=== PATIENT | male | born 1965 | race Caucasian/White ===

== ENCOUNTER 2017-03-03 13:39 | Emergency (ER) | payer OTHER ==
[2017-03-03 14:12] VITALS: BP 177/102
--- NOTE | 2017-03-03 14:21 | EDM.PDOC ---
ED HPI GENERAL MEDICAL PROBLEM - General Chief Complaint: ENT Problem Stated Complaint: TOOTH PAIN Time Seen by Provider: 03/03/17 14:10 Source of Information: Reports: Patient History Limitations: Reports: No Limitations - History of Present Illness INITIAL COMMENTS - FREE TEXT/NARRATIVE: The patient presents with tooth pain. This started a couple days ago. The pain is in the left upper jaw. He has a bad molar. He put a temporary filling in it. He has no fever or chills. He did contact his dentist and she recommended coming in to get an antibiotic and something for pain. Onset: Gradual Duration: Day(s): Location: Reports: Face (left upper gum line) Quality: Reports: Sharp Severity: Severe Improves with: Reports: None Worsens with: Reports: None Associated Symptoms: Reports: No Other Symptoms Treatments PALM GATHERER: Reports: NSAIDS Left Upper Tooth/Teeth Pain Score (Numeric/FACES): 9 - Related Data Allergies Allergy/AdvReac Type Severity Reaction Status Date / Time No Known Allergies Allergy Verified 03/03/17 14:09 Home Meds: Home Meds Penicillin V Potassium 500 mg PO Q6HR #40 tab 03/03/17 [Rx] oxyCODONE HCl/Acetaminophen [Percocet 5-325 mg Tablet] 1 - 2 each PO Q6HR PRN # 20 tablet 03/03/17 [Rx] ED ROS ENT - Review of Systems Review Of Systems: See Below Constitutional: Reports: No Symptoms HEENT: Reports: Dental Pain (Left upper jaw) Respiratory: Reports: No Symptoms Cardiovascular: Reports: No Symptoms Endocrine: Reports: No Symptoms GI/Abdominal: Reports: No Symptoms : Reports: No Symptoms Musculoskeletal: Reports: No Symptoms ED EXAM, ENT - Physical Exam Exam: See Below Exam Limited By: No Limitations General Appearance: Alert, No Apparent Distress Ears: Normal External Exam Nose: Normal Inspection Mouth/Throat: Other (Pain upon palpation, erythema and edema around a molar in the left upper gum line. There is a temporary filling) Course - Vital Signs Last Recorded V/S: Last Vital Signs Temp 96.9 F 03/03/17 14:11 Pulse 81 03/03/17 14:11 Resp 18 03/03/17 14:11 BP 177/102 H 03/03/17 14:11 Pulse Ox 97 03/03/17 14:11 Departure - Departure Time of Disposition: 14:20 Disposition: Home, Self-Care 01 Condition: good Clinical Impression: Dental abscess, Dental caries, Pain, dental - Discharge Information Prescriptions: Penicillin V Potassium 500 mg PO Q6HR #40 tab oxyCODONE HCl/Acetaminophen [Percocet 5-325 mg Tablet] 1 - 2 each PO Q6HR PRN # 20 tablet PRN Reason: Pain Forms: ED Department Discharge Additional Instructions: Take the medication as prescribed. Follow up with your dentist. Please return if you are worse.
== END 2017-03-03 14:39 | disposition home or self-care (01) ==
LOC: JD.ED 13:39
DX: K04.7 Periapical abscess without sinus (principal); K02.9 Dental caries, unspecified
CPT/HCPCS: 99283

== ENCOUNTER 2021-05-31 17:11 | Emergency (ER) | payer BC, OTHER ==
[2021-05-31 19:31] VITALS: BP 147/61; PULSE 88
[2021-05-31] MEDS ORDERED: Ketorolac 60 MG/2 ML SDV IM ONE (20:45)
--- NOTE | 2021-05-31 21:34 | EDM.PDOC ---
ED HPI GENERAL MEDICAL PROBLEM - General Chief Complaint: Lower Extremity Injury/Pain Stated Complaint: COVID + , PAIN ON RT HIP Time Seen by Provider: 05/31/21 19:34 Source of Information: Reports: Patient History Limitations: Reports: No Limitations - History of Present Illness INITIAL COMMENTS - FREE TEXT/NARRATIVE: 55-year-old male presents the emergency department with complaints of left hip pain. Patient states that he has had issues with his left hip and he states it frequently goes out of place and he sees a chiropractor for this. He states that he was in to see the chiropractor earlier in the week and had it put back into place however he had to return for a second time. He states the chiropractor told him and that his muscles were so inflamed that it was di fficult to get it to stay where was supposed to. Patient was diagnosed with Covid 3 days ago. He states that since developing Covid he has had body aches which is causing worsening pain to his left hip and inflammation. Patient is requesting to receive some sort of pain medication to treat the left hip pain. He is requesting a muscle relaxer however I did discuss with him that it is not indicated in this case. He states he sees his primary care provider in 4 days and needs something just to get him by. Right Hip Pain Score (Numeric/FACES): 8 - Related Data Allergies Allergy/AdvReac Type Severity Reaction Status Date / Time No Known Allergies Allergy Verified 05/31/21 19:31 Home Meds: Home Meds Empagliflozin [Jardiance] 10 mg PO DAILY 05/31/21 [History] Rosuvastatin Calcium 20 mg PO DAILY 05/31/21 [History] lisinopriL [Lisinopril] 40 mg PO DAILY 05/31/21 [History] metFORMIN [Glucophage] 500 mg PO BID 05/31/21 [History] Past Medical History - Past Health History Medical/Surgical History: Denies Medical/Surgical History Cardiovascular History: Reports: Hypertension Gastrointestinal History: Reports: Other (See Below) Other Gastrointestinal History: gout Musculoskeletal History: Reports: Arthritis Endocrine/Metabolic History: Reports: Diabetes, Type II - Infectious Disease History Infectious Disease History: Reports: Novel Coronavirus Social & Family History - Tobacco Use Tobacco Use Status *Q: Current Every Day Tobacco User Years of Tobacco use: 30 Packs/Tins Daily: 0.5 - Caffeine Use Caffeine Use: Reports: Soda - Recreational Drug Use Recreational Drug Use: No Review of Systems - Review of Systems Review Of Systems: Comprehensive ROS is negative, except as noted in HPI. ED EXAM, GENERAL - Physical Exam Exam: See Below Exam Limited By: No Limitations General Appearance: Alert, WD/WN, No Apparent Distress Ears: Normal External Exam, Hearing Grossly Normal Nose: Normal Inspection Throat/Mouth: Normal Inspection, Normal Lips, Normal Voice, No Airway Compromise Head: Atraumatic Neck: Normal Inspection, Supple Respiratory/Chest: No Respiratory Distress, No Accessory Muscle Use Cardiovascular: Normal Peripheral Pulses, Regular Rate, Rhythm GI/Abdominal: No Distention (Male) Exam: Deferred Rectal (Males) Exam: Deferred Back Exam: Normal Inspection, Full Range of Motion Extremities: Normal Inspection, Normal Range of Motion, No Pedal Edema, Normal Capillary Refill (Left hip). No: Non-Tender Neurological: Alert, Oriented, Normal Cognition Psychiatric: Normal Affect, Normal Mood Skin Exam: Warm, Dry, Intact, Normal Color, No Rash Lymphatic: No Adenopathy Course - Vital Signs Text/Narrative:: As stated above, patient complains of worsening left hip discomfort and inflammation. He believes that it is exacerbated by having Covid and body aches. He states he has been taking Tylenol and aspirin for the discomfort. However this has not been working. Discussed with him that it would be more appropriate for him to be taking ibuprofen at this time as that more likely will reduce inflammation as well as pain. He is asking for a muscle relaxer as stated above however I did discuss with him that it is not appropriate in this situation. I will give the patient a shot of Toradol. Discussed with him that when he goes home that he could alternate Tylenol 650 mg with ibuprofen 600 mg every 4 hours for the discomfort. This will likely be superior and controlling his body aches and left hip discomfort. Patient is agreeable to this plan. Last Recorded V/S: Last Vital Signs Temp 97 F 05/31/21 19:28 Pulse 88 05/31/21 19:28 Resp 16 05/31/21 19:28 BP 147/61 H 05/31/21 19:28 Pulse Ox 99 05/31/21 19:28 - Orders/Labs/Meds Meds: Medications Discontinued Medications Generic Name Dose Route Start Last Admin Trade Name Freq PRN Reason Stop Dose Admin Ketorolac Tromethamine 60 mg 05/31/21 20:45 05/31/21 21:23 Ketorolac 60 Mg/2 Ml Sdv IM 05/31/21 20:46 60 mg ONETIME ONE Administration Departure - Departure Time of Disposition: 21:34 Disposition: Home, Self-Care 01 Condition: Good Clinical Impression: Hip pain - Discharge Information Instructions: Pain Medicine Instructions, [id number] Referrals: Rick Rubio MD [Primary Care Provider] - Additional Instructions: You were seen in the emergency department today with complaints of pain in your hip that you state is chronic. While in the emergency department you received Toradol, and anti-inflammatory medication. This likely will help with the inflammation and discomfort in your left hip. Go home, rest, drink plenty of fluids to stay hydrated. May alternate Tylenol 650 mg with ibuprofen 600 mg for the next 48 hours. This likely will help decrease inflammation and pain associated in your hip. Follow-up with your primary care provider at the next available appointment. Sepsis Event Note (ED) - Evaluation Sepsis Screening Result: No Definite Risk - Focused Exam Vital Signs: Vital Signs Temp Pulse Resp BP Pulse Ox 05/31/21 19:28 97 F 88 16 147/61 H 99
== END 2021-05-31 21:55 | disposition home or self-care (01) ==
LOC: JD.ED 17:11
DX: M25.552 Pain in left hip (principal); E11.9 Type 2 diabetes mellitus without complications; I10 Essential (primary) hypertension; Z72.0 Tobacco use; Z79.84 Long term (current) use of oral hypoglycemic drugs; Z79.899 Other long term (current) drug therapy; Z86.16 Personal history of COVID-19
CPT/HCPCS: 96372; 99283; J1885

== ENCOUNTER 2021-06-07 17:14 | Inpatient (IN) | payer BC ==
--- NOTE | 2021-06-07 18:32 | CR ---
Chest: Portable view of the chest was obtained. Comparison: No prior chest imaging is available. Patchy areas of increased densities are seen peripherally within the right lung. Heart size and mediastinum are normal. Slight density within the left lung base is noted. Prior left shoulder surgery is noted. No definite acute abnormality is appreciated within the osseous structures. Impression: 1. Patchy areas of peripheral density within the right lung as well as slight density within the left lung base. Findings are suspicious for possible COVID pneumonia. Please correlate. Diagnostic code #3
[2021-06-07] MEDS ORDERED: Sodium Chloride 0.9% 10 ML SDV FLUSH ONE (19:04)
[2021-06-07] MEDS ORDERED: Iopamidol 755 Mg/ML 100 ML Bottle IVPUSH ONE (19:04)
[2021-06-07] MEDS ORDERED: Sodium Chloride 0.9% 100 ML IV SCH (19:15)
[2021-06-07] MEDS ORDERED: Dexamethasone 4 MG Tab PO ONE (19:47)
--- NOTE | 2021-06-07 20:07 | CT ---
CT chest Technique: Multiple axial sections through the chest were obtained. Intravenous contrast was utilized. Study has been performed as a pulmonary angiogram protocol. Comparison: No prior chest CT study, prior chest x-ray performed on the same day (6:15 PM). Findings: Pulmonary arteries are moderately opacified. No discrete filling defects are seen to indicate discrete pulmonary embolism. Thoracic aorta shows no aneurysm. Scattered lymph nodes within the mediastinum are seen which are believed to be within normal limits. No axillary adenopathy is seen. Small portion of the visualized upper abdominal structures show nothing acute. Lung window settings were reviewed which show diffuse increased parenchymal opacity throughout both lungs. These findings are highly suspicious for Covid pneumonia. No pleural effusions are seen. Bone window settings were reviewed which show scattered degenerative change within the thoracic spine with disc space narrowing and osteophytes. No acute osseous finding is otherwise seen. Impression: 1. No findings of pulmonary embolism. 2. Diffuse opacity within both lungs which has the appearance of diffuse Covid pneumonia. 3. Other incidental findings. Diagnostic code #3
[2021-06-07] MEDS ORDERED: REMDESIVIR 200 MG in Sodium Chloride 0.9% 250 ML IV ONE (20:37)
--- NOTE | 2021-06-07 21:25 | EDM.PDOC ---
ED HPI GENERAL MEDICAL PROBLEM - General Chief Complaint: Respiratory Problem Stated Complaint: COVID + SENT BY CLINIC Time Seen by Provider: 06/07/21 17:45 Source of Information: Reports: Patient, RN Notes Reviewed History Limitations: Reports: No Limitations - History of Present Illness INITIAL COMMENTS - FREE TEXT/NARRATIVE: Patient is a 55-year-old male presenting to the emergency department after being sent from [facility]. He was diagnosed as Covid positive on Friday which is the day his symptoms began. Reports that he felt like he was getting better and then over the last few days has gotten worse again reports shortness of breath and severe cough as well as fatigue. He has had no nausea, vomiting, or diarrhea, but states that foods taste metallic. He denies any known fever. He was evaluated in the clinic, he was found to be hypoxic. He was sent to this emergency department on oxygen. On arrival to ER, he was 79% on room air. - Related Data Allergies Allergy/AdvReac Type Severity Reaction Status Date / Time No Known Allergies Allergy Verified 06/07/21 17:42 Home Meds: Home Meds Empagliflozin [Jardiance] 10 mg PO DAILY 05/31/21 [History] Rosuvastatin Calcium 20 mg PO DAILY 05/31/21 [History] lisinopriL [Lisinopril] 40 mg PO DAILY 05/31/21 [History] metFORMIN [Glucophage] 1,000 mg PO BID 05/31/21 [History] Past Medical History - Past Health History Medical/Surgical History: Denies Medical/Surgical History Cardiovascular History: Reports: Hypertension Gastrointestinal History: Reports: Other (See Below) Other Gastrointestinal History: gout Musculoskeletal History: Reports: Arthritis Endocrine/Metabolic History: Reports: Diabetes, Type II - Infectious Disease History Infectious Disease History: Reports: Novel Coronavirus Social & Family History - Tobacco Use Tobacco Use Status *Q: Current Every Day Tobacco User Years of Tobacco use: 22 Packs/Tins Daily: 0.5 - Caffeine Use Caffeine Use: Reports: Soda - Alcohol Use Days Per Week of Alcohol Use: 7 Number of Drinks Per Day: 3 Total Drinks Per Week: 21 - Recreational Drug Use Recreational Drug Use: No ED ROS GENERAL - Review of Systems Review Of Systems: See Below Constitutional: Reports: Fever, Chills, Weakness, Fatigue, Decreased Appetite HEENT: Reports: No Symptoms Respiratory: Reports: Shortness of Breath, Cough Cardiovascular: Reports: Dyspnea on Exertion. Denies: Chest Pain Endocrine: Reports: No Symptoms GI/Abdominal: Reports: Decreased Appetite, Other (Altered sense of taste). Denies: Diarrhea, Vomiting : Reports: No Symptoms Musculoskeletal: Reports: Other (Generalized body aches) Skin: Reports: No Symptoms Neurological: Reports: No Symptoms Psychiatric: Reports: No Symptoms Hematologic/Lymphatic: Reports: No Symptoms Immunologic: Reports: No Symptoms ED EXAM, GENERAL - Physical Exam Exam: See Below Exam Limited By: No Limitations General Appearance: Alert, WD/WN, No Apparent Distress Respiratory/Chest: No Respiratory Distress, No Accessory Muscle Use, Chest Non- Tender, Other (Diffuse rhonchi throughout lung cross. Harsh cough with deep breathing) Cardiovascular: Normal Peripheral Pulses, Regular Rate, Rhythm, No Edema, No Gallop, No JVD, No Murmur, No Rub GI/Abdominal: Normal Bowel Sounds, Soft, Non-Tender, No Organomegaly, No Distention, No Abnormal Bruit, No Mass Extremities: Normal Inspection, Normal Range of Motion, Non-Tender, Normal Cap illary Refill, No Pedal Edema Neurological: Alert, Oriented, CN II-XII Intact, Normal Cognition, Normal Gait, Normal Reflexes, No Motor/Sensory Deficits Psychiatric: Normal Affect, Normal Mood Skin Exam: Warm, Dry, Intact, Normal Color, No Rash #1 Interpretation EKG Date: 06/07/21 Time: 18:29 Rhythm: NSR Rate (Beats/Min): 99 Mulga: LAD-Left Mulga Deviation P-Wave: Present QRS: Other (Right bundle branch block and left anterior fascicular block) ST-T: Normal QT: Prolonged (Mildly) Comparison: NA - No Prior EKG Course - Vital Signs Last Recorded V/S: Last Vital Signs Temp 99.1 F 06/07/21 17:40 Pulse 99 06/07/21 17:40 Resp 19 06/07/21 17:40 BP 91/41 L 06/07/21 17:40 Pulse Ox 79 L 06/07/21 17:40 - Orders/Labs/Meds Orders: Active Orders 24 hr Category Date Time Status Cardiac Monitoring [RC] . DIRECTED Care 06/07/21 17:47 Active Oxygen Therapy [RC] ASDIRECTED Care 06/07/21 17:46 Active HEPATIC FUNCTION PANEL,HFP [CHEM] DAILY Lab 06/08/21 20:45 Ordered HEPATIC FUNCTION PANEL,HFP [CHEM] DAILY Lab 06/09/21 20:45 Ordered HEPATIC FUNCTION PANEL,HFP [CHEM] DAILY Lab 06/10/21 20:45 Ordered HEPATIC FUNCTION PANEL,[employer] [CHEM] DAILY Lab 06/11/21 20:45 Ordered Sodium Chloride 0.9% [Normal Saline] 100 ml Med 06/07/21 19:15 Active IV ASDIRECTED Medication Orders Sodium Chloride (Normal Saline) 100 mls @ 60 mls/min IV ASDIRECTED MYLES Last Admin: 06/07/21 19:29 Dose: 60 mls/min Documented by: KAYLENE Labs: Laboratory Tests 06/07/21 06/07/21 06/07/21 Range/Units 17:45 17:45 17:45 WBC 8.25 (4.23-9.07) K/mm3 RBC 5.49 (4.63-6.08) M/mm3 Hgb 15.5 (13.7-17.5) gm/dl Hct 46.5 (40.1-51.0) % MCV 84.7 (79.0-92.2) fl MCH 28.2 (25.7-32.2) pg MCHC 33.3 (32.2-35.5) g/dl RDW Std Deviation 47.0 H (35.1-43.9) fL Plt Count 236 (163-337) K/mm3 MPV 10.0 (9.4-12.3) fl Neut % (Auto) 80.3 H (34.0-67.9) % Lymph % (Auto) 13.1 L (21.8-53.1) % Sullivan % (Auto) 6.1 (5.3-12.2) % Eos % (Auto) 0.2 L (0.8-7.0) Baso % (Auto) 0.2 (0.1-1.2) % Neut # (Auto) 6.62 H (1.78-5.38) K/mm3 Lymph # (Auto) 1.08 L (1.32-3.57) K/mm3 Sullivan # (Auto) 0.50 (0.30-0.82) K/mm3 Eos # (Auto) 0.02 L (0.04-0.54) K/mm3 Baso # (Auto) 0.02 (0.01-0.08) K/mm3 Manual Slide Review Normal smear D-Dimer, Quantitative 2.43 H (0.19-0.50) mg/L Puncture Site ABG pH (7.35-7.45) ABG pCO2 (35.0-45.0) mmHg ABG pO2 (80.0-100.0) mmHg ABG HCO3 (22.0-26.0) meq/L ABG O2 Saturation (96.0-97.0) % ABG Base Excess (-2-2.0) A-a Gradient mmHg O2 Delivery Device Oxygen Flow Rate FiO2 (21.00-100.00) % Sodium 139 (136-145) mEq/L Potassium 3.6 (3.5-5.1) mEq/L Chloride 102 (98-107) mEq/L Carbon Dioxide 26 (21-32) mEq/L Anion Gap 14.6 (5-15) BUN 18 (7-18) mg/dL Creatinine 1.0 (0.7-1.3) mg/dL Est Cr Clr Drug Dosing 84.15 mL/min Estimated GFR (MDRD) > 60 (>60) mL/min BUN/Creatinine Ratio 18.0 (14-18) Glucose 129 H (70-99) mg/dL Lactic Acid (0.4-2.0) mmol/L Calcium 8.3 L (8.5-10.1) mg/dL Magnesium 2.0 (1.8-2.4) mg/dL Total Bilirubin 0.7 (0.2-1.0) mg/dL Direct Bilirubin (0.0-0.2) mg/dl Indirect Bilirubin AST 47 H (15-37) U/L ALT 43 (16-63) U/L Alkaline Phosphatase 63 (46-116) U/L Troponin I 0.035 (0.00-0.056) ng/mL Total Protein 6.8 (6.4-8.2) g/dl Albumin 2.5 L (3.4-5.0) g/dl Globulin 4.3 gm/dL Albumin/Globulin Ratio 0.6 L (1-2) 06/07/21 06/07/21 06/07/21 Range/Units 17:45 18:38 20:37 WBC (4.23-9.07) K/mm3 RBC (4.63-6.08) M/mm3 Hgb (13.7-17.5) gm/dl Hct (40.1-51.0) % MCV (79.0-92.2) fl MCH (25.7-32.2) pg MCHC (32.2-35.5) g/dl RDW Std Deviation (35.1-43.9) fL Plt Count (163-337) K/mm3 MPV (9.4-12.3) fl Neut % (Auto) (34.0-67.9) % Lymph % (Auto) (21.8-53.1) % Sullivan % (Auto) (5.3-12.2) % Eos % (Auto) (0.8-7.0) Baso % (Auto) (0.1-1.2) % Neut # (Auto) (1.78-5.38) K/mm3 Lymph # (Auto) (1.32-3.57) K/mm3 Sullivan # (Auto) (0.30-0.82) K/mm3 Eos # (Auto) (0.04-0.54) K/mm3 Baso # (Auto) (0.01-0.08) K/mm3 Manual Slide Review D-Dimer, Quantitative (0.19-0.50) mg/L Puncture Site Rt radial ABG pH 7.47 H (7.35-7.45) ABG pCO2 32.5 L (35.0-45.0) mmHg ABG pO2 56.0 L (80.0-100.0) mmHg ABG HCO3 23.2 (22.0-26.0) meq/L ABG O2 Saturation 89.8 L (96.0-97.0) % ABG Base Excess 0.7 (-2-2.0) A-a Gradient 160 mmHg O2 Delivery Device Nasal cannula Oxygen Flow Rate 4.0 FiO2 36.00 (21.00-100.00) % Sodium (136-145) mEq/L Potassium (3.5-5.1) mEq/L Chloride (98-107) mEq/L Carbon Dioxide (21-32) mEq/L Anion Gap (5-15) BUN (7-18) mg/dL Creatinine (0.7-1.3) mg/dL Est Cr Clr Drug Dosing mL/min Estimated GFR (MDRD) (>60) mL/min BUN/Creatinine Ratio (14-18) Glucose (70-99) mg/dL Lactic Acid 1.6 (0.4-2.0) mmol/L Calcium (8.5-10.1) mg/dL Magnesium (1.8-2.4) mg/dL Total Bilirubin 0.7 (0.2-1.0) mg/dL Direct Bilirubin 0.30 H (0.0-0.2) mg/dl Indirect Bilirubin 0.40 AST 45 H (15-37) U/L ALT 41 (16-63) U/L Alkaline Phosphatase 61 (46-116) U/L Troponin I (0.00-0.056) ng/mL Total Protein 6.5 (6.4-8.2) g/dl Albumin 2.3 L (3.4-5.0) g/dl Globulin 4.2 gm/dL Albumin/Globulin Ratio 0.6 L (1-2) Meds: Medications Generic Name Dose Route Start Last Admin Trade Name Freq PRN Reason Stop Dose Admin Sodium Chloride 100 mls @ 60 mls/min 06/07/21 19:15 06/07/21 19:29 Normal Saline IV 60 mls/min ASDIRECTED MYLES Administration Discontinued Medications Generic Name Dose Route Start Last Admin Trade Name Freq PRN Reason Stop Dose Admin Dexamethasone 6 mg 06/07/21 19:47 06/07/21 20:28 Dexamethasone 4 Mg Tab PO 06/07/21 19:48 6 mg ONETIME ONE Administration Remdesivir 200 mg/ Sodium 250 mls @ 250 mls/hr 06/07/21 20:37 06/07/21 20:54 Chloride IV 06/07/21 20:38 250 mls/hr ONETIME ONE Administration Iopamidol 100 ml 06/07/21 19:04 06/07/21 19:29 Iopamidol 755 Mg/Ml 100 Ml Bottle IVPUSH 06/07/21 19:05 100 ml ONETIME ONE Administration Sodium Chloride 10 ml 06/07/21 19:04 06/07/21 19:29 Sodium Chloride 0.9% 10 Ml Sdv FLUSH 06/07/21 19:05 10 ml ONETIME ONE Administration - Re-Assessments/Exams Free Text/Narrative Re-Assessment/Exam: Patient is a 55-year-old male sent to the emergency department from [facility] for hypoxia with known diagnosis of COVID-19. On exam, he has diffuse crackles throughout his lung cross. Oxygen saturation was 79% on room air. O2 is currently at 4 L by nasal cannula saturating in the low 90s. I have ordered blood work, EKG, chest x-ray, and ABGs. 06/07/21 1850 Hematology significant for D-dimer elevated at 2.43. Troponin is normal. ABGs show 7.47, PCO2 32.5, PO2 56, with an oxygen saturation of 89.8. This is on 4L of oxygen by nasal cannula. When significant hypoxia and elevation in D-dimer, I have ordered CT angiogram of the chest. 06/07/212029 CT angiogram of the chest impression as follows: 1. No findings of pulmonary embolism. 2. Diffuse opacities within both lungs which has the appearance of diffuse Covid pneumonia. 3. Other incidental findings. Case discussed with hospitalist, Dr. Campos. She has accepted the patient for admission. She requested that remdesivir be given in the ER and bridge orders be written. She will see him in the morning. Patient was requesting something to help him sleep this evening. She recommended Restoril Departure - Departure Time of Disposition: 20:30 Disposition: Admitted As Inpatient 64 Condition: Fair Clinical Impression: Pneumonia due to COVID-19 virus, Hypoxia - Discharge Information Sepsis Event Note (ED) - Evaluation Sepsis Screening Result: Possible Sepsis Risk - Focused Exam Vital Signs: Vital Signs Temp Pulse Resp BP Pulse Ox 06/07/21 17:40 99.1 F 99 19 91/41 L 79 L - My Orders Last 24 Hours: My Active Orders 06/07/21 17:46 Oxygen Therapy [RC] ASDIRECTED 06/07/21 17:47 Cardiac Monitoring [RC] . DIRECTED 06/07/21 19:15 Sodium Chloride 0.9% [Normal Saline] 100 ml IV ASDIRECTED 06/08/21 20:45 HEPATIC FUNCTION PANEL,HFP [CHEM] DAILY 06/09/21 20:45 HEPATIC FUNCTION PANEL,HFP [CHEM] DAILY 06/10/21 20:45 HEPATIC FUNCTION PANEL,HFP [CHEM] DAILY 06/11/21 20:45 HEPATIC FUNCTION PANEL,HFP [CHEM] DAILY - Assessment/Plan Last 24 Hours: My Active Orders 06/07/21 17:46 Oxygen Therapy [RC] ASDIRECTED 06/07/21 17:47 Cardiac Monitoring [RC] . DIRECTED 06/07/21 19:15 Sodium Chloride 0.9% [Normal Saline] 100 ml IV ASDIRECTED 06/08/21 20:45 HEPATIC FUNCTION PANEL,HFP [CHEM] DAILY 06/09/21 20:45 HEPATIC FUNCTION PANEL,HFP [CHEM] DAILY 06/10/21 20:45 HEPATIC FUNCTION PANEL,HFP [CHEM] DAILY 06/11/21 20:45 HEPATIC FUNCTION PANEL,HFP [CHEM] DAILY
--- NOTE | 2021-06-08 07:37 | PCM.HP.2 ---
H&P History of Present Illness - General Date of Service: 06/08/21 Admit Problem/Dx: Admission Diagnosis/Problem Admission Diagnosis/Problem Hypoxia Covid 19 pneumonia with hypoxia Source of Information: Patient History Limitations: Reports: No Limitations - History of Present Illness Initial Comments - Free Text/Narative: 55yom with pmh of DM type 2, hypertension, and hyperlipidemia presenting to the emergency department after being sent from [facility]. He was diagnosed as Covid positive on Friday which is the day his symptoms began. Reports that he felt like he was getting better and then over the last few days has gotten worse again reports shortness of breath and severe cough as well as fatigue. He has had no nausea, vomiting, or diarrhea, but states that foods taste metallic. He denies any known fever chills sick contacts or recent travel. He was evaluated in the clinic, he was found to be hypoxic. He was sent to this emergency department on oxygen. On arrival to ER, he was 79% on room air. Onset of Symptoms: Reports: Gradual Symptom Onset Date: 06/05/21 Duration of Symptoms: Reports: Getting Worse Location: Reports: Chest Quality: Reports: Pressure Severity: Severe Improves with: Reports: None Worsens with: Reports: None Associated Symptoms: Reports: Cough, cough w sputum, Loss of Appetite, Nausea/Vomiting, Weakness - Related Data Allergies/Adverse Reactions: Allergies Allergy/AdvReac Type Severity Reaction Status Date / Time No Known Allergies Allergy Verified 06/07/21 17:42 Home Medications: Home Meds Empagliflozin [Jardiance] 10 mg PO DAILY 05/31/21 [History] Rosuvastatin Calcium 20 mg PO DAILY 05/31/21 [History] lisinopriL [Lisinopril] 40 mg PO DAILY 05/31/21 [History] metFORMIN [Glucophage] 1,000 mg PO BID 05/31/21 [History] Ibuprofen 600 mg PO Q4HR PRN 06/08/21 [History] Past Medical History - Past Health History Medical/Surgical History: Denies Medical/Surgical History HEENT History: Reports: Other (See Below) Other HEENT History: Pt wears glasses and an upper partial Cardiovascular History: Reports: Hypertension Gastrointestinal History: Reports: Other (See Below) Other Gastrointestinal History: gout Musculoskeletal History: Reports: Arthritis, Back Pain, Chronic Endocrine/Metabolic History: Reports: Diabetes, Type II - Infectious Disease History Infectious Disease History: Reports: Novel Coronavirus - Past Surgical History HEENT Surgical History: Reports: None Cardiovascular Surgical History: Reports: None GI Surgical History: Reports: None Endocrine Surgical History: Reports: None Musculoskeletal Surgical History: Reports: Shoulder Replacement, Other (See Below) Other Musculoskeletal Surgeries/Procedures:: Left shoulder Social & Family History - Family History Family Medical History: Unobtainable - Tobacco Use Tobacco Use Status *Q: Current Every Day Tobacco User Years of Tobacco use: 25 Packs/Tins Daily: 0.5 Used Tobacco, but Quit: No - Caffeine Use Caffeine Use: Reports: Soda - Alcohol Use Days Per Week of Alcohol Use: 4 Number of Drinks Per Day: 4 Total Drinks Per Week: 16 Date of Last Drink: 06/01/21 - Recreational Drug Use Recreational Drug Use: No H&P Review of Systems - Review of Systems: Review Of Systems: See Below General: Reports: Malaise, Weakness, Fatigue HEENT: Reports: No Symptoms Pulmonary: Reports: Shortness of Breath, Wheezing, Pleuritic Chest Pain, Cough, Sputum, Hemoptysis Cardiovascular: Reports: Dyspnea on Exertion Gastrointestinal: Reports: No Symptoms Genitourinary: Reports: No Symptoms Musculoskeletal: Reports: Back Pain Skin: Reports: No Symptoms Psychiatric: Reports: No Symptoms Neurological: Reports: No Symptoms Hematologic/Lymphatic: Reports: No Symptoms Immunologic: Reports: No Symptoms Exam - Exam Exam: See Below - Vital Signs Vital Signs: Last Vital Signs Temp 98.2 F 06/08/21 03:48 Pulse 77 06/08/21 03:48 Resp 41 H 06/08/21 04:00 BP 116/61 06/08/21 03:48 Pulse Ox 92 L 06/08/21 03:48 Weight: 267 lb 1.6 oz - Exam Quality Assessment: Supplemental Oxygen General: Alert, Oriented, Cooperative, Severe Distress HEENT: Conjunctiva Clear, EOMI Neck: Supple, Trachea Midline Lungs: Decreased Breath Sounds, Rales, Rhonchi Cardiovascular: Regular Rate, Regular Rhythm GI/Abdominal Exam: Normal Bowel Sounds, Soft, Non-Tender Back Exam: Normal Inspection Extremities: Normal Inspection Skin: Warm Neurological: Cranial Nerves Intact Neuro Extensive - Mental Status: Alert, Oriented x3 Neuro Extensive - Motor, Sensory, Reflexes: CN II-XII Intact - Patient Data Lab Results Last 24 hrs: Laboratory Results - last 24 hr 06/07/21 06/07/21 06/07/21 Range/Units 17:45 17:45 17:45 WBC 8.25 (4.23-9.07) K/mm3 RBC 5.49 (4.63-6.08) M/mm3 Hgb 15.5 (13.7-17.5) gm/dl Hct 46.5 (40.1-51.0) % MCV 84.7 (79.0-92.2) fl MCH 28.2 (25.7-32.2) pg MCHC 33.3 (32.2-35.5) g/dl RDW Std Deviation 47.0 H (35.1-43.9) fL Plt Count 236 (163-337) K/mm3 MPV 10.0 (9.4-12.3) fl Neut % (Auto) 80.3 H (34.0-67.9) % Lymph % (Auto) 13.1 L (21.8-53.1) % Leon % (Auto) 6.1 (5.3-12.2) % Eos % (Auto) 0.2 L (0.8-7.0) Baso % (Auto) 0.2 (0.1-1.2) % Neut # (Auto) 6.62 H (1.78-5.38) K/mm3 Lymph # (Auto) 1.08 L (1.32-3.57) K/mm3 Leon # (Auto) 0.50 (0.30-0.82) K/mm3 Eos # (Auto) 0.02 L (0.04-0.54) K/mm3 Baso # (Auto) 0.02 (0.01-0.08) K/mm3 Manual Slide Review Normal smear D-Dimer, Quantitative 2.43 H (0.19-0.50) mg/L Puncture Site ABG pH (7.35-7.45) ABG pCO2 (35.0-45.0) mmHg ABG pO2 (80.0-100.0) mmHg ABG HCO3 (22.0-26.0) meq/L ABG O2 Saturation (96.0-97.0) % ABG Base Excess (-2-2.0) A-a Gradient mmHg O2 Delivery Device Oxygen Flow Rate FiO2 (21.00-100.00) % Sodium 139 (136-145) mEq/L Potassium 3.6 (3.5-5.1) mEq/L Chloride 102 (98-107) mEq/L Carbon Dioxide 26 (21-32) mEq/L Anion Gap 14.6 (5-15) BUN 18 (7-18) mg/dL Creatinine 1.0 (0.7-1.3) mg/dL Est Cr Clr Drug Dosing 84.15 mL/min Estimated GFR (MDRD) > 60 (>60) mL/min BUN/Creatinine Ratio 18.0 (14-18) Glucose 129 H (70-99) mg/dL Lactic Acid (0.4-2.0) mmol/L Calcium 8.3 L (8.5-10.1) mg/dL Magnesium 2.0 (1.8-2.4) mg/dL Total Bilirubin 0.7 (0.2-1.0) mg/dL Direct Bilirubin (0.0-0.2) mg/dl Indirect Bilirubin AST 47 H (15-37) U/L ALT 43 (16-63) U/L Alkaline Phosphatase 63 (46-116) U/L Troponin I 0.035 (0.00-0.056) ng/mL C-Reactive Protein (<1.0) mg/dL Total Protein 6.8 (6.4-8.2) g/dl Albumin 2.5 L (3.4-5.0) g/dl Globulin 4.3 gm/dL Albumin/Globulin Ratio 0.6 L (1-2) 06/07/21 06/07/21 06/07/21 Range/Units 17:45 18:38 20:37 WBC (4.23-9.07) K/mm3 RBC (4.63-6.08) M/mm3 Hgb (13.7-17.5) gm/dl Hct (40.1-51.0) % MCV (79.0-92.2) fl MCH (25.7-32.2) pg MCHC (32.2-35.5) g/dl RDW Std Deviation (35.1-43.9) fL Plt Count (163-337) K/mm3 MPV (9.4-12.3) fl Neut % (Auto) (34.0-67.9) % Lymph % (Auto) (21.8-53.1) % Leon % (Auto) (5.3-12.2) % Eos % (Auto) (0.8-7.0) Baso % (Auto) (0.1-1.2) % Neut # (Auto) (1.78-5.38) K/mm3 Lymph # (Auto) (1.32-3.57) K/mm3 Leon # (Auto) (0.30-0.82) K/mm3 Eos # (Auto) (0.04-0.54) K/mm3 Baso # (Auto) (0.01-0.08) K/mm3 Manual Slide Review D-Dimer, Quantitative (0.19-0.50) mg/L Puncture Site Rt radial ABG pH 7.47 H (7.35-7.45) ABG pCO2 32.5 L (35.0-45.0) mmHg ABG pO2 56.0 L (80.0-100.0) mmHg ABG HCO3 23.2 (22.0-26.0) meq/L ABG O2 Saturation 89.8 L (96.0-97.0) % ABG Base Excess 0.7 (-2-2.0) A-a Gradient 160 mmHg O2 Delivery Device Nasal cannula Oxygen Flow Rate 4.0 FiO2 36.00 (21.00-100.00) % Sodium (136-145) mEq/L Potassium (3.5-5.1) mEq/L Chloride (98-107) mEq/L Carbon Dioxide (21-32) mEq/L Anion Gap (5-15) BUN (7-18) mg/dL Creatinine (0.7-1.3) mg/dL Est Cr Clr Drug Dosing mL/min Estimated GFR (MDRD) (>60) mL/min BUN/Creatinine Ratio (14-18) Glucose (70-99) mg/dL Lactic Acid 1.6 (0.4-2.0) mmol/L Calcium (8.5-10.1) mg/dL Magnesium (1.8-2.4) mg/dL Total Bilirubin 0.7 (0.2-1.0) mg/dL Direct Bilirubin 0.30 H (0.0-0.2) mg/dl Indirect Bilirubin 0.40 AST 45 H (15-37) U/L ALT 41 (16-63) U/L Alkaline Phosphatase 61 (46-116) U/L Troponin I (0.00-0.056) ng/mL C-Reactive Protein (<1.0) mg/dL Total Protein 6.5 (6.4-8.2) g/dl Albumin 2.3 L (3.4-5.0) g/dl Globulin 4.2 gm/dL Albumin/Globulin Ratio 0.6 L (1-2) 06/08/21 06/08/21 Range/Units 05:05 05:05 WBC 6.11 (4.23-9.07) K/mm3 RBC 5.16 (4.63-6.08) M/mm3 Hgb 14.6 (13.7-17.5) gm/dl Hct 44.0 (40.1-51.0) % MCV 85.3 (79.0-92.2) fl MCH 28.3 (25.7-32.2) pg MCHC 33.2 (32.2-35.5) g/dl RDW Std Deviation 46.2 H (35.1-43.9) fL Plt Count 234 (163-337) K/mm3 MPV 10.4 (9.4-12.3) fl Neut % (Auto) (34.0-67.9) % Lymph % (Auto) (21.8-53.1) % Leon % (Auto) (5.3-12.2) % Eos % (Auto) (0.8-7.0) Baso % (Auto) (0.1-1.2) % Neut # (Auto) (1.78-5.38) K/mm3 Lymph # (Auto) (1.32-3.57) K/mm3 Leon # (Auto) (0.30-0.82) K/mm3 Eos # (Auto) (0.04-0.54) K/mm3 Baso # (Auto) (0.01-0.08) K/mm3 Manual Slide Review D-Dimer, Quantitative (0.19-0.50) mg/L Puncture Site ABG pH (7.35-7.45) ABG pCO2 (35.0-45.0) mmHg ABG pO2 (80.0-100.0) mmHg ABG HCO3 (22.0-26.0) meq/L ABG O2 Saturation (96.0-97.0) % ABG Base Excess (-2-2.0) A-a Gradient mmHg O2 Delivery Device Oxygen Flow Rate FiO2 (21.00-100.00) % Sodium 139 (136-145) mEq/L Potassium 3.9 (3.5-5.1) mEq/L Chloride 101 (98-107) mEq/L Carbon Dioxide 24 (21-32) mEq/L Anion Gap 17.9 H (5-15) BUN 14 (7-18) mg/dL Creatinine 0.8 (0.7-1.3) mg/dL Est Cr Clr Drug Dosing 105.19 mL/min Estimated GFR (MDRD) > 60 (>60) mL/min BUN/Creatinine Ratio 17.5 (14-18) Glucose 176 H (70-99) mg/dL Lactic Acid (0.4-2.0) mmol/L Calcium 8.0 L (8.5-10.1) mg/dL Magnesium (1.8-2.4) mg/dL Total Bilirubin 0.5 (0.2-1.0) mg/dL Direct Bilirubin (0.0-0.2) mg/dl Indirect Bilirubin AST 41 H (15-37) U/L ALT 39 (16-63) U/L Alkaline Phosphatase 62 (46-116) U/L Troponin I (0.00-0.056) ng/mL C-Reactive Protein 20.3 H* (<1.0) mg/dL Total Protein 6.5 (6.4-8.2) g/dl Albumin 2.2 L (3.4-5.0) g/dl Globulin 4.3 gm/dL Albumin/Globulin Ratio 0.5 L (1-2) Result Diagrams: 06/08/21 05:05 06/08/21 05:05 Sepsis Event Note - Evaluation Sepsis Screening Result: Possible Sepsis Risk - Focused Exam Vital Signs: Vital Signs Temp Pulse Resp BP Pulse Ox 06/08/21 04:00 41 H 06/08/21 03:48 98.2 F 77 30 H 116/61 92 L 06/08/21 03:00 41 H 06/08/21 02:00 31 H 06/08/21 01:00 36 H 06/08/21 00:00 14 09/02/21 23:31 100.0 F 95 26 H 139/54 L 91 L 06/07/21 23:00 42 H 06/07/21 22:03 23 H 06/07/21 22:01 99.9 F 100 22 H 137/76 90 L Problem List Initiated/Reviewed/Updated: Yes Orders Last 24hrs: Active Orders 24 hr Category Date Time Status Admission Status [Patient Status] [ADT] Routine ADT 06/07/21 20:52 Active Activity as Tolerated [RC] BID Care 06/07/21 22:39 Active Cardiac Monitoring [RC] . DIRECTED Care 06/07/21 17:47 Active Oxygen Therapy Adult [Oxygen Therapy] [RC] ASDIRECTED Care 06/07/21 22:43 Active ADA Diabetic [[place] [employer] Diet] [DIET Diet 06/08/21 Breakfast Active ] Temazepam [Restoril] Med 06/07/21 22:42 Active 15 mg PO BEDTIME PRN Pulse Oximetry Continuous Monitoring [OM.PC] Routine Oth 06/07/21 22:47 Active Code Status [Resuscitation Status] Routine Resus Stat 06/07/21 22:38 Ordered Medication Orders Temazepam (Temazepam 15 Mg Cap) 15 mg PO BEDTIME PRN PRN Reason: Sleep Assessment/Plan Comment:: 1. acute respiratory failure with hypoxia- was presented to the er with saturation in 70's. He was placed on nc at 4 liters and the abg shows poor o2 saturation. we have placed him on high flow this am. We have also cont the r emdesmivir that was started yesterday we have added dexamethasone, we have also added baricitinib due to the progressing o2 needs. we will cont duonebs, rt, IS, acapella. 2. Covid pneumonia0 bilateral- cta negative, d dimer is elevated and cont on PPx heparin, crp, ldh, etc all ordered as routime. The patient will get repeat abg this am. 3. DM type 2- we will cont hie metformin and his Jardiance since he is having food cr level and good urine output, we will also add sliding scale insulin. 4. hyperlipidemia- cont home rosuvastatin 5. hypertension- cont lisinopril, daily labs ppx heparin time 80 min full code - Mortality Measure Prognosis:: Good
[2021-06-08] MEDS ORDERED: Ondansetron 4 MG/2 ML SDV IV PRN (07:42)
[2021-06-08] MEDS ORDERED: Morphine 2 MG/ML SYRINGE IVPUSH PRN (07:42)
[2021-06-08] MEDS: Heparin Sodium 5,000 Units/ML Vial SUBCUT SCH ×2 (10:12→16:16)
[2021-06-08] MEDS: Nicotine 14 MG/24 Hr Patch TRDERM SCH (10:13)
[2021-06-08] MEDS: Dexamethasone 10 MG/ML SDV IVPUSH SCH (10:14)
[2021-06-08] MEDS: Lisinopril 20 MG Tab PO SCH (10:14)
[2021-06-08] MEDS: guaiFENesin 600 MG Tab.ER PO SCH ×2 (10:14→21:11)
[2021-06-08] MEDS: Docusate Sodium 100 MG Cap PO SCH ×2 (10:15→21:09)
[2021-06-08] MEDS: Rosuvastatin 10 MG Tab PO SCH (10:15)
[2021-06-08] MEDS: metFORMIN 500 MG Tab PO SCH ×2 (10:15→21:10)
[2021-06-08] MEDS: Polyethylene Glycol 3350 Powder 17 GM Packet PO SCH (10:16)
[2021-06-08] MEDS: cefTRIAXone 2 GM in Sodium Chloride 0.9% 100 ML IV SCH (10:16)
[2021-06-08] MEDS: JARDIANCE PO SCH (10:17)
[2021-06-08] MEDS: Azithromycin 500 MG in Sodium Chloride 0.9% 250 ML IV SCH (11:13)
[2021-06-08] MEDS: Insulin Lispro 100 UNIT/ML 10 ML Vial SUBCUT SCH ×3 (11:14→21:11)
[2021-06-08 11:18] LABS: HEMOGLOBIN A1C 7.2 %
[2021-06-08] MEDS: Calcium Carbonate 500 MG Tab.Chew PO PRN (17:59)
[2021-06-08] MEDS: REMDESIVIR 100 MG in Sodium Chloride 0.9% 100 ML IV SCH (21:09)
[2021-06-09] MEDS: Heparin Sodium 5,000 Units/ML Vial SUBCUT SCH ×3 (01:17→17:48)
[2021-06-09] MEDS: Nicotine 14 MG/24 Hr Patch TRDERM SCH (08:16)
[2021-06-09] MEDS: Rosuvastatin 10 MG Tab PO SCH (08:16)
[2021-06-09] MEDS: Polyethylene Glycol 3350 Powder 17 GM Packet PO SCH (08:16)
[2021-06-09] MEDS: Docusate Sodium 100 MG Cap PO SCH ×2 (08:17→20:53)
[2021-06-09] MEDS: Lisinopril 20 MG Tab PO SCH (08:17)
[2021-06-09] MEDS: metFORMIN 500 MG Tab PO SCH ×2 (08:17→20:53)
[2021-06-09] MEDS: guaiFENesin 600 MG Tab.ER PO SCH ×2 (08:17→20:54)
[2021-06-09] MEDS: Dexamethasone 10 MG/ML SDV IVPUSH SCH (08:18)
[2021-06-09] MEDS: Insulin Lispro 100 UNIT/ML 10 ML Vial SUBCUT SCH ×4 (08:18→21:25)
[2021-06-09] MEDS: cefTRIAXone 2 GM in Sodium Chloride 0.9% 100 ML IV SCH (08:20)
--- NOTE | 2021-06-09 09:19 | PCM.PN ---
- General Info Date of Service: 06/09/21 Subjective Update: sitting up at side of bed. States lots of cough overnight, thick white sputum he cant get up. Functional Status: Reports: Pain Controlled, Tolerating Diet, Ambulating - Review of Systems General: Reports: Weakness HEENT: Reports: No Symptoms Pulmonary: Reports: Shortness of Breath, Cough, Sputum Cardiovascular: Reports: No Symptoms Gastrointestinal: Reports: No Symptoms Genitourinary: Reports: No Symptoms Musculoskeletal: Reports: No Symptoms Skin: Reports: No Symptoms Neurological: Reports: No Symptoms Psychiatric: Reports: No Symptoms - Patient Data Vitals - Most Recent: Last Vital Signs Temp 97.9 F 06/09/21 04:01 Pulse 68 06/09/21 04:01 Resp 18 06/09/21 04:01 BP 120/88 06/09/21 08:17 Pulse Ox 94 L 06/09/21 04:01 Weight - Most Recent: 267 lb 6.4 oz I&O - Last 24 Hours: Intake & Output 06/08/21 06/09/21 06/09/21 22:59 06:59 14:59 Intake Total 1210 1500 Output Total 925 1525 Balance 285 -25 Lab Results Last 24 Hours: Laboratory Results - last 24 hr 06/08/21 06/08/21 06/08/21 Range/Units 05:05 07:37 08:08 WBC (4.23-9.07) K/mm3 RBC (4.63-6.08) M/mm3 Hgb (13.7-17.5) gm/dl Hct (40.1-51.0) % MCV (79.0-92.2) fl MCH (25.7-32.2) pg MCHC (32.2-35.5) g/dl RDW Std Deviation (35.1-43.9) fL Plt Count (163-337) K/mm3 MPV (9.4-12.3) fl Neut % (Auto) (34.0-67.9) % Lymph % (Auto) (21.8-53.1) % Creek % (Auto) (5.3-12.2) % Eos % (Auto) (0.8-7.0) Baso % (Auto) (0.1-1.2) % Neut # (Auto) (1.78-5.38) K/mm3 Lymph # (Auto) (1.32-3.57) K/mm3 Creek # (Auto) (0.30-0.82) K/mm3 Eos # (Auto) (0.04-0.54) K/mm3 Baso # (Auto) (0.01-0.08) K/mm3 Manual Slide Review Puncture Site ABG pH (7.35-7.45) ABG pCO2 (35.0-45.0) mmHg ABG pO2 (80.0-100.0) mmHg ABG HCO3 (22.0-26.0) meq/L ABG O2 Saturation (96.0-97.0) % ABG Base Excess (-2-2.0) Yovani Test A-a Gradient mmHg O2 Delivery Device Oxygen Flow Rate FiO2 (21.00-100.00) % Sodium (136-145) mEq/L Potassium (3.5-5.1) mEq/L Chloride (98-107) mEq/L Carbon Dioxide (21-32) mEq/L Anion Gap (5-15) BUN (7-18) mg/dL Creatinine (0.7-1.3) mg/dL Est Cr Clr Drug Dosing mL/min Estimated GFR (MDRD) (>60) mL/min BUN/Creatinine Ratio (14-18) Glucose (70-99) mg/dL POC Glucose (70-99) mg/dL Hemoglobin A1c 7.2 H ( - 5.6) % Calcium (8.5-10.1) mg/dL Total Bilirubin (0.2-1.0) mg/dL Direct Bilirubin (0.0-0.2) mg/dl Indirect Bilirubin AST (15-37) U/L ALT (16-63) U/L Alkaline Phosphatase (46-116) U/L C-Reactive Protein 20.9 H* (<1.0) mg/dL Total Protein (6.4-8.2) g/dl Albumin (3.4-5.0) g/dl Globulin gm/dL Albumin/Globulin Ratio (1-2) Procalcitonin 0.29 H ng/mL 06/08/21 06/08/21 06/08/21 Range/Units 09:25 10:41 16:13 WBC (4.23-9.07) K/mm3 RBC (4.63-6.08) M/mm3 Hgb (13.7-17.5) gm/dl Hct (40.1-51.0) % MCV (79.0-92.2) fl MCH (25.7-32.2) pg MCHC (32.2-35.5) g/dl RDW Std Deviation (35.1-43.9) fL Plt Count (163-337) K/mm3 MPV (9.4-12.3) fl Neut % (Auto) (34.0-67.9) % Lymph % (Auto) (21.8-53.1) % Creek % (Auto) (5.3-12.2) % Eos % (Auto) (0.8-7.0) Baso % (Auto) (0.1-1.2) % Neut # (Auto) (1.78-5.38) K/mm3 Lymph # (Auto) (1.32-3.57) K/mm3 Creek # (Auto) (0.30-0.82) K/mm3 Eos # (Auto) (0.04-0.54) K/mm3 Baso # (Auto) (0.01-0.08) K/mm3 Manual Slide Review Puncture Site Lt radial ABG pH 7.46 H (7.35-7.45) ABG pCO2 33.2 L (35.0-45.0) mmHg ABG pO2 54.0 L (80.0-100.0) mmHg ABG HCO3 23.5 (22.0-26.0) meq/L ABG O2 Saturation 88.1 L (96.0-97.0) % ABG Base Excess 0.9 (-2-2.0) Yovani Test Positive A-a Gradient 475 mmHg O2 Delivery Device Hiflow nasal cannula Oxygen Flow Rate 30.0 FiO2 80.00 (21.00-100.00) % Sodium (136-145) mEq/L Potassium (3.5-5.1) mEq/L Chloride (98-107) mEq/L Carbon Dioxide (21-32) mEq/L Anion Gap (5-15) BUN (7-18) mg/dL Creatinine (0.7-1.3) mg/dL Est Cr Clr Drug Dosing mL/min Estimated GFR (MDRD) (>60) mL/min BUN/Creatinine Ratio (14-18) Glucose (70-99) mg/dL POC Glucose 236 H 185 H (70-99) mg/dL Hemoglobin A1c ( - 5.6) % Calcium (8.5-10.1) mg/dL Total Bilirubin (0.2-1.0) mg/dL Direct Bilirubin (0.0-0.2) mg/dl Indirect Bilirubin AST (15-37) U/L ALT (16-63) U/L Alkaline Phosphatase (46-116) U/L C-Reactive Protein (<1.0) mg/dL Total Protein (6.4-8.2) g/dl Albumin (3.4-5.0) g/dl Globulin gm/dL Albumin/Globulin Ratio (1-2) Procalcitonin ng/mL 06/08/21 06/09/21 06/09/21 Range/Units 21:04 05:34 05:34 WBC 9.27 H (4.23-9.07) K/mm3 RBC 5.25 (4.63-6.08) M/mm3 Hgb 15.0 (13.7-17.5) gm/dl Hct 44.6 (40.1-51.0) % MCV 85.0 (79.0-92.2) fl MCH 28.6 (25.7-32.2) pg MCHC 33.6 (32.2-35.5) g/dl RDW Std Deviation 46.3 H (35.1-43.9) fL Plt Count 309 D (163-337) K/mm3 MPV 10.1 (9.4-12.3) fl Neut % (Auto) 84.6 H (34.0-67.9) % Lymph % (Auto) 7.7 L (21.8-53.1) % Creek % (Auto) 7.4 (5.3-12.2) % Eos % (Auto) 0 L (0.8-7.0) Baso % (Auto) 0.1 (0.1-1.2) % Neut # (Auto) 7.84 H (1.78-5.38) K/mm3 Lymph # (Auto) 0.71 L (1.32-3.57) K/mm3 Creek # (Auto) 0.69 (0.30-0.82) K/mm3 Eos # (Auto) 0.00 L (0.04-0.54) K/mm3 Baso # (Auto) 0.01 (0.01-0.08) K/mm3 Manual Slide Review Puncture Site ABG pH (7.35-7.45) ABG pCO2 (35.0-45.0) mmHg ABG pO2 (80.0-100.0) mmHg ABG HCO3 (22.0-26.0) meq/L ABG O2 Saturation (96.0-97.0) % ABG Base Excess (-2-2.0) Yovani Test A-a Gradient mmHg O2 Delivery Device Oxygen Flow Rate FiO2 (21.00-100.00) % Sodium 141 (136-145) mEq/L Potassium 4.0 (3.5-5.1) mEq/L Chloride 104 (98-107) mEq/L Carbon Dioxide 25 (21-32) mEq/L Anion Gap 16.0 H (5-15) BUN 19 H (7-18) mg/dL Creatinine 0.8 (0.7-1.3) mg/dL Est Cr Clr Drug Dosing 105.19 mL/min Estimated GFR (MDRD) > 60 (>60) mL/min BUN/Creatinine Ratio 23.8 H (14-18) Glucose 163 H (70-99) mg/dL POC Glucose 181 H (70-99) mg/dL Hemoglobin A1c ( - 5.6) % Calcium 8.7 (8.5-10.1) mg/dL Total Bilirubin (0.2-1.0) mg/dL Direct Bilirubin (0.0-0.2) mg/dl Indirect Bilirubin AST (15-37) U/L ALT (16-63) U/L Alkaline Phosphatase (46-116) U/L C-Reactive Protein (<1.0) mg/dL Total Protein (6.4-8.2) g/dl Albumin (3.4-5.0) g/dl Globulin gm/dL Albumin/Globulin Ratio (1-2) Procalcitonin ng/mL 06/09/21 06/09/21 Range/Units 05:34 06:50 WBC (4.23-9.07) K/mm3 RBC (4.63-6.08) M/mm3 Hgb (13.7-17.5) gm/dl Hct (40.1-51.0) % MCV (79.0-92.2) fl MCH (25.7-32.2) pg MCHC (32.2-35.5) g/dl RDW Std Deviation (35.1-43.9) fL Plt Count (163-337) K/mm3 MPV (9.4-12.3) fl Neut % (Auto) (34.0-67.9) % Lymph % (Auto) (21.8-53.1) % Creek % (Auto) (5.3-12.2) % Eos % (Auto) (0.8-7.0) Baso % (Auto) (0.1-1.2) % Neut # (Auto) (1.78-5.38) K/mm3 Lymph # (Auto) (1.32-3.57) K/mm3 Creek # (Auto) (0.30-0.82) K/mm3 Eos # (Auto) (0.04-0.54) K/mm3 Baso # (Auto) (0.01-0.08) K/mm3 Manual Slide Review Puncture Site ABG pH (7.35-7.45) ABG pCO2 (35.0-45.0) mmHg ABG pO2 (80.0-100.0) mmHg ABG HCO3 (22.0-26.0) meq/L ABG O2 Saturation (96.0-97.0) % ABG Base Excess (-2-2.0) Yovani Test A-a Gradient mmHg O2 Delivery Device Oxygen Flow Rate FiO2 (21.00-100.00) % Sodium (136-145) mEq/L Potassium (3.5-5.1) mEq/L Chloride (98-107) mEq/L Carbon Dioxide (21-32) mEq/L Anion Gap (5-15) BUN (7-18) mg/dL Creatinine (0.7-1.3) mg/dL Est Cr Clr Drug Dosing mL/min Estimated GFR (MDRD) (>60) mL/min BUN/Creatinine Ratio (14-18) Glucose (70-99) mg/dL POC Glucose 157 H (70-99) mg/dL Hemoglobin A1c ( - 5.6) % Calcium (8.5-10.1) mg/dL Total Bilirubin 0.4 (0.2-1.0) mg/dL Direct Bilirubin 0.10 (0.0-0.2) mg/dl Indirect Bilirubin 0.30 AST 38 H (15-37) U/L ALT 40 (16-63) U/L Alkaline Phosphatase 65 (46-116) U/L C-Reactive Protein (<1.0) mg/dL Total Protein 6.4 (6.4-8.2) g/dl Albumin 2.3 L (3.4-5.0) g/dl Globulin 4.1 gm/dL Albumin/Globulin Ratio 0.6 L (1-2) Procalcitonin ng/mL Med Orders - Current: Current Medications Acetaminophen (Acetaminophen 325 Mg Tab) 650 mg PO Q4H PRN PRN Reason: Pain (Mild 1-3)/fever Albuterol/Ipratropium (Albuterol/Ipratropium 3.0-0.5 Mg/3 Ml Neb Soln) 3 ml NEB QIDRT PRN PRN Reason: Shortness Of Breath/wheezing Calcium Carbonate/Glycine (Calcium Carbonate 500 Mg Tab.Chew) 1,000 mg PO Q2HR PRN PRN Reason: Heartburn Last Admin: 06/08/21 17:59 Dose: 1,000 mg Documented by: Dexamethasone (Dexamethasone 10 Mg/Ml Sdv) 6 mg IVPUSH DAILY [facility] Stop: 06/16/21 09:01 Last Admin: 06/09/21 08:18 Dose: 6 mg Documented by: Docusate Sodium (Docusate Sodium 100 Mg Cap) 100 mg PO BID [facility] Last Admin: 06/09/21 08:17 Dose: 100 mg Documented by: Guaifenesin (Guaifenesin 600 Mg Tab.Er) 600 mg PO BID [facility] Last Admin: 06/09/21 08:17 Dose: 600 mg Documented by: Heparin Sodium (Porcine) (Heparin Sodium 5,000 Units/Ml Vial) 5,000 units SUBCUT Q8H [facility] Last Admin: 06/09/21 08:18 Dose: 5,000 units Documented by: Remdesivir 100 mg/ Sodium (Chloride) 100 mls @ 100 mls/hr IV Q24H [facility] Stop: 06/11/21 20:59 Last Admin: 06/08/21 21:09 Dose: 100 mls/hr Documented by: Ceftriaxone Sodium 2 gm/ (Sodium Chloride) 100 mls @ 200 mls/hr IV Q24H [facility] Last Admin: 06/09/21 08:20 Dose: 200 mls/hr Documented by: Azithromycin 500 mg/ Sodium (Chloride) 250 mls @ 250 mls/hr IV Q24H [facility] Last Admin: 06/08/21 11:13 Dose: 250 mls/hr Documented by: Insulin Human Lispro (Insulin Lispro 100 Unit/Ml 10 Ml Vial) 0 unit SUBCUT QIDACANDBED [facility]; Protocol Last Admin: 06/09/21 08:18 Dose: 2 units Documented by: Lisinopril (Lisinopril 20 Mg Tab) 40 mg PO DAILY [facility] Last Admin: 06/09/21 08:17 Dose: 40 mg Documented by: Metformin HCl (Metformin 500 Mg Tab) 1,000 mg PO BID [facility] Last Admin: 06/09/21 08:17 Dose: 1,000 mg Documented by: Miscellaneous Information (Remove Nicotine Patch) 1 ea TRDERM DAILY [facility] Last Admin: 06/09/21 08:19 Dose: 1 ea Documented by: Nicotine (Nicotine 14 Mg/24 Hr Patch) 14 mg TRDERM DAILY [facility] Last Admin: 06/09/21 08:16 Dose: 14 mg Documented by: Empagliflozin 10 Mg (Tablet Ptom) 0 mg PO DAILY [facility] Last Admin: 06/08/21 10:17 Dose: Not Given Documented by: Ondansetron HCl (Ondansetron 4 Mg/2 Ml Sdv) 4 mg IV Q4H PRN PRN Reason: Nausea/Vomiting Polyethylene Glycol (Polyethylene Glycol 3350 Powder 17 Gm Packet) 17 gm PO DA NASIR [facility] Last Admin: 06/09/21 08:16 Dose: 17 gm Documented by: Rosuvastatin Calcium (Rosuvastatin 10 Mg Tab) 20 mg PO DAILY [facility] Last Admin: 06/09/21 08:16 Dose: 20 mg Documented by: Temazepam (Temazepam 15 Mg Cap) 15 mg PO BEDTIME PRN PRN Reason: Sleep Discontinued Medications Dexamethasone (Dexamethasone 4 Mg Tab) 6 mg PO ONETIME ONE Stop: 06/07/21 19:48 Last Admin: 06/07/21 20:28 Dose: 6 mg Documented by: Sodium Chloride (Normal Saline) 100 mls @ 60 mls/min IV ASDIRECTED [facility] Last Admin: 06/07/21 19:29 Dose: 60 mls/min Documented by: Remdesivir 200 mg/ Sodium (Chloride) 250 mls @ 250 mls/hr IV ONETIME ONE Stop: 06/07/21 20:38 Last Admin: 06/07/21 20:54 Dose: 250 mls/hr Documented by: Iopamidol (Iopamidol 755 Mg/Ml 100 Ml Bottle) 100 ml IVPUSH ONETIME ONE Stop: 06/07/21 19:05 Last Admin: 06/07/21 19:29 Dose: 100 ml Documented by: Morphine Sulfate (Morphine 2 Mg/Ml Syringe) 2 mg IVPUSH Q2H PRN PRN Reason: Pain (severe 7-10) Stop: 06/09/21 07:44 Sodium Chloride (Sodium Chloride 0.9% 10 Ml Sdv) 10 ml FLUSH ONETIME ONE Stop: 06/07/21 19:05 Last Admin: 06/07/21 19:29 Dose: 10 ml Documented by: - Exam Quality Assessment: Supplemental Oxygen General: Alert, Oriented, Cooperative, Mild Distress HEENT: Pupils Equal, Pupils Reactive, EOMI Neck: Supple Lungs: Decreased Breath Sounds, Rales (bilateral lower) Cardiovascular: Regular Rate, Regular Rhythm GI/Abdominal Exam: Normal Bowel Sounds, Soft Skin: Warm Psy/Mental Status: Alert, Normal Affect, Normal Mood - Patient Data Lab Results Last 24 hrs: Laboratory Results - last 24 hr 06/08/21 06/08/21 06/08/21 Range/Units 05:05 07:37 08:08 WBC (4.23-9.07) K/mm3 RBC (4.63-6.08) M/mm3 Hgb (13.7-17.5) gm/dl Hct (40.1-51.0) % MCV (79.0-92.2) fl MCH (25.7-32.2) pg MCHC (32.2-35.5) g/dl RDW Std Deviation (35.1-43.9) fL Plt Count (163-337) K/mm3 MPV (9.4-12.3) fl Neut % (Auto) (34.0-67.9) % Lymph % (Auto) (21.8-53.1) % Creek % (Auto) (5.3-12.2) % Eos % (Auto) (0.8-7.0) Baso % (Auto) (0.1-1.2) % Neut # (Auto) (1.78-5.38) K/mm3 Lymph # (Auto) (1.32-3.57) K/mm3 Creek # (Auto) (0.30-0.82) K/mm3 Eos # (Auto) (0.04-0.54) K/mm3 Baso # (Auto) (0.01-0.08) K/mm3 Manual Slide Review Puncture Site ABG pH (7.35-7.45) ABG pCO2 (35.0-45.0) mmHg ABG pO2 (80.0-100.0) mmHg ABG HCO3 (22.0-26.0) meq/L ABG O2 Saturation (96.0-97.0) % ABG Base Excess (-2-2.0) Yovani Test A-a Gradient mmHg O2 Delivery Device Oxygen Flow Rate FiO2 (21.00-100.00) % Sodium (136-145) mEq/L Potassium (3.5-5.1) mEq/L Chloride (98-107) mEq/L Carbon Dioxide (21-32) mEq/L Anion Gap (5-15) BUN (7-18) mg/dL Creatinine (0.7-1.3) mg/dL Est Cr Clr Drug Dosing mL/min Estimated GFR (MDRD) (>60) mL/min BUN/Creatinine Ratio (14-18) Glucose (70-99) mg/dL POC Glucose (70-99) mg/dL Hemoglobin A1c 7.2 H ( - 5.6) % Calcium (8.5-10.1) mg/dL Total Bilirubin (0.2-1.0) mg/dL Direct Bilirubin (0.0-0.2) mg/dl Indirect Bilirubin AST (15-37) U/L ALT (16-63) U/L Alkaline Phosphatase (46-116) U/L C-Reactive Protein 20.9 H* (<1.0) mg/dL Total Protein (6.4-8.2) g/dl Albumin (3.4-5.0) g/dl Globulin gm/dL Albumin/Globulin Ratio (1-2) Procalcitonin 0.29 H ng/mL 06/08/21 06/08/21 06/08/21 Range/Units 09:25 10:41 16:13 WBC (4.23-9.07) K/mm3 RBC (4.63-6.08) M/mm3 Hgb (13.7-17.5) gm/dl Hct (40.1-51.0) % MCV (79.0-92.2) fl MCH (25.7-32.2) pg MCHC (32.2-35.5) g/dl RDW Std Deviation (35.1-43.9) fL Plt Count (163-337) K/mm3 MPV (9.4-12.3) fl Neut % (Auto) (34.0-67.9) % Lymph % (Auto) (21.8-53.1) % Creek % (Auto) (5.3-12.2) % Eos % (Auto) (0.8-7.0) Baso % (Auto) (0.1-1.2) % Neut # (Auto) (1.78-5.38) K/mm3 Lymph # (Auto) (1.32-3.57) K/mm3 Creek # (Auto) (0.30-0.82) K/mm3 Eos # (Auto) (0.04-0.54) K/mm3 Baso # (Auto) (0.01-0.08) K/mm3 Manual Slide Review Puncture Site Lt radial ABG pH 7.46 H (7.35-7.45) ABG pCO2 33.2 L (35.0-45.0) mmHg ABG pO2 54.0 L (80.0-100.0) mmHg ABG HCO3 23.5 (22.0-26.0) meq/L ABG O2 Saturation 88.1 L (96.0-97.0) % ABG Base Excess 0.9 (-2-2.0) Yovani Test Positive A-a Gradient 475 mmHg O2 Delivery Device Hiflow nasal cannula Oxygen Flow Rate 30.0 FiO2 80.00 (21.00-100.00) % Sodium (136-145) mEq/L Potassium (3.5-5.1) mEq/L Chloride (98-107) mEq/L Carbon Dioxide (21-32) mEq/L Anion Gap (5-15) BUN (7-18) mg/dL Creatinine (0.7-1.3) mg/dL Est Cr Clr Drug Dosing mL/min Estimated GFR (MDRD) (>60) mL/min BUN/Creatinine Ratio (14-18) Glucose (70-99) mg/dL POC Glucose 236 H 185 H (70-99) mg/dL Hemoglobin A1c ( - 5.6) % Calcium (8.5-10.1) mg/dL Total Bilirubin (0.2-1.0) mg/dL Direct Bilirubin (0.0-0.2) mg/dl Indirect Bilirubin AST (15-37) U/L ALT (16-63) U/L Alkaline Phosphatase (46-116) U/L C-Reactive Protein (<1.0) mg/dL Total Protein (6.4-8.2) g/dl Albumin (3.4-5.0) g/dl Globulin gm/dL Albumin/Globulin Ratio (1-2) Procalcitonin ng/mL 06/08/21 06/09/21 06/09/21 Range/Units 21:04 05:34 05:34 WBC 9.27 H (4.23-9.07) K/mm3 RBC 5.25 (4.63-6.08) M/mm3 Hgb 15.0 (13.7-17.5) gm/dl Hct 44.6 (40.1-51.0) % MCV 85.0 (79.0-92.2) fl MCH 28.6 (25.7-32.2) pg MCHC 33.6 (32.2-35.5) g/dl RDW Std Deviation 46.3 H (35.1-43.9) fL Plt Count 309 D (163-337) K/mm3 MPV 10.1 (9.4-12.3) fl Neut % (Auto) 84.6 H (34.0-67.9) % Lymph % (Auto) 7.7 L (21.8-53.1) % Creek % (Auto) 7.4 (5.3-12.2) % Eos % (Auto) 0 L (0.8-7.0) Baso % (Auto) 0.1 (0.1-1.2) % Neut # (Auto) 7.84 H (1.78-5.38) K/mm3 Lymph # (Auto) 0.71 L (1.32-3.57) K/mm3 Creek # (Auto) 0.69 (0.30-0.82) K/mm3 Eos # (Auto) 0.00 L (0.04-0.54) K/mm3 Baso # (Auto) 0.01 (0.01-0.08) K/mm3 Manual Slide Review Puncture Site ABG pH (7.35-7.45) ABG pCO2 (35.0-45.0) mmHg ABG pO2 (80.0-100.0) mmHg ABG HCO3 (22.0-26.0) meq/L ABG O2 Saturation (96.0-97.0) % ABG Base Excess (-2-2.0) Yovani Test A-a Gradient mmHg O2 Delivery Device Oxygen Flow Rate FiO2 (21.00-100.00) % Sodium 141 (136-145) mEq/L Potassium 4.0 (3.5-5.1) mEq/L Chloride 104 (98-107) mEq/L Carbon Dioxide 25 (21-32) mEq/L Anion Gap 16.0 H (5-15) BUN 19 H (7-18) mg/dL Creatinine 0.8 (0.7-1.3) mg/dL Est Cr Clr Drug Dosing 105.19 mL/min Estimated GFR (MDRD) > 60 (>60) mL/min BUN/Creatinine Ratio 23.8 H (14-18) Glucose 163 H (70-99) mg/dL POC Glucose 181 H (70-99) mg/dL Hemoglobin A1c ( - 5.6) % Calcium 8.7 (8.5-10.1) mg/dL Total Bilirubin (0.2-1.0) mg/dL Direct Bilirubin (0.0-0.2) mg/dl Indirect Bilirubin AST (15-37) U/L ALT (16-63) U/L Alkaline Phosphatase (46-116) U/L C-Reactive Protein (<1.0) mg/dL Total Protein (6.4-8.2) g/dl Albumin (3.4-5.0) g/dl Globulin gm/dL Albumin/Globulin Ratio (1-2) Procalcitonin ng/mL 06/09/21 06/09/21 Range/Units 05:34 06:50 WBC (4.23-9.07) K/mm3 RBC (4.63-6.08) M/mm3 Hgb (13.7-17.5) gm/dl Hct (40.1-51.0) % MCV (79.0-92.2) fl MCH (25.7-32.2) pg MCHC (32.2-35.5) g/dl RDW Std Deviation (35.1-43.9) fL Plt Count (163-337) K/mm3 MPV (9.4-12.3) fl Neut % (Auto) (34.0-67.9) % Lymph % (Auto) (21.8-53.1) % Creek % (Auto) (5.3-12.2) % Eos % (Auto) (0.8-7.0) Baso % (Auto) (0.1-1.2) % Neut # (Auto) (1.78-5.38) K/mm3 Lymph # (Auto) (1.32-3.57) K/mm3 Creek # (Auto) (0.30-0.82) K/mm3 Eos # (Auto) (0.04-0.54) K/mm3 Baso # (Auto) (0.01-0.08) K/mm3 Manual Slide Review Puncture Site ABG pH (7.35-7.45) ABG pCO2 (35.0-45.0) mmHg ABG pO2 (80.0-100.0) mmHg ABG HCO3 (22.0-26.0) meq/L ABG O2 Saturation (96.0-97.0) % ABG Base Excess (-2-2.0) Yovani Test A-a Gradient mmHg O2 Delivery Device Oxygen Flow Rate FiO2 (21.00-100.00) % Sodium (136-145) mEq/L Potassium (3.5-5.1) mEq/L Chloride (98-107) mEq/L Carbon Dioxide (21-32) mEq/L Anion Gap (5-15) BUN (7-18) mg/dL Creatinine (0.7-1.3) mg/dL Est Cr Clr Drug Dosing mL/min Estimated GFR (MDRD) (>60) mL/min BUN/Creatinine Ratio (14-18) Glucose (70-99) mg/dL POC Glucose 157 H (70-99) mg/dL Hemoglobin A1c ( - 5.6) % Calcium (8.5-10.1) mg/dL Total Bilirubin 0.4 (0.2-1.0) mg/dL Direct Bilirubin 0.10 (0.0-0.2) mg/dl Indirect Bilirubin 0.30 AST 38 H (15-37) U/L ALT 40 (16-63) U/L Alkaline Phosphatase 65 (46-116) U/L C-Reactive Protein (<1.0) mg/dL Total Protein 6.4 (6.4-8.2) g/dl Albumin 2.3 L (3.4-5.0) g/dl Globulin 4.1 gm/dL Albumin/Globulin Ratio 0.6 L (1-2) Procalcitonin ng/mL Result Diagrams: 06/09/21 05:34 06/09/21 05:34 Sepsis Event Note - Evaluation Sepsis Screening Result: No Definite Risk - Focused Exam Vital Signs: Vital Signs Temp Pulse Resp BP Pulse Ox 06/09/21 08:17 120/88 06/09/21 04:01 97.9 F 68 18 94 L 06/08/21 23:00 21 H - Problem List Review Problem List Initiated/Reviewed/Updated: Yes - My Orders Last 24 Hours: My Active Orders 06/08/21 09:00 Baricitinib [Olumiant] 4 mg PO DAILY Docusate Sodium [Colace] 100 mg PO BID Empagliflozin 0 mg PO DAILY Heparin Sodium 5,000 units SUBCUT Q8H Nicotine [Habitrol] 14 mg TRDERM DAILY Rosuvastatin [Crestor] 20 mg PO DAILY cefTRIAXone [Rocephin] 2 gm Sodium Chloride 0.9% [Normal Saline] 100 ml IV Q24H dexAMETHasone [Decadron] 6 mg IVPUSH DAILY lisinopriL [Prinivil] 40 mg PO DAILY metFORMIN [Glucophage] 1,000 mg PO BID polyethylene glycoL 3350 [MiraLAX] 17 gm PO DAILY 06/08/21 09:30 Azithromycin [Zithromax] 500 mg Sodium Chloride 0.9% [Normal Saline (AdvBag)] 250 ml IV Q24H guaiFENesin [Mucinex] 600 mg PO BID 06/08/21 11:00 Insulin Lispro [HumaLOG] See Protocol SUBCUT QIDACANDBED 06/08/21 17:49 Calcium Carbonate [Tums] 1,000 mg PO Q2HR PRN 06/08/21 20:00 Remdesivir 100 mg Sodium Chloride 0.9% [Normal Saline] 100 ml IV Q24H 06/08/21 20:04 Oxygen Therapy [RC] ASDIRECTED 06/09/21 09:00 Remove Patch 1 ea TRDERM DAILY 06/10/21 05:11 BASIC METABOLIC PANEL,BMP [CHEM] AM CBC WITH AUTO DIFF [HEME] AM 06/10/21 08:00 HEPATIC FUNCTION PANEL,HFP [CHEM] DAILY 06/11/21 05:11 BASIC METABOLIC PANEL,BMP [CHEM] AM CBC WITH AUTO DIFF [HEME] AM 06/11/21 08:00 HEPATIC FUNCTION PANEL,HFP [CHEM] DAILY 06/12/21 05:11 BASIC METABOLIC PANEL,BMP [CHEM] AM CBC WITH AUTO DIFF [HEME] AM 06/12/21 08:00 HEPATIC FUNCTION PANEL,HFP [CHEM] DAILY - Plan Plan:: 1. acute respiratory failure with hypoxia- was presented to the er with saturation in 70's. He was placed on nc at 4 liters and the abg shows poor o2 saturation. we have placed him on high flow this am. We have also cont the remdesmivir that was started yesterday we have added dexamethasone, we have also added baricitinib due to the progressing o2 needs. we will cont duonebs, rt, IS, acapella. 06/09 having difficulty with thick white sputum he is having difficulty gettingup. we discussed with will try mucinex bid and add a one time dose of mucomyst to see if this helps. he is cont on 30 liters at 80 fio2. 2. Covid pneumonia0 bilateral- cta negative, d dimer is elevated and cont on PPx heparin, crp, ldh, etc all ordered as routime. The patient will get repeat abg this am. 06/09 as statedabove 3. DM type 2- we will cont hie metformin and his Jardiance since he is having food cr level and good urine output, we will also add sliding scale insulin. 06/09 elevation with dex 4. hyperlipidemia- cont home rosuvastatin 5. hypertension- cont lisinopril, daily labs ppx heparin time 36 min full code
[2021-06-09] MEDS ORDERED: Acetylcysteine 20% 200 MG/ML 30 ML Nebulizer Soln SDV NEB ONE (09:20)
[2021-06-09] MEDS: Azithromycin 500 MG in Sodium Chloride 0.9% 250 ML IV SCH (09:20)
[2021-06-09] MEDS ORDERED: Acetylcysteine 20% 200 MG/ML 4 ML Nebulizer Soln SDV NEB ONE (09:45)
[2021-06-09] MEDS: Albuterol/Ipratropium 3.0-0.5 MG/3 ML Neb Soln NEB PRN (10:13)
[2021-06-09] MEDS: JARDIANCE PO SCH (11:12)
[2021-06-09] MEDS: REMDESIVIR 100 MG in Sodium Chloride 0.9% 100 ML IV SCH (20:53)
[2021-06-09] MEDS: Acetaminophen 325 MG Tab PO PRN (20:55)
[2021-06-09] MEDS: Temazepam 15 MG Cap PO PRN (20:56)
[2021-06-10] MEDS: Heparin Sodium 5,000 Units/ML Vial SUBCUT SCH ×3 (00:40→17:00)
[2021-06-10] MEDS: Insulin Lispro 100 UNIT/ML 10 ML Vial SUBCUT SCH ×4 (07:30→21:41)
[2021-06-10] MEDS: Albuterol/Ipratropium 3.0-0.5 MG/3 ML Neb Soln NEB PRN ×2 (09:13→22:32)
[2021-06-10] MEDS: Dexamethasone 10 MG/ML SDV IVPUSH SCH (09:48)
[2021-06-10] MEDS: Docusate Sodium 100 MG Cap PO SCH ×2 (09:48→20:37)
[2021-06-10] MEDS: Rosuvastatin 10 MG Tab PO SCH (09:48)
[2021-06-10] MEDS: metFORMIN 500 MG Tab PO SCH (09:49)
[2021-06-10] MEDS: Nicotine 14 MG/24 Hr Patch TRDERM SCH (09:49)
[2021-06-10] MEDS: guaiFENesin 600 MG Tab.ER PO SCH ×2 (09:49→20:37)
[2021-06-10] MEDS: Lisinopril 20 MG Tab PO SCH (09:49)
[2021-06-10] MEDS: Polyethylene Glycol 3350 Powder 17 GM Packet PO SCH ×2 (09:50→10:01)
[2021-06-10] MEDS: cefTRIAXone 2 GM in Sodium Chloride 0.9% 100 ML IV SCH (09:51)
[2021-06-10] MEDS: JARDIANCE PO SCH (10:12)
[2021-06-10] MEDS: Azithromycin 500 MG in Sodium Chloride 0.9% 250 ML IV SCH (11:07)
--- NOTE | 2021-06-10 13:06 | PCM.PN ---
- General Info Date of Service: 06/10/21 Admission Dx/Problem (Free Text): Admission Diagnosis/Problem Admission Diagnosis/Problem Hypoxia Covid 19 pneumonia with hypoxia Subjective Update: Patient states he does not feel much different today. Continues to have short ness of breath and cough. No fevers though. Functional Status: Reports: Pain Controlled - Review of Systems General: Denies: Fever Pulmonary: Reports: Shortness of Breath, Cough Cardiovascular: Denies: Chest Pain Gastrointestinal: Reports: No Symptoms - Patient Data Vitals - Most Recent: Last Vital Signs Temp 98.1 F 06/10/21 11:18 Pulse 92 06/10/21 11:18 Resp 20 06/10/21 11:18 BP 144/59 H 06/10/21 11:18 Pulse Ox 89 L 06/10/21 11:18 Weight - Most Recent: 268 lb 14.4 oz I&O - Last 24 Hours: Intake & Output 06/09/21 06/10/21 06/10/21 22:59 06:59 14:59 Intake Total 1110 875 120 Output Total 1000 1575 Balance 110 -700 120 Lab Results Last 24 Hours: Laboratory Results - last 24 hr 06/09/21 06/09/21 06/10/21 Range/Units 17:47 20:44 06:30 WBC 10.60 H (4.23-9.07) K/mm3 RBC 5.57 (4.63-6.08) M/mm3 Hgb 15.8 (13.7-17.5) gm/dl Hct 47.8 (40.1-51.0) % MCV 85.8 (79.0-92.2) fl MCH 28.4 (25.7-32.2) pg MCHC 33.1 (32.2-35.5) g/dl RDW Std Deviation 47.5 H (35.1-43.9) fL Plt Count 321 (163-337) K/mm3 MPV 9.3 L (9.4-12.3) fl Neut % (Auto) 83.3 H (34.0-67.9) % Lymph % (Auto) 11.4 L (21.8-53.1) % [place] % (Auto) 4.4 L (5.3-12.2) % Eos % (Auto) 0.3 L (0.8-7.0) Baso % (Auto) 0.2 (0.1-1.2) % Neut # (Auto) 8.83 H (1.78-5.38) K/mm3 Lymph # (Auto) 1.21 L (1.32-3.57) K/mm3 [place] # (Auto) 0.47 (0.30-0.82) K/mm3 Eos # (Auto) 0.03 L (0.04-0.54) K/mm3 Baso # (Auto) 0.02 (0.01-0.08) K/mm3 Manual Slide Review Normal smear Sodium (136-145) mEq/L Potassium (3.5-5.1) mEq/L Chloride (98-107) mEq/L Carbon Dioxide (21-32) mEq/L Anion Gap (5-15) BUN (7-18) mg/dL Creatinine (0.7-1.3) mg/dL Est Cr Clr Drug Dosing mL/min Estimated GFR (MDRD) (>60) mL/min BUN/Creatinine Ratio (14-18) Glucose (70-99) mg/dL POC Glucose 132 H 201 H (70-99) mg/dL Calcium (8.5-10.1) mg/dL 06/10/21 06/10/21 06/10/21 Range/Units 06:30 06:57 07:28 WBC (4.23-9.07) K/mm3 RBC (4.63-6.08) M/mm3 Hgb (13.7-17.5) gm/dl Hct (40.1-51.0) % MCV (79.0-92.2) fl MCH (25.7-32.2) pg MCHC (32.2-35.5) g/dl RDW Std Deviation (35.1-43.9) fL Plt Count (163-337) K/mm3 MPV (9.4-12.3) fl Neut % (Auto) (34.0-67.9) % Lymph % (Auto) (21.8-53.1) % [place] % (Auto) (5.3-12.2) % Eos % (Auto) (0.8-7.0) Baso % (Auto) (0.1-1.2) % Neut # (Auto) (1.78-5.38) K/mm3 Lymph # (Auto) (1.32-3.57) K/mm3 [place] # (Auto) (0.30-0.82) K/mm3 Eos # (Auto) (0.04-0.54) K/mm3 Baso # (Auto) (0.01-0.08) K/mm3 Manual Slide Review Sodium 145 (136-145) mEq/L Potassium 4.0 (3.5-5.1) mEq/L Chloride 107 (98-107) mEq/L Carbon Dioxide 28 (21-32) mEq/L Anion Gap 14.0 (5-15) BUN 27 H (7-18) mg/dL Creatinine 1.1 (0.7-1.3) mg/dL Est Cr Clr Drug Dosing 76.50 mL/min Estimated GFR (MDRD) > 60 (>60) mL/min BUN/Creatinine Ratio 24.5 H (14-18) Glucose 94 (70-99) mg/dL POC Glucose 72 115 H (70-99) mg/dL Calcium 8.8 (8.5-10.1) mg/dL 06/10/21 Range/Units 11:17 WBC (4.23-9.07) K/mm3 RBC (4.63-6.08) M/mm3 Hgb (13.7-17.5) gm/dl Hct (40.1-51.0) % MCV (79.0-92.2) fl MCH (25.7-32.2) pg MCHC (32.2-35.5) g/dl RDW Std Deviation (35.1-43.9) fL Plt Count (163-337) K/mm3 MPV (9.4-12.3) fl Neut % (Auto) (34.0-67.9) % Lymph % (Auto) (21.8-53.1) % [place] % (Auto) (5.3-12.2) % Eos % (Auto) (0.8-7.0) Baso % (Auto) (0.1-1.2) % Neut # (Auto) (1.78-5.38) K/mm3 Lymph # (Auto) (1.32-3.57) K/mm3 [place] # (Auto) (0.30-0.82) K/mm3 Eos # (Auto) (0.04-0.54) K/mm3 Baso # (Auto) (0.01-0.08) K/mm3 Manual Slide Review Sodium (136-145) mEq/L Potassium (3.5-5.1) mEq/L Chloride (98-107) mEq/L Carbon Dioxide (21-32) mEq/L Anion Gap (5-15) BUN (7-18) mg/dL Creatinine (0.7-1.3) mg/dL Est Cr Clr Drug Dosing mL/min Estimated GFR (MDRD) (>60) mL/min BUN/Creatinine Ratio (14-18) Glucose (70-99) mg/dL POC Glucose 122 H (70-99) mg/dL Calcium (8.5-10.1) mg/dL Med Orders - Current: Current Medications Acetaminophen (Acetaminophen 325 Mg Tab) 650 mg PO Q4H PRN PRN Reason: Pain (Mild 1-3)/fever Last Admin: 06/09/21 20:55 Dose: 650 mg Documented by: Albuterol/Ipratropium (Albuterol/Ipratropium 3.0-0.5 Mg/3 Ml Neb Soln) 3 ml NEB QIDRT PRN PRN Reason: Shortness Of Breath/wheezing Last Admin: 06/10/21 09:13 Dose: 3 ml Documented by: Calcium Carbonate/Glycine (Calcium Carbonate 500 Mg Tab.Chew) 1,000 mg PO Q2HR PRN PRN Reason: Heartburn Last Admin: 06/08/21 17:59 Dose: 1,000 mg Documented by: Dexamethasone (Dexamethasone 10 Mg/Ml Sdv) 6 mg IVPUSH DAILY [facility] Stop: 06/16/21 09:01 Last Admin: 06/10/21 09:48 Dose: 6 mg Documented by: Docusate Sodium (Docusate Sodium 100 Mg Cap) 100 mg PO BID [facility] Last Admin: 06/10/21 09:48 Dose: 100 mg Documented by: Guaifenesin (Guaifenesin 600 Mg Tab.Er) 600 mg PO BID [facility] Last Admin: 06/10/21 09:49 Dose: 600 mg Documented by: Heparin Sodium (Porcine) (Heparin Sodium 5,000 Units/Ml Vial) 5,000 units SUBCUT Q8H [facility] Last Admin: 09/05/21 09:48 Dose: 5,000 units Documented by: Remdesivir 100 mg/ Sodium (Chloride) 100 mls @ 100 mls/hr IV Q24H [facility] Stop: 06/11/21 20:59 Last Admin: 06/09/21 20:53 Dose: 100 mls/hr Documented by: Ceftriaxone Sodium 2 gm/ (Sodium Chloride) 100 mls @ 200 mls/hr IV Q24H [facility] Last Admin: 06/10/21 09:51 Dose: 200 mls/hr Documented by: Azithromycin 500 mg/ Sodium (Chloride) 250 mls @ 250 mls/hr IV Q24H [facility] Last Admin: 06/10/21 11:07 Dose: 250 mls/hr Documented by: Insulin Human Lispro (Insulin Lispro 100 Unit/Ml 10 Ml Vial) 0 unit SUBCUT QIDACANDBED [facility]; Protocol Last Admin: 06/10/21 11:28 Dose: Not Given Documented by: Lisinopril (Lisinopril 20 Mg Tab) 40 mg PO DAILY [facility] Last Admin: 06/10/21 09:49 Dose: 40 mg Documented by: Miscellaneous Information (Remove Nicotine Patch) 1 ea TRDERM DAILY [facility] Last Admin: 06/10/21 09:51 Dose: 1 ea Documented by: Nicotine (Nicotine 14 Mg/24 Hr Patch) 14 mg TRDERM DAILY [facility] Last Admin: 06/10/21 09:49 Dose: 14 mg Documented by: Jardiance ( Empagliflozin 10 Mg Tablet Ptom 0 mg PO DAILY [facility] Last Admin: 06/10/21 10:12 Dose: 10 mg Documented by: Ondansetron HCl (Ondansetron 4 Mg/2 Ml Sdv) 4 mg IV Q4H PRN PRN Reason: Nausea/Vomiting Polyethylene Glycol (Polyethylene Glycol 3350 Powder 17 Gm Packet) 17 gm PO DAILY [facility] Last Admin: 06/10/21 10:01 Dose: Not Given Documented by: Rosuvastatin Calcium (Rosuvastatin 10 Mg Tab) 20 mg PO DAILY [facility] Last Admin: 06/10/21 09:48 Dose: 20 mg Documented by: Temazepam (Temazepam 15 Mg Cap) 15 mg PO BEDTIME PRN PRN Reason: Sleep Last Admin: 06/09/21 20:56 Dose: 15 mg Documented by: Discontinued Medications Acetylcysteine (Acetylcysteine 20% 200 Mg/Ml 30 Ml Nebulizer Soln Sdv) 800 mg NEB ONETIME ONE Stop: 06/09/21 09:21 Last Admin: 06/09/21 11:40 Dose: Not Given Documented by: Acetylcysteine (Acetylcysteine 20% 200 Mg/Ml 4 Ml Nebulizer Soln Sdv) 800 mg NEB ONETIME ONE Stop: 06/09/21 09:46 Last Admin: 06/09/21 10:10 Dose: 800 mg Documented by: Dexamethasone (Dexamethasone 4 Mg Tab) 6 mg PO ONETIME ONE Stop: 06/07/21 19:48 Last Admin: 06/07/21 20:28 Dose: 6 mg Documented by: Sodium Chloride (Normal Saline) 100 mls @ 60 mls/min IV ASDIRECTED [facility] Last Admin: 06/07/21 19:29 Dose: 60 mls/min Documented by: Remdesivir 200 mg/ Sodium (Chloride) 250 mls @ 250 mls/hr IV ONETIME ONE Stop: 06/07/21 20:38 Last Admin: 06/07/21 20:54 Dose: 250 mls/hr Documented by: Iopamidol (Iopamidol 755 Mg/Ml 100 Ml Bottle) 100 ml IVPUSH ONETIME ONE Stop: 06/07/21 19:05 Last Admin: 06/07/21 19:29 Dose: 100 ml Documented by: Metformin HCl (Metformin 500 Mg Tab) 1,000 mg PO BID [facility] Last Admin: 06/10/21 09:49 Dose: 1,000 mg Documented by: Morphine Sulfate (Morphine 2 Mg/Ml Syringe) 2 mg IVPUSH Q2H PRN PRN Reason: Pain (severe 7-10) Stop: 06/09/21 07:44 Sodium Chloride (Sodium Chloride 0.9% 10 Ml Sdv) 10 ml FLUSH ONETIME ONE Stop: 06/07/21 19:05 Last Admin: 06/07/21 19:29 Dose: 10 ml Documented by: - Exam Quality Assessment: Supplemental Oxygen General: Alert, Oriented HEENT: Pupils Equal, Mucous Membr. Moist/[place] Neck: Supple Lungs: Normal Respiratory Effort, Crackles (Right basilar and mid) Cardiovascular: Regular Rate, Regular Rhythm GI/Abdominal Exam: Normal Bowel Sounds, Soft, Non-Tender, No Organomegaly, No Distention, No Abnormal Bruit, No Mass Extremities: Normal Inspection, Normal Range of Motion, Non-Tender, No Pedal Edema, Normal Capillary Refill Skin: Warm, Dry, Intact Neurological: No New Focal Deficit Psy/Mental Status: Alert, Normal Affect, Normal Mood - Patient Data Lab Results Last 24 hrs: Laboratory Results - last 24 hr 06/09/21 06/09/21 06/10/21 Range/Units 17:47 20:44 06:30 WBC 10.60 H (4.23-9.07) K/mm3 RBC 5.57 (4.63-6.08) M/mm3 Hgb 15.8 (13.7-17.5) gm/dl Hct 47.8 (40.1-51.0) % MCV 85.8 (79.0-92.2) fl MCH 28.4 (25.7-32.2) pg MCHC 33.1 (32.2-35.5) g/dl RDW Std Deviation 47.5 H (35.1-43.9) fL Plt Count 321 (163-337) K/mm3 MPV 9.3 L (9.4-12.3) fl Neut % (Auto) 83.3 H (34.0-67.9) % Lymph % (Auto) 11.4 L (21.8-53.1) % [place] % (Auto) 4.4 L (5.3-12.2) % Eos % (Auto) 0.3 L (0.8-7.0) Baso % (Auto) 0.2 (0.1-1.2) % Neut # (Auto) 8.83 H (1.78-5.38) K/mm3 Lymph # (Auto) 1.21 L (1.32-3.57) K/mm3 [place] # (Auto) 0.47 (0.30-0.82) K/mm3 Eos # (Auto) 0.03 L (0.04-0.54) K/mm3 Baso # (Auto) 0.02 (0.01-0.08) K/mm3 Manual Slide Review Normal smear Sodium (136-145) mEq/L Potassium (3.5-5.1) mEq/L Chloride (98-107) mEq/L Carbon Dioxide (21-32) mEq/L Anion Gap (5-15) BUN (7-18) mg/dL Creatinine (0.7-1.3) mg/dL Est Cr Clr Drug Dosing mL/min Estimated GFR (MDRD) (>60) mL/min BUN/Creatinine Ratio (14-18) Glucose (70-99) mg/dL POC Glucose 132 H 201 H (70-99) mg/dL Calcium (8.5-10.1) mg/dL 06/10/21 06/10/21 06/10/21 Range/Units 06:30 06:57 07:28 WBC (4.23-9.07) K/mm3 RBC (4.63-6.08) M/mm3 Hgb (13.7-17.5) gm/dl Hct (40.1-51.0) % MCV (79.0-92.2) fl MCH (25.7-32.2) pg MCHC (32.2-35.5) g/dl RDW Std Deviation (35.1-43.9) fL Plt Count (163-337) K/mm3 MPV (9.4-12.3) fl Neut % (Auto) (34.0-67.9) % Lymph % (Auto) (21.8-53.1) % [place] % (Auto) (5.3-12.2) % Eos % (Auto) (0.8-7.0) Baso % (Auto) (0.1-1.2) % Neut # (Auto) (1.78-5.38) K/mm3 Lymph # (Auto) (1.32-3.57) K/mm3 [place] # (Auto) (0.30-0.82) K/mm3 Eos # (Auto) (0.04-0.54) K/mm3 Baso # (Auto) (0.01-0.08) K/mm3 Manual Slide Review Sodium 145 (136-145) mEq/L Potassium 4.0 (3.5-5.1) mEq/L Chloride 107 (98-107) mEq/L Carbon Dioxide 28 (21-32) mEq/L Anion Gap 14.0 (5-15) BUN 27 H (7-18) mg/dL Creatinine 1.1 (0.7-1.3) mg/dL Est Cr Clr Drug Dosing 76.50 mL/min Estimated GFR (MDRD) > 60 (>60) mL/min BUN/Creatinine Ratio 24.5 H (14-18) Glucose 94 (70-99) mg/dL POC Glucose 72 115 H (70-99) mg/dL Calcium 8.8 (8.5-10.1) mg/dL 06/10/21 Range/Units 11:17 WBC (4.23-9.07) K/mm3 RBC (4.63-6.08) M/mm3 Hgb (13.7-17.5) gm/dl Hct (40.1-51.0) % MCV (79.0-92.2) fl MCH (25.7-32.2) pg MCHC (32.2-35.5) g/dl RDW Std Deviation (35.1-43.9) fL Plt Count (163-337) K/mm3 MPV (9.4-12.3) fl Neut % (Auto) (34.0-67.9) % Lymph % (Auto) (21.8-53.1) % [place] % (Auto) (5.3-12.2) % Eos % (Auto) (0.8-7.0) Baso % (Auto) (0.1-1.2) % Neut # (Auto) (1.78-5.38) K/mm3 Lymph # (Auto) (1.32-3.57) K/mm3 [place] # (Auto) (0.30-0.82) K/mm3 Eos # (Auto) (0.04-0.54) K/mm3 Baso # (Auto) (0.01-0.08) K/mm3 Manual Slide Review Sodium (136-145) mEq/L Potassium (3.5-5.1) mEq/L Chloride (98-107) mEq/L Carbon Dioxide (21-32) mEq/L Anion Gap (5-15) BUN (7-18) mg/dL Creatinine (0.7-1.3) mg/dL Est Cr Clr Drug Dosing mL/min Estimated GFR (MDRD) (>60) mL/min BUN/Creatinine Ratio (14-18) Glucose (70-99) mg/dL POC Glucose 122 H (70-99) mg/dL Calcium (8.5-10.1) mg/dL Result Diagrams: 06/10/21 06:30 06/10/21 06:30 Sepsis Event Note - Evaluation Sepsis Screening Result: No Definite Risk - Focused Exam Vital Signs: Vital Signs Temp Pulse Resp BP Pulse Ox Pulse Ox 06/10/21 11:18 98.1 F 92 20 144/59 H 89 L 06/10/21 09:49 149/73 H 06/10/21 09:15 88 L 06/10/21 08:52 98.1 F 110 H 20 149/73 H 87 L 06/10/21 08:29 91 L 06/10/21 04:58 98.2 F 71 20 114/93 H 96 - Problem List & Annotations (1) Diabetes mellitus SNOMED Code(s): 30381779 Code(s): E11.9 - TYPE 2 DIABETES MELLITUS WITHOUT COMPLICATIONS Status: Acute Current Visit: Yes (2) Pneumonia due to COVID-19 virus SNOMED Code(s): 543218613083208117 Code(s): U07.1 - COVID-19; J12.82 - PNEUMONIA DUE TO CORONAVIRUS DISEASE 2019 Status: Acute Current Visit: Yes - Problem List Review Problem List Initiated/Reviewed/Updated: Yes - Plan Plan:: 1. acute respiratory failure with hypoxia- was presented to the er with saturation in 70's. He was placed on nc at 4 liters and the abg shows poor o2 saturation. we have placed him on high flow this am. We have also cont the remdesmivir that was started yesterday we have added dexamethasone, we have also added baricitinib due to the progressing o2 needs. we will cont duonebs, rt, IS, acapella. 06/09 having difficulty with thick white sputum he is having difficulty gettingup. we discussed with will try mucinex bid and add a one time dose of m ucomyst to see if this helps. -30 liters at 60 fio2. 2. Covid pneumonia0 bilateral- cta negative, d dimer is elevated and cont on PPx heparin, crp, ldh, etc all ordered as routime. The patient will get repeat abg this am. 06/09 as stated above -Continue dexamethasone, remdesivir, and baricitinib 3. DM type 2- we will cont hie metformin and his Jardiance since he is having food cr level and good urine output, we will also add sliding scale insulin. 06/09 elevation with dex -Blood sugars have been in the low 100s. We will stop metformin and continue to cover with sliding scale insulin. -Likely blood sugars will worsen secondary to steroids, but so far they have been pretty stable. 4. hyperlipidemia- cont home rosuvastatin 5. hypertension- cont lisinopril, daily labs ppx heparin time 36 min full code
[2021-06-10] MEDS: Acetaminophen 325 MG Tab PO PRN (17:00)
[2021-06-10] MEDS: Calcium Carbonate 500 MG Tab.Chew PO PRN (17:01)
[2021-06-10] MEDS: REMDESIVIR 100 MG in Sodium Chloride 0.9% 100 ML IV SCH (20:36)
[2021-06-10] MEDS: Temazepam 15 MG Cap PO PRN (21:59)
[2021-06-11] MEDS: Heparin Sodium 5,000 Units/ML Vial SUBCUT SCH ×3 (01:04→17:48)
[2021-06-11] MEDS: Insulin Lispro 100 UNIT/ML 10 ML Vial SUBCUT SCH ×4 (07:03→21:51)
[2021-06-11] MEDS: Dexamethasone 10 MG/ML SDV IVPUSH SCH (09:25)
[2021-06-11] MEDS: Nicotine 14 MG/24 Hr Patch TRDERM SCH (09:27)
[2021-06-11] MEDS: JARDIANCE PO SCH (09:29)
[2021-06-11] MEDS: Lisinopril 20 MG Tab PO SCH (09:30)
[2021-06-11] MEDS ORDERED: Ibuprofen 200 MG Tab PO PRN (09:31)
[2021-06-11] MEDS: Docusate Sodium 100 MG Cap PO SCH ×2 (09:31→20:39)
[2021-06-11] MEDS: guaiFENesin 600 MG Tab.ER PO SCH ×2 (09:31→20:40)
[2021-06-11] MEDS: Polyethylene Glycol 3350 Powder 17 GM Packet PO SCH (09:31)
[2021-06-11] MEDS: Rosuvastatin 10 MG Tab PO SCH (09:31)
[2021-06-11] MEDS: cefTRIAXone 2 GM in Sodium Chloride 0.9% 100 ML IV SCH (09:32)
[2021-06-11] MEDS ORDERED: LORazepam 0.5 MG Tab PO PRN ×2 (09:37→16:11)
[2021-06-11] MEDS: Azithromycin 500 MG in Sodium Chloride 0.9% 250 ML IV SCH (10:32)
[2021-06-11] MEDS: Methocarbamol 500 MG Tab PO PRN ×2 (14:32→21:52)
--- NOTE | 2021-06-11 15:14 | PCM.PN ---
- General Info Date of Service: 06/11/21 Admission Dx/Problem (Free Text): Admission Diagnosis/Problem Admission Diagnosis/Problem Hypoxia Covid 19 pneumonia with hypoxia Subjective Update: Patient continues to be short of breath. He did have some spasming of his back today and request a muscle relaxer. He was seen in the emergency department when he was first diagnosed with Covid with spasms in his hip. Patient also has a history of anxiety and is treated with an occasional Ativan. confirmed that he does have a prescription of Ativan. Patient was given 2.5 mg of Ativan with some improvement in his symptoms. Functional Status: Denies: Pain Controlled - Review of Systems General: Reports: Fatigue Pulmonary: Reports: Shortness of Breath, Cough Cardiovascular: Reports: No Symptoms Gastrointestinal: Reports: No Symptoms - Patient Data Vitals - Most Recent: Last Vital Signs Temp 98.4 F 06/11/21 08:17 Pulse 84 06/11/21 08:17 Resp 20 06/11/21 08:17 BP 130/68 06/11/21 09:30 Pulse Ox 91 L 06/11/21 14:32 Weight - Most Recent: 270 lb 11.2 oz I&O - Last 24 Hours: Intake & Output 06/11/21 06/11/21 06/11/21 06:59 14:59 22:59 Intake Total 900 360 Output Total 1650 Balance -750 360 Lab Results Last 24 Hours: Laboratory Results - last 24 hr 06/10/21 06/10/21 06/11/21 Range/Units 17:06 20:31 06:15 WBC 7.62 (4.23-9.07) K/mm3 RBC 4.86 (4.63-6.08) M/mm3 Hgb 13.9 D (13.7-17.5) gm/dl Hct 41.6 (40.1-51.0) % MCV 85.6 (79.0-92.2) fl MCH 28.6 (25.7-32.2) pg MCHC 33.4 (32.2-35.5) g/dl RDW Std Deviation 45.9 H (35.1-43.9) fL Plt Count 257 (163-337) K/mm3 MPV 9.6 (9.4-12.3) fl Neut % (Auto) 82.1 H (34.0-67.9) % Lymph % (Auto) 8.5 L (21.8-53.1) % [place] % (Auto) 8.1 (5.3-12.2) % Eos % (Auto) 0.5 L (0.8-7.0) Baso % (Auto) 0.1 (0.1-1.2) % Neut # (Auto) 6.25 H (1.78-5.38) K/mm3 Lymph # (Auto) 0.65 L (1.32-3.57) K/mm3 [place] # (Auto) 0.62 (0.30-0.82) K/mm3 Eos # (Auto) 0.04 (0.04-0.54) K/mm3 Baso # (Auto) 0.01 (0.01-0.08) K/mm3 Sodium (136-145) mEq/L Potassium (3.5-5.1) mEq/L Chloride (98-107) mEq/L Carbon Dioxide (21-32) mEq/L Anion Gap (5-15) BUN (7-18) mg/dL Creatinine (0.7-1.3) mg/dL Est Cr Clr Drug Dosing mL/min Estimated GFR (MDRD) (>60) mL/min BUN/Creatinine Ratio (14-18) Glucose (70-99) mg/dL POC Glucose 141 H 123 H (70-99) mg/dL Calcium (8.5-10.1) mg/dL 06/11/21 06/11/21 06/11/21 Range/Units 06:15 06:46 11:01 WBC (4.23-9.07) K/mm3 RBC (4.63-6.08) M/mm3 Hgb (13.7-17.5) gm/dl Hct (40.1-51.0) % MCV (79.0-92.2) fl MCH (25.7-32.2) pg MCHC (32.2-35.5) g/dl RDW Std Deviation (35.1-43.9) fL Plt Count (163-337) K/mm3 MPV (9.4-12.3) fl Neut % (Auto) (34.0-67.9) % Lymph % (Auto) (21.8-53.1) % [place] % (Auto) (5.3-12.2) % Eos % (Auto) (0.8-7.0) Baso % (Auto) (0.1-1.2) % Neut # (Auto) (1.78-5.38) K/mm3 Lymph # (Auto) (1.32-3.57) K/mm3 [place] # (Auto) (0.30-0.82) K/mm3 Eos # (Auto) (0.04-0.54) K/mm3 Baso # (Auto) (0.01-0.08) K/mm3 Sodium 140 (136-145) mEq/L Potassium 3.6 (3.5-5.1) mEq/L Chloride 102 (98-107) mEq/L Carbon Dioxide 26 (21-32) mEq/L Anion Gap 15.6 H (5-15) BUN 13 (7-18) mg/dL Creatinine 0.9 (0.7-1.3) mg/dL Est Cr Clr Drug Dosing 93.50 mL/min Estimated GFR (MDRD) > 60 (>60) mL/min BUN/Creatinine Ratio 14.4 (14-18) Glucose 109 H (70-99) mg/dL POC Glucose 107 H 135 H (70-99) mg/dL Calcium 8.3 L (8.5-10.1) mg/dL Quirino Results Last 24 Hours: Microbiology 06/09/21 10:30 Respiratory Culture - Preliminary Bronchial Gram Stain - Final Med Orders - Current: Current Medications Acetaminophen (Acetaminophen 325 Mg Tab) 650 mg PO Q4H PRN PRN Reason: Pain (Mild 1-3)/fever Last Admin: 06/10/21 17:00 Dose: 650 mg Documented by: Albuterol/Ipratropium (Albuterol/Ipratropium 3.0-0.5 Mg/3 Ml Neb Soln) 3 ml NEB QIDRT PRN PRN Reason: Shortness Of Breath/wheezing Last Admin: 06/10/21 22:32 Dose: 3 ml Documented by: Calcium Carbonate/Glycine (Calcium Carbonate 500 Mg Tab.Chew) 1,000 mg PO Q2HR PRN PRN Reason: Heartburn Last Admin: 06/10/21 17:01 Dose: 1,000 mg Documented by: Dexamethasone (Dexamethasone 10 Mg/Ml Sdv) 6 mg IVPUSH DAILY [facility] Stop: 06/16/21 09:01 Last Admin: 06/11/21 09:25 Dose: 6 mg Documented by: Docusate Sodium (Docusate Sodium 100 Mg Cap) 100 mg PO BID [facility] Last Admin: 06/11/21 09:31 Dose: 100 mg Documented by: Guaifenesin (Guaifenesin 600 Mg Tab.Er) 600 mg PO BID [facility] Last Admin: 06/11/21 09:31 Dose: 600 mg Documented by: Heparin Sodium (Porcine) (Heparin Sodium 5,000 Units/Ml Vial) 5,000 units SUBCUT Q8H [facility] Last Admin: 06/11/21 09:26 Dose: 5,000 units Documented by: Remdesivir 100 mg/ Sodium (Chloride) 100 mls @ 100 mls/hr IV Q24H [facility] Stop: 06/11/21 20:59 Last Admin: 06/10/21 20:36 Dose: 100 mls/hr Documented by: Ceftriaxone Sodium 2 gm/ (Sodium Chloride) 100 mls @ 200 mls/hr IV Q24H [facility] Last Admin: 06/11/21 09:32 Dose: 200 mls/hr Documented by: Azithromycin 500 mg/ Sodium (Chloride) 250 mls @ 250 mls/hr IV Q24H [facility] Last Admin: 06/11/21 10:32 Dose: 250 mls/hr Documented by: Ibuprofen (Ibuprofen 200 Mg Tab) 600 mg PO Q4HR PRN PRN Reason: Pain Insulin Human Lispro (Insulin Lispro 100 Unit/Ml 10 Ml Vial) 0 unit SUBCUT QIDACANDBED [facility]; Protocol Last Admin: 06/11/21 11:26 Dose: Not Given Documented by: Lisinopril (Lisinopril 20 Mg Tab) 40 mg PO DAILY [facility] Last Admin: 06/11/21 09:30 Dose: 40 mg Documented by: Lorazepam (Lorazepam 0.5 Mg Tab) 0.5 mg PO TID PRN PRN Reason: Anxiety Methocarbamol (Methocarbamol 500 Mg Tab) 1,000 mg PO Q6H PRN PRN Reason: Spasms Last Admin: 06/11/21 14:32 Dose: 1,000 mg Documented by: Miscellaneous Information (Remove Nicotine Patch) 1 ea TRDERM DAILY [facility] Last Admin: 06/11/21 09:31 Dose: 1 ea Documented by: Nicotine (Nicotine 14 Mg/24 Hr Patch) 14 mg TRDERM DAILY [facility] Last Admin: 06/11/21 09:27 Dose: 14 mg Documented by: Cristiana ( Empagliflozin 10 Mg Tablet Ptom 0 mg PO DAILY [facility] Last Admin: 06/11/21 09:29 Dose: 10 mg Documented by: Ondansetron HCl (Ondansetron 4 Mg/2 Ml Sdv) 4 mg IV Q4H PRN PRN Reason: Nausea/Vomiting Polyethylene Glycol (Polyethylene Glycol 3350 Powder 17 Gm Packet) 17 gm PO DAILY [facility] Last Admin: 06/11/21 09:31 Dose: Not Given Documented by: Rosuvastatin Calcium (Rosuvastatin 10 Mg Tab) 20 mg PO DAILY [facility] Last Admin: 06/11/21 09:31 Dose: 20 mg Documented by: Temazepam (Temazepam 15 Mg Cap) 15 mg PO BEDTIME PRN PRN Reason: Sleep Last Admin: 06/10/21 21:59 Dose: 15 mg Documented by: Discontinued Medications Acetylcysteine (Acetylcysteine 20% 200 Mg/Ml 30 Ml Nebulizer Soln Sdv) 800 mg NEB ONETIME ONE Stop: 06/09/21 09:21 Last Admin: 06/09/21 11:40 Dose: Not Given Documented by: Acetylcysteine (Acetylcysteine 20% 200 Mg/Ml 4 Ml Nebulizer Soln Sdv) 800 mg NEB ONETIME ONE Stop: 06/09/21 09:46 Last Admin: 06/09/21 10:10 Dose: 800 mg Documented by: Dexamethasone (Dexamethasone 4 Mg Tab) 6 mg PO ONETIME ONE Stop: 06/07/21 19:48 Last Admin: 06/07/21 20:28 Dose: 6 mg Documented by: Sodium Chloride (Normal Saline) 100 mls @ 60 mls/min IV ASDIRECTED [facility] Last Admin: 06/07/21 19:29 Dose: 60 mls/min Documented by: Remdesivir 200 mg/ Sodium (Chloride) 250 mls @ 250 mls/hr IV ONETIME ONE Stop: 06/07/21 20:38 Last Admin: 06/07/21 20:54 Dose: 250 mls/hr Documented by: Iopamidol (Iopamidol 755 Mg/Ml 100 Ml Bottle) 100 ml IVPUSH ONETIME ONE Stop: 06/07/21 19:05 Last Admin: 06/07/21 19:29 Dose: 100 ml Documented by: Metformin HCl (Metformin 500 Mg Tab) 1,000 mg PO BID [facility] Last Admin: 06/10/21 09:49 Dose: 1,000 mg Documented by: Morphine Sulfate (Morphine 2 Mg/Ml Syringe) 2 mg IVPUSH Q2H PRN PRN Reason: Pain (severe 7-10) Stop: 06/09/21 07:44 Sodium Chloride (Sodium Chloride 0.9% 10 Ml Sdv) 10 ml FLUSH ONETIME ONE Stop: 06/07/21 19:05 Last Admin: 06/07/21 19:29 Dose: 10 ml Documented by: - Exam Quality Assessment: Supplemental Oxygen General: Alert, Oriented HEENT: Pupils Equal, Mucous Membr. Moist/[place] Neck: Supple Lungs: Normal Respiratory Effort, Crackles (Throughout both lung cross) Cardiovascular: Regular Rate, Regular Rhythm GI/Abdominal Exam: Normal Bowel Sounds, Soft, Non-Tender, No Organomegaly, No Distention, No Abnormal Bruit, No Mass, Pelvis Stable Extremities: Normal Inspection, Normal Range of Motion, Non-Tender, No Pedal Edema Skin: Warm, Dry, Intact Psy/Mental Status: Alert, Normal Affect, Normal Mood - Patient Data Lab Results Last 24 hrs: Laboratory Results - last 24 hr 06/10/21 06/10/21 06/11/21 Range/Units 17:06 20:31 06:15 WBC 7.62 (4.23-9.07) K/mm3 RBC 4.86 (4.63-6.08) M/mm3 Hgb 13.9 D (13.7-17.5) gm/dl Hct 41.6 (40.1-51.0) % MCV 85.6 (79.0-92.2) fl MCH 28.6 (25.7-32.2) pg MCHC 33.4 (32.2-35.5) g/dl RDW Std Deviation 45.9 H (35.1-43.9) fL Plt Count 257 (163-337) K/mm3 MPV 9.6 (9.4-12.3) fl Neut % (Auto) 82.1 H (34.0-67.9) % Lymph % (Auto) 8.5 L (21.8-53.1) % [place] % (Auto) 8.1 (5.3-12.2) % Eos % (Auto) 0.5 L (0.8-7.0) Baso % (Auto) 0.1 (0.1-1.2) % Neut # (Auto) 6.25 H (1.78-5.38) K/mm3 Lymph # (Auto) 0.65 L (1.32-3.57) K/mm3 [place] # (Auto) 0.62 (0.30-0.82) K/mm3 Eos # (Auto) 0.04 (0.04-0.54) K/mm3 Baso # (Auto) 0.01 (0.01-0.08) K/mm3 Sodium (136-145) mEq/L Potassium (3.5-5.1) mEq/L Chloride (98-107) mEq/L Carbon Dioxide (21-32) mEq/L Anion Gap (5-15) BUN (7-18) mg/dL Creatinine (0.7-1.3) mg/dL Est Cr Clr Drug Dosing mL/min Estimated GFR (MDRD) (>60) mL/min BUN/Creatinine Ratio (14-18) Glucose (70-99) mg/dL POC Glucose 141 H 123 H (70-99) mg/dL Calcium (8.5-10.1) mg/dL 06/11/21 06/11/21 06/11/21 Range/Units 06:15 06:46 11:01 WBC (4.23-9.07) K/mm3 RBC (4.63-6.08) M/mm3 Hgb (13.7-17.5) gm/dl Hct (40.1-51.0) % MCV (79.0-92.2) fl MCH (25.7-32.2) pg MCHC (32.2-35.5) g/dl RDW Std Deviation (35.1-43.9) fL Plt Count (163-337) K/mm3 MPV (9.4-12.3) fl Neut % (Auto) (34.0-67.9) % Lymph % (Auto) (21.8-53.1) % [place] % (Auto) (5.3-12.2) % Eos % (Auto) (0.8-7.0) Baso % (Auto) (0.1-1.2) % Neut # (Auto) (1.78-5.38) K/mm3 Lymph # (Auto) (1.32-3.57) K/mm3 [place] # (Auto) (0.30-0.82) K/mm3 Eos # (Auto) (0.04-0.54) K/mm3 Baso # (Auto) (0.01-0.08) K/mm3 Sodium 140 (136-145) mEq/L Potassium 3.6 (3.5-5.1) mEq/L Chloride 102 (98-107) mEq/L Carbon Dioxide 26 (21-32) mEq/L Anion Gap 15.6 H (5-15) BUN 13 (7-18) mg/dL Creatinine 0.9 (0.7-1.3) mg/dL Est Cr Clr Drug Dosing 93.50 mL/min Estimated GFR (MDRD) > 60 (>60) mL/min BUN/Creatinine Ratio 14.4 (14-18) Glucose 109 H (70-99) mg/dL POC Glucose 107 H 135 H (70-99) mg/dL Calcium 8.3 L (8.5-10.1) mg/dL Result Diagrams: 06/11/21 06:15 06/11/21 06:15 Quirino Results Last 24 hrs: Microbiology 06/09/21 10:30 Respiratory Culture - Preliminary Bronchial Gram Stain - Final Sepsis Event Note - Evaluation Sepsis Screening Result: No Definite Risk - Focused Exam Vital Signs: Vital Signs Temp Pulse Resp BP Pulse Ox Pulse Ox 06/11/21 14:32 91 L 06/11/21 09:30 130/68 06/11/21 09:28 94 L 06/11/21 08:17 98.4 F 84 20 130/68 88 L 06/11/21 03:31 98.1 F 92 18 147/84 H 94 L - Problem List & Annotations (1) Diabetes mellitus SNOMED Code(s): 06201780 Code(s): E11.9 - TYPE 2 DIABETES MELLITUS WITHOUT COMPLICATIONS Status: Acute Current Visit: Yes (2) Pneumonia due to COVID-19 virus SNOMED Code(s): 016204415974482588 Code(s): U07.1 - COVID-19; J12.82 - PNEUMONIA DUE TO CORONAVIRUS DISEASE 2019 Status: Acute Current Visit: Yes - Problem List Review Problem List Initiated/Reviewed/Updated: Yes - My Orders Last 24 Hours: My Active Orders 06/11/21 09:31 Ibuprofen [Motrin] 600 mg PO Q4HR PRN 06/11/21 09:33 methocarbamoL [Robaxin] 1,000 mg PO Q6H PRN 06/11/21 09:37 LORazepam [Ativan] 0.5 mg PO TID PRN - Plan Plan:: 1. acute respiratory failure with hypoxia- was presented to the er with saturation in 70's. He was placed on nc at 4 liters and the abg shows poor o2 saturation. we have placed him on high flow this am. We have also cont the remdesmivir that was started yesterday we have added dexamethasone, we have also added baricitinib due to the progressing o2 needs. we will cont duonebs, rt, IS, acapella. -40 liters at 50 fio2. 2. Covid pneumonia0 bilateral- cta negative, d dimer is elevated and cont on PPx heparin, crp, ldh, etc all ordered as routime. The patient will get repeat abg this am. 06/09 as stated above -Continue dexamethasone, remdesivir, and baricitinib 3. DM type 2- we will cont hie metformin and his Jardiance since he is having food cr level and good urine output, we will also add sliding scale insulin. -Hemoglobin A1c 7.2 -Blood sugars have been in the low 100s. We will stop metformin and continue to cover with sliding scale insulin. -Likely blood sugars will worsen secondary to steroids, but so far they have been pretty stable. 4. hyperlipidemia- cont home rosuvastatin 5. hypertension- cont lisinopril, daily labs ppx heparin time 36 min full code
[2021-06-11] MEDS: REMDESIVIR 100 MG in Sodium Chloride 0.9% 100 ML IV SCH (20:39)
[2021-06-12] MEDS: Heparin Sodium 5,000 Units/ML Vial SUBCUT SCH ×2 (00:33→11:49)
[2021-06-12] MEDS: Insulin Lispro 100 UNIT/ML 10 ML Vial SUBCUT SCH ×4 (07:09→21:10)
--- NOTE | 2021-06-12 08:38 | PCM.PN ---
- General Info Date of Service: 06/12/21 Admission Dx/Problem (Free Text): Admission Diagnosis/Problem Admission Diagnosis/Problem Hypoxia Covid 19 pneumonia with hypoxia Functional Status: Reports: Pain Controlled, Tolerating Diet, Ambulating, Urinating, Incentive Spirometry, Other (Acapella ). Denies: New Symptoms - Review of Systems General: Reports: Weakness, Fatigue. Denies: Fever, Malaise, Chills HEENT: Reports: No Symptoms. Denies: Headaches, Sore Throat Pulmonary: Reports: Shortness of Breath, Cough, Sputum. Denies: Pleuritic Chest Pain, Wheezing Cardiovascular: Reports: Dyspnea on Exertion. Denies: Chest Pain, Palpitations, Edema, Lightheadedness Gastrointestinal: Reports: Diarrhea. Denies: Abdominal Pain, Constipation, Nausea, Vomiting Genitourinary: Reports: No Symptoms. Denies: Pain Musculoskeletal: Reports: No Symptoms Skin: Reports: No Symptoms. Denies: Cyanosis Neurological: Reports: No Symptoms. Denies: Confusion, Dizziness, Headache, Numbness, Pre-Existing Deficit, Tingling, Difficulty Walking, Gait Disturbance Psychiatric: Reports: No Symptoms - Patient Data Vitals - Most Recent: Last Vital Signs Temp 98.1 F 06/12/21 08:02 Pulse 61 06/12/21 08:02 Resp 20 06/12/21 08:02 BP 142/73 H 06/12/21 08:02 Pulse Ox 91 L 06/12/21 08:02 Weight - Most Recent: 265 lb 12.8 oz I&O - Last 24 Hours: Intake & Output 06/11/21 06/12/21 06/12/21 22:59 06:59 14:59 Intake Total 1350 800 Output Total 600 Balance 750 800 Lab Results Last 24 Hours: Laboratory Results - last 24 hr 06/11/21 06/11/21 06/11/21 Range/Units 11:01 17:00 21:09 WBC (4.23-9.07) K/mm3 RBC (4.63-6.08) M/mm3 Hgb (13.7-17.5) gm/dl Hct (40.1-51.0) % MCV (79.0-92.2) fl MCH (25.7-32.2) pg MCHC (32.2-35.5) g/dl RDW Std Deviation (35.1-43.9) fL Plt Count (163-337) K/mm3 MPV (9.4-12.3) fl Neut % (Auto) (34.0-67.9) % Lymph % (Auto) (21.8-53.1) % [place] % (Auto) (5.3-12.2) % Eos % (Auto) (0.8-7.0) Baso % (Auto) (0.1-1.2) % Neut # (Auto) (1.78-5.38) K/mm3 Lymph # (Auto) (1.32-3.57) K/mm3 [place] # (Auto) (0.30-0.82) K/mm3 Eos # (Auto) (0.04-0.54) K/mm3 Baso # (Auto) (0.01-0.08) K/mm3 D-Dimer, Quantitative (0.19-0.50) mg/L Sodium (136-145) mEq/L Potassium (3.5-5.1) mEq/L Chloride (98-107) mEq/L Carbon Dioxide (21-32) mEq/L Anion Gap (5-15) BUN (7-18) mg/dL Creatinine (0.7-1.3) mg/dL Est Cr Clr Drug Dosing mL/min Estimated GFR (MDRD) (>60) mL/min BUN/Creatinine Ratio (14-18) Glucose (70-99) mg/dL POC Glucose 135 H 158 H 214 H (70-99) mg/dL Calcium (8.5-10.1) mg/dL Phosphorus (2.6-4.7) mg/dL Magnesium (1.8-2.4) mg/dL Total Bilirubin (0.2-1.0) mg/dL AST (15-37) U/L ALT (16-63) U/L Alkaline Phosphatase (46-116) U/L C-Reactive Protein (<1.0) mg/dL Total Protein (6.4-8.2) g/dl Albumin (3.4-5.0) g/dl Globulin gm/dL Albumin/Globulin Ratio (1-2) 06/12/21 06/12/21 06/12/21 Range/Units 06:05 06:05 06:05 WBC 10.22 H (4.23-9.07) K/mm3 RBC 4.79 (4.63-6.08) M/mm3 Hgb 13.6 L (13.7-17.5) gm/dl Hct 41.3 (40.1-51.0) % MCV 86.2 (79.0-92.2) fl MCH 28.4 (25.7-32.2) pg MCHC 32.9 (32.2-35.5) g/dl RDW Std Deviation 46.9 H (35.1-43.9) fL Plt Count 269 (163-337) K/mm3 MPV 9.6 (9.4-12.3) fl Neut % (Auto) 75.1 H (34.0-67.9) % Lymph % (Auto) 11.9 L (21.8-53.1) % [place] % (Auto) 8.9 (5.3-12.2) % Eos % (Auto) 2.7 (0.8-7.0) Baso % (Auto) 0.1 (0.1-1.2) % Neut # (Auto) 7.67 H (1.78-5.38) K/mm3 Lymph # (Auto) 1.22 L (1.32-3.57) K/mm3 [place] # (Auto) 0.91 H (0.30-0.82) K/mm3 Eos # (Auto) 0.28 (0.04-0.54) K/mm3 Baso # (Auto) 0.01 (0.01-0.08) K/mm3 D-Dimer, Quantitative 3.85 H (0.19-0.50) mg/L Sodium 144 (136-145) mEq/L Potassium 3.8 (3.5-5.1) mEq/L Chloride 109 H (98-107) mEq/L Carbon Dioxide 25 (21-32) mEq/L Anion Gap 13.8 (5-15) BUN 14 (7-18) mg/dL Creatinine 0.7 (0.7-1.3) mg/dL Est Cr Clr Drug Dosing 120.22 mL/min Estimated GFR (MDRD) > 60 (>60) mL/min BUN/Creatinine Ratio 20.0 H (14-18) Glucose 106 H (70-99) mg/dL POC Glucose (70-99) mg/dL Calcium 8.2 L (8.5-10.1) mg/dL Phosphorus 3.5 (2.6-4.7) mg/dL Magnesium 1.9 (1.8-2.4) mg/dL Total Bilirubin 0.3 (0.2-1.0) mg/dL AST 30 (15-37) U/L ALT 37 (16-63) U/L Alkaline Phosphatase 52 (46-116) U/L C-Reactive Protein 12.6 H* (<1.0) mg/dL Total Protein 5.5 L (6.4-8.2) g/dl Albumin 1.9 L (3.4-5.0) g/dl Globulin 3.6 gm/dL Albumin/Globulin Ratio 0.5 L (1-2) 06/12/21 Range/Units 06:31 WBC (4.23-9.07) K/mm3 RBC (4.63-6.08) M/mm3 Hgb (13.7-17.5) gm/dl Hct (40.1-51.0) % MCV (79.0-92.2) fl MCH (25.7-32.2) pg MCHC (32.2-35.5) g/dl RDW Std Deviation (35.1-43.9) fL Plt Count (163-337) K/mm3 MPV (9.4-12.3) fl Neut % (Auto) (34.0-67.9) % Lymph % (Auto) (21.8-53.1) % [place] % (Auto) (5.3-12.2) % Eos % (Auto) (0.8-7.0) Baso % (Auto) (0.1-1.2) % Neut # (Auto) (1.78-5.38) K/mm3 Lymph # (Auto) (1.32-3.57) K/mm3 [place] # (Auto) (0.30-0.82) K/mm3 Eos # (Auto) (0.04-0.54) K/mm3 Baso # (Auto) (0.01-0.08) K/mm3 D-Dimer, Quantitative (0.19-0.50) mg/L Sodium (136-145) mEq/L Potassium (3.5-5.1) mEq/L Chloride (98-107) mEq/L Carbon Dioxide (21-32) mEq/L Anion Gap (5-15) BUN (7-18) mg/dL Creatinine (0.7-1.3) mg/dL Est Cr Clr Drug Dosing mL/min Estimated GFR (MDRD) (>60) mL/min BUN/Creatinine Ratio (14-18) Glucose (70-99) mg/dL POC Glucose 96 (70-99) mg/dL Calcium (8.5-10.1) mg/dL Phosphorus (2.6-4.7) mg/dL Magnesium (1.8-2.4) mg/dL Total Bilirubin (0.2-1.0) mg/dL AST (15-37) U/L ALT (16-63) U/L Alkaline Phosphatase (46-116) U/L C-Reactive Protein (<1.0) mg/dL Total Protein (6.4-8.2) g/dl Albumin (3.4-5.0) g/dl Globulin gm/dL Albumin/Globulin Ratio (1-2) Quirino Results Last 24 Hours: Microbiology 06/09/21 10:30 Respiratory Culture - Preliminary Bronchial Gram Stain - Final Med Orders - Current: Current Medications Acetaminophen (Acetaminophen 325 Mg Tab) 650 mg PO Q4H PRN PRN Reason: Pain (Mild 1-3)/fever Last Admin: 06/10/21 17:00 Dose: 650 mg Documented by: Albuterol/Ipratropium (Albuterol/Ipratropium 3.0-0.5 Mg/3 Ml Neb Soln) 3 ml NEB QIDRT PRN PRN Reason: Shortness Of Breath/wheezing Last Admin: 06/10/21 22:32 Dose: 3 ml Documented by: Calcium Carbonate/Glycine (Calcium Carbonate 500 Mg Tab.Chew) 1,000 mg PO Q2HR PRN PRN Reason: Heartburn Last Admin: 06/10/21 17:01 Dose: 1,000 mg Documented by: Dexamethasone (Dexamethasone 10 Mg/Ml Sdv) 6 mg IVPUSH DAILY MYLES Stop: 06/16/21 09:01 Last Admin: 06/11/21 09:25 Dose: 6 mg Documented by: Docusate Sodium (Docusate Sodium 100 Mg Cap) 100 mg PO BID MYLES Last Admin: 06/11/21 20:39 Dose: Not Given Documented by: Guaifenesin (Guaifenesin 600 Mg Tab.Er) 600 mg PO BID [facility] Last Admin: 06/11/21 20:40 Dose: 600 mg Documented by: Heparin Sodium (Porcine) (Heparin Sodium 5,000 Units/Ml Vial) 5,000 units SUBCUT Q8H [facility] Last Admin: 06/12/21 00:33 Dose: 5,000 units Documented by: Ceftriaxone Sodium 2 gm/ (Sodium Chloride) 100 mls @ 200 mls/hr IV Q24H [facility] Last Admin: 06/11/21 09:32 Dose: 200 mls/hr Documented by: Azithromycin 500 mg/ Sodium (Chloride) 250 mls @ 250 mls/hr IV Q24H [facility] Last Admin: 06/11/21 10:32 Dose: 250 mls/hr Documented by: Ibuprofen (Ibuprofen 200 Mg Tab) 600 mg PO Q4HR PRN PRN Reason: Pain Insulin Human Lispro (Insulin Lispro 100 Unit/Ml 10 Ml Vial) 0 unit SUBCUT QIDACANDBED [facility]; Protocol Last Admin: 06/12/21 07:09 Dose: Not Given Documented by: Lisinopril (Lisinopril 20 Mg Tab) 40 mg PO DAILY [facility] Last Admin: 06/11/21 09:30 Dose: 40 mg Documented by: Lorazepam (Lorazepam 0.5 Mg Tab) 0.5 mg PO TID PRN PRN Reason: Anxiety Methocarbamol (Methocarbamol 500 Mg Tab) 1,000 mg PO Q6H PRN PRN Reason: Spasms Last Admin: 06/11/21 21:52 Dose: 1,000 mg Documented by: Miscellaneous Information (Remove Nicotine Patch) 1 ea TRDERM DAILY [facility] Last Admin: 06/11/21 09:31 Dose: 1 ea Documented by: Nicotine (Nicotine 14 Mg/24 Hr Patch) 14 mg TRDERM DAILY [facility] Last Admin: 06/11/21 09:27 Dose: 14 mg Documented by: Jardiance ( Empagliflozin 10 Mg Tablet Ptom 0 mg PO DAILY [facility] Last Admin: 06/11/21 09:29 Dose: 10 mg Documented by: Ondansetron HCl (Ondansetron 4 Mg/2 Ml Sdv) 4 mg IV Q4H PRN PRN Reason: Nausea/Vomiting Polyethylene Glycol (Polyethylene Glycol 3350 Powder 17 Gm Packet) 17 gm PO DAILY [facility] Last Admin: 06/11/21 09:31 Dose: Not Given Documented by: Rosuvastatin Calcium (Rosuvastatin 10 Mg Tab) 20 mg PO DAILY [facility] Last Admin: 06/11/21 09:31 Dose: 20 mg Documented by: Temazepam (Temazepam 15 Mg Cap) 15 mg PO BEDTIME PRN PRN Reason: Sleep Last Admin: 06/10/21 21:59 Dose: 15 mg Documented by: Discontinued Medications Acetylcysteine (Acetylcysteine 20% 200 Mg/Ml 30 Ml Nebulizer Soln Sdv) 800 mg NEB ONETIME ONE Stop: 06/09/21 09:21 Last Admin: 06/09/21 11:40 Dose: Not Given Documented by: Acetylcysteine (Acetylcysteine 20% 200 Mg/Ml 4 Ml Nebulizer Soln Sdv) 800 mg NEB ONETIME ONE Stop: 06/09/21 09:46 Last Admin: 06/09/21 10:10 Dose: 800 mg Documented by: Dexamethasone (Dexamethasone 4 Mg Tab) 6 mg PO ONETIME ONE Stop: 06/07/21 19:48 Last Admin: 06/07/21 20:28 Dose: 6 mg Documented by: Sodium Chloride (Normal Saline) 100 mls @ 60 mls/min IV ASDIRECTED [facility] Last Admin: 06/07/21 19:29 Dose: 60 mls/min Documented by: Remdesivir 200 mg/ Sodium (Chloride) 250 mls @ 250 mls/hr IV ONETIME ONE Stop: 06/07/21 20:38 Last Admin: 06/07/21 20:54 Dose: 250 mls/hr Documented by: Remdesivir 100 mg/ Sodium (Chloride) 100 mls @ 100 mls/hr IV Q24H [facility] Stop: 06/11/21 20:59 Last Admin: 06/11/21 20:39 Dose: 100 mls/hr Documented by: Iopamidol (Iopamidol 755 Mg/Ml 100 Ml Bottle) 100 ml IVPUSH ONETIME ONE Stop: 06/07/21 19:05 Last Admin: 06/07/21 19:29 Dose: 100 ml Documented by: Lorazepam (Lorazepam 0.5 Mg Tab) 0.5 mg PO TID PRN PRN Reason: Anxiety Metformin HCl (Metformin 500 Mg Tab) 1,000 mg PO BID [facility] Last Admin: 06/10/21 09:49 Dose: 1,000 mg Documented by: Morphine Sulfate (Morphine 2 Mg/Ml Syringe) 2 mg IVPUSH Q2H PRN PRN Reason: Pain (severe 7-10) Stop: 06/09/21 07:44 Sodium Chloride (Sodium Chloride 0.9% 10 Ml Sdv) 10 ml FLUSH ONETIME ONE Stop: 06/07/21 19:05 Last Admin: 06/07/21 19:29 Dose: 10 ml Documented by: - Exam Quality Assessment: Supplemental Oxygen (45 liters with FiO2 of 75%.), DVT Prophylaxis General: Alert, Oriented, Cooperative, No Acute Distress HEENT: Pupils Equal, Pupils Reactive, Mucous Membr. Moist/[place] Neck: Supple, Trachea Midline Lungs: Normal Respiratory Effort, Decreased Breath Sounds, Crackles. No: Wheezing Cardiovascular: Regular Rate, Regular Rhythm GI/Abdominal Exam: Normal Bowel Sounds, Soft, Non-Tender, No Distention (Male) Exam: Deferred Back Exam: Normal Inspection, Full Range of Motion Extremities: Normal Inspection, Normal Range of Motion, Non-Tender, No Pedal Edema, Normal Capillary Refill Peripheral Pulses: 2+: Radial (L), Radial (R), Dorsalis Pedis (L), Dorsalis Pedis (R) Skin: Warm, Dry, Intact Neurological: No New Focal Deficit Psy/Mental Status: Alert, Normal Affect, Normal Mood - Patient Data Lab Results Last 24 hrs: Laboratory Results - last 24 hr 06/11/21 06/11/21 06/11/21 Range/Units 11:01 17:00 21:09 WBC (4.23-9.07) K/mm3 RBC (4.63-6.08) M/mm3 Hgb (13.7-17.5) gm/dl Hct (40.1-51.0) % MCV (79.0-92.2) fl MCH (25.7-32.2) pg MCHC (32.2-35.5) g/dl RDW Std Deviation (35.1-43.9) fL Plt Count (163-337) K/mm3 MPV (9.4-12.3) fl Neut % (Auto) (34.0-67.9) % Lymph % (Auto) (21.8-53.1) % [place] % (Auto) (5.3-12.2) % Eos % (Auto) (0.8-7.0) Baso % (Auto) (0.1-1.2) % Neut # (Auto) (1.78-5.38) K/mm3 Lymph # (Auto) (1.32-3.57) K/mm3 [place] # (Auto) (0.30-0.82) K/mm3 Eos # (Auto) (0.04-0.54) K/mm3 Baso # (Auto) (0.01-0.08) K/mm3 D-Dimer, Quantitative (0.19-0.50) mg/L Sodium (136-145) mEq/L Potassium (3.5-5.1) mEq/L Chloride (98-107) mEq/L Carbon Dioxide (21-32) mEq/L Anion Gap (5-15) BUN (7-18) mg/dL Creatinine (0.7-1.3) mg/dL Est Cr Clr Drug Dosing mL/min Estimated GFR (MDRD) (>60) mL/min BUN/Creatinine Ratio (14-18) Glucose (70-99) mg/dL POC Glucose 135 H 158 H 214 H (70-99) mg/dL Calcium (8.5-10.1) mg/dL Phosphorus (2.6-4.7) mg/dL Magnesium (1.8-2.4) mg/dL Total Bilirubin (0.2-1.0) mg/dL AST (15-37) U/L ALT (16-63) U/L Alkaline Phosphatase (46-116) U/L C-Reactive Protein (<1.0) mg/dL Total Protein (6.4-8.2) g/dl Albumin (3.4-5.0) g/dl Globulin gm/dL Albumin/Globulin Ratio (1-2) 06/12/21 06/12/21 06/12/21 Range/Units 06:05 06:05 06:05 WBC 10.22 H (4.23-9.07) K/mm3 RBC 4.79 (4.63-6.08) M/mm3 Hgb 13.6 L (13.7-17.5) gm/dl Hct 41.3 (40.1-51.0) % MCV 86.2 (79.0-92.2) fl MCH 28.4 (25.7-32.2) pg MCHC 32.9 (32.2-35.5) g/dl RDW Std Deviation 46.9 H (35.1-43.9) fL Plt Count 269 (163-337) K/mm3 MPV 9.6 (9.4-12.3) fl Neut % (Auto) 75.1 H (34.0-67.9) % Lymph % (Auto) 11.9 L (21.8-53.1) % [place] % (Auto) 8.9 (5.3-12.2) % Eos % (Auto) 2.7 (0.8-7.0) Baso % (Auto) 0.1 (0.1-1.2) % Neut # (Auto) 7.67 H (1.78-5.38) K/mm3 Lymph # (Auto) 1.22 L (1.32-3.57) K/mm3 [place] # (Auto) 0.91 H (0.30-0.82) K/mm3 Eos # (Auto) 0.28 (0.04-0.54) K/mm3 Baso # (Auto) 0.01 (0.01-0.08) K/mm3 D-Dimer, Quantitative 3.85 H (0.19-0.50) mg/L Sodium 144 (136-145) mEq/L Potassium 3.8 (3.5-5.1) mEq/L Chloride 109 H (98-107) mEq/L Carbon Dioxide 25 (21-32) mEq/L Anion Gap 13.8 (5-15) BUN 14 (7-18) mg/dL Creatinine 0.7 (0.7-1.3) mg/dL Est Cr Clr Drug Dosing 120.22 mL/min Estimated GFR (MDRD) > 60 (>60) mL/min BUN/Creatinine Ratio 20.0 H (14-18) Glucose 106 H (70-99) mg/dL POC Glucose (70-99) mg/dL Calcium 8.2 L (8.5-10.1) mg/dL Phosphorus 3.5 (2.6-4.7) mg/dL Magnesium 1.9 (1.8-2.4) mg/dL Total Bilirubin 0.3 (0.2-1.0) mg/dL AST 30 (15-37) U/L ALT 37 (16-63) U/L Alkaline Phosphatase 52 (46-116) U/L C-Reactive Protein 12.6 H* (<1.0) mg/dL Total Protein 5.5 L (6.4-8.2) g/dl Albumin 1.9 L (3.4-5.0) g/dl Globulin 3.6 gm/dL Albumin/Globulin Ratio 0.5 L (1-2) 06/12/21 Range/Units 06:31 WBC (4.23-9.07) K/mm3 RBC (4.63-6.08) M/mm3 Hgb (13.7-17.5) gm/dl Hct (40.1-51.0) % MCV (79.0-92.2) fl MCH (25.7-32.2) pg MCHC (32.2-35.5) g/dl RDW Std Deviation (35.1-43.9) fL Plt Count (163-337) K/mm3 MPV (9.4-12.3) fl Neut % (Auto) (34.0-67.9) % Lymph % (Auto) (21.8-53.1) % [place] % (Auto) (5.3-12.2) % Eos % (Auto) (0.8-7.0) Baso % (Auto) (0.1-1.2) % Neut # (Auto) (1.78-5.38) K/mm3 Lymph # (Auto) (1.32-3.57) K/mm3 [place] # (Auto) (0.30-0.82) K/mm3 Eos # (Auto) (0.04-0.54) K/mm3 Baso # (Auto) (0.01-0.08) K/mm3 D-Dimer, Quantitative (0.19-0.50) mg/L Sodium (136-145) mEq/L Potassium (3.5-5.1) mEq/L Chloride (98-107) mEq/L Carbon Dioxide (21-32) mEq/L Anion Gap (5-15) BUN (7-18) mg/dL Creatinine (0.7-1.3) mg/dL Est Cr Clr Drug Dosing mL/min Estimated GFR (MDRD) (>60) mL/min BUN/Creatinine Ratio (14-18) Glucose (70-99) mg/dL POC Glucose 96 (70-99) mg/dL Calcium (8.5-10.1) mg/dL Phosphorus (2.6-4.7) mg/dL Magnesium (1.8-2.4) mg/dL Total Bilirubin (0.2-1.0) mg/dL AST (15-37) U/L ALT (16-63) U/L Alkaline Phosphatase (46-116) U/L C-Reactive Protein (<1.0) mg/dL Total Protein (6.4-8.2) g/dl Albumin (3.4-5.0) g/dl Globulin gm/dL Albumin/Globulin Ratio (1-2) Result Diagrams: 06/12/21 06:05 06/12/21 06:05 Quirino Results Last 24 hrs: Microbiology 06/09/21 10:30 Respiratory Culture - Preliminary Bronchial Gram Stain - Final Sepsis Event Note - Evaluation Sepsis Screening Result: No Definite Risk - Focused Exam Vital Signs: Vital Signs Temp Pulse Resp BP Pulse Ox Pulse Ox 06/12/21 08:02 98.1 F 61 20 142/73 H 91 L 06/12/21 07:22 89 L 06/12/21 07:20 82 L 06/12/21 06:45 92 L 06/12/21 06:31 98.1 F 81 20 140/70 06/11/21 21:25 94 L - Problem List & Annotations (1) Hyperlipidemia SNOMED Code(s): 95983415 Code(s): E78.5 - HYPERLIPIDEMIA, UNSPECIFIED Status: Chronic Priority: Low Current Visit: No Qualifiers: Hyperlipidemia type: unspecified Qualified Code(s): E78.5 - Hyperlipidemia, unspecified (2) HTN (hypertension) SNOMED Code(s): 87084510 Code(s): I10 - ESSENTIAL (PRIMARY) HYPERTENSION Status: Chronic Priority: Low Current Visit: No Qualifiers: Hypertension type: unspecified Qualified Code(s): I10 - Essential (primary) hypertension (3) Elevated d-dimer SNOMED Code(s): 869149553 Code(s): R79.89 - OTHER SPECIFIED ABNORMAL FINDINGS OF BLOOD CHEMISTRY Status: Acute Priority: High Current Visit: Yes (4) Elevated C-reactive protein SNOMED Code(s): 756141723042758 Code(s): R79.82 - ELEVATED C-REACTIVE PROTEIN (CRP) Status: Acute Prio rity: High Current Visit: Yes (5) Leukocytosis SNOMED Code(s): 621358757, 359567860 Code(s): D72.829 - ELEVATED WHITE BLOOD CELL COUNT, UNSPECIFIED Status: Acute Priority: High Current Visit: Yes Qualifiers: Leukocytosis type: unspecified Qualified Code(s): D72.829 - Elevated white blood cell count, unspecified (6) Diabetes mellitus SNOMED Code(s): 77259852 Code(s): E11.9 - TYPE 2 DIABETES MELLITUS WITHOUT COMPLICATIONS Status: Chronic Priority: High Current Visit: Yes Qualifiers: Diabetes mellitus type: type 2 Diabetes mellitus custodial insulin use: without custodial use Diabetes mellitus complication status: with other specified complication Qualified Code(s): E11.69 - Type 2 diabetes mellitus with other specified complication (7) Hypoxia SNOMED Code(s): 628989338 Code(s): R09.02 - HYPOXEMIA Status: Acute Priority: High Current Visit: Yes (8) Pneumonia due to COVID-19 virus SNOMED Code(s): 826723342400305096 Code(s): U07.1 - COVID-19; J12.82 - PNEUMONIA DUE TO CORONAVIRUS DISEASE 2019 Status: Acute Priority: High Current Visit: Yes (9) Smoker SNOMED Code(s): 48775853 Code(s): F17.200 - NICOTINE DEPENDENCE, UNSPECIFIED, UNCOMPLICATED Status: Chronic Priority: High Current Visit: Yes (10) Gout SNOMED Code(s): 74519906 Code(s): M10.9 - GOUT, UNSPECIFIED Status: Chronic Priority: Low Current Visit: No Qualifiers: Gout site: unspecified site Gout etiology: unspecified cause Chronicity: unspecified Qualified Code(s): M10.9 - Gout, unspecified - Problem List Review Problem List Initiated/Reviewed/Updated: Yes - Assessment Assessment:: 06/12/2021 This is a 55-year-old male admitted to the floor with hypoxia secondary to COVID-19 pneumonia. He currently is on 45 L with an FiO2 of 75%. Labs today show a WBC of 10.22. Hemoglobin 30.6. Platelet 269,000. Neutrophils elevated 75.1%. D-dimer is up to 3.85. Sodium 144. Potassium 3.8. Chloride 109. Carbon dioxide 25. Anion gap is 13.8. BUN is 14. Creatinine 0.7. GFR greater than 60. Blood glucose levels have been from 96-2 14. Phosphorus 3.5. Magnesium 1.9. Total bilirubin 0.3. AST is 30, ALT 37, alkaline phosphatase 52. CRP is 12.6. Protein 5.5. Albumin is down to 1.9. Given the patient's worsening oxygen demand and elevated D-dimer CTA is obtained showing 1. Bilateral pulmonary consolidation likely due to COVID-19. 2. Mediastinal adenopathy, most likely reactive. There are no signs of any pulmonary emboli. We will therefore increase patient's DVT prophylaxis up to 40 mg twice daily Lovenox. Patient will be started on 20 mg twice daily Pepcid and zinc supplementation. Vitamin D level has been ordered. Patient will remain hospitalized pending improvement in oxygen demand. Unknown length of stay time. Overall he states he feels about the same as yesterday. Continues to have mild diarrhea at times and reports weakness. - Plan Plan:: Pneumonia due to COVID-19 virus Hypoxia Elevated d-dimer Elevated C-reactive protein Leukocytosis * O2 as needed with goal saturations 88 to 95% * High flow oxygen * Start Lovenox 40 mg twice daily due to elevated D-dimer * I-S/Acapella * PRN albuterol inhaler * PRN Duonebs * Prone whenever able * Ambulate around room * RT consultation * PT/OT * Daily labs * Every 48 hour D-dimer * Airborne/contact isolation * Telemetry * Continuous pulse oximetry * Zinc supplementation * Check vitamin D * 20 mg twice daily Pepcid * Completed remdesivir * Completed azithromycin * Completed Rocephin * 6 mg dexamethasone daily - day 03/15 * Baricitinib - day 01/17 * Scheduled Mucinex twice daily Hyperlipidemia * Continue home rosuvastatin * No acute concern HTN (hypertension) * Continue home lisinopril * No acute concerns Diabetes mellitus * Continue home Jardiance * QID AC and bedtime blood glucose checks * Medium dose sliding scale insulin * Hold home metformin * Diabetic diet Smoker * Nicotine patch daily * Cessation counseling * Offer nicotine patches at discharge Gout * No acute concerns * No chronic home gout medications * Monitor Code status: Full code PCP: Dr. Rubio DVT prophylaxis: BID Lovenox as above Disposition: Patient will remain admitted to the medical/surgical floor for further management and treatment of his COVID-19 pneumonia. Unknown length of stay as patient continues to require high flow oxygen. Goal oxygen demand would be 2 L or less on nasal cannula. Length of stay greater than 96 hours due to continued need for COVID-19 treatment.
[2021-06-12] MEDS: Albuterol 6.7 GM Inhaler INH PRN ×3 (09:00→20:58)
[2021-06-12] MEDS ORDERED: Ibuprofen 600 MG Tab PO PRN (09:58)
[2021-06-12] MEDS: cefTRIAXone 2 GM in Sodium Chloride 0.9% 100 ML IV SCH (10:10)
[2021-06-12] MEDS: Azithromycin 500 MG in Sodium Chloride 0.9% 250 ML IV SCH (10:11)
[2021-06-12] MEDS: Docusate Sodium 100 MG Cap PO SCH ×2 (10:21→20:32)
[2021-06-12] MEDS: Polyethylene Glycol 3350 Powder 17 GM Packet PO SCH (10:21)
[2021-06-12] MEDS: Acetaminophen 325 MG Tab PO PRN (10:29)
[2021-06-12] MEDS: guaiFENesin 600 MG Tab.ER PO SCH ×2 (10:30→20:32)
[2021-06-12] MEDS: Nicotine 14 MG/24 Hr Patch TRDERM SCH (10:31)
[2021-06-12] MEDS ORDERED: Sodium Chloride 0.9% 10 ML Syringe FLUSH ONE (11:03)
[2021-06-12] MEDS ORDERED: Iopamidol 755 Mg/ML 100 ML Bottle IVPUSH ONE (11:03)
[2021-06-12] MEDS ORDERED: Sodium Chloride 0.9% 100 ML IV SCH (11:15)
[2021-06-12] MEDS: Rosuvastatin 10 MG Tab PO SCH (11:17)
[2021-06-12] MEDS: Lisinopril 20 MG Tab PO SCH (11:17)
[2021-06-12] MEDS: Enoxaparin 40 MG/0.4 ML Syringe SUBCUT SCH ×2 (11:18→23:34)
[2021-06-12] MEDS: Methocarbamol 500 MG Tab PO PRN ×2 (11:18→20:33)
[2021-06-12] MEDS: JARDIANCE PO SCH (11:19)
[2021-06-12] MEDS: Dexamethasone 10 MG/ML SDV IVPUSH SCH (11:19)
[2021-06-12] MEDS: Famotidine 20 MG Tab PO SCH ×2 (13:32→20:32)
[2021-06-12] MEDS: Zinc Sulfate 220 MG Cap PO SCH (13:32)
--- NOTE | 2021-06-12 13:38 | CT ---
CT chest Technique: Multiple axial sections through the chest were obtained. Intravenous contrast was utilized. Study has been performed as pulmonary angiogram protocol. Comparison: Prior CT chest of 06/07/21. Findings: Pulmonary arteries are well opacified. No filling defects are seen to indicate pulmonary embolism. Thoracic aorta shows no aneurysm. Scattered lymph nodes are seen which are believed to be within normal limits. No axillary adenopathy is seen. No pericardial thickening is seen. Small portion of the visualized upper abdominal structures show nothing acute. Diffuse parenchymal changes are seen throughout both lungs which are noted on prior study but appear more dense on current study. Bone window settings were reviewed which show scattered endplate spurring within the mid and lower thoracic spine. No acute osseous abnormality is appreciated. Impression: 1. Increased density within both sides of the chest. Distribution is similar to prior CT exam but overall density is increased from previous study. Findings are compatible with continuing diffuse COVID pneumonia. 2. No findings of pulmonary embolism. 3. Other findings believed to be incidental as noted above. Diagnostic code #3 I agree with preliminary report from [facility], finalized on 06/12/21, 12:47 PM CDT
[2021-06-12] MEDS: Cholecalciferol (Vitamin D3) 5,000 UNIT Cap PO SCH (14:51)
[2021-06-13] MEDS: Albuterol 6.7 GM Inhaler INH PRN ×2 (05:45→20:28)
[2021-06-13] MEDS: Insulin Lispro 100 UNIT/ML 10 ML Vial SUBCUT SCH ×4 (07:08→21:18)
--- NOTE | 2021-06-13 07:08 | PCM.PN ---
- General Info Date of Service: 06/13/21 Admission Dx/Problem (Free Text): Admission Diagnosis/Problem Admission Diagnosis/Problem Hypoxia Covid 19 pneumonia with hypoxia Functional Status: Reports: Pain Controlled, Tolerating Diet, Ambulating, Urinating, Incentive Spirometry, Other (Acapella ). Denies: New Symptoms - Review of Systems General: Reports: Weakness, Fatigue. Denies: Fever, Malaise, Chills HEENT: Reports: No Symptoms. Denies: Headaches, Sore Throat Pulmonary: Reports: Shortness of Breath, Cough, Sputum, Wheezing. Denies: Pleuritic Chest Pain Cardiovascular: Reports: Dyspnea on Exertion. Denies: Chest Pain, Palpitations, Orthopnea Gastrointestinal: Reports: No Symptoms. Denies: Abdominal Pain, Constipation, Diarrhea, Nausea, Vomiting Genitourinary: Reports: No Symptoms. Denies: Pain Musculoskeletal: Reports: No Symptoms Skin: Reports: No Symptoms. Denies: Cyanosis Neurological: Reports: No Symptoms. Denies: Confusion, Dizziness, Headache, Numbness, Pre-Existing Deficit, Seizure, Syncope, Tingling, Tremors, Trouble Speaking, Difficulty Walking, Change in Speech, Gait Disturbance Psychiatric: Reports: No Symptoms - Patient Data Vitals - Most Recent: Last Vital Signs Temp 98.1 F 06/13/21 06:38 Pulse 65 06/13/21 06:38 Resp 16 06/13/21 06:38 BP 148/89 H 06/13/21 06:38 Pulse Ox 89 L 06/13/21 06:42 Weight - Most Recent: 266 lb 14.4 oz I&O - Last 24 Hours: Intake & Output 06/12/21 06/13/21 06/13/21 22:59 06:59 14:59 Intake Total 1270 Balance 1270 Lab Results Last 24 Hours: Laboratory Results - last 24 hr 06/12/21 06/12/21 06/12/21 Range/Units 06:05 10:40 16:36 WBC (4.23-9.07) K/mm3 RBC (4.63-6.08) M/mm3 Hgb (13.7-17.5) gm/dl Hct (40.1-51.0) % MCV (79.0-92.2) fl MCH (25.7-32.2) pg MCHC (32.2-35.5) g/dl RDW Std Deviation (35.1-43.9) fL Plt Count (163-337) K/mm3 MPV (9.4-12.3) fl Neut % (Auto) (34.0-67.9) % Lymph % (Auto) (21.8-53.1) % [place] % (Auto) (5.3-12.2) % Eos % (Auto) (0.8-7.0) Baso % (Auto) (0.1-1.2) % Neut # (Auto) (1.78-5.38) K/mm3 Lymph # (Auto) (1.32-3.57) K/mm3 [place] # (Auto) (0.30-0.82) K/mm3 Eos # (Auto) (0.04-0.54) K/mm3 Baso # (Auto) (0.01-0.08) K/mm3 Sodium (136-145) mEq/L Potassium (3.5-5.1) mEq/L Chloride (98-107) mEq/L Carbon Dioxide (21-32) mEq/L Anion Gap (5-15) BUN (7-18) mg/dL Creatinine (0.7-1.3) mg/dL Est Cr Clr Drug Dosing mL/min Estimated GFR (MDRD) (>60) mL/min BUN/Creatinine Ratio (14-18) Glucose (70-99) mg/dL POC Glucose 170 H 162 H (70-99) mg/dL Calcium (8.5-10.1) mg/dL Magnesium (1.8-2.4) mg/dL Total Bilirubin (0.2-1.0) mg/dL AST (15-37) U/L ALT (16-63) U/L Alkaline Phosphatase (46-116) U/L C-Reactive Protein (<1.0) mg/dL Total Protein (6.4-8.2) g/dl Albumin (3.4-5.0) g/dl Globulin gm/dL Albumin/Globulin Ratio (1-2) Vitamin D 25-Hydroxy 17.4 L (30.0-100.0) ng/ml 06/12/21 06/13/21 06/13/21 Range/Units 20:58 06:19 06:19 WBC 9.34 H (4.23-9.07) K/mm3 RBC 4.85 (4.63-6.08) M/mm3 Hgb 13.7 (13.7-17.5) gm/dl Hct 41.9 (40.1-51.0) % MCV 86.4 (79.0-92.2) fl MCH 28.2 (25.7-32.2) pg MCHC 32.7 (32.2-35.5) g/dl RDW Std Deviation 46.6 H (35.1-43.9) fL Plt Count 357 H D (163-337) K/mm3 MPV 9.2 L (9.4-12.3) fl Neut % (Auto) 76.4 H (34.0-67.9) % Lymph % (Auto) 11.2 L (21.8-53.1) % Victoria % (Auto) 8.0 (5.3-12.2) % Eos % (Auto) 2.6 (0.8-7.0) Baso % (Auto) 0.1 (0.1-1.2) % Neut # (Auto) 7.13 H (1.78-5.38) K/mm3 Lymph # (Auto) 1.05 L (1.32-3.57) K/mm3 [place] # (Auto) 0.75 (0.30-0.82) K/mm3 Eos # (Auto) 0.24 (0.04-0.54) K/mm3 Baso # (Auto) 0.01 (0.01-0.08) K/mm3 Sodium 144 (136-145) mEq/L Potassium 3.5 (3.5-5.1) mEq/L Chloride 106 (98-107) mEq/L Carbon Dioxide 26 (21-32) mEq/L Anion Gap 15.5 H (5-15) BUN 12 (7-18) mg/dL Creatinine 0.8 (0.7-1.3) mg/dL Est Cr Clr Drug Dosing 105.19 mL/min Estimated GFR (MDRD) > 60 (>60) mL/min BUN/Creatinine Ratio 15.0 (14-18) Glucose 109 H (70-99) mg/dL POC Glucose 242 H (70-99) mg/dL Calcium 8.3 L (8.5-10.1) mg/dL Magnesium 1.9 (1.8-2.4) mg/dL Total Bilirubin 0.4 (0.2-1.0) mg/dL AST 27 (15-37) U/L ALT 41 (16-63) U/L Alkaline Phosphatase 58 (46-116) U/L C-Reactive Protein 10.7 H* (<1.0) mg/dL Total Protein 6.1 L (6.4-8.2) g/dl Albumin 2.1 L (3.4-5.0) g/dl Globulin 4.0 gm/dL Albumin/Globulin Ratio 0.5 L (1-2) Vitamin D 25-Hydroxy (30.0-100.0) ng/ml 06/13/21 Range/Units 06:34 WBC (4.23-9.07) K/mm3 RBC (4.63-6.08) M/mm3 Hgb (13.7-17.5) gm/dl Hct (40.1-51.0) % MCV (79.0-92.2) fl MCH (25.7-32.2) pg MCHC (32.2-35.5) g/dl RDW Std Deviation (35.1-43.9) fL Plt Count (163-337) K/mm3 MPV (9.4-12.3) fl Neut % (Auto) (34.0-67.9) % Lymph % (Auto) (21.8-53.1) % [place] % (Auto) (5.3-12.2) % Eos % (Auto) (0.8-7.0) Baso % (Auto) (0.1-1.2) % Neut # (Auto) (1.78-5.38) K/mm3 Lymph # (Auto) (1.32-3.57) K/mm3 [place] # (Auto) (0.30-0.82) K/mm3 Eos # (Auto) (0.04-0.54) K/mm3 Baso # (Auto) (0.01-0.08) K/mm3 Sodium (136-145) mEq/L Potassium (3.5-5.1) mEq/L Chloride (98-107) mEq/L Carbon Dioxide (21-32) mEq/L Anion Gap (5-15) BUN (7-18) mg/dL Creatinine (0.7-1.3) mg/dL Est Cr Clr Drug Dosing mL/min Estimated GFR (MDRD) (>60) mL/min BUN/Creatinine Ratio (14-18) Glucose (70-99) mg/dL POC Glucose 100 H (70-99) mg/dL Calcium (8.5-10.1) mg/dL Magnesium (1.8-2.4) mg/dL Total Bilirubin (0.2-1.0) mg/dL AST (15-37) U/L ALT (16-63) U/L Alkaline Phosphatase (46-116) U/L C-Reactive Protein (<1.0) mg/dL Total Protein (6.4-8.2) g/dl Albumin (3.4-5.0) g/dl Globulin gm/dL Albumin/Globulin Ratio (1-2) Vitamin D 25-Hydroxy (30.0-100.0) ng/ml Quirino Results Last 24 Hours: Microbiology 06/09/21 10:30 Respiratory Culture - Final Bronchial Gram Stain - Final Med Orders - Current: Current Medications Acetaminophen (Acetaminophen 325 Mg Tab) 650 mg PO Q4H PRN PRN Reason: Pain (Mild 1-3)/fever Last Admin: 06/12/21 10:29 Dose: 650 mg Documented by: Albuterol (Albuterol 6.7 Gm Inhaler) 0 gm INH Q2H PRN PRN Reason: sob/wheezing Last Admin: 06/13/21 05:45 Dose: 2 puff Documented by: Albuterol/Ipratropium (Albuterol/Ipratropium 3.0-0.5 Mg/3 Ml Neb Soln) 3 ml NEB QIDRT PRN PRN Reason: Shortness Of Breath/wheezing Last Admin: 06/10/21 22:32 Dose: 3 ml Documented by: Calcium Carbonate/Glycine (Calcium Carbonate 500 Mg Tab.Chew) 1,000 mg PO Q2HR PRN PRN Reason: Heartburn Last Admin: 06/10/21 17:01 Dose: 1,000 mg Documented by: Cholecalciferol (Cholecalciferol (Vitamin D3) 5,000 Unit Cap) 5,000 unit PO DAILY [facility] Last Admin: 06/12/21 14:51 Dose: 5,000 unit Documented by: Dexamethasone (Dexamethasone 4 Mg Tab) 6 mg PO DAILY [facility] Stop: 06/16/21 09:01 Docusate Sodium (Docusate Sodium 100 Mg Cap) 100 mg PO BID [facility] Last Admin: 06/12/21 20:32 Dose: Not Given Documented by: Enoxaparin Sodium (Enoxaparin 40 Mg/0.4 Ml Syringe) 40 mg SUBCUT Q12H [facility] Last Admin: 06/12/21 23:34 Dose: 40 mg Documented by: Famotidine (Famotidine 20 Mg Tab) 20 mg PO BID [facility] Last Admin: 06/12/21 20:32 Dose: 20 mg Documented by: Guaifenesin (Guaifenesin 600 Mg Tab.Er) 600 mg PO BID [facility] Last Admin: 06/12/21 20:32 Dose: 600 mg Documented by: Ibuprofen (Ibuprofen 600 Mg Tab) 600 mg PO Q4HR PRN PRN Reason: Pain Insulin Human Lispro (Insulin Lispro 100 Unit/Ml 10 Ml Vial) 0 unit SUBCUT QIDACANDBED [facility]; Protocol Last Admin: 06/12/21 21:10 Dose: 4 units Documented by: Lisinopril (Lisinopril 20 Mg Tab) 40 mg PO DAILY [facility] Last Admin: 06/12/21 11:17 Dose: 40 mg Documented by: Lorazepam (Lorazepam 0.5 Mg Tab) 0.5 mg PO TID PRN PRN Reason: Anxiety Methocarbamol (Methocarbamol 500 Mg Tab) 1,000 mg PO Q6H PRN PRN Reason: Spasms Last Admin: 06/12/21 20:33 Dose: 1,000 mg Documented by: Miscellaneous Information (Remove Nicotine Patch) 1 ea TRDERM DAILY [facility] Last Admin: 06/12/21 10:32 Dose: 1 ea Documented by: Nicotine (Nicotine 14 Mg/24 Hr Patch) 14 mg TRDERM DAILY [facility] Last Admin: 06/12/21 10:31 Dose: 14 mg Documented by: Leobardodiissac ( Empagliflozin 10 Mg Tablet Ptom 0 mg PO DAILY [facility] Last Admin: 06/12/21 11:19 Dose: 10 mg Documented by: Ondansetron HCl (Ondansetron 4 Mg/2 Ml Sdv) 4 mg IV Q4H PRN PRN Reason: Nausea/Vomiting Polyethylene Glycol (Polyethylene Glycol 3350 Powder 17 Gm Packet) 17 gm PO DAILY [facility] Last Admin: 06/12/21 10:21 Dose: Not Given Documented by: Rosuvastatin Calcium (Rosuvastatin 10 Mg Tab) 20 mg PO DAILY [facility] Last Admin: 06/12/21 11:17 Dose: 20 mg Documented by: Temazepam (Temazepam 15 Mg Cap) 15 mg PO BEDTIME PRN PRN Reason: Sleep Last Admin: 06/10/21 21:59 Dose: 15 mg Documented by: Zinc Sulfate (Zinc Sulfate 220 Mg Cap) 220 mg PO DAILY [facility] Last Admin: 06/12/21 13:32 Dose: 220 mg Documented by: Discontinued Medications Acetylcysteine (Acetylcysteine 20% 200 Mg/Ml 30 Ml Nebulizer Soln Sdv) 800 mg NEB ONETIME ONE Stop: 06/09/21 09:21 Last Admin: 06/09/21 11:40 Dose: Not Given Documented by: Acetylcysteine (Acetylcysteine 20% 200 Mg/Ml 4 Ml Nebulizer Soln Sdv) 800 mg NEB ONETIME ONE Stop: 06/09/21 09:46 Last Admin: 06/09/21 10:10 Dose: 800 mg Documented by: Dexamethasone (Dexamethasone 4 Mg Tab) 6 mg PO ONETIME ONE Stop: 06/07/21 19:48 Last Admin: 06/07/21 20:28 Dose: 6 mg Documented by: Dexamethasone (Dexamethasone 10 Mg/Ml Sdv) 6 mg IVPUSH DAILY [facility] Stop: 06/16/21 09:01 Last Admin: 06/12/21 11:19 Dose: 6 mg Documented by: Heparin Sodium (Porcine) (Heparin Sodium 5,000 Units/Ml Vial) 5,000 units SUBCUT Q8H [facility] Last Admin: 06/12/21 11:49 Dose: Not Given Documented by: Sodium Chloride (Normal Saline) 100 mls @ 60 mls/min IV ASDIRECTED [facility] Last Admin: 06/07/21 19:29 Dose: 60 mls/min Documented by: Remdesivir 200 mg/ Sodium (Chloride) 250 mls @ 250 mls/hr IV ONETIME ONE Stop: 06/07/21 20:38 Last Admin: 06/07/21 20:54 Dose: 250 mls/hr Documented by: Remdesivir 100 mg/ Sodium (Chloride) 100 mls @ 100 mls/hr IV Q24H [facility] Stop: 06/11/21 20:59 Last Admin: 06/11/21 20:39 Dose: 100 mls/hr Documented by: Ceftriaxone Sodium 2 gm/ (Sodium Chloride) 100 mls @ 200 mls/hr IV Q24H [facility] Last Admin: 06/12/21 10:10 Dose: 200 mls/hr Documented by: Azithromycin 500 mg/ Sodium (Chloride) 250 mls @ 250 mls/hr IV Q24H [facility] Last Admin: 06/12/21 10:11 Dose: 250 mls/hr Documented by: Sodium Chloride (Normal Saline) 100 mls @ 60 mls/hr IV ASDIRECTED [facility] Stop: 06/12/21 13:00 Last Admin: 06/12/21 11:28 Dose: 60 mls/hr Documented by: Ibuprofen (Ibuprofen 200 Mg Tab) 600 mg PO Q4HR PRN PRN Reason: Pain Iopamidol (Iopamidol 755 Mg/Ml 100 Ml Bottle) 100 ml IVPUSH ONETIME ONE Stop: 06/07/21 19:05 Last Admin: 06/07/21 19:29 Dose: 100 ml Documented by: Iopamidol (Iopamidol 755 Mg/Ml 100 Ml Bottle) 100 ml IVPUSH ONETIME ONE Stop: 06/12/21 11:04 Last Admin: 06/12/21 11:28 Dose: 100 ml Documented by: Lorazepam (Lorazepam 0.5 Mg Tab) 0.5 mg PO TID PRN PRN Reason: Anxiety Metformin HCl (Metformin 500 Mg Tab) 1,000 mg PO BID [facility] Last Admin: 06/10/21 09:49 Dose: 1,000 mg Documented by: Morphine Sulfate (Morphine 2 Mg/Ml Syringe) 2 mg IVPUSH Q2H PRN PRN Reason: Pain (severe 7-10) Stop: 06/09/21 07:44 Sodium Chloride (Sodium Chloride 0.9% 10 Ml Sdv) 10 ml FLUSH ONETIME ONE Stop: 06/07/21 19:05 Last Admin: 06/07/21 19:29 Dose: 10 ml Documented by: Sodium Chloride (Sodium Chloride 0.9% 10 Ml Syringe) 10 ml FLUSH ONETIME ONE Stop: 06/12/21 11:04 Last Admin: 06/12/21 11:28 Dose: 10 ml Documented by: - Exam Quality Assessment: Supplemental Oxygen (50 L with an FiO2 of 70%), DVT Prophylaxis. No: Urine Catheter General: Alert, Oriented, Cooperative, No Acute Distress HEENT: Pupils Equal, Pupils Reactive, Mucous Membr. Moist/[place] Neck: Supple, Trachea Midline Lungs: Normal Respiratory Effort, Decreased Breath Sounds, Crackles, Other (Overall improved lung sounds) Cardiovascular: Regular Rate, Regular Rhythm GI/Abdominal Exam: Normal Bowel Sounds, Soft, Non-Tender, No Distention (Male) Exam: Deferred Back Exam: Normal Inspection, Full Range of Motion Extremities: Normal Inspection, Normal Range of Motion, Non-Tender, No Pedal Edema, Normal Capillary Refill Peripheral Pulses: 3+: Radial (L), Radial (R), Dorsalis Pedis (L), Dorsalis Pedis (R) Skin: Warm, Dry, Intact Neurological: No New Focal Deficit Psy/Mental Status: Alert, Normal Affect, Normal Mood - Patient Data Lab Results Last 24 hrs: Laboratory Results - last 24 hr 06/12/21 06/12/21 06/12/21 Range/Units 06:05 10:40 16:36 WBC (4.23-9.07) K/mm3 RBC (4.63-6.08) M/mm3 Hgb (13.7-17.5) gm/dl Hct (40.1-51.0) % MCV (79.0-92.2) fl MCH (25.7-32.2) pg MCHC (32.2-35.5) g/dl RDW Std Deviation (35.1-43.9) fL Plt Count (163-337) K/mm3 MPV (9.4-12.3) fl Neut % (Auto) (34.0-67.9) % Lymph % (Auto) (21.8-53.1) % [place] % (Auto) (5.3-12.2) % Eos % (Auto) (0.8-7.0) Baso % (Auto) (0.1-1.2) % Neut # (Auto) (1.78-5.38) K/mm3 Lymph # (Auto) (1.32-3.57) K/mm3 [place] # (Auto) (0.30-0.82) K/mm3 Eos # (Auto) (0.04-0.54) K/mm3 Baso # (Auto) (0.01-0.08) K/mm3 Sodium (136-145) mEq/L Potassium (3.5-5.1) mEq/L Chloride (98-107) mEq/L Carbon Dioxide (21-32) mEq/L Anion Gap (5-15) BUN (7-18) mg/dL Creatinine (0.7-1.3) mg/dL Est Cr Clr Drug Dosing mL/min Estimated GFR (MDRD) (>60) mL/min BUN/Creatinine Ratio (14-18) Glucose (70-99) mg/dL POC Glucose 170 H 162 H (70-99) mg/dL Calcium (8.5-10.1) mg/dL Magnesium (1.8-2.4) mg/dL Total Bilirubin (0.2-1.0) mg/dL AST (15-37) U/L ALT (16-63) U/L Alkaline Phosphatase (46-116) U/L C-Reactive Protein (<1.0) mg/dL Total Protein (6.4-8.2) g/dl Albumin (3.4-5.0) g/dl Globulin gm/dL Albumin/Globulin Ratio (1-2) Vitamin D 25-Hydroxy 17.4 L (30.0-100.0) ng/ml 06/12/21 06/13/21 06/13/21 Range/Units 20:58 06:19 06:19 WBC 9.34 H (4.23-9.07) K/mm3 RBC 4.85 (4.63-6.08) M/mm3 Hgb 13.7 (13.7-17.5) gm/dl Hct 41.9 (40.1-51.0) % MCV 86.4 (79.0-92.2) fl MCH 28.2 (25.7-32.2) pg MCHC 32.7 (32.2-35.5) g/dl RDW Std Deviation 46.6 H (35.1-43.9) fL Plt Count 357 H D (163-337) K/mm3 MPV 9.2 L (9.4-12.3) fl Neut % (Auto) 76.4 H (34.0-67.9) % Lymph % (Auto) 11.2 L (21.8-53.1) % Victoria % (Auto) 8.0 (5.3-12.2) % Eos % (Auto) 2.6 (0.8-7.0) Baso % (Auto) 0.1 (0.1-1.2) % Neut # (Auto) 7.13 H (1.78-5.38) K/mm3 Lymph # (Auto) 1.05 L (1.32-3.57) K/mm3 [place] # (Auto) 0.75 (0.30-0.82) K/mm3 Eos # (Auto) 0.24 (0.04-0.54) K/mm3 Baso # (Auto) 0.01 (0.01-0.08) K/mm3 Sodium 144 (136-145) mEq/L Potassium 3.5 (3.5-5.1) mEq/L Chloride 106 (98-107) mEq/L Carbon Dioxide 26 (21-32) mEq/L Anion Gap 15.5 H (5-15) BUN 12 (7-18) mg/dL Creatinine 0.8 (0.7-1.3) mg/dL Est Cr Clr Drug Dosing 105.19 mL/min Estimated GFR (MDRD) > 60 (>60) mL/min BUN/Creatinine Ratio 15.0 (14-18) Glucose 109 H (70-99) mg/dL POC Glucose 242 H (70-99) mg/dL Calcium 8.3 L (8.5-10.1) mg/dL Magnesium 1.9 (1.8-2.4) mg/dL Total Bilirubin 0.4 (0.2-1.0) mg/dL AST 27 (15-37) U/L ALT 41 (16-63) U/L Alkaline Phosphatase 58 (46-116) U/L C-Reactive Protein 10.7 H* (<1.0) mg/dL Total Protein 6.1 L (6.4-8.2) g/dl Albumin 2.1 L (3.4-5.0) g/dl Globulin 4.0 gm/dL Albumin/Globulin Ratio 0.5 L (1-2) Vitamin D 25-Hydroxy (30.0-100.0) ng/ml 06/13/21 Range/Units 06:34 WBC (4.23-9.07) K/mm3 RBC (4.63-6.08) M/mm3 Hgb (13.7-17.5) gm/dl Hct (40.1-51.0) % MCV (79.0-92.2) fl MCH (25.7-32.2) pg MCHC (32.2-35.5) g/dl RDW Std Deviation (35.1-43.9) fL Plt Count (163-337) K/mm3 MPV (9.4-12.3) fl Neut % (Auto) (34.0-67.9) % Lymph % (Auto) (21.8-53.1) % Victoria % (Auto) (5.3-12.2) % Eos % (Auto) (0.8-7.0) Baso % (Auto) (0.1-1.2) % Neut # (Auto) (1.78-5.38) K/mm3 Lymph # (Auto) (1.32-3.57) K/mm3 [place] # (Auto) (0.30-0.82) K/mm3 Eos # (Auto) (0.04-0.54) K/mm3 Baso # (Auto) (0.01-0.08) K/mm3 Sodium (136-145) mEq/L Potassium (3.5-5.1) mEq/L Chloride (98-107) mEq/L Carbon Dioxide (21-32) mEq/L Anion Gap (5-15) BUN (7-18) mg/dL Creatinine (0.7-1.3) mg/dL Est Cr Clr Drug Dosing mL/min Estimated GFR (MDRD) (>60) mL/min BUN/Creatinine Ratio (14-18) Glucose (70-99) mg/dL POC Glucose 100 H (70-99) mg/dL Calcium (8.5-10.1) mg/dL Magnesium (1.8-2.4) mg/dL Total Bilirubin (0.2-1.0) mg/dL AST (15-37) U/L ALT (16-63) U/L Alkaline Phosphatase (46-116) U/L C-Reactive Protein (<1.0) mg/dL Total Protein (6.4-8.2) g/dl Albumin (3.4-5.0) g/dl Globulin gm/dL Albumin/Globulin Ratio (1-2) Vitamin D 25-Hydroxy (30.0-100.0) ng/ml Result Diagrams: 06/13/21 06:19 06/13/21 06:19 Quirino Results Last 24 hrs: Microbiology 06/09/21 10:30 Respiratory Culture - Final Bronchial Gram Stain - Final Sepsis Event Note - Evaluation Sepsis Screening Result: Possible Sepsis Risk - Focused Exam Vital Signs: Vital Signs Temp Pulse Resp BP Pulse Ox Pulse Ox 06/13/21 06:42 89 L 06/13/21 06:38 98.1 F 65 16 148/89 H 89 L 06/13/21 02:00 96 06/12/21 23:33 98.2 F 65 36 H 130/77 06/12/21 20:59 94 L 06/12/21 20:29 98.2 F 74 24 H 129/61 - Problem List & Annotations (1) Hyperlipidemia SNOMED Code(s): 74956998 Code(s): E78.5 - HYPERLIPIDEMIA, UNSPECIFIED Status: Chronic Priority: Low Current Visit: No Qualifiers: Hyperlipidemia type: unspecified Qualified Code(s): E78.5 - Hyperlipidemia, unspecified (2) HTN (hypertension) SNOMED Code(s): 20936611 Code(s): I10 - ESSENTIAL (PRIMARY) HYPERTENSION Status: Chronic Priority: Low Current Visit: No Qualifiers: Hypertension type: unspecified Qualified Code(s): I10 - Essential (primary) hypertension (3) Elevated d-dimer SNOMED Code(s): 572767800 Code(s): R79.89 - OTHER SPECIFIED ABNORMAL FINDINGS OF BLOOD CHEMISTRY Status: Acute Priority: High Current Visit: Yes (4) Elevated C-reactive protein SNOMED Code(s): 887774793559993 Code(s): R79.82 - ELEVATED C-REACTIVE PROTEIN (CRP) Status: Acute Priority: High Current Visit: Yes (5) Leukocytosis SNOMED Code(s): 420553196, 818637455 Code(s): D72.829 - ELEVATED WHITE BLOOD CELL COUNT, UNSPECIFIED Status: Acute Priority: High Current Visit: Yes Qualifiers: Leukocytosis type: unspecified Qualified Code(s): D72.829 - Elevated white blood cell count, unspecified (6) Diabetes mellitus SNOMED Code(s): 74677789 Code(s): E11.9 - TYPE 2 DIABETES MELLITUS WITHOUT COMPLICATIONS Status: Chronic Priority: High Current Visit: Yes Qualifiers: Diabetes mellitus type: type 2 Diabetes mellitus residential insulin use: without intermodal dispatcher use Diabetes mellitus complication status: with other specified complication Qualified Code(s): E11.69 - Type 2 diabetes mellitus with other specified complication (7) Hypoxia SNOMED Code(s): 249328617 Code(s): R09.02 - HYPOXEMIA Status: Acute Priority: High Current Visit: Yes (8) Pneumonia due to COVID-19 virus SNOMED Code(s): 158439347952699438 Code(s): U07.1 - COVID-19; J12.82 - PNEUMONIA DUE TO CORONAVIRUS DISEASE 2019 Status: Acute Priority: High Current Visit: Yes (9) Smoker SNOMED Code(s): 13639759 Code(s): F17.200 - NICOTINE DEPENDENCE, UNSPECIFIED, UNCOMPLICATED Status: Chronic Priority: High Current Visit: Yes (10) Gout SNOMED Code(s): 96425495 Code(s): M10.9 - GOUT, UNSPECIFIED Status: Chronic Priority: Low Current Visit: No Qualifiers: Gout site: unspecified site Gout etiology: unspecified cause Chronicity: unspecified Qualified Code(s): M10.9 - Gout, unspecified (11) Vitamin D deficiency SNOMED Code(s): 99841184 Code(s): E55.9 - VITAMIN D DEFICIENCY, UNSPECIFIED Status: Chronic Priority: Medium Current Visit: Yes - Problem List Review Problem List Initiated/Reviewed/Updated: Yes - My Orders Last 24 Hours: My Active Orders 06/12/21 10:30 Enoxaparin [Lovenox] 40 mg SUBCUT Q12H 06/12/21 12:25 Consult to Respiratory Therapy [Respiratory Care Assess and Treatment] [CONS] R outine 06/12/21 12:30 Famotidine [Pepcid] 20 mg PO BID Zinc Sulfate [Zincate] 220 mg PO DAILY 06/12/21 14:00 Cholecalciferol (Vitamin D3) [Vitamin D3] 5,000 unit PO DAILY 06/13/21 09:00 dexAMETHasone 6 mg PO DAILY 06/14/21 05:11 CBC WITH AUTO DIFF [HEME] AM CMP [COMPREHENSIVE METABOLIC PN,CMP] [CHEM] AM CRP [C-REACTIVE PROTEIN] [CHEM] AM DD [D-DIMER QUANTITATIVE] [COAG] Q48H MAGNESIUM [CHEM] AM 06/15/21 05:11 CBC WITH AUTO DIFF [HEME] AM CMP [COMPREHENSIVE METABOLIC PN,CMP] [CHEM] AM CRP [C-REACTIVE PROTEIN] [CHEM] AM MAGNESIUM [CHEM] AM 06/16/21 05:11 CBC WITH AUTO DIFF [HEME] AM CMP [COMPREHENSIVE METABOLIC PN,CMP] [CHEM] AM CRP [C-REACTIVE PROTEIN] [CHEM] AM DD [D-DIMER QUANTITATIVE] [COAG] Q48H MAGNESIUM [CHEM] AM - Assessment Assessment:: 06/12/2021 This is a 55-year-old male admitted to the floor with hypoxia secondary to COVID-19 pneumonia. He currently is on 45 L with an FiO2 of 75%. Labs today show a WBC of 10.22. Hemoglobin 30.6. Platelet 269,000. Neutrophils elevated 75.1%. D-dimer is up to 3.85. Sodium 144. Potassium 3.8. Chloride 109. Carbon dioxide 25. Anion gap is 13.8. BUN is 14. Creatinine 0.7. GFR greater than 60. Blood glucose levels have been from 96-2 14. Phosphorus 3.5. Magnesium 1.9. Total bilirubin 0.3. AST is 30, ALT 37, alkaline phosphatase 52. CRP is 12.6. Protein 5.5. Albumin is down to 1.9. Given the patient's worsening oxygen demand and elevated D-dimer CTA is obtained showing 1. Bilateral pulmonary consolidation likely due to COVID-19. 2. Mediastinal adenopathy, most likely reactive. There are no signs of any pulmonary emboli. We will therefore increase patient's DVT prophylaxis up to 40 mg twice daily Lovenox. Patient will be started on 20 mg twice daily Pepcid and zinc supplementation. Vitamin D level has been ordered. Patient will remain hospitalized pending improvement in oxygen demand. Unknown length of stay time. Overall he states he feels about the same as yesterday. Continues to have mild diarrhea at times and reports weakness. 06/13/2021 This is a 55-year-old male admitted to the hospital for COVID-19 pneumonia. He has been proning today and saturations are in the mid to low 90s while proning. He has been utilizing incentive spirometer and Acapella. He has been a little bit down today and reports he does not feel like he is getting much better. Overall his lung sounds have greatly improved. He remains on high flow 50 L with an FiO2 of 70%. Labs today show a WBC of 9.34. Hemoglobin 13.7. Platelet 357,000. Neutrophils are 76.4%. Sodium is 144. Potassium 3.5. Anion gap is 15.5. BUN 12. Creatinine 0.8.. GFR greater than 60. Glucose has been between 102 42. Magnesium 1.9. Bilirubin 0.4. AST is 27, ALT 41, alkaline phosphatase 58. CRP is improved to 10.7. Protein 6.1. Vitamin D obtained yesterday was low at 17.4 and we will start supplementation for vitamin D today. Albumin is improved to 2.1. We will continue treatment with unknown length of stay due to severity of COVID-19 symptoms. - Plan Plan:: Pneumonia due to COVID-19 virus Hypoxia Elevated d-dimer Elevated C-reactive protein Leukocytosis * O2 as needed with goal saturations 88 to 95% * High flow oxygen * Start Lovenox 40 mg twice daily due to elevated D-dimer * I-S/Acapella * PRN albuterol inhaler * PRN Duonebs * Prone whenever able * Ambulate around room * RT consultation * PT/OT * Daily labs * Every 48 hour D-dimer * Airborne/contact isolation * Telemetry * Continuous pulse oximetry * Zinc supplementation * 20 mg twice daily Pepcid * Completed remdesivir * Completed azithromycin * Completed Rocephin * 6 mg dexamethasone daily - day 04/14 * Baricitinib - day 02/16 * Scheduled Mucinex twice daily Hyperlipidemia * Continue home rosuvastatin * No acute concern HTN (hypertension) * Continue home lisinopril * No acute concerns Diabetes mellitus * Continue home Jardiance * QID AC and bedtime blood glucose checks * Medium dose sliding scale insulin * Hold home metformin * Diabetic diet Smoker * Nicotine patch daily * Cessation counseling * Offer nicotine patches at discharge Gout * No acute concerns * No chronic home gout medications * Monitor Vitamin D deficiency * Begin 5,000 unit vitamin D supplementation * PCP to follow-up Code status: Full code PCP: Dr. Rubio DVT prophylaxis: BID Lovenox as above Disposition: Patient will remain admitted to the medical/surgical floor for further management and treatment of his COVID-19 pneumonia. Unknown length of stay as patient continues to require high flow oxygen. Goal oxygen demand would be 2 L or less on nasal cannula. Length of stay greater than 96 hours due to continued need for COVID-19 treatment.
[2021-06-13] MEDS: Rosuvastatin 10 MG Tab PO SCH (09:09)
[2021-06-13] MEDS: Lisinopril 20 MG Tab PO SCH (09:10)
[2021-06-13] MEDS: guaiFENesin 600 MG Tab.ER PO SCH ×2 (09:10→21:19)
[2021-06-13] MEDS: Cholecalciferol (Vitamin D3) 5,000 UNIT Cap PO SCH (09:13)
[2021-06-13] MEDS: Zinc Sulfate 220 MG Cap PO SCH (09:13)
[2021-06-13] MEDS: Dexamethasone 4 MG Tab PO SCH (09:13)
[2021-06-13] MEDS: Famotidine 20 MG Tab PO SCH ×2 (09:13→21:19)
[2021-06-13] MEDS: Nicotine 14 MG/24 Hr Patch TRDERM SCH (09:15)
[2021-06-13] MEDS: Polyethylene Glycol 3350 Powder 17 GM Packet PO SCH (09:16)
[2021-06-13] MEDS: Enoxaparin 40 MG/0.4 ML Syringe SUBCUT SCH ×2 (09:16→21:18)
[2021-06-13] MEDS: Docusate Sodium 100 MG Cap PO SCH ×2 (09:17→21:19)
[2021-06-13] MEDS: Albuterol/Ipratropium 3.0-0.5 MG/3 ML Neb Soln NEB PRN ×2 (09:27→15:37)
[2021-06-13] MEDS: JARDIANCE PO SCH (09:42)
[2021-06-13] MEDS: Methocarbamol 500 MG Tab PO PRN ×2 (09:42→21:17)
[2021-06-13] MEDS ORDERED: Acetylcysteine 20% 200 MG/ML 4 ML Nebulizer Soln SDV NEB ONE (13:30)
[2021-06-14] MEDS: Albuterol 6.7 GM Inhaler INH PRN ×2 (08:20→14:51)
[2021-06-14] MEDS: Rosuvastatin 10 MG Tab PO SCH (08:40)
[2021-06-14] MEDS: Lisinopril 20 MG Tab PO SCH (08:40)
[2021-06-14] MEDS: Famotidine 20 MG Tab PO SCH ×2 (08:41→21:24)
[2021-06-14] MEDS: Enoxaparin 40 MG/0.4 ML Syringe SUBCUT SCH ×2 (08:41→21:23)
[2021-06-14] MEDS: Polyethylene Glycol 3350 Powder 17 GM Packet PO SCH (08:41)
[2021-06-14] MEDS: guaiFENesin 600 MG Tab.ER PO SCH ×2 (08:41→21:24)
[2021-06-14] MEDS: Dexamethasone 4 MG Tab PO SCH (08:42)
[2021-06-14] MEDS: Cholecalciferol (Vitamin D3) 5,000 UNIT Cap PO SCH (08:42)
[2021-06-14] MEDS: Docusate Sodium 100 MG Cap PO SCH ×2 (08:44→21:29)
[2021-06-14] MEDS: Nicotine 14 MG/24 Hr Patch TRDERM SCH (08:44)
[2021-06-14] MEDS: Insulin Lispro 100 UNIT/ML 10 ML Vial SUBCUT SCH ×4 (08:47→21:23)
[2021-06-14] MEDS: Methocarbamol 500 MG Tab PO PRN ×2 (10:02→21:24)
[2021-06-14] MEDS: JARDIANCE PO SCH (10:03)
[2021-06-14] MEDS: Zinc Sulfate 220 MG Cap PO SCH (10:03)
--- NOTE | 2021-06-14 13:22 | PCM.PN ---
- General Info Date of Service: 06/14/21 Admission Dx/Problem (Free Text): Admission Diagnosis/Problem Admission Diagnosis/Problem Hypoxia Covid 19 pneumonia with hypoxia Functional Status: Reports: Pain Controlled, Tolerating Diet, Ambulating, Incentive Spirometry - Review of Systems General: Reports: No Symptoms HEENT: Reports: No Symptoms Pulmonary: Reports: Shortness of Breath, Cough. Denies: Sputum Cardiovascular: Reports: Dyspnea on Exertion. Denies: Edema Gastrointestinal: Reports: No Symptoms Genitourinary: Reports: No Symptoms Musculoskeletal: Reports: No Symptoms Skin: Reports: No Symptoms Neurological: Reports: No Symptoms Psychiatric: Reports: No Symptoms - Patient Data Vitals - Most Recent: Last Vital Signs Temp 98.4 F 06/14/21 08:37 Pulse 85 06/14/21 10:18 Resp 21 H 06/14/21 08:37 BP 147/75 H 06/14/21 08:40 Pulse Ox 86 L 06/14/21 10:18 Weight - Most Recent: 267 lb 12.8 oz I&O - Last 24 Hours: Intake & Output 06/13/21 06/14/21 06/14/21 22:59 06:59 14:59 Intake Total 920 Output Total 800 Balance 120 Lab Results Last 24 Hours: Laboratory Results - last 24 hr 06/13/21 06/13/21 06/14/21 Range/Units 17:00 20:53 05:53 WBC 13.29 H (4.23-9.07) K/mm3 RBC 4.66 (4.63-6.08) M/mm3 Hgb 13.3 L (13.7-17.5) gm/dl Hct 40.8 (40.1-51.0) % MCV 87.6 (79.0-92.2) fl MCH 28.5 (25.7-32.2) pg MCHC 32.6 (32.2-35.5) g/dl RDW Std Deviation 48.0 H (35.1-43.9) fL Plt Count 395 H (163-337) K/mm3 MPV 9.8 (9.4-12.3) fl Neut % (Auto) 80.1 H (34.0-67.9) % Lymph % (Auto) 8.7 L (21.8-53.1) % Barren % (Auto) 7.7 (5.3-12.2) % Eos % (Auto) 2.3 (0.8-7.0) Baso % (Auto) 0.1 (0.1-1.2) % Neut # (Auto) 10.65 H (1.78-5.38) K/mm3 Lymph # (Auto) 1.16 L (1.32-3.57) K/mm3 Barren # (Auto) 1.02 H (0.30-0.82) K/mm3 Eos # (Auto) 0.31 (0.04-0.54) K/mm3 Baso # (Auto) 0.01 (0.01-0.08) K/mm3 D-Dimer, Quantitative (0.19-0.50) mg/L Sodium (136-145) mEq/L Potassium (3.5-5.1) mEq/L Chloride (98-107) mEq/L Carbon Dioxide (21-32) mEq/L Anion Gap (5-15) BUN (7-18) mg/dL Creatinine (0.7-1.3) mg/dL Est Cr Clr Drug Dosing mL/min Estimated GFR (MDRD) (>60) mL/min BUN/Creatinine Ratio (14-18) Glucose (70-99) mg/dL POC Glucose 208 H 244 H (70-99) mg/dL Calcium (8.5-10.1) mg/dL Magnesium (1.8-2.4) mg/dL Total Bilirubin (0.2-1.0) mg/dL AST (15-37) U/L ALT (16-63) U/L Alkaline Phosphatase (46-116) U/L C-Reactive Protein (<1.0) mg/dL Total Protein (6.4-8.2) g/dl Albumin (3.4-5.0) g/dl Globulin gm/dL Albumin/Globulin Ratio (1-2) 06/14/21 06/14/21 06/14/21 Range/Units 05:53 05:53 06:13 WBC (4.23-9.07) K/mm3 RBC (4.63-6.08) M/mm3 Hgb (13.7-17.5) gm/dl Hct (40.1-51.0) % MCV (79.0-92.2) fl MCH (25.7-32.2) pg MCHC (32.2-35.5) g/dl RDW Std Deviation (35.1-43.9) fL Plt Count (163-337) K/mm3 MPV (9.4-12.3) fl Neut % (Auto) (34.0-67.9) % Lymph % (Auto) (21.8-53.1) % Barren % (Auto) (5.3-12.2) % Eos % (Auto) (0.8-7.0) Baso % (Auto) (0.1-1.2) % Neut # (Auto) (1.78-5.38) K/mm3 Lymph # (Auto) (1.32-3.57) K/mm3 Barren # (Auto) (0.30-0.82) K/mm3 Eos # (Auto) (0.04-0.54) K/mm3 Baso # (Auto) (0.01-0.08) K/mm3 D-Dimer, Quantitative 3.19 H (0.19-0.50) mg/L Sodium 144 (136-145) mEq/L Potassium 3.8 (3.5-5.1) mEq/L Chloride 108 H (98-107) mEq/L Carbon Dioxide 26 (21-32) mEq/L Anion Gap 13.8 (5-15) BUN 16 (7-18) mg/dL Creatinine 0.7 (0.7-1.3) mg/dL Est Cr Clr Drug Dosing 120.22 mL/min Estimated GFR (MDRD) > 60 (>60) mL/min BUN/Creatinine Ratio 22.9 H (14-18) Glucose 119 H (70-99) mg/dL POC Glucose 115 H (70-99) mg/dL Calcium 7.9 L (8.5-10.1) mg/dL Magnesium 1.9 (1.8-2.4) mg/dL Total Bilirubin 0.3 (0.2-1.0) mg/dL AST 30 (15-37) U/L ALT 48 (16-63) U/L Alkaline Phosphatase 63 (46-116) U/L C-Reactive Protein 5.3 H* (<1.0) mg/dL Total Protein 5.1 L (6.4-8.2) g/dl Albumin 2.1 L (3.4-5.0) g/dl Globulin 3.0 gm/dL Albumin/Globulin Ratio 0.7 L (1-2) 06/14/21 Range/Units 11:29 WBC (4.23-9.07) K/mm3 RBC (4.63-6.08) M/mm3 Hgb (13.7-17.5) gm/dl Hct (40.1-51.0) % MCV (79.0-92.2) fl MCH (25.7-32.2) pg MCHC (32.2-35.5) g/dl RDW Std Deviation (35.1-43.9) fL Plt Count (163-337) K/mm3 MPV (9.4-12.3) fl Neut % (Auto) (34.0-67.9) % Lymph % (Auto) (21.8-53.1) % Barren % (Auto) (5.3-12.2) % Eos % (Auto) (0.8-7.0) Baso % (Auto) (0.1-1.2) % Neut # (Auto) (1.78-5.38) K/mm3 Lymph # (Auto) (1.32-3.57) K/mm3 Barren # (Auto) (0.30-0.82) K/mm3 Eos # (Auto) (0.04-0.54) K/mm3 Baso # (Auto) (0.01-0.08) K/mm3 D-Dimer, Quantitative (0.19-0.50) mg/L Sodium (136-145) mEq/L Potassium (3.5-5.1) mEq/L Chloride (98-107) mEq/L Carbon Dioxide (21-32) mEq/L Anion Gap (5-15) BUN (7-18) mg/dL Creatinine (0.7-1.3) mg/dL Est Cr Clr Drug Dosing mL/min Estimated GFR (MDRD) (>60) mL/min BUN/Creatinine Ratio (14-18) Glucose (70-99) mg/dL POC Glucose 166 H (70-99) mg/dL Calcium (8.5-10.1) mg/dL Magnesium (1.8-2.4) mg/dL Total Bilirubin (0.2-1.0) mg/dL AST (15-37) U/L ALT (16-63) U/L Alkaline Phosphatase (46-116) U/L C-Reactive Protein (<1.0) mg/dL Total Protein (6.4-8.2) g/dl Albumin (3.4-5.0) g/dl Globulin gm/dL Albumin/Globulin Ratio (1-2) Med Orders - Current: Current Medications Acetaminophen (Acetaminophen 325 Mg Tab) 650 mg PO Q4H PRN PRN Reason: Pain (Mild 1-3)/fever Last Admin: 06/12/21 10:29 Dose: 650 mg Documented by: Albuterol (Albuterol 6.7 Gm Inhaler) 0 gm INH Q2H PRN PRN Reason: sob/wheezing Last Admin: 06/14/21 08:20 Dose: 2 puff Documented by: Albuterol/Ipratropium (Albuterol/Ipratropium 3.0-0.5 Mg/3 Ml Neb Soln) 3 ml NEB QIDRT PRN PRN Reason: Shortness Of Breath/wheezing Last Admin: 06/13/21 09:27 Dose: 3 ml Documented by: Calcium Carbonate/Glycine (Calcium Carbonate 500 Mg Tab.Chew) 1,000 mg PO Q2HR PRN PRN Reason: Heartburn Last Admin: 06/10/21 17:01 Dose: 1,000 mg Documented by: Cholecalciferol (Cholecalciferol (Vitamin D3) 5,000 Unit Cap) 5,000 unit PO DAILY [facility] Last Admin: 06/14/21 08:42 Dose: 5,000 unit Documented by: Dexamethasone (Dexamethasone 4 Mg Tab) 6 mg PO DAILY [facility] Stop: 06/16/21 09:01 Last Admin: 06/14/21 08:42 Dose: 6 mg Documented by: Docusate Sodium (Docusate Sodium 100 Mg Cap) 100 mg PO BID [facility] Last Admin: 06/14/21 08:44 Dose: 100 mg Documented by: Enoxaparin Sodium (Enoxaparin 40 Mg/0.4 Ml Syringe) 40 mg SUBCUT Q12H [facility] Last Admin: 06/14/21 08:41 Dose: 40 mg Documented by: Famotidine (Famotidine 20 Mg Tab) 20 mg PO BID [facility] Last Admin: 06/14/21 08:41 Dose: 20 mg Documented by: Guaifenesin (Guaifenesin 600 Mg Tab.Er) 600 mg PO BID [facility] Last Admin: 06/14/21 08:41 Dose: 600 mg Documented by: Ibuprofen (Ibuprofen 600 Mg Tab) 600 mg PO Q4HR PRN PRN Reason: Pain Insulin Human Lispro (Insulin Lispro 100 Unit/Ml 10 Ml Vial) 0 unit SUBCUT QIDACANDBED [facility]; Protocol Last Admin: 06/14/21 13:07 Dose: 2 units Documented by: Lisinopril (Lisinopril 20 Mg Tab) 40 mg PO DAILY [facility] Last Admin: 06/14/21 08:40 Dose: 40 mg Documented by: Lorazepam (Lorazepam 0.5 Mg Tab) 0.5 mg PO TID PRN PRN Reason: Anxiety Methocarbamol (Methocarbamol 500 Mg Tab) 1,000 mg PO Q6H PRN PRN Reason: Spasms Last Admin: 06/14/21 10:02 Dose: 1,000 mg Documented by: Miscellaneous Information (Remove Nicotine Patch) 1 ea TRDERM DAILY [facility] Last Admin: 06/14/21 10:02 Dose: 1 ea Documented by: Nicotine (Nicotine 14 Mg/24 Hr Patch) 14 mg TRDERM DAILY [facility] Last Admin: 06/14/21 08:44 Dose: 14 mg Documented by: Jardiance ( Empagliflozin 10 Mg Tablet Ptom 0 mg PO DAILY [facility] Last Admin: 06/14/21 10:03 Dose: 10 mg Documented by: Ondansetron HCl (Ondansetron 4 Mg/2 Ml Sdv) 4 mg IV Q4H PRN PRN Reason: Nausea/Vomiting Polyethylene Glycol (Polyethylene Glycol 3350 Powder 17 Gm Packet) 17 gm PO DAILY [facility] Last Admin: 06/14/21 08:41 Dose: Not Given Documented by: Rosuvastatin Calcium (Rosuvastatin 10 Mg Tab) 20 mg PO DAILY [facility] Last Admin: 06/14/21 08:40 Dose: 20 mg Documented by: Temazepam (Temazepam 15 Mg Cap) 15 mg PO BEDTIME PRN PRN Reason: Sleep Last Admin: 06/10/21 21:59 Dose: 15 mg Documented by: Zinc Sulfate (Zinc Sulfate 220 Mg Cap) 220 mg PO DAILY [facility] Last Admin: 06/14/21 10:03 Dose: 220 mg Documented by: Discontinued Medications Acetylcysteine (Acetylcysteine 20% 200 Mg/Ml 30 Ml Nebulizer Soln Sdv) 800 mg NEB ONETIME ONE Stop: 06/09/21 09:21 Last Admin: 06/09/21 11:40 Dose: Not Given Documented by: Acetylcysteine (Acetylcysteine 20% 200 Mg/Ml 4 Ml Nebulizer Soln Sdv) 800 mg NEB ONETIME ONE Stop: 06/09/21 09:46 Last Admin: 06/09/21 10:10 Dose: 800 mg Documented by: Acetylcysteine (Acetylcysteine 20% 200 Mg/Ml 4 Ml Nebulizer Soln Sdv) 200 mg NEB ONETIME ONE Stop: 06/13/21 13:31 Last Admin: 06/13/21 15:38 Dose: 200 mg Documented by: Dexamethasone (Dexamethasone 4 Mg Tab) 6 mg PO ONETIME ONE Stop: 06/07/21 19:48 Last Admin: 06/07/21 20:28 Dose: 6 mg Documented by: Dexamethasone (Dexamethasone 10 Mg/Ml Sdv) 6 mg IVPUSH DAILY [facility] Stop: 06/16/21 09:01 Last Admin: 06/12/21 11:19 Dose: 6 mg Documented by: Enoxaparin Sodium (Enoxaparin 40 Mg/0.4 Ml Syringe) 40 mg SUBCUT Q12H [facility] Last Admin: 06/12/21 23:34 Dose: 40 mg Documented by: Heparin Sodium (Porcine) (Heparin Sodium 5,000 Units/Ml Vial) 5,000 units SUBCUT Q8H [facility] Last Admin: 06/12/21 11:49 Dose: Not Given Documented by: Sodium Chloride (Normal Saline) 100 mls @ 60 mls/min IV ASDIRECTED [facility] Last Admin: 06/07/21 19:29 Dose: 60 mls/min Documented by: Remdesivir 200 mg/ Sodium (Chloride) 250 mls @ 250 mls/hr IV ONETIME ONE Stop: 06/07/21 20:38 Last Admin: 06/07/21 20:54 Dose: 250 mls/hr Documented by: Remdesivir 100 mg/ Sodium (Chloride) 100 mls @ 100 mls/hr IV Q24H [facility] Stop: 06/11/21 20:59 Last Admin: 06/11/21 20:39 Dose: 100 mls/hr Documented by: Ceftriaxone Sodium 2 gm/ (Sodium Chloride) 100 mls @ 200 mls/hr IV Q24H [facility] Last Admin: 06/12/21 10:10 Dose: 200 mls/hr Documented by: Azithromycin 500 mg/ Sodium (Chloride) 250 mls @ 250 mls/hr IV Q24H [facility] Last Admin: 06/12/21 10:11 Dose: 250 mls/hr Documented by: Sodium Chloride (Normal Saline) 100 mls @ 60 mls/hr IV ASDIRECTED [facility] Stop: 06/12/21 13:00 Last Admin: 06/12/21 11:28 Dose: 60 mls/hr Documented by: Ibuprofen (Ibuprofen 200 Mg Tab) 600 mg PO Q4HR PRN PRN Reason: Pain Iopamidol (Iopamidol 755 Mg/Ml 100 Ml Bottle) 100 ml IVPUSH ONETIME ONE Stop: 06/07/21 19:05 Last Admin: 06/07/21 19:29 Dose: 100 ml Documented by: Iopamidol (Iopamidol 755 Mg/Ml 100 Ml Bottle) 100 ml IVPUSH ONETIME ONE Stop: 06/12/21 11:04 Last Admin: 06/12/21 11:28 Dose: 100 ml Documented by: Lorazepam (Lorazepam 0.5 Mg Tab) 0.5 mg PO TID PRN PRN Reason: Anxiety Metformin HCl (Metformin 500 Mg Tab) 1,000 mg PO BID [facility] Last Admin: 06/10/21 09:49 Dose: 1,000 mg Documented by: Morphine Sulfate (Morphine 2 Mg/Ml Syringe) 2 mg IVPUSH Q2H PRN PRN Reason: Pain (severe 7-10) Stop: 06/09/21 07:44 Sodium Chloride (Sodium Chloride 0.9% 10 Ml Sdv) 10 ml FLUSH ONETIME ONE Stop: 06/07/21 19:05 Last Admin: 06/07/21 19:29 Dose: 10 ml Documented by: Sodium Chloride (Sodium Chloride 0.9% 10 Ml Syringe) 10 ml FLUSH ONETIME ONE Stop: 06/12/21 11:04 Last Admin: 06/12/21 11:28 Dose: 10 ml Documented by: - Exam Quality Assessment: Supplemental Oxygen (High flow O2 50 L at 75%), DVT Prophylaxis (Lovenox) General: Alert, Oriented, Cooperative, Mild Distress HEENT: Pupils Equal, Mucous Membr. Moist/[place] Neck: Supple, Trachea Midline Lungs: Decreased Breath Sounds, Crackles (Right middle lobe and bilateral lower lobe). No: Clear to Auscultation, Normal Respiratory Effort Cardiovascular: Regular Rate, Regular Rhythm. No: No Murmurs GI/Abdominal Exam: Normal Bowel Sounds, Soft, Non-Tender, No Distention (Male) Exam: Deferred Back Exam: Normal Inspection Extremities: Normal Inspection, Normal Range of Motion, Non-Tender, No Pedal Edema, Normal Capillary Refill Peripheral Pulses: 2+: Radial (L), Radial (R) Skin: Warm, Dry, Intact Neurological: No New Focal Deficit Psy/Mental Status: Alert, Other (Patient has a very flat affect) - Patient Data Lab Results Last 24 hrs: Laboratory Results - last 24 hr 06/13/21 06/13/21 06/14/21 Range/Units 17:00 20:53 05:53 WBC 13.29 H (4.23-9.07) K/mm3 RBC 4.66 (4.63-6.08) M/mm3 Hgb 13.3 L (13.7-17.5) gm/dl Hct 40.8 (40.1-51.0) % MCV 87.6 (79.0-92.2) fl MCH 28.5 (25.7-32.2) pg MCHC 32.6 (32.2-35.5) g/dl RDW Std Deviation 48.0 H (35.1-43.9) fL Plt Count 395 H (163-337) K/mm3 MPV 9.8 (9.4-12.3) fl Neut % (Auto) 80.1 H (34.0-67.9) % Lymph % (Auto) 8.7 L (21.8-53.1) % Barren % (Auto) 7.7 (5.3-12.2) % Eos % (Auto) 2.3 (0.8-7.0) Baso % (Auto) 0.1 (0.1-1.2) % Neut # (Auto) 10.65 H (1.78-5.38) K/mm3 Lymph # (Auto) 1.16 L (1.32-3.57) K/mm3 Barren # (Auto) 1.02 H (0.30-0.82) K/mm3 Eos # (Auto) 0.31 (0.04-0.54) K/mm3 Baso # (Auto) 0.01 (0.01-0.08) K/mm3 D-Dimer, Quantitative (0.19-0.50) mg/L Sodium (136-145) mEq/L Potassium (3.5-5.1) mEq/L Chloride (98-107) mEq/L Carbon Dioxide (21-32) mEq/L Anion Gap (5-15) BUN (7-18) mg/dL Creatinine (0.7-1.3) mg/dL Est Cr Clr Drug Dosing mL/min Estimated GFR (MDRD) (>60) mL/min BUN/Creatinine Ratio (14-18) Glucose (70-99) mg/dL POC Glucose 208 H 244 H (70-99) mg/dL Calcium (8.5-10.1) mg/dL Magnesium (1.8-2.4) mg/dL Total Bilirubin (0.2-1.0) mg/dL AST (15-37) U/L ALT (16-63) U/L Alkaline Phosphatase (46-116) U/L C-Reactive Protein (<1.0) mg/dL Total Protein (6.4-8.2) g/dl Albumin (3.4-5.0) g/dl Globulin gm/dL Albumin/Globulin Ratio (1-2) 06/14/21 06/14/21 06/14/21 Range/Units 05:53 05:53 06:13 WBC (4.23-9.07) K/mm3 RBC (4.63-6.08) M/mm3 Hgb (13.7-17.5) gm/dl Hct (40.1-51.0) % MCV (79.0-92.2) fl MCH (25.7-32.2) pg MCHC (32.2-35.5) g/dl RDW Std Deviation (35.1-43.9) fL Plt Count (163-337) K/mm3 MPV (9.4-12.3) fl Neut % (Auto) (34.0-67.9) % Lymph % (Auto) (21.8-53.1) % Barren % (Auto) (5.3-12.2) % Eos % (Auto) (0.8-7.0) Baso % (Auto) (0.1-1.2) % Neut # (Auto) (1.78-5.38) K/mm3 Lymph # (Auto) (1.32-3.57) K/mm3 Barren # (Auto) (0.30-0.82) K/mm3 Eos # (Auto) (0.04-0.54) K/mm3 Baso # (Auto) (0.01-0.08) K/mm3 D-Dimer, Quantitative 3.19 H (0.19-0.50) mg/L Sodium 144 (136-145) mEq/L Potassium 3.8 (3.5-5.1) mEq/L Chloride 108 H (98-107) mEq/L Carbon Dioxide 26 (21-32) mEq/L Anion Gap 13.8 (5-15) BUN 16 (7-18) mg/dL Creatinine 0.7 (0.7-1.3) mg/dL Est Cr Clr Drug Dosing 120.22 mL/min Estimated GFR (MDRD) > 60 (>60) mL/min BUN/Creatinine Ratio 22.9 H (14-18) Glucose 119 H (70-99) mg/dL POC Glucose 115 H (70-99) mg/dL Calcium 7.9 L (8.5-10.1) mg/dL Magnesium 1.9 (1.8-2.4) mg/dL Total Bilirubin 0.3 (0.2-1.0) mg/dL AST 30 (15-37) U/L ALT 48 (16-63) U/L Alkaline Phosphatase 63 (46-116) U/L C-Reactive Protein 5.3 H* (<1.0) mg/dL Total Protein 5.1 L (6.4-8.2) g/dl Albumin 2.1 L (3.4-5.0) g/dl Globulin 3.0 gm/dL Albumin/Globulin Ratio 0.7 L (1-2) 06/14/21 Range/Units 11:29 WBC (4.23-9.07) K/mm3 RBC (4.63-6.08) M/mm3 Hgb (13.7-17.5) gm/dl Hct (40.1-51.0) % MCV (79.0-92.2) fl MCH (25.7-32.2) pg MCHC (32.2-35.5) g/dl RDW Std Deviation (35.1-43.9) fL Plt Count (163-337) K/mm3 MPV (9.4-12.3) fl Neut % (Auto) (34.0-67.9) % Lymph % (Auto) (21.8-53.1) % Barren % (Auto) (5.3-12.2) % Eos % (Auto) (0.8-7.0) Baso % (Auto) (0.1-1.2) % Neut # (Auto) (1.78-5.38) K/mm3 Lymph # (Auto) (1.32-3.57) K/mm3 Barren # (Auto) (0.30-0.82) K/mm3 Eos # (Auto) (0.04-0.54) K/mm3 Baso # (Auto) (0.01-0.08) K/mm3 D-Dimer, Quantitative (0.19-0.50) mg/L Sodium (136-145) mEq/L Potassium (3.5-5.1) mEq/L Chloride (98-107) mEq/L Carbon Dioxide (21-32) mEq/L Anion Gap (5-15) BUN (7-18) mg/dL Creatinine (0.7-1.3) mg/dL Est Cr Clr Drug Dosing mL/min Estimated GFR (MDRD) (>60) mL/min BUN/Creatinine Ratio (14-18) Glucose (70-99) mg/dL POC Glucose 166 H (70-99) mg/dL Calcium (8.5-10.1) mg/dL Magnesium (1.8-2.4) mg/dL Total Bilirubin (0.2-1.0) mg/dL AST (15-37) U/L ALT (16-63) U/L Alkaline Phosphatase (46-116) U/L C-Reactive Protein (<1.0) mg/dL Total Protein (6.4-8.2) g/dl Albumin (3.4-5.0) g/dl Globulin gm/dL Albumin/Globulin Ratio (1-2) Result Diagrams: 06/14/21 05:53 09/09/21 05:53 Sepsis Event Note - Evaluation Sepsis Screening Result: No Definite Risk - Focused Exam Vital Signs: Vital Signs Temp Pulse Resp BP Pulse Ox Pulse Ox 06/14/21 10:18 85 86 L 06/14/21 08:42 87 81 L 06/14/21 08:40 147/75 H 06/14/21 08:37 98.4 F 80 21 H 147/75 H 76 L 06/14/21 08:20 92 L 06/14/21 07:00 87 L 06/14/21 06:16 152/86 H 06/14/21 03:41 97.9 F 68 17 150/92 H 99 - Problem List & Annotations (1) Elevated C-reactive protein SNOMED Code(s): 165510471951996 Code(s): R79.82 - ELEVATED C-REACTIVE PROTEIN (CRP) Status: Acute Priority: High Current Visit: Yes (2) Elevated d-dimer SNOMED Code(s): 083532501 Code(s): R79.89 - OTHER SPECIFIED ABNORMAL FINDINGS OF BLOOD CHEMISTRY Status: Acute Priority: High Current Visit: Yes (3) Hypoxia SNOMED Code(s): 193020963 Code(s): R09.02 - HYPOXEMIA Status: Acute Priority: High Current Visit: Yes (4) Leukocytosis SNOMED Code(s): 323589474, 587460510 Code(s): D72.829 - ELEVATED WHITE BLOOD CELL COUNT, UNSPECIFIED Status: Acute Priority: High Current Visit: Yes Qualifiers: Leukocytosis type: unspecified Qualified Code(s): D72.829 - Elevated white blood cell count, unspecified (5) Pneumonia due to COVID-19 virus SNOMED Code(s): 734863977441051767 Code(s): U07.1 - COVID-19; J12.82 - PNEUMONIA DUE TO CORONAVIRUS DISEASE 2019 Status: Acute Priority: High Current Visit: Yes (6) Diabetes mellitus SNOMED Code(s): 60021421 Code(s): E11.9 - TYPE 2 DIABETES MELLITUS WITHOUT COMPLICATIONS Status: Chronic Priority: High Current Visit: Yes Qualifiers: Diabetes mellitus type: type 2 Diabetes mellitus usp insulin use: without usp use Diabetes mellitus complication status: with other specified complication Qualified Code(s): E11.69 - Type 2 diabetes mellitus with other specified complication (7) Smoker SNOMED Code(s): 06494651 Code(s): F17.200 - NICOTINE DEPENDENCE, UNSPECIFIED, UNCOMPLICATED Status: Chronic Priority: High Current Visit: Yes (8) Vitamin D deficiency SNOMED Code(s): 81282344 Code(s): E55.9 - VITAMIN D DEFICIENCY, UNSPECIFIED Status: Chronic Priori ty: Medium Current Visit: Yes (9) Gout SNOMED Code(s): 80013174 Code(s): M10.9 - GOUT, UNSPECIFIED Status: Chronic Priority: Low Current Visit: No Qualifiers: Gout site: unspecified site Gout etiology: unspecified cause Chronicity: unspecified Qualified Code(s): M10.9 - Gout, unspecified (10) HTN (hypertension) SNOMED Code(s): 45673063 Code(s): I10 - ESSENTIAL (PRIMARY) HYPERTENSION Status: Chronic Priority: Low Current Visit: No Qualifiers: Hypertension type: unspecified Qualified Code(s): I10 - Essential (primary) hypertension (11) Hyperlipidemia SNOMED Code(s): 79531913 Code(s): E78.5 - HYPERLIPIDEMIA, UNSPECIFIED Status: Chronic Priority: Low Current Visit: No Qualifiers: Hyperlipidemia type: unspecified Qualified Code(s): E78.5 - Hyperlipidemia, unspecified - Problem List Review Problem List Initiated/Reviewed/Updated: Yes - Assessment Assessment:: 06/12/2021 This is a 55-year-old male admitted to the floor with hypoxia secondary to COVID-19 pneumonia. He currently is on 45 L with an FiO2 of 75%. Labs today show a WBC of 10.22. Hemoglobin 30.6. Platelet 269,000. Neutrophils elevated 75.1%. D-dimer is up to 3.85. Sodium 144. Potassium 3.8. Chloride 109. Carbon dioxide 25. Anion gap is 13.8. BUN is 14. Creatinine 0.7. GFR greater than 60. Blood glucose levels have been from 96-2 14. Phosphorus 3.5. Magnesium 1.9. Total bilirubin 0.3. AST is 30, ALT 37, alkaline phosphatase 52. CRP is 12.6. Protein 5.5. Albumin is down to 1.9. Given the patient's w orsening oxygen demand and elevated D-dimer CTA is obtained showing 1. Bilateral pulmonary consolidation likely due to COVID-19. 2. Mediastinal adenopathy, most likely reactive. There are no signs of any pulmonary emboli. We will therefore increase patient's DVT prophylaxis up to 40 mg twice daily Lovenox. Patient will be started on 20 mg twice daily Pepcid and zinc supplementation. Vitamin D level has been ordered. Patient will remain hospitalized pending improvement in oxygen demand. Unknown length of stay time. Overall he states he feels about the same as yesterday. Continues to have mild diarrhea at times and reports weakness. 06/13/2021 This is a 55-year-old male admitted to the hospital for COVID-19 pneumonia. He has been proning today and saturations are in the mid to low 90s while proning. He has been utilizing incentive spirometer and Acapella. He has been a little bit down today and reports he does not feel like he is getting much better. Overall his lung sounds have greatly improved. He remains on high flow 50 L with an FiO2 of 70%. Labs today show a WBC of 9.34. Hemoglobin 13.7. Platelet 357,000. Neutrophils are 76.4%. Sodium is 144. Potassium 3.5. Anion gap is 15.5. BUN 12. Creatinine 0.8.. GFR greater than 60. Glucose has been between 102 42. Magnesium 1.9. Bilirubin 0.4. AST is 27, ALT 41, alkaline phosphatase 58. CRP is improved to 10.7. Protein 6.1. Vitamin D obtained yesterday was low at 17.4 and we will start supplementation for vitamin D today. Albumin is improved to 2.1. We will continue treatment with unknown length of stay due to severity of COVID-19 symptoms. 06/14/2021 55-year-old male admitted to the hospital with hypoxia due to COVID-19 pneumonia. He is currently on 50 L of oxygen with 75% FiO2. States he has been proning as much as possible as well as using his I-S and Acapella. Has a very flat affect. Was upset on rounds this morning as he states he has not been getting his muscle relaxer with his morning pills.Labs today reveal a WBC of 1 3.29, hemoglobin 13.3, hematocrit 40.8, platelet count 395,000, D-dimer 3.19, sodium 144, potassium 3.8, chloride 108, anion gap 13.8, BUN 16, creatinine 0.7, GFR greater than 60, glucose has ranged from 978176, magnesium 1.9, C-reactive protein 5.3 continue with current treatment. Unknown length of stay due to the severity of Covid symptoms. - Plan Plan:: Pneumonia due to COVID-19 virus Hypoxia Elevated d-dimer Elevated C-reactive protein Leukocytosis * O2 as needed with goal saturations 88 to 95% * High flow oxygen * Start Lovenox 40 mg twice daily due to elevated D-dimer * I-S/Acapella * PRN albuterol inhaler * PRN Duonebs * Prone whenever able * Ambulate around room * RT consultation * PT/OT * Daily labs * Every 48 hour D-dimer * Airborne/contact isolation * Telemetry * Continuous pulse oximetry * Zinc supplementation * 20 mg twice daily Pepcid * Completed remdesivir * Completed azithromycin * Completed Rocephin * 6 mg dexamethasone daily - day 05/15 * Baricitinib - day 03/19 * Scheduled Mucinex twice daily Hyperlipidemia * Continue home rosuvastatin * No acute concern HTN (hypertension) * Continue home lisinopril * No acute concerns Diabetes mellitus * Continue home Jardiance * QID AC and bedtime blood glucose checks * Medium dose sliding scale insulin * Hold home metformin * Diabetic diet Smoker * Nicotine patch daily * Cessation counseling * Offer nicotine patches at discharge Gout * No acute concerns * No chronic home gout medications * Monitor Vitamin D deficiency * Begin 5,000 unit vitamin D supplementation * PCP to follow-up Code status: Full code PCP: Dr. Rubio DVT prophylaxis: BID Lovenox as above Disposition: Patient will remain admitted to the medical/surgical floor for further management and treatment of his COVID-19 pneumonia. Unknown length of stay as patient continues to require high flow oxygen. Goal oxygen demand would be 2 L or less on nasal cannula. Length of stay greater than 96 hours due to continued need for COVID-19 treatment.
[2021-06-15] MEDS: Insulin Lispro 100 UNIT/ML 10 ML Vial SUBCUT SCH ×4 (06:35→21:18)
--- NOTE | 2021-06-15 07:10 | PCM.PN ---
- General Info Date of Service: 06/15/21 Admission Dx/Problem (Free Text): Admission Diagnosis/Problem Admission Diagnosis/Problem Hypoxia Covid 19 pneumonia with hypoxia Functional Status: Reports: Pain Controlled, Tolerating Diet, Ambulating, Urinating, New Symptoms (Worsening oxygen saturations), Incentive Spirometry, Other (Acapella) - Review of Systems General: Reports: Weakness. Denies: Fever, Fatigue, Malaise, Chills HEENT: Reports: No Symptoms. Denies: Headaches, Sore Throat Pulmonary: Reports: Shortness of Breath, Cough, Sputum, Wheezing, Other (Reports significant coughing fits during nighttime.). Denies: Pleuritic Chest Pain Cardiovascular: Reports: No Symptoms, Dyspnea on Exertion. Denies: Chest Pain, Palpitations, Edema, Lightheadedness Gastrointestinal: Reports: No Symptoms. Denies: Abdominal Pain, Constipation, Diarrhea, Nausea, Vomiting Genitourinary: Reports: No Symptoms. Denies: Pain Musculoskeletal: Reports: No Symptoms Skin: Reports: No Symptoms. Denies: Cyanosis Neurological: Reports: No Symptoms. Denies: Confusion, Numbness, Tingling, Difficulty Walking, Weakness, Gait Disturbance Psychiatric: Reports: No Symptoms - Patient Data Vitals - Most Recent: Last Vital Signs Temp 98.1 F 06/15/21 04:01 Pulse 57 L 06/15/21 04:01 Resp 20 06/15/21 04:01 BP 155/111 H 06/15/21 04:01 Pulse Ox 91 L 06/15/21 05:32 Weight - Most Recent: 266 lb 6.4 oz I&O - Last 24 Hours: Intake & Output 06/14/21 06/15/21 06/15/21 22:59 06:59 14:59 Intake Total 1720 1350 Output Total 600 Balance 1720 750 Lab Results Last 24 Hours: Laboratory Results - last 24 hr 06/14/21 06/14/21 06/14/21 Range/Units 05:53 05:53 05:53 WBC 13.29 H (4.23-9.07) K/mm3 RBC 4.66 (4.63-6.08) M/mm3 Hgb 13.3 L (13.7-17.5) gm/dl Hct 40.8 (40.1-51.0) % MCV 87.6 (79.0-92.2) fl MCH 28.5 (25.7-32.2) pg MCHC 32.6 (32.2-35.5) g/dl RDW Std Deviation 48.0 H (35.1-43.9) fL Plt Count 395 H (163-337) K/mm3 MPV 9.8 (9.4-12.3) fl Neut % (Auto) 80.1 H (34.0-67.9) % Lymph % (Auto) 8.7 L (21.8-53.1) % Haakon % (Auto) 7.7 (5.3-12.2) % Eos % (Auto) 2.3 (0.8-7.0) Baso % (Auto) 0.1 (0.1-1.2) % Neut # (Auto) 10.65 H (1.78-5.38) K/mm3 Lymph # (Auto) 1.16 L (1.32-3.57) K/mm3 Haakon # (Auto) 1.02 H (0.30-0.82) K/mm3 Eos # (Auto) 0.31 (0.04-0.54) K/mm3 Baso # (Auto) 0.01 (0.01-0.08) K/mm3 D-Dimer, Quantitative 3.19 H (0.19-0.50) mg/L Sodium 144 (136-145) mEq/L Potassium 3.8 (3.5-5.1) mEq/L Chloride 108 H (98-107) mEq/L Carbon Dioxide 26 (21-32) mEq/L Anion Gap 13.8 (5-15) BUN 16 (7-18) mg/dL Creatinine 0.7 (0.7-1.3) mg/dL Est Cr Clr Drug Dosing 120.22 mL/min Estimated GFR (MDRD) > 60 (>60) mL/min BUN/Creatinine Ratio 22.9 H (14-18) Glucose 119 H (70-99) mg/dL POC Glucose (70-99) mg/dL Calcium 7.9 L (8.5-10.1) mg/dL Magnesium 1.9 (1.8-2.4) mg/dL Total Bilirubin 0.3 (0.2-1.0) mg/dL AST 30 (15-37) U/L ALT 48 (16-63) U/L Alkaline Phosphatase 63 (46-116) U/L C-Reactive Protein 5.3 H* (<1.0) mg/dL Total Protein 5.1 L (6.4-8.2) g/dl Albumin 2.1 L (3.4-5.0) g/dl Globulin 3.0 gm/dL Albumin/Globulin Ratio 0.7 L (1-2) 06/14/21 06/14/21 06/14/21 Range/Units 11:29 16:33 19:54 WBC (4.23-9.07) K/mm3 RBC (4.63-6.08) M/mm3 Hgb (13.7-17.5) gm/dl Hct (40.1-51.0) % MCV (79.0-92.2) fl MCH (25.7-32.2) pg MCHC (32.2-35.5) g/dl RDW Std Deviation (35.1-43.9) fL Plt Count (163-337) K/mm3 MPV (9.4-12.3) fl Neut % (Auto) (34.0-67.9) % Lymph % (Auto) (21.8-53.1) % Haakon % (Auto) (5.3-12.2) % Eos % (Auto) (0.8-7.0) Baso % (Auto) (0.1-1.2) % Neut # (Auto) (1.78-5.38) K/mm3 Lymph # (Auto) (1.32-3.57) K/mm3 Haakon # (Auto) (0.30-0.82) K/mm3 Eos # (Auto) (0.04-0.54) K/mm3 Baso # (Auto) (0.01-0.08) K/mm3 D-Dimer, Quantitative (0.19-0.50) mg/L Sodium (136-145) mEq/L Potassium (3.5-5.1) mEq/L Chloride (98-107) mEq/L Carbon Dioxide (21-32) mEq/L Anion Gap (5-15) BUN (7-18) mg/dL Creatinine (0.7-1.3) mg/dL Est Cr Clr Drug Dosing mL/min Estimated GFR (MDRD) (>60) mL/min BUN/Creatinine Ratio (14-18) Glucose (70-99) mg/dL POC Glucose 166 H 222 H 293 H (70-99) mg/dL Calcium (8.5-10.1) mg/dL Magnesium (1.8-2.4) mg/dL Total Bilirubin (0.2-1.0) mg/dL AST (15-37) U/L ALT (16-63) U/L Alkaline Phosphatase (46-116) U/L C-Reactive Protein (<1.0) mg/dL Total Protein (6.4-8.2) g/dl Albumin (3.4-5.0) g/dl Globulin gm/dL Albumin/Globulin Ratio (1-2) 06/15/21 06/15/21 Range/Units 06:28 06:39 WBC 14.02 H (4.23-9.07) K/mm3 RBC 4.97 (4.63-6.08) M/mm3 Hgb 14.1 (13.7-17.5) gm/dl Hct 43.5 (40.1-51.0) % MCV 87.5 (79.0-92.2) fl MCH 28.4 (25.7-32.2) pg MCHC 32.4 (32.2-35.5) g/dl RDW Std Deviation 47.5 H (35.1-43.9) fL Plt Count 426 H (163-337) K/mm3 MPV 9.0 L (9.4-12.3) fl Neut % (Auto) 79.9 H (34.0-67.9) % Lymph % (Auto) 9.1 L (21.8-53.1) % Haakon % (Auto) 8.1 (5.3-12.2) % Eos % (Auto) 1.4 (0.8-7.0) Baso % (Auto) 0.1 (0.1-1.2) % Neut # (Auto) 11.21 H (1.78-5.38) K/mm3 Lymph # (Auto) 1.27 L (1.32-3.57) K/mm3 Haakon # (Auto) 1.13 H (0.30-0.82) K/mm3 Eos # (Auto) 0.20 (0.04-0.54) K/mm3 Baso # (Auto) 0.02 (0.01-0.08) K/mm3 D-Dimer, Quantitative (0.19-0.50) mg/L Sodium (136-145) mEq/L Potassium (3.5-5.1) mEq/L Chloride (98-107) mEq/L Carbon Dioxide (21-32) mEq/L Anion Gap (5-15) BUN (7-18) mg/dL Creatinine (0.7-1.3) mg/dL Est Cr Clr Drug Dosing mL/min Estimated GFR (MDRD) (>60) mL/min BUN/Creatinine Ratio (14-18) Glucose (70-99) mg/dL POC Glucose 97 (70-99) mg/dL Calcium (8.5-10.1) mg/dL Magnesium (1.8-2.4) mg/dL Total Bilirubin (0.2-1.0) mg/dL AST (15-37) U/L ALT (16-63) U/L Alkaline Phosphatase (46-116) U/L C-Reactive Protein (<1.0) mg/dL Total Protein (6.4-8.2) g/dl Albumin (3.4-5.0) g/dl Globulin gm/dL Albumin/Globulin Ratio (1-2) Med Orders - Current: Current Medications Acetaminophen (Acetaminophen 325 Mg Tab) 650 mg PO Q4H PRN PRN Reason: Pain (Mild 1-3)/fever Last Admin: 06/12/21 10:29 Dose: 650 mg Documented by: Albuterol (Albuterol 6.7 Gm Inhaler) 0 gm INH Q2H PRN PRN Reason: sob/wheezing Last Admin: 06/14/21 14:51 Dose: 2 puff Documented by: Albuterol/Ipratropium (Albuterol/Ipratropium 3.0-0.5 Mg/3 Ml Neb Soln) 3 ml NEB QIDRT PRN PRN Reason: Shortness Of Breath/wheezing Last Admin: 06/13/21 09:27 Dose: 3 ml Documented by: Calcium Carbonate/Glycine (Calcium Carbonate 500 Mg Tab.Chew) 1,000 mg PO Q2HR PRN PRN Reason: Heartburn Last Admin: 06/10/21 17:01 Dose: 1,000 mg Documented by: Cholecalciferol (Cholecalciferol (Vitamin D3) 5,000 Unit Cap) 5,000 unit PO DAILY [facility] Last Admin: 06/14/21 08:42 Dose: 5,000 unit Documented by: Dexamethasone (Dexamethasone 4 Mg Tab) 6 mg PO DAILY [facility] Stop: 06/16/21 09:01 Last Admin: 06/14/21 08:42 Dose: 6 mg Documented by: Docusate Sodium (Docusate Sodium 100 Mg Cap) 100 mg PO BID [facility] Last Admin: 06/14/21 21:29 Dose: Not Given Documented by: Enoxaparin Sodium (Enoxaparin 40 Mg/0.4 Ml Syringe) 40 mg SUBCUT Q12H [facility] Last Admin: 06/14/21 21:23 Dose: 40 mg Documented by: Famotidine (Famotidine 20 Mg Tab) 20 mg PO BID [facility] Last Admin: 06/14/21 21:24 Dose: 20 mg Documented by: Guaifenesin (Guaifenesin 600 Mg Tab.Er) 600 mg PO BID [facility] Last Admin: 06/14/21 21:24 Dose: 600 mg Documented by: Ibuprofen (Ibuprofen 600 Mg Tab) 600 mg PO Q4HR PRN PRN Reason: Pain Insulin Human Lispro (Insulin Lispro 100 Unit/Ml 10 Ml Vial) 0 unit SUBCUT QIDACANDBED [facility]; Protocol Last Admin: 06/15/21 06:35 Dose: Not Given Documented by: Lisinopril (Lisinopril 20 Mg Tab) 40 mg PO DAILY [facility] Last Admin: 06/14/21 08:40 Dose: 40 mg Documented by: Lorazepam (Lorazepam 0.5 Mg Tab) 0.5 mg PO TID PRN PRN Reason: Anxiety Methocarbamol (Methocarbamol 500 Mg Tab) 1,000 mg PO Q6H PRN PRN Reason: Spasms Last Admin: 06/14/21 21:24 Dose: 1,000 mg Documented by: Miscellaneous Information (Remove Nicotine Patch) 1 ea TRDERM DAILY [facility] Last Admin: 06/14/21 10:02 Dose: 1 ea Documented by: Nicotine (Nicotine 14 Mg/24 Hr Patch) 14 mg TRDERM DAILY [facility] Last Admin: 06/14/21 08:44 Dose: 14 mg Documented by: Jardiance ( Empagliflozin 10 Mg Tablet Ptom 0 mg PO DAILY [facility] Last Admin: 06/14/21 10:03 Dose: 10 mg Documented by: Ondansetron HCl (Ondansetron 4 Mg/2 Ml Sdv) 4 mg IV Q4H PRN PRN Reason: Nausea/Vomiting Polyethylene Glycol (Polyethylene Glycol 3350 Powder 17 Gm Packet) 17 gm PO DAILY [facility] Last Admin: 06/14/21 08:41 Dose: Not Given Documented by: Rosuvastatin Calcium (Rosuvastatin 10 Mg Tab) 20 mg PO DAILY [facility] Last Admin: 06/14/21 08:40 Dose: 20 mg Documented by: Temazepam (Temazepam 15 Mg Cap) 15 mg PO BEDTIME PRN PRN Reason: Sleep Last Admin: 06/10/21 21:59 Dose: 15 mg Documented by: Zinc Sulfate (Zinc Sulfate 220 Mg Cap) 220 mg PO DAILY [facility] Last Admin: 06/14/21 10:03 Dose: 220 mg Documented by: Discontinued Medications Acetylcysteine (Acetylcysteine 20% 200 Mg/Ml 30 Ml Nebulizer Soln Sdv) 800 mg NEB ONETIME ONE Stop: 06/09/21 09:21 Last Admin: 06/09/21 11:40 Dose: Not Given Documented by: Acetylcysteine (Acetylcysteine 20% 200 Mg/Ml 4 Ml Nebulizer Soln Sdv) 800 mg NEB ONETIME ONE Stop: 06/09/21 09:46 Last Admin: 06/09/21 10:10 Dose: 800 mg Documented by: Acetylcysteine (Acetylcysteine 20% 200 Mg/Ml 4 Ml Nebulizer Soln Sdv) 200 mg NEB ONETIME ONE Stop: 06/13/21 13:31 Last Admin: 06/13/21 15:38 Dose: 200 mg Documented by: Dexamethasone (Dexamethasone 4 Mg Tab) 6 mg PO ONETIME ONE Stop: 06/07/21 19:48 Last Admin: 06/07/21 20:28 Dose: 6 mg Documented by: Dexamethasone (Dexamethasone 10 Mg/Ml Sdv) 6 mg IVPUSH DAILY [facility] Stop: 06/16/21 09:01 Last Admin: 06/12/21 11:19 Dose: 6 mg Documented by: Enoxaparin Sodium (Enoxaparin 40 Mg/0.4 Ml Syringe) 40 mg SUBCUT Q12H [facility] Last Admin: 06/12/21 23:34 Dose: 40 mg Documented by: Heparin Sodium (Porcine) (Heparin Sodium 5,000 Units/Ml Vial) 5,000 units SUBCUT Q8H [facility] Last Admin: 06/12/21 11:49 Dose: Not Given Documented by: Sodium Chloride (Normal Saline) 100 mls @ 60 mls/min IV ASDIRECTED [facility] Last Admin: 06/07/21 19:29 Dose: 60 mls/min Documented by: Remdesivir 200 mg/ Sodium (Chloride) 250 mls @ 250 mls/hr IV ONETIME ONE Stop: 06/07/21 20:38 Last Admin: 06/07/21 20:54 Dose: 250 mls/hr Documented by: Remdesivir 100 mg/ Sodium (Chloride) 100 mls @ 100 mls/hr IV Q24H [facility] Stop: 06/11/21 20:59 Last Admin: 06/11/21 20:39 Dose: 100 mls/hr Documented by: Ceftriaxone Sodium 2 gm/ (Sodium Chloride) 100 mls @ 200 mls/hr IV Q24H [facility] Last Admin: 06/12/21 10:10 Dose: 200 mls/hr Documented by: Azithromycin 500 mg/ Sodium (Chloride) 250 mls @ 250 mls/hr IV Q24H [facility] Last Admin: 06/12/21 10:11 Dose: 250 mls/hr Documented by: Sodium Chloride (Normal Saline) 100 mls @ 60 mls/hr IV ASDIRECTED [facility] Stop: 06/12/21 13:00 Last Admin: 06/12/21 11:28 Dose: 60 mls/hr Documented by: Ibuprofen (Ibuprofen 200 Mg Tab) 600 mg PO Q4HR PRN PRN Reason: Pain Iopamidol (Iopamidol 755 Mg/Ml 100 Ml Bottle) 100 ml IVPUSH ONETIME ONE Stop: 06/07/21 19:05 Last Admin: 06/07/21 19:29 Dose: 100 ml Documented by: Iopamidol (Iopamidol 755 Mg/Ml 100 Ml Bottle) 100 ml IVPUSH ONETIME ONE Stop: 06/12/21 11:04 Last Admin: 06/12/21 11:28 Dose: 100 ml Documented by: Lorazepam (Lorazepam 0.5 Mg Tab) 0.5 mg PO TID PRN PRN Reason: Anxiety Metformin HCl (Metformin 500 Mg Tab) 1,000 mg PO BID [facility] Last Admin: 06/10/21 09:49 Dose: 1,000 mg Documented by: Morphine Sulfate (Morphine 2 Mg/Ml Syringe) 2 mg IVPUSH Q2H PRN PRN Reason: Pain (severe 7-10) Stop: 06/09/21 07:44 Sodium Chloride (Sodium Chloride 0.9% 10 Ml Sdv) 10 ml FLUSH ONETIME ONE Stop: 06/07/21 19:05 Last Admin: 06/07/21 19:29 Dose: 10 ml Documented by: Sodium Chloride (Sodium Chloride 0.9% 10 Ml Syringe) 10 ml FLUSH ONETIME ONE Stop: 06/12/21 11:04 Last Admin: 06/12/21 11:28 Dose: 10 ml Documented by: - Exam Quality Assessment: Supplemental Oxygen (60 L with FiO2 of 95%.), DVT Prophylaxis General: Alert, Oriented, Cooperative, No Acute Distress (Looks comfortable although saturations have been down.) HEENT: Pupils Equal, Pupils Reactive, Mucous Membr. Moist/[place] Neck: Supple, Trachea Midline Lungs: Normal Respiratory Effort, Decreased Breath Sounds, Crackles, Wheezing Cardiovascular: Regular Rate, Regular Rhythm GI/Abdominal Exam: Normal Bowel Sounds, Soft, Non-Tender, No Distention (Male) Exam: Deferred Back Exam: Normal Inspection, Full Range of Motion Extremities: Normal Inspection, Normal Range of Motion, Non-Tender, No Pedal Edema, Normal Capillary Refill Peripheral Pulses: 3+: Radial (L), Radial (R), Dorsalis Pedis (L), Dorsalis Pedis (R) Skin: Warm, Dry, Intact Neurological: No New Focal Deficit Psy/Mental Status: Alert, Depressed - Patient Data Lab Results Last 24 hrs: Laboratory Results - last 24 hr 06/14/21 06/14/21 06/14/21 Range/Units 05:53 05:53 05:53 WBC 13.29 H (4.23-9.07) K/mm3 RBC 4.66 (4.63-6.08) M/mm3 Hgb 13.3 L (13.7-17.5) gm/dl Hct 40.8 (40.1-51.0) % MCV 87.6 (79.0-92.2) fl MCH 28.5 (25.7-32.2) pg MCHC 32.6 (32.2-35.5) g/dl RDW Std Deviation 48.0 H (35.1-43.9) fL Plt Count 395 H (163-337) K/mm3 MPV 9.8 (9.4-12.3) fl Neut % (Auto) 80.1 H (34.0-67.9) % Lymph % (Auto) 8.7 L (21.8-53.1) % Haakon % (Auto) 7.7 (5.3-12.2) % Eos % (Auto) 2.3 (0.8-7.0) Baso % (Auto) 0.1 (0.1-1.2) % Neut # (Auto) 10.65 H (1.78-5.38) K/mm3 Lymph # (Auto) 1.16 L (1.32-3.57) K/mm3 Haakon # (Auto) 1.02 H (0.30-0.82) K/mm3 Eos # (Auto) 0.31 (0.04-0.54) K/mm3 Baso # (Auto) 0.01 (0.01-0.08) K/mm3 D-Dimer, Quantitative 3.19 H (0.19-0.50) mg/L Sodium 144 (136-145) mEq/L Potassium 3.8 (3.5-5.1) mEq/L Chloride 108 H (98-107) mEq/L Carbon Dioxide 26 (21-32) mEq/L Anion Gap 13.8 (5-15) BUN 16 (7-18) mg/dL Creatinine 0.7 (0.7-1.3) mg/dL Est Cr Clr Drug Dosing 120.22 mL/min Estimated GFR (MDRD) > 60 (>60) mL/min BUN/Creatinine Ratio 22.9 H (14-18) Glucose 119 H (70-99) mg/dL POC Glucose (70-99) mg/dL Calcium 7.9 L (8.5-10.1) mg/dL Magnesium 1.9 (1.8-2.4) mg/dL Total Bilirubin 0.3 (0.2-1.0) mg/dL AST 30 (15-37) U/L ALT 48 (16-63) U/L Alkaline Phosphatase 63 (46-116) U/L C-Reactive Protein 5.3 H* (<1.0) mg/dL Total Protein 5.1 L (6.4-8.2) g/dl Albumin 2.1 L (3.4-5.0) g/dl Globulin 3.0 gm/dL Albumin/Globulin Ratio 0.7 L (1-2) 06/14/21 06/14/21 06/14/21 Range/Units 11:29 16:33 19:54 WBC (4.23-9.07) K/mm3 RBC (4.63-6.08) M/mm3 Hgb (13.7-17.5) gm/dl Hct (40.1-51.0) % MCV (79.0-92.2) fl MCH (25.7-32.2) pg MCHC (32.2-35.5) g/dl RDW Std Deviation (35.1-43.9) fL Plt Count (163-337) K/mm3 MPV (9.4-12.3) fl Neut % (Auto) (34.0-67.9) % Lymph % (Auto) (21.8-53.1) % Haakon % (Auto) (5.3-12.2) % Eos % (Auto) (0.8-7.0) Baso % (Auto) (0.1-1.2) % Neut # (Auto) (1.78-5.38) K/mm3 Lymph # (Auto) (1.32-3.57) K/mm3 Haakon # (Auto) (0.30-0.82) K/mm3 Eos # (Auto) (0.04-0.54) K/mm3 Baso # (Auto) (0.01-0.08) K/mm3 D-Dimer, Quantitative (0.19-0.50) mg/L Sodium (136-145) mEq/L Potassium (3.5-5.1) mEq/L Chloride (98-107) mEq/L Carbon Dioxide (21-32) mEq/L Anion Gap (5-15) BUN (7-18) mg/dL Creatinine (0.7-1.3) mg/dL Est Cr Clr Drug Dosing mL/min Estimated GFR (MDRD) (>60) mL/min BUN/Creatinine Ratio (14-18) Glucose (70-99) mg/dL POC Glucose 166 H 222 H 293 H (70-99) mg/dL Calcium (8.5-10.1) mg/dL Magnesium (1.8-2.4) mg/dL Total Bilirubin (0.2-1.0) mg/dL AST (15-37) U/L ALT (16-63) U/L Alkaline Phosphatase (46-116) U/L C-Reactive Protein (<1.0) mg/dL Total Protein (6.4-8.2) g/dl Albumin (3.4-5.0) g/dl Globulin gm/dL Albumin/Globulin Ratio (1-2) 06/15/21 06/15/21 Range/Units 06:28 06:39 WBC 14.02 H (4.23-9.07) K/mm3 RBC 4.97 (4.63-6.08) M/mm3 Hgb 14.1 (13.7-17.5) gm/dl Hct 43.5 (40.1-51.0) % MCV 87.5 (79.0-92.2) fl MCH 28.4 (25.7-32.2) pg MCHC 32.4 (32.2-35.5) g/dl RDW Std Deviation 47.5 H (35.1-43.9) fL Plt Count 426 H (163-337) K/mm3 MPV 9.0 L (9.4-12.3) fl Neut % (Auto) 79.9 H (34.0-67.9) % Lymph % (Auto) 9.1 L (21.8-53.1) % Haakon % (Auto) 8.1 (5.3-12.2) % Eos % (Auto) 1.4 (0.8-7.0) Baso % (Auto) 0.1 (0.1-1.2) % Neut # (Auto) 11.21 H (1.78-5.38) K/mm3 Lymph # (Auto) 1.27 L (1.32-3.57) K/mm3 Haakon # (Auto) 1.13 H (0.30-0.82) K/mm3 Eos # (Auto) 0.20 (0.04-0.54) K/mm3 Baso # (Auto) 0.02 (0.01-0.08) K/mm3 D-Dimer, Quantitative (0.19-0.50) mg/L Sodium (136-145) mEq/L Potassium (3.5-5.1) mEq/L Chloride (98-107) mEq/L Carbon Dioxide (21-32) mEq/L Anion Gap (5-15) BUN (7-18) mg/dL Creatinine (0.7-1.3) mg/dL Est Cr Clr Drug Dosing mL/min Estimated GFR (MDRD) (>60) mL/min BUN/Creatinine Ratio (14-18) Glucose (70-99) mg/dL POC Glucose 97 (70-99) mg/dL Calcium (8.5-10.1) mg/dL Magnesium (1.8-2.4) mg/dL Total Bilirubin (0.2-1.0) mg/dL AST (15-37) U/L ALT (16-63) U/L Alkaline Phosphatase (46-116) U/L C-Reactive Protein (<1.0) mg/dL Total Protein (6.4-8.2) g/dl Albumin (3.4-5.0) g/dl Globulin gm/dL Albumin/Globulin Ratio (1-2) Result Diagrams: 06/15/21 06:39 06/15/21 06:39 Sepsis Event Note - Evaluation Sepsis Screening Result: No Definite Risk - Focused Exam Vital Signs: Vital Signs Temp Pulse Resp BP BP Pulse Ox Pulse Ox 06/15/21 05:32 91 L 06/15/21 04:01 98.1 F 57 L 20 155/111 H 91 L 06/15/21 03:00 149/85 H 06/14/21 23:53 98.1 F 69 22 H 131/75 92 L 06/14/21 21:22 150/87 H 06/14/21 20:35 91 L 06/14/21 20:20 15 06/14/21 19:57 98.1 F 64 20 150/121 H 99 - Problem List & Annotations (1) Hyperlipidemia SNOMED Code(s): 41249418 Code(s): E78.5 - HYPERLIPIDEMIA, UNSPECIFIED Status: Chronic Priority: Low Current Visit: No Qualifiers: Hyperlipidemia type: unspecified Qualified Code(s): E78.5 - Hyperlipidemia, unspecified (2) HTN (hypertension) SNOMED Code(s): 69246205 Code(s): I10 - ESSENTIAL (PRIMARY) HYPERTENSION Status: Chronic Priority: Low Current Visit: No Qualifiers: Hypertension type: unspecified Qualified Code(s): I10 - Essential (primary) hypertension (3) Elevated d-dimer SNOMED Code(s): 669097194 Code(s): R79.89 - OTHER SPECIFIED ABNORMAL FINDINGS OF BLOOD CHEMISTRY Status: Acute Priority: High Current Visit: Yes (4) Elevated C-reactive protein SNOMED Code(s): 087148132304644 Code(s): R79.82 - ELEVATED C-REACTIVE PROTEIN (CRP) Status: Acute Priority: High Current Visit: Yes (5) Leukocytosis SNOMED Code(s): 464079453, 400789745 Code(s): D72.829 - ELEVATED WHITE BLOOD CELL COUNT, UNSPECIFIED Status: Acute Priority: High Current Visit: Yes Qualifiers: Leukocytosis type: unspecified Qualified Code(s): D72.829 - Elevated white blood cell count, unspecified (6) Diabetes mellitus SNOMED Code(s): 71989209 Code(s): E11.9 - TYPE 2 DIABETES MELLITUS WITHOUT COMPLICATIONS Status: Chronic Priority: High Current Visit: Yes Qualifiers: Diabetes mellitus type: type 2 Diabetes mellitus [facility] use: [facility] Diabetes mellitus complication status: with other spe cified complication Qualified Code(s): E11.69 - Type 2 diabetes mellitus with other specified complication (7) Hypoxia SNOMED Code(s): 848404878 Code(s): R09.02 - HYPOXEMIA Status: Acute Priority: High Current Visit: Yes (8) Pneumonia due to COVID-19 virus SNOMED Code(s): 561324150218876667 Code(s): U07.1 - COVID-19; J12.82 - PNEUMONIA DUE TO CORONAVIRUS DISEASE 2019 Status: Acute Priority: High Current Visit: Yes (9) Smoker SNOMED Code(s): 97752146 Code(s): F17.200 - NICOTINE DEPENDENCE, UNSPECIFIED, UNCOMPLICATED Status: Chronic Priority: High Current Visit: Yes (10) Gout SNOMED Code(s): 79070575 Code(s): M10.9 - GOUT, UNSPECIFIED Status: Chronic Priority: Low Current Visit: No Qualifiers: Gout site: unspecified site Gout etiology: unspecified cause Chronicity: unspecified Qualified Code(s): M10.9 - Gout, unspecified (11) Vitamin D deficiency SNOMED Code(s): 51521324 Code(s): E55.9 - VITAMIN D DEFICIENCY, UNSPECIFIED Status: Acute Priority: Medium Current Visit: Yes - Problem List Review Problem List Initiated/Reviewed/Updated: Yes - My Orders Last 24 Hours: My Active Orders 06/15/21 06:39 CMP [COMPREHENSIVE METABOLIC PN,CMP] [CHEM] AM CRP [C-REACTIVE PROTEIN] [CHEM] AM MAGNESIUM [CHEM] AM 06/16/21 05:11 CBC WITH AUTO DIFF [HEME] AM CMP [COMPREHENSIVE METABOLIC PN,CMP] [CHEM] AM CRP [C-REACTIVE PROTEIN] [CHEM] AM DD [D-DIMER QUANTITATIVE] [COAG] Q48H MAGNESIUM [CHEM] AM - Assessment Assessment:: 06/12/2021 This is a 55-year-old male admitted to the floor with hypoxia secondary to COVID-19 pneumonia. He currently is on 45 L with an FiO2 of 75%. Labs today show a WBC of 10.22. Hemoglobin 30.6. Platelet 269,000. Neutrophils elevated 75.1%. D-dimer is up to 3.85. Sodium 144. Potassium 3.8. Chloride 109. Carbon dioxide 25. Anion gap is 13.8. BUN is 14. Creatinine 0.7. GFR greater than 60. Blood glucose levels have been from 96-2 14. Phosphorus 3.5. Magnesium 1.9. Total bilirubin 0.3. AST is 30, ALT 37, alkaline phosphatase 52. CRP is 12.6. Protein 5.5. Albumin is down to 1.9. Given the patient's worsening oxygen demand and elevated D-dimer CTA is obtained showing 1. Bilateral pulmonary consolidation likely due to COVID-19. 2. Mediastinal adenopathy, most likely reactive. There are no signs of any pulmonary emboli. We will therefore increase patient's DVT prophylaxis up to 40 mg twice daily Lovenox. Patient will be started on 20 mg twice daily Pepcid and zinc supplementation. Vitamin D level has been ordered. Patient will remain hospitalized pending improvement in oxygen demand. Unknown length of stay time. Overall he states he feels about the same as yesterday. Continues to have mild diarrhea at times and reports weakness. 06/13/2021 This is a 55-year-old male admitted to the hospital for COVID-19 pneumonia. He has been proning today and saturations are in the mid to low 90s while proning. He has been utilizing incentive spirometer and Acapella. He has been a little bit down today and reports he does not feel like he is getting much better. Overall his lung sounds have greatly improved. He remains on high flow 50 L with an FiO2 of 70%. Labs today show a WBC of 9.34. Hemoglobin 13.7. Platelet 357,000. Neutrophils are 76.4%. Sodium is 144. Potassium 3.5. Anion gap is 15.5. BUN 12. Creatinine 0.8.. GFR greater than 60. Glucose has been between 102 42. Magnesium 1.9. Bilirubin 0.4. AST is 27, ALT 41, alkaline phosphatase 58. CRP is improved to 10.7. Protein 6.1. Vitamin D obtained yesterday was low at 17.4 and we will start supplementation for vitamin D today. Albumin is improved to 2.1. We will continue treatment with unknown length of stay due to severity of COVID-19 symptoms. 06/14/2021 55-year-old male admitted to the hospital with hypoxia due to COVID-19 pneumonia. He is currently on 50 L of oxygen with 75% FiO2. States he has been proning as much as possible as well as using his I-S and Acapella. Has a very flat affect. Was upset on rounds this morning as he states he has not been getting his muscle relaxer with his morning pills. Labs today reveal a WBC of 13.29, hemoglobin 13.3, hematocrit 40.8, platelet count 395,000, D-dimer 3.19, sodium 144, potassium 3.8, chloride 108, anion gap 13.8, BUN 16, creatinine 0.7, GFR greater than 60, glucose has ranged from [id number], magnesium 1.9, C-reactive protein 5.3 continue with current treatment. Unknown length of stay due to the severity of Covid symptoms. 06/15/2021 This is a 55-year-old male admitted to the floor with COVID-19 pneumonia. He had worsening oxygen saturations and today was requiring 60 L of oxygen with an FiO2 of 95%. Because of this he was moved up to the ICU. He continues to utilize his incentive spirometry and Acapella and prone. We will continue dexamethasone and baricitinib. Respiratory therapy continues to work with him. Clinically he does not look to be in any acute respiratory distress. Labs today show WBC of 14.02. Hemoglobin 14.1. Platelet 4 and 26,000. Neutrophils are elevated 79.9%. Sodium 143. Potassium 3.8. Chloride 107. Carbon dioxide 27. Anion gap 12.8. BUN is 13. Creatinine 0.7. GFR greater than 60. Glucose is 97-93. Calcium is 8.5. Magnesium 1.8. Bilirubin 0.5. AST is 24, ALT 49, alkaline phosphatase 54. CRP is 5.9. Protein is 5.9 and albumin is 2.0. We will continue current treatment plan. Will increase to BiPAP if necessary. Unknown length of stay due to severity of COVID-19 symptoms. - Plan Plan:: Pneumonia due to COVID-19 virus Hypoxia Elevated d-dimer Elevated C-reactive protein Leukocytosis * O2 as needed with goal saturations 88 to 95% * High flow oxygen * Lovenox 40 mg twice daily due to elevated D-dimer * I-S/Acapella * PRN albuterol inhaler * PRN Duonebs * Prone whenever able * Ambulate around room * RT consultation * PT/OT * Daily labs * Every 48 hour D-dimer * Airborne/contact isolation * Telemetry * Continuous pulse oximetry * Zinc supplementation * 20 mg twice daily Pepcid * Completed remdesivir * Completed azithromycin * Completed Rocephin * 6 mg dexamethasone daily - day 06/15 * Baricitinib - day 05/19 * Scheduled Mucinex twice daily Hyperlipidemia * Continue home rosuvastatin * No acute concern HTN (hypertension) * Continue home lisinopril * No acute concerns Diabetes mellitus * Continue home Jardiance * QID AC and bedtime blood glucose checks * Medium dose sliding scale insulin * Hold home metformin * Diabetic diet Smoker * Nicotine patch daily * Cessation counseling * Offer nicotine patches at discharge Gout * No acute concerns * No chronic home gout medications * Monitor Vitamin D deficiency * Begin 5,000 unit vitamin D supplementation * PCP to follow-up Code status: Full code PCP: Dr. Rubio DVT prophylaxis: BID Lovenox as above Disposition: Patient upgraded to ICU status on 06/15/2021 due to rapidly d eteriorating oxygen saturations the need for high flow oxygen. Unknown length of stay as patient continues to require significant amounts of high flow oxygen. Goal oxygen demand would be 2 L or less on nasal cannula. Length of stay greater than 96 hours due to continued need for COVID-19 alicia malik
[2021-06-15] MEDS: Rosuvastatin 10 MG Tab PO SCH (08:45)
[2021-06-15] MEDS: Zinc Sulfate 220 MG Cap PO SCH (08:45)
[2021-06-15] MEDS: Methocarbamol 500 MG Tab PO PRN ×2 (08:48→19:59)
[2021-06-15] MEDS: Famotidine 20 MG Tab PO SCH ×2 (08:49→19:59)
[2021-06-15] MEDS: guaiFENesin 600 MG Tab.ER PO SCH ×2 (08:50→19:59)
[2021-06-15] MEDS: Dexamethasone 4 MG Tab PO SCH (08:50)
[2021-06-15] MEDS: Enoxaparin 40 MG/0.4 ML Syringe SUBCUT SCH ×2 (08:51→19:59)
[2021-06-15] MEDS: Nicotine 14 MG/24 Hr Patch TRDERM SCH (08:52)
[2021-06-15] MEDS: Polyethylene Glycol 3350 Powder 17 GM Packet PO SCH (08:52)
[2021-06-15] MEDS: Cholecalciferol (Vitamin D3) 5,000 UNIT Cap PO SCH (08:53)
[2021-06-15] MEDS: Docusate Sodium 100 MG Cap PO SCH ×2 (08:53→19:59)
[2021-06-15] MEDS: Lisinopril 20 MG Tab PO SCH (08:54)
[2021-06-15] MEDS: JARDIANCE PO SCH (08:58)
[2021-06-15] MEDS: Albuterol 6.7 GM Inhaler INH PRN ×3 (09:01→20:09)
[2021-06-16] MEDS: guaiFENesin 600 MG Tab.ER PO SCH ×2 (08:46→21:06)
[2021-06-16] MEDS: Famotidine 20 MG Tab PO SCH ×2 (08:46→21:06)
[2021-06-16] MEDS: Zinc Sulfate 220 MG Cap PO SCH (08:46)
[2021-06-16] MEDS: Cholecalciferol (Vitamin D3) 5,000 UNIT Cap PO SCH (08:46)
[2021-06-16] MEDS: Dexamethasone 4 MG Tab PO SCH (08:46)
[2021-06-16] MEDS: Lisinopril 20 MG Tab PO SCH (08:47)
[2021-06-16] MEDS: Nicotine 14 MG/24 Hr Patch TRDERM SCH (08:47)
[2021-06-16] MEDS: Rosuvastatin 10 MG Tab PO SCH (08:48)
[2021-06-16] MEDS: Enoxaparin 40 MG/0.4 ML Syringe SUBCUT SCH ×2 (08:49→21:06)
[2021-06-16] MEDS: Insulin Lispro 100 UNIT/ML 10 ML Vial SUBCUT SCH ×4 (08:49→21:18)
[2021-06-16] MEDS: Docusate Sodium 100 MG Cap PO SCH ×3 (08:49→21:07)
[2021-06-16] MEDS: Polyethylene Glycol 3350 Powder 17 GM Packet PO SCH (08:56)
[2021-06-16] MEDS: JARDIANCE PO SCH (09:05)
--- NOTE | 2021-06-16 09:06 | PCM.PN ---
- General Info Date of Service: 06/16/21 Admission Dx/Problem (Free Text): Admission Diagnosis/Problem Admission Diagnosis/Problem Hypoxia Covid 19 pneumonia with hypoxia Subjective Update: Patient improved overnight. They were able to wean his oxygen from 90% FiO2 to 60% FiO2. There was some worsening today after a shower requiring him to go back up to 80% FiO2. They are also able to wean down his high flow to 50 L. Functional Status: Reports: Pain Controlled - Review of Systems General: Reports: No Symptoms HEENT: Reports: No Symptoms Pulmonary: Reports: Shortness of Breath, Cough Cardiovascular: Reports: No Symptoms Gastrointestinal: Reports: No Symptoms - Patient Data Vitals - Most Recent: Last Vital Signs Temp 97.7 F 06/16/21 04:00 Pulse 51 L 06/16/21 04:00 Resp 18 06/15/21 17:06 BP 159/86 H 06/16/21 08:47 Pulse Ox 90 L 06/16/21 06:48 Weight - Most Recent: 266 lb 12.8 oz I&O - Last 24 Hours: Intake & Output 06/15/21 06/16/21 06/16/21 22:59 06:59 14:59 Intake Total 2020 800 Output Total 1500 925 Balance 520 -125 Lab Results Last 24 Hours: Laboratory Results - last 24 hr 06/15/21 06/15/21 06/15/21 Range/Units 10:54 17:03 21:10 WBC (4.23-9.07) K/mm3 RBC (4.63-6.08) M/mm3 Hgb (13.7-17.5) gm/dl Hct (40.1-51.0) % MCV (79.0-92.2) fl MCH (25.7-32.2) pg MCHC (32.2-35.5) g/dl RDW Std Deviation (35.1-43.9) fL Plt Count (163-337) K/mm3 MPV (9.4-12.3) fl Neut % (Auto) (34.0-67.9) % Lymph % (Auto) (21.8-53.1) % [place] % (Auto) (5.3-12.2) % Eos % (Auto) (0.8-7.0) Baso % (Auto) (0.1-1.2) % Neut # (Auto) (1.78-5.38) K/mm3 Lymph # (Auto) (1.32-3.57) K/mm3 [place] # (Auto) (0.30-0.82) K/mm3 Eos # (Auto) (0.04-0.54) K/mm3 Baso # (Auto) (0.01-0.08) K/mm3 Manual Slide Review D-Dimer, Quantitative (0.19-0.50) mg/L Sodium (136-145) mEq/L Potassium (3.5-5.1) mEq/L Chloride (98-107) mEq/L Carbon Dioxide (21-32) mEq/L Anion Gap (5-15) BUN (7-18) mg/dL Creatinine (0.7-1.3) mg/dL Est Cr Clr Drug Dosing mL/min Estimated GFR (MDRD) (>60) mL/min BUN/Creatinine Ratio (14-18) Glucose (70-99) mg/dL POC Glucose 134 H 218 H 173 H (70-99) mg/dL Calcium (8.5-10.1) mg/dL Magnesium (1.8-2.4) mg/dL Total Bilirubin (0.2-1.0) mg/dL AST (15-37) U/L ALT (16-63) U/L Alkaline Phosphatase (46-116) U/L C-Reactive Protein (<1.0) mg/dL Total Protein (6.4-8.2) g/dl Albumin (3.4-5.0) g/dl Globulin gm/dL Albumin/Globulin Ratio (1-2) 06/16/21 06/16/21 06/16/21 Range/Units 04:50 04:50 04:50 WBC 11.72 H (4.23-9.07) K/mm3 RBC 4.74 (4.63-6.08) M/mm3 Hgb 13.5 L (13.7-17.5) gm/dl Hct 41.6 (40.1-51.0) % MCV 87.8 (79.0-92.2) fl MCH 28.5 (25.7-32.2) pg MCHC 32.5 (32.2-35.5) g/dl RDW Std Deviation 47.6 H (35.1-43.9) fL Plt Count 420 H (163-337) K/mm3 MPV 9.1 L (9.4-12.3) fl Neut % (Auto) 79.0 H (34.0-67.9) % Lymph % (Auto) 10.2 L (21.8-53.1) % [place] % (Auto) 8.5 (5.3-12.2) % Eos % (Auto) 0.7 L (0.8-7.0) Baso % (Auto) 0.2 (0.1-1.2) % Neut # (Auto) 9.27 H (1.78-5.38) K/mm3 Lymph # (Auto) 1.19 L (1.32-3.57) K/mm3 [place] # (Auto) 1.00 H (0.30-0.82) K/mm3 Eos # (Auto) 0.08 (0.04-0.54) K/mm3 Baso # (Auto) 0.02 (0.01-0.08) K/mm3 Manual Slide Review Abnormal smear D-Dimer, Quantitative 4.41 H (0.19-0.50) mg/L Sodium 143 (136-145) mEq/L Potassium 4.0 (3.5-5.1) mEq/L Chloride 107 (98-107) mEq/L Carbon Dioxide 26 (21-32) mEq/L Anion Gap 14.0 (5-15) BUN 17 (7-18) mg/dL Creatinine 0.7 (0.7-1.3) mg/dL Est Cr Clr Drug Dosing 118.77 mL/min Estimated GFR (MDRD) > 60 (>60) mL/min BUN/Creatinine Ratio 24.3 H (14-18) Glucose 107 H (70-99) mg/dL POC Glucose (70-99) mg/dL Calcium 8.6 (8.5-10.1) mg/dL Magnesium 1.9 (1.8-2.4) mg/dL Total Bilirubin 0.4 (0.2-1.0) mg/dL AST 20 (15-37) U/L ALT 47 (16-63) U/L Alkaline Phosphatase 52 (46-116) U/L C-Reactive Protein 7.5 H* (<1.0) mg/dL Total Protein 6.1 L (6.4-8.2) g/dl Albumin 2.1 L (3.4-5.0) g/dl Globulin 4.0 gm/dL Albumin/Globulin Ratio 0.5 L (1-2) Med Orders - Current: Current Medications Acetaminophen (Acetaminophen 325 Mg Tab) 650 mg PO Q4H PRN PRN Reason: Pain (Mild 1-3)/fever Last Admin: 06/12/21 10:29 Dose: 650 mg Documented by: Albuterol (Albuterol 6.7 Gm Inhaler) 0 gm INH Q2H PRN PRN Reason: sob/wheezing Last Admin: 06/15/21 20:09 Dose: 2 puff Documented by: Albuterol/Ipratropium (Albuterol/Ipratropium 3.0-0.5 Mg/3 Ml Neb Soln) 3 ml NEB QIDRT PRN PRN Reason: Shortness Of Breath/wheezing Last Admin: 06/13/21 09:27 Dose: 3 ml Documented by: Calcium Carbonate/Glycine (Calcium Carbonate 500 Mg Tab.Chew) 1,000 mg PO Q2HR PRN PRN Reason: Heartburn Last Admin: 06/10/21 17:01 Dose: 1,000 mg Documented by: Cholecalciferol (Cholecalciferol (Vitamin D3) 5,000 Unit Cap) 5,000 unit PO DAILY [facility] Last Admin: 06/16/21 08:46 Dose: 5,000 unit Documented by: Docusate Sodium (Docusate Sodium 100 Mg Cap) 100 mg PO BID [facility] Last Admin: 06/16/21 08:49 Dose: Not Given Documented by: Enoxaparin Sodium (Enoxaparin 40 Mg/0.4 Ml Syringe) 40 mg SUBCUT Q12H [facility] Last Admin: 06/16/21 08:49 Dose: 40 mg Documented by: Famotidine (Famotidine 20 Mg Tab) 20 mg PO BID [facility] Last Admin: 06/16/21 08:46 Dose: 20 mg Documented by: Guaifenesin (Guaifenesin 600 Mg Tab.Er) 600 mg PO BID [facility] Last Admin: 06/16/21 08:46 Dose: 600 mg Documented by: Ibuprofen (Ibuprofen 600 Mg Tab) 600 mg PO Q4HR PRN PRN Reason: Pain Insulin Human Lispro (Insulin Lispro 100 Unit/Ml 10 Ml Vial) 0 unit SUBCUT QI DACANDBED [facility]; Protocol Last Admin: 06/16/21 08:49 Dose: Not Given Documented by: Lisinopril (Lisinopril 20 Mg Tab) 40 mg PO DAILY [facility] Last Admin: 06/16/21 08:47 Dose: 40 mg Documented by: Lorazepam (Lorazepam 0.5 Mg Tab) 0.5 mg PO TID PRN PRN Reason: Anxiety Methocarbamol (Methocarbamol 500 Mg Tab) 1,000 mg PO Q6H PRN PRN Reason: Spasms Last Admin: 06/15/21 19:59 Dose: 1,000 mg Documented by: Miscellaneous Information (Remove Nicotine Patch) 1 ea TRDERM DAILY [facility] Last Admin: 06/16/21 08:56 Dose: 1 ea Documented by: Nicotine (Nicotine 14 Mg/24 Hr Patch) 14 mg TRDERM DAILY [facility] Last Admin: 06/16/21 08:47 Dose: 14 mg Documented by: Jardiance ( Empagliflozin 10 Mg Tablet Ptom 0 mg PO DAILY [facility] Last Admin: 06/15/21 08:58 Dose: 10 mg Documented by: Ondansetron HCl (Ondansetron 4 Mg/2 Ml Sdv) 4 mg IV Q4H PRN PRN Reason: Nausea/Vomiting Polyethylene Glycol (Polyethylene Glycol 3350 Powder 17 Gm Packet) 17 gm PO DAILY [facility] Last Admin: 06/16/21 08:56 Dose: Not Given Documented by: Rosuvastatin Calcium (Rosuvastatin 10 Mg Tab) 20 mg PO DAILY [facility] Last Admin: 06/16/21 08:48 Dose: 20 mg Documented by: Temazepam (Temazepam 15 Mg Cap) 15 mg PO BEDTIME PRN PRN Reason: Sleep Last Admin: 06/10/21 21:59 Dose: 15 mg Documented by: Zinc Sulfate (Zinc Sulfate 220 Mg Cap) 220 mg PO DAILY [facility] Last Admin: 06/16/21 08:46 Dose: 220 mg Documented by: Discontinued Medications Acetylcysteine (Acetylcysteine 20% 200 Mg/Ml 30 Ml Nebulizer Soln Sdv) 800 mg NEB ONETIME ONE Stop: 06/09/21 09:21 Last Admin: 06/09/21 11:40 Dose: Not Given Documented by: Acetylcysteine (Acetylcysteine 20% 200 Mg/Ml 4 Ml Nebulizer Soln Sdv) 800 mg NEB ONETIME ONE Stop: 06/09/21 09:46 Last Admin: 06/09/21 10:10 Dose: 800 mg Documented by: Acetylcysteine (Acetylcysteine 20% 200 Mg/Ml 4 Ml Nebulizer Soln Sdv) 200 mg NEB ONETIME ONE Stop: 06/13/21 13:31 Last Admin: 06/13/21 15:38 Dose: 200 mg Documented by: Dexamethasone (Dexamethasone 4 Mg Tab) 6 mg PO ONETIME ONE Stop: 06/07/21 19:48 Last Admin: 06/07/21 20:28 Dose: 6 mg Documented by: Dexamethasone (Dexamethasone 10 Mg/Ml Sdv) 6 mg IVPUSH DAILY [facility] Stop: 06/16/21 09:01 Last Admin: 06/12/21 11:19 Dose: 6 mg Documented by: Dexamethasone (Dexamethasone 4 Mg Tab) 6 mg PO DAILY [facility] Stop: 06/16/21 09:01 Last Admin: 06/16/21 08:46 Dose: 6 mg Documented by: Enoxaparin Sodium (Enoxaparin 40 Mg/0.4 Ml Syringe) 40 mg SUBCUT Q12H [facility] Last Admin: 06/12/21 23:34 Dose: 40 mg Documented by: Heparin Sodium (Porcine) (Heparin Sodium 5,000 Units/Ml Vial) 5,000 units SUBCUT Q8H [facility] Last Admin: 06/12/21 11:49 Dose: Not Given Documented by: Sodium Chloride (Normal Saline) 100 mls @ 60 mls/min IV ASDIRECTED [facility] Last Admin: 06/07/21 19:29 Dose: 60 mls/min Documented by: Remdesivir 200 mg/ Sodium (Chloride) 250 mls @ 250 mls/hr IV ONETIME ONE Stop: 06/07/21 20:38 Last Admin: 06/07/21 20:54 Dose: 250 mls/hr Documented by: Remdesivir 100 mg/ Sodium (Chloride) 100 mls @ 100 mls/hr IV Q24H [facility] Stop: 06/11/21 20:59 Last Admin: 06/11/21 20:39 Dose: 100 mls/hr Documented by: Ceftriaxone Sodium 2 gm/ (Sodium Chloride) 100 mls @ 200 mls/hr IV Q24H [facility] Last Admin: 06/12/21 10:10 Dose: 200 mls/hr Documented by: Azithromycin 500 mg/ Sodium (Chloride) 250 mls @ 250 mls/hr IV Q24H [facility] Last Admin: 06/12/21 10:11 Dose: 250 mls/hr Documented by: Sodium Chloride (Normal Saline) 100 mls @ 60 mls/hr IV ASDIRECTED [facility] Stop: 06/12/21 13:00 Last Admin: 06/12/21 11:28 Dose: 60 mls/hr Documented by: Ibuprofen (Ibuprofen 200 Mg Tab) 600 mg PO Q4HR PRN PRN Reason: Pain Iopamidol (Iopamidol 755 Mg/Ml 100 Ml Bottle) 100 ml IVPUSH ONETIME ONE Stop: 06/07/21 19:05 Last Admin: 06/07/21 19:29 Dose: 100 ml Documented by: Iopamidol (Iopamidol 755 Mg/Ml 100 Ml Bottle) 100 ml IVPUSH ONETIME ONE Stop: 06/12/21 11:04 Last Admin: 06/12/21 11:28 Dose: 100 ml Documented by: Lorazepam (Lorazepam 0.5 Mg Tab) 0.5 mg PO TID PRN PRN Reason: Anxiety Metformin HCl (Metformin 500 Mg Tab) 1,000 mg PO BID [facility] Last Admin: 06/10/21 09:49 Dose: 1,000 mg Documented by: Morphine Sulfate (Morphine 2 Mg/Ml Syringe) 2 mg IVPUSH Q2H PRN PRN Reason: Pain (severe 7-10) Stop: 06/09/21 07:44 Sodium Chloride (Sodium Chloride 0.9% 10 Ml Sdv) 10 ml FLUSH ONETIME ONE Stop: 06/07/21 19:05 Last Admin: 06/07/21 19:29 Dose: 10 ml Documented by: Sodium Chloride (Sodium Chloride 0.9% 10 Ml Syringe) 10 ml FLUSH ONETIME ONE Stop: 06/12/21 11:04 Last Admin: 06/12/21 11:28 Dose: 10 ml Documented by: - Exam Quality Assessment: Supplemental Oxygen (High flow) General: Alert, Oriented, Cooperative HEENT: Pupils Equal, Mucous Membr. Moist/[place] Neck: Supple Lungs: Crackles (Bibasilar). No: Normal Respiratory Effort (Increased respiratory effort) Cardiovascular: Regular Rate, Regular Rhythm GI/Abdominal Exam: Normal Bowel Sounds, Soft, Non-Tender, No Organomegaly Skin: Warm, Dry, Intact Neurological: No New Focal Deficit Psy/Mental Status: Alert, Normal Affect, Normal Mood - Patient Data Lab Results Last 24 hrs: Laboratory Results - last 24 hr 06/15/21 06/15/21 06/15/21 Range/Units 10:54 17:03 21:10 WBC (4.23-9.07) K/mm3 RBC (4.63-6.08) M/mm3 Hgb (13.7-17.5) gm/dl Hct (40.1-51.0) % MCV (79.0-92.2) fl MCH (25.7-32.2) pg MCHC (32.2-35.5) g/dl RDW Std Deviation (35.1-43.9) fL Plt Count (163-337) K/mm3 MPV (9.4-12.3) fl Neut % (Auto) (34.0-67.9) % Lymph % (Auto) (21.8-53.1) % [place] % (Auto) (5.3-12.2) % Eos % (Auto) (0.8-7.0) Baso % (Auto) (0.1-1.2) % Neut # (Auto) (1.78-5.38) K/mm3 Lymph # (Auto) (1.32-3.57) K/mm3 [place] # (Auto) (0.30-0.82) K/mm3 Eos # (Auto) (0.04-0.54) K/mm3 Baso # (Auto) (0.01-0.08) K/mm3 Manual Slide Review D-Dimer, Quantitative (0.19-0.50) mg/L Sodium (136-145) mEq/L Potassium (3.5-5.1) mEq/L Chloride (98-107) mEq/L Carbon Dioxide (21-32) mEq/L Anion Gap (5-15) BUN (7-18) mg/dL Creatinine (0.7-1.3) mg/dL Est Cr Clr Drug Dosing mL/min Estimated GFR (MDRD) (>60) mL/min BUN/Creatinine Ratio (14-18) Glucose (70-99) mg/dL POC Glucose 134 H 218 H 173 H (70-99) mg/dL Calcium (8.5-10.1) mg/dL Magnesium (1.8-2.4) mg/dL Total Bilirubin (0.2-1.0) mg/dL AST (15-37) U/L ALT (16-63) U/L Alkaline Phosphatase (46-116) U/L C-Reactive Protein (<1.0) mg/dL Total Protein (6.4-8.2) g/dl Albumin (3.4-5.0) g/dl Globulin gm/dL Albumin/Globulin Ratio (1-2) 06/16/21 06/16/21 06/16/21 Range/Units 04:50 04:50 04:50 WBC 11.72 H (4.23-9.07) K/mm3 RBC 4.74 (4.63-6.08) M/mm3 Hgb 13.5 L (13.7-17.5) gm/dl Hct 41.6 (40.1-51.0) % MCV 87.8 (79.0-92.2) fl MCH 28.5 (25.7-32.2) pg MCHC 32.5 (32.2-35.5) g/dl RDW Std Deviation 47.6 H (35.1-43.9) fL Plt Count 420 H (163-337) K/mm3 MPV 9.1 L (9.4-12.3) fl Neut % (Auto) 79.0 H (34.0-67.9) % Lymph % (Auto) 10.2 L (21.8-53.1) % [place] % (Auto) 8.5 (5.3-12.2) % Eos % (Auto) 0.7 L (0.8-7.0) Baso % (Auto) 0.2 (0.1-1.2) % Neut # (Auto) 9.27 H (1.78-5.38) K/mm3 Lymph # (Auto) 1.19 L (1.32-3.57) K/mm3 [place] # (Auto) 1.00 H (0.30-0.82) K/mm3 Eos # (Auto) 0.08 (0.04-0.54) K/mm3 Baso # (Auto) 0.02 (0.01-0.08) K/mm3 Manual Slide Review Abnormal smear D-Dimer, Quantitative 4.41 H (0.19-0.50) mg/L Sodium 143 (136-145) mEq/L Potassium 4.0 (3.5-5.1) mEq/L Chloride 107 (98-107) mEq/L Carbon Dioxide 26 (21-32) mEq/L Anion Gap 14.0 (5-15) BUN 17 (7-18) mg/dL Creatinine 0.7 (0.7-1.3) mg/dL Est Cr Clr Drug Dosing 118.77 mL/min Estimated GFR (MDRD) > 60 (>60) mL/min BUN/Creatinine Ratio 24.3 H (14-18) Glucose 107 H (70-99) mg/dL POC Glucose (70-99) mg/dL Calcium 8.6 (8.5-10.1) mg/dL Magnesium 1.9 (1.8-2.4) mg/dL Total Bilirubin 0.4 (0.2-1.0) mg/dL AST 20 (15-37) U/L ALT 47 (16-63) U/L Alkaline Phosphatase 52 (46-116) U/L C-Reactive Protein 7.5 H* (<1.0) mg/dL Total Protein 6.1 L (6.4-8.2) g/dl Albumin 2.1 L (3.4-5.0) g/dl Globulin 4.0 gm/dL Albumin/Globulin Ratio 0.5 L (1-2) Result Diagrams: 06/16/21 04:50 06/16/21 04:50 Sepsis Event Note - Evaluation Sepsis Screening Result: No Definite Risk - Focused Exam Vital Signs: Vital Signs Temp Pulse BP BP Pulse Ox Pulse Ox 06/16/21 08:47 159/86 H 06/16/21 06:48 90 L 06/16/21 06:33 91 L 06/16/21 04:00 97.7 F 51 L 140/76 93 L 06/16/21 01:17 97.8 F 68 125/78 94 L 06/15/21 21:25 96 06/15/21 21:20 98 - Problem List & Annotations (1) Diabetes mellitus SNOMED Code(s): 67999759 Code(s): E11.9 - TYPE 2 DIABETES MELLITUS WITHOUT COMPLICATIONS Status: Chronic Priority: High Current Visit: Yes Qualifiers: Diabetes mellitus type: type 2 Diabetes mellitus long-term insulin use: without terminal block assembler use Diabetes mellitus complication status: with other specified complication Qualified Code(s): E11.69 - Type 2 diabetes mellitus with other specified complication (2) Pneumonia due to COVID-19 virus SNOMED Code(s): 168084165727114592 Code(s): U07.1 - COVID-19; J12.82 - PNEUMONIA DUE TO CORONAVIRUS DISEASE 2019 Status: Acute Priority: High Current Visit: Yes - Problem List Review Problem List Initiated/Reviewed/Updated: Yes - My Orders Last 24 Hours: My Active Orders 06/17/21 05:11 C-REACTIVE PROTEIN [CHEM] AM CBC WITH AUTO DIFF [HEME] AM CMP [COMPREHENSIVE METABOLIC PN,CMP] [CHEM] AM DD [D-DIMER QUANTITATIVE] [COAG] AM MAGNESIUM [CHEM] AM PHOSPHORUS [CHEM] AM - Assessment Assessment:: 06/12/2021 This is a 55-year-old male admitted to the floor with hypoxia secondary to COVID-19 pneumonia. He currently is on 45 L with an FiO2 of 75%. Labs today show a WBC of 10.22. Hemoglobin 30.6. Platelet 269,000. Neutrophils elevated 75.1%. D-dimer is up to 3.85. Sodium 144. Potassium 3.8. Chloride 109. Carbon dioxide 25. Anion gap is 13.8. BUN is 14. Creatinine 0.7. GFR greater than 60. Blood glucose levels have been from 96-2 14. Phosphorus 3.5. Magnesium 1.9. Total bilirubin 0.3. AST is 30, ALT 37, alkaline phosphatase 52. CRP is 12.6. Protein 5.5. Albumin is down to 1.9. Given the patient's worsening oxygen demand and elevated D-dimer CTA is obtained showing 1. Bilateral pulmonary consolidation likely due to COVID-19. 2. Mediastinal adenopathy, most likely reactive. There are no signs of any pulmonary emboli. We will therefore increase patient's DVT prophylaxis up to 40 mg twice daily Lovenox. Patient will be started on 20 mg twice daily Pepcid and zinc supplementation. Vitamin D level has been ordered. Patient will remain hospitalized pending improvement in oxygen demand. Unknown length of stay time. Overall he states he feels about the same as yesterday. Continues to have mild diarrhea at times and reports weakness. 06/13/2021 This is a 55-year-old male admitted to the hospital for COVID-19 pneumonia. He has been proning today and saturations are in the mid to low 90s while proning. He has been utilizing incentive spirometer and Acapella. He has been a little bit down today and reports he does not feel like he is getting much better. Overall his lung sounds have greatly improved. He remains on high flow 50 L with an FiO2 of 70%. Labs today show a WBC of 9.34. Hemoglobin 13.7. Platelet 357,000. Neutrophils are 76.4%. Sodium is 144. Potassium 3.5. Anion gap is 15.5. BUN 12. Creatinine 0.8.. GFR greater than 60. Glucose has been between 102 42. Magnesium 1.9. Bilirubin 0.4. AST is 27, ALT 41, alkaline phosphatase 58. CRP is improved to 10.7. Protein 6.1. Vitamin D obtained yesterday was low at 17.4 and we will start supplementation for vitamin D today. Albumin is improved to 2.1. We will continue treatment with unknown length of stay due to severity of COVID-19 symptoms. 06/14/2021 55-year-old male admitted to the hospital with hypoxia due to COVID-19 pneumonia. He is currently on 50 L of oxygen with 75% FiO2. States he has been proning as much as possible as well as using his I-S and Acapella. Has a very flat affect. Was upset on rounds this morning as he states he has not been getting his muscle relaxer with his morning pills. Labs today reveal a WBC of 13.29, hemoglobin 13.3, hematocrit 40.8, platelet count 395,000, D-dimer 3.19, sodium 144, potassium 3.8, chloride 108, anion gap 13.8, BUN 16, creatinine 0.7, GFR greater than 60, glucose has ranged from 167268, magnesium 1.9, C-reactive protein 5.3 continue with current treatment. Unknown length of stay due to the severity of Covid symptoms. 06/15/2021 This is a 55-year-old male admitted to the floor with COVID-19 pneumonia. He had worsening oxygen saturations and today was requiring 60 L of oxygen with an FiO2 of 95%. Because of this he was moved up to the ICU. He continues to utilize his incentive spirometry and Acapella and prone. We will continue dexamethasone and baricitinib. Respiratory therapy continues to work with him. Clinically he does not look to be in any acute respiratory distress. Labs today show WBC of 14.02. Hemoglobin 14.1. Platelet 4 and 26,000. Neutrophils are elevated 79.9%. Sodium 143. Potassium 3.8. Chloride 107. Carbon dioxide 27. Anion gap 12.8. BUN is 13. Creatinine 0.7. GFR greater than 60. Glucose is 97-93. Calcium is 8.5. Magnesium 1.8. Bilirubin 0.5. AST is 24, ALT 49, alkaline phosphatase 54. CRP is 5.9. Protein is 5.9 and albumin is 2.0. We will continue current treatment plan. Will increase to BiPAP if necessary. Unknown length of stay due to severity of COVID-19 symptoms. 06/16/2021 Patient improved overnight decreasing his high flow nasal cannula to 50 L and FiO2 of currently 80%. Continue with current treatment as outlined above. - Plan Plan:: Pneumonia due to COVID-19 virus Hypoxia Elevated d-dimer Elevated C-reactive protein Leukocytosis * O2 as needed with goal saturations 88 to 95% * High flow oxygen * Lovenox 40 mg twice daily due to elevated D-dimer * I-S/Acapella * PRN albuterol inhaler * PRN Duonebs * Prone whenever able * Ambulate around room * RT consultation * PT/OT * Daily labs * Every 48 hour D-dimer * Airborne/contact isolation * Telemetry * Continuous pulse oximetry * Zinc supplementation * 20 mg twice daily Pepcid * Completed remdesivir * Completed azithromycin * Completed Rocephin * 6 mg dexamethasone daily - day 06/15 * Baricitinib - day 05/19 * Scheduled Mucinex twice daily Hyperlipidemia * Continue home rosuvastatin * No acute concern HTN (hypertension) * Continue home lisinopril * No acute concerns Diabetes mellitus * Continue home Jardiance * QID AC and bedtime blood glucose checks * Medium dose sliding scale insulin * Hold home metformin * Diabetic diet Smoker * Nicotine patch daily * Cessation counseling * Offer nicotine patches at discharge Gout * No acute concerns * No chronic home gout medications * Monitor Vitamin D deficiency * Begin 5,000 unit vitamin D supplementation * PCP to follow-up Code status: Full code PCP: Dr. Rathgeber DVT prophylaxis: BID Lovenox as above Disposition: Patient upgraded to ICU status on 06/15/2021 due to rapidly deteriorating oxygen saturations the need for high flow oxygen. Unknown length of stay as patient continues to require significant amounts of high flow oxygen. Goal oxygen demand would be 2 L or less on nasal cannula. Length of stay greater than 96 hours due to continued need for COVID-19 treatment.
[2021-06-16] MEDS: Methocarbamol 500 MG Tab PO PRN ×2 (09:07→21:05)
[2021-06-16] MEDS: Albuterol 6.7 GM Inhaler INH PRN ×3 (10:29→21:00)
[2021-06-17] MEDS: Methocarbamol 500 MG Tab PO PRN ×3 (04:24→20:57)
[2021-06-17] MEDS: Insulin Lispro 100 UNIT/ML 10 ML Vial SUBCUT SCH ×4 (06:23→21:39)
[2021-06-17] MEDS: Docusate Sodium 100 MG Cap PO SCH ×2 (08:01→20:55)
[2021-06-17] MEDS: Polyethylene Glycol 3350 Powder 17 GM Packet PO SCH (08:01)
[2021-06-17] MEDS: JARDIANCE PO SCH (08:02)
[2021-06-17] MEDS: Nicotine 14 MG/24 Hr Patch TRDERM SCH (08:02)
[2021-06-17] MEDS: Enoxaparin 40 MG/0.4 ML Syringe SUBCUT SCH ×2 (08:02→20:55)
[2021-06-17] MEDS: Cholecalciferol (Vitamin D3) 5,000 UNIT Cap PO SCH (08:03)
[2021-06-17] MEDS: Lisinopril 20 MG Tab PO SCH (08:03)
[2021-06-17] MEDS: guaiFENesin 600 MG Tab.ER PO SCH ×2 (08:03→20:55)
[2021-06-17] MEDS: Zinc Sulfate 220 MG Cap PO SCH (08:03)
[2021-06-17] MEDS: Famotidine 20 MG Tab PO SCH ×2 (08:03→20:55)
[2021-06-17] MEDS: Rosuvastatin 10 MG Tab PO SCH (08:05)
[2021-06-17] MEDS: Albuterol 6.7 GM Inhaler INH PRN (08:42)
[2021-06-17] MEDS: Albuterol/Ipratropium 3.0-0.5 MG/3 ML Neb Soln NEB PRN (16:03)
--- NOTE | 2021-06-17 16:17 | PCM.PN ---
- General Info Date of Service: 06/17/21 - Review of Systems Systems Review Comment:: Pt is still requiring 55L of oxygen at 80% high flow nasal cannula. He is proning some. He is afebrile. - Patient Data Vitals - Most Recent: Last Vital Signs Temp 97.5 F 06/17/21 15:23 Pulse 70 06/16/21 17:16 Resp 18 06/17/21 15:23 BP 107/71 06/17/21 15:23 Pulse Ox 90 L 06/17/21 15:23 Weight - Most Recent: 264 lb 6.4 oz I&O - Last 24 Hours: Intake & Output 06/17/21 06/17/21 06/17/21 06:59 14:59 22:59 Intake Total 800 Output Total 900 Balance -100 Lab Results Last 24 Hours: Laboratory Results - last 24 hr 06/16/21 06/16/21 06/17/21 Range/Units 17:12 21:11 04:50 WBC 12.94 H (4.23-9.07) K/mm3 RBC 5.08 (4.63-6.08) M/mm3 Hgb 14.2 (13.7-17.5) gm/dl Hct 44.6 (40.1-51.0) % MCV 87.8 (79.0-92.2) fl MCH 28.0 (25.7-32.2) pg MCHC 31.8 L (32.2-35.5) g/dl RDW Std Deviation 47.9 H (35.1-43.9) fL Plt Count 466 H (163-337) K/mm3 MPV 8.7 L (9.4-12.3) fl Neut % (Auto) 81.0 H (34.0-67.9) % Lymph % (Auto) 9.7 L (21.8-53.1) % [place] % (Auto) 7.2 (5.3-12.2) % Eos % (Auto) 0.5 L (0.8-7.0) Baso % (Auto) 0.2 (0.1-1.2) % Neut # (Auto) 10.49 H (1.78-5.38) K/mm3 Lymph # (Auto) 1.26 L (1.32-3.57) K/mm3 [place] # (Auto) 0.93 H (0.30-0.82) K/mm3 Eos # (Auto) 0.06 (0.04-0.54) K/mm3 Baso # (Auto) 0.02 (0.01-0.08) K/mm3 D-Dimer, Quantitative (0.19-0.50) mg/L Sodium (136-145) mEq/L Potassium (3.5-5.1) mEq/L Chloride (98-107) mEq/L Carbon Dioxide (21-32) mEq/L Anion Gap (5-15) BUN (7-18) mg/dL Creatinine (0.7-1.3) mg/dL Est Cr Clr Drug Dosing mL/min Estimated GFR (MDRD) (>60) mL/min BUN/Creatinine Ratio (14-18) Glucose (70-99) mg/dL POC Glucose 227 H 253 H (70-99) mg/dL Calcium (8.5-10.1) mg/dL Phosphorus (2.6-4.7) mg/dL Magnesium (1.8-2.4) mg/dL Total Bilirubin (0.2-1.0) mg/dL AST (15-37) U/L ALT (16-63) U/L Alkaline Phosphatase (46-116) U/L C-Reactive Protein (<1.0) mg/dL Total Protein (6.4-8.2) g/dl Albumin (3.4-5.0) g/dl Globulin gm/dL Albumin/Globulin Ratio (1-2) 06/17/21 06/17/21 06/17/21 Range/Units 04:50 04:50 04:58 WBC (4.23-9.07) K/mm3 RBC (4.63-6.08) M/mm3 Hgb (13.7-17.5) gm/dl Hct (40.1-51.0) % MCV (79.0-92.2) fl MCH (25.7-32.2) pg MCHC (32.2-35.5) g/dl RDW Std Deviation (35.1-43.9) fL Plt Count (163-337) K/mm3 MPV (9.4-12.3) fl Neut % (Auto) (34.0-67.9) % Lymph % (Auto) (21.8-53.1) % [place] % (Auto) (5.3-12.2) % Eos % (Auto) (0.8-7.0) Baso % (Auto) (0.1-1.2) % Neut # (Auto) (1.78-5.38) K/mm3 Lymph # (Auto) (1.32-3.57) K/mm3 [place] # (Auto) (0.30-0.82) K/mm3 Eos # (Auto) (0.04-0.54) K/mm3 Baso # (Auto) (0.01-0.08) K/mm3 D-Dimer, Quantitative 4.24 H (0.19-0.50) mg/L Sodium 140 (136-145) mEq/L Potassium 4.0 (3.5-5.1) mEq/L Chloride 105 (98-107) mEq/L Carbon Dioxide 27 (21-32) mEq/L Anion Gap 12.0 (5-15) BUN 17 (7-18) mg/dL Creatinine 0.7 (0.7-1.3) mg/dL Est Cr Clr Drug Dosing 118.77 mL/min Estimated GFR (MDRD) > 60 (>60) mL/min BUN/Creatinine Ratio 24.3 H (14-18) Glucose 105 H (70-99) mg/dL POC Glucose 98 (70-99) mg/dL Calcium 8.8 (8.5-10.1) mg/dL Phosphorus 4.7 (2.6-4.7) mg/dL Magnesium 2.0 (1.8-2.4) mg/dL Total Bilirubin 0.4 (0.2-1.0) mg/dL AST 21 (15-37) U/L ALT 48 (16-63) U/L Alkaline Phosphatase 53 (46-116) U/L C-Reactive Protein 6.2 H* (<1.0) mg/dL Total Protein 6.6 (6.4-8.2) g/dl Albumin 2.3 L (3.4-5.0) g/dl Globulin 4.3 gm/dL Albumin/Globulin Ratio 0.5 L (1-2) 06/17/21 Range/Units 11:06 WBC (4.23-9.07) K/mm3 RBC (4.63-6.08) M/mm3 Hgb (13.7-17.5) gm/dl Hct (40.1-51.0) % MCV (79.0-92.2) fl MCH (25.7-32.2) pg MCHC (32.2-35.5) g/dl RDW Std Deviation (35.1-43.9) fL Plt Count (163-337) K/mm3 MPV (9.4-12.3) fl Neut % (Auto) (34.0-67.9) % Lymph % (Auto) (21.8-53.1) % [place] % (Auto) (5.3-12.2) % Eos % (Auto) (0.8-7.0) Baso % (Auto) (0.1-1.2) % Neut # (Auto) (1.78-5.38) K/mm3 Lymph # (Auto) (1.32-3.57) K/mm3 [place] # (Auto) (0.30-0.82) K/mm3 Eos # (Auto) (0.04-0.54) K/mm3 Baso # (Auto) (0.01-0.08) K/mm3 D-Dimer, Quantitative (0.19-0.50) mg/L Sodium (136-145) mEq/L Potassium (3.5-5.1) mEq/L Chloride (98-107) mEq/L Carbon Dioxide (21-32) mEq/L Anion Gap (5-15) BUN (7-18) mg/dL Creatinine (0.7-1.3) mg/dL Est Cr Clr Drug Dosing mL/min Estimated GFR (MDRD) (>60) mL/min BUN/Creatinine Ratio (14-18) Glucose (70-99) mg/dL POC Glucose 115 H (70-99) mg/dL Calcium (8.5-10.1) mg/dL Phosphorus (2.6-4.7) mg/dL Magnesium (1.8-2.4) mg/dL Total Bilirubin (0.2-1.0) mg/dL AST (15-37) U/L ALT (16-63) U/L Alkaline Phosphatase (46-116) U/L C-Reactive Protein (<1.0) mg/dL Total Protein (6.4-8.2) g/dl Albumin (3.4-5.0) g/dl Globulin gm/dL Albumin/Globulin Ratio (1-2) Med Orders - Current: Current Medications Acetaminophen (Acetaminophen 325 Mg Tab) 650 mg PO Q4H PRN PRN Reason: Pain (Mild 1-3)/fever Last Admin: 06/12/21 10:29 Dose: 650 mg Documented by: Albuterol (Albuterol 6.7 Gm Inhaler) 0 gm INH Q2H PRN PRN Reason: sob/wheezing Last Admin: 06/17/21 08:42 Dose: 2 puff Documented by: Albuterol/Ipratropium (Albuterol/Ipratropium 3.0-0.5 Mg/3 Ml Neb Soln) 3 ml NEB QIDRT PRN PRN Reason: Shortness Of Breath/wheezing Last Admin: 06/17/21 16:03 Dose: 3 ml Documented by: Calcium Carbonate/Glycine (Calcium Carbonate 500 Mg Tab.Chew) 1,000 mg PO Q2HR PRN PRN Reason: Heartburn Last Admin: 06/10/21 17:01 Dose: 1,000 mg Documented by: Cholecalciferol (Cholecalciferol (Vitamin D3) 5,000 Unit Cap) 5,000 unit PO DAILY [facility] Last Admin: 06/17/21 08:03 Dose: 5,000 unit Documented by: Docusate Sodium (Docusate Sodium 100 Mg Cap) 100 mg PO BID [facility] Last Admin: 06/17/21 08:01 Dose: Not Given Documented by: Enoxaparin Sodium (Enoxaparin 40 Mg/0.4 Ml Syringe) 40 mg SUBCUT Q12H [facility] Last Admin: 06/17/21 08:02 Dose: 40 mg Documented by: Famotidine (Famotidine 20 Mg Tab) 20 mg PO BID [facility] Last Admin: 06/17/21 08:03 Dose: 20 mg Documented by: Guaifenesin (Guaifenesin 600 Mg Tab.Er) 600 mg PO BID [facility] Last Admin: 06/17/21 08:03 Dose: 600 mg Documented by: Ibuprofen (Ibuprofen 600 Mg Tab) 600 mg PO Q4HR PRN PRN Reason: Pain Insulin Human Lispro (Insulin Lispro 100 Unit/Ml 10 Ml Vial) 0 unit SUBCUT QIDACANDBED [facility]; Protocol Last Admin: 06/17/21 12:46 Dose: Not Given Documented by: Lisinopril (Lisinopril 20 Mg Tab) 40 mg PO DAILY [facility] Last Admin: 06/17/21 08:03 Dose: 40 mg Documented by: Lorazepam (Lorazepam 0.5 Mg Tab) 0.5 mg PO TID PRN PRN Reason: Anxiety Methocarbamol (Methocarbamol 500 Mg Tab) 1,000 mg PO Q6H PRN PRN Reason: Spasms Last Admin: 06/17/21 15:23 Dose: 1,000 mg Documented by: Miscellaneous Information (Remove Nicotine Patch) 1 ea TRDERM DAILY [facility] Last Admin: 06/17/21 08:06 Dose: 1 ea Documented by: Nicotine (Nicotine 14 Mg/24 Hr Patch) 14 mg TRDERM DAILY [facility] Last Admin: 06/17/21 08:02 Dose: 14 mg Documented by: Jardiance ( Empagliflozin 10 Mg Tablet Ptom 0 mg PO DAILY [facility] Last Admin: 06/17/21 08:02 Dose: 10 mg Documented by: Ondansetron HCl (Ondansetron 4 Mg/2 Ml Sdv) 4 mg IV Q4H PRN PRN Reason: Nausea/Vomiting Polyethylene Glycol (Polyethylene Glycol 3350 Powder 17 Gm Packet) 17 gm PO DAILY [facility] Last Admin: 06/17/21 08:01 Dose: Not Given Documented by: Rosuvastatin Calcium (Rosuvastatin 10 Mg Tab) 20 mg PO DAILY [facility] Last Admin: 06/17/21 08:05 Dose: 20 mg Documented by: Temazepam (Temazepam 15 Mg Cap) 15 mg PO BEDTIME PRN PRN Reason: Sleep Last Admin: 06/10/21 21:59 Dose: 15 mg Documented by: Zinc Sulfate (Zinc Sulfate 220 Mg Cap) 220 mg PO DAILY [facility] Last Admin: 06/17/21 08:03 Dose: 220 mg Documented by: Discontinued Medications Acetylcysteine (Acetylcysteine 20% 200 Mg/Ml 30 Ml Nebulizer Soln Sdv) 800 mg NEB ONETIME ONE Stop: 06/09/21 09:21 Last Admin: 06/09/21 11:40 Dose: Not Given Documented by: Acetylcysteine (Acetylcysteine 20% 200 Mg/Ml 4 Ml Nebulizer Soln Sdv) 800 mg NEB ONETIME ONE Stop: 06/09/21 09:46 Last Admin: 06/09/21 10:10 Dose: 800 mg Documented by: Acetylcysteine (Acetylcysteine 20% 200 Mg/Ml 4 Ml Nebulizer Soln Sdv) 200 mg NEB ONETIME ONE Stop: 06/13/21 13:31 Last Admin: 06/13/21 15:38 Dose: 200 mg Documented by: Dexamethasone (Dexamethasone 4 Mg Tab) 6 mg PO ONETIME ONE Stop: 06/07/21 19:48 Last Admin: 06/07/21 20:28 Dose: 6 mg Documented by: Dexamethasone (Dexamethasone 10 Mg/Ml Sdv) 6 mg IVPUSH DAILY [facility] Stop: 06/16/21 09:01 Last Admin: 06/12/21 11:19 Dose: 6 mg Documented by: Dexamethasone (Dexamethasone 4 Mg Tab) 6 mg PO DAILY [facility] Stop: 06/16/21 09:01 Last Admin: 06/16/21 08:46 Dose: 6 mg Documented by: Enoxaparin Sodium (Enoxaparin 40 Mg/0.4 Ml Syringe) 40 mg SUBCUT Q12H [facility] Last Admin: 06/12/21 23:34 Dose: 40 mg Documented by: Heparin Sodium (Porcine) (Heparin Sodium 5,000 Units/Ml Vial) 5,000 units SUBCUT Q8H [facility] Last Admin: 06/12/21 11:49 Dose: Not Given Documented by: Sodium Chloride (Normal Saline) 100 mls @ 60 mls/min IV ASDIRECTED [facility] Last Admin: 06/07/21 19:29 Dose: 60 mls/min Documented by: Remdesivir 200 mg/ Sodium (Chloride) 250 mls @ 250 mls/hr IV ONETIME ONE Stop: 06/07/21 20:38 Last Admin: 06/07/21 20:54 Dose: 250 mls/hr Documented by: Remdesivir 100 mg/ Sodium (Chloride) 100 mls @ 100 mls/hr IV Q24H [facility] Stop: 06/11/21 20:59 Last Admin: 06/11/21 20:39 Dose: 100 mls/hr Documented by: Ceftriaxone Sodium 2 gm/ (Sodium Chloride) 100 mls @ 200 mls/hr IV Q24H [facility] Last Admin: 06/12/21 10:10 Dose: 200 mls/hr Documented by: Azithromycin 500 mg/ Sodium (Chloride) 250 mls @ 250 mls/hr IV Q24H [facility] Last Admin: 06/12/21 10:11 Dose: 250 mls/hr Documented by: Sodium Chloride (Normal Saline) 100 mls @ 60 mls/hr IV ASDIRECTED [facility] Stop: 06/12/21 13:00 Last Admin: 06/12/21 11:28 Dose: 60 mls/hr Documented by: Ibuprofen (Ibuprofen 200 Mg Tab) 600 mg PO Q4HR PRN PRN Reason: Pain Iopamidol (Iopamidol 755 Mg/Ml 100 Ml Bottle) 100 ml IVPUSH ONETIME ONE Stop: 06/07/21 19:05 Last Admin: 06/07/21 19:29 Dose: 100 ml Documented by: Iopamidol (Iopamidol 755 Mg/Ml 100 Ml Bottle) 100 ml IVPUSH ONETIME ONE Stop: 06/12/21 11:04 Last Admin: 06/12/21 11:28 Dose: 100 ml Documented by: Lorazepam (Lorazepam 0.5 Mg Tab) 0.5 mg PO TID PRN PRN Reason: Anxiety Metformin HCl (Metformin 500 Mg Tab) 1,000 mg PO BID [facility] Last Admin: 06/10/21 09:49 Dose: 1,000 mg Documented by: Morphine Sulfate (Morphine 2 Mg/Ml Syringe) 2 mg IVPUSH Q2H PRN PRN Reason: Pain (severe 7-10) Stop: 06/09/21 07:44 Sodium Chloride (Sodium Chloride 0.9% 10 Ml Sdv) 10 ml FLUSH ONETIME ONE Stop: 06/07/21 19:05 Last Admin: 06/07/21 19:29 Dose: 10 ml Documented by: Sodium Chloride (Sodium Chloride 0.9% 10 Ml Syringe) 10 ml FLUSH ONETIME ONE Stop: 06/12/21 11:04 Last Admin: 06/12/21 11:28 Dose: 10 ml Documented by: - Exam Physical Findings Comments:: General: Obese middle aged male. Sitting at the edge of the bed. Able to speak in full sentences but does fatigue easily . HEENT; NC,AT, OERRLA, EOMI, neck is short and thick. Supple. CVS: S1S2 appreciated. RRR lungs: clear bilaterally with no rales or wheezes pa: soft. obese, non tender. Bowel sounds present ext: no clubbing, cyanosis or edema . 2+ peripheral pulses. neuro: moves all extremities. Strength is equal and symmetrical at 5/5 bilaterally. psych: stable mood and affect. - Patient Data Lab Results Last 24 hrs: Laboratory Results - last 24 hr 06/16/21 06/16/21 06/17/21 Range/Units 17:12 21:11 04:50 WBC 12.94 H (4.23-9.07) K/mm3 RBC 5.08 (4.63-6.08) M/mm3 Hgb 14.2 (13.7-17.5) gm/dl Hct 44.6 (40.1-51.0) % MCV 87.8 (79.0-92.2) fl MCH 28.0 (25.7-32.2) pg MCHC 31.8 L (32.2-35.5) g/dl RDW Std Deviation 47.9 H (35.1-43.9) fL Plt Count 466 H (163-337) K/mm3 MPV 8.7 L (9.4-12.3) fl Neut % (Auto) 81.0 H (34.0-67.9) % Lymph % (Auto) 9.7 L (21.8-53.1) % [place] % (Auto) 7.2 (5.3-12.2) % Eos % (Auto) 0.5 L (0.8-7.0) Baso % (Auto) 0.2 (0.1-1.2) % Neut # (Auto) 10.49 H (1.78-5.38) K/mm3 Lymph # (Auto) 1.26 L (1.32-3.57) K/mm3 [place] # (Auto) 0.93 H (0.30-0.82) K/mm3 Eos # (Auto) 0.06 (0.04-0.54) K/mm3 Baso # (Auto) 0.02 (0.01-0.08) K/mm3 D-Dimer, Quantitative (0.19-0.50) mg/L Sodium (136-145) mEq/L Potassium (3.5-5.1) mEq/L Chloride (98-107) mEq/L Carbon Dioxide (21-32) mEq/L Anion Gap (5-15) BUN (7-18) mg/dL Creatinine (0.7-1.3) mg/dL Est Cr Clr Drug Dosing mL/min Estimated GFR (MDRD) (>60) mL/min BUN/Creatinine Ratio (14-18) Glucose (70-99) mg/dL POC Glucose 227 H 253 H (70-99) mg/dL Calcium (8.5-10.1) mg/dL Phosphorus (2.6-4.7) mg/dL Magnesium (1.8-2.4) mg/dL Total Bilirubin (0.2-1.0) mg/dL AST (15-37) U/L ALT (16-63) U/L Alkaline Phosphatase (46-116) U/L C-Reactive Protein (<1.0) mg/dL Total Protein (6.4-8.2) g/dl Albumin (3.4-5.0) g/dl Globulin gm/dL Albumin/Globulin Ratio (1-2) 06/17/21 06/17/21 06/17/21 Range/Units 04:50 04:50 04:58 WBC (4.23-9.07) K/mm3 RBC (4.63-6.08) M/mm3 Hgb (13.7-17.5) gm/dl Hct (40.1-51.0) % MCV (79.0-92.2) fl MCH (25.7-32.2) pg MCHC (32.2-35.5) g/dl RDW Std Deviation (35.1-43.9) fL Plt Count (163-337) K/mm3 MPV (9.4-12.3) fl Neut % (Auto) (34.0-67.9) % Lymph % (Auto) (21.8-53.1) % [place] % (Auto) (5.3-12.2) % Eos % (Auto) (0.8-7.0) Baso % (Auto) (0.1-1.2) % Neut # (Auto) (1.78-5.38) K/mm3 Lymph # (Auto) (1.32-3.57) K/mm3 [place] # (Auto) (0.30-0.82) K/mm3 Eos # (Auto) (0.04-0.54) K/mm3 Baso # (Auto) (0.01-0.08) K/mm3 D-Dimer, Quantitative 4.24 H (0.19-0.50) mg/L Sodium 140 (136-145) mEq/L Potassium 4.0 (3.5-5.1) mEq/L Chloride 105 (98-107) mEq/L Carbon Dioxide 27 (21-32) mEq/L Anion Gap 12.0 (5-15) BUN 17 (7-18) mg/dL Creatinine 0.7 (0.7-1.3) mg/dL Est Cr Clr Drug Dosing 118.77 mL/min Estimated GFR (MDRD) > 60 (>60) mL/min BUN/Creatinine Ratio 24.3 H (14-18) Glucose 105 H (70-99) mg/dL POC Glucose 98 (70-99) mg/dL Calcium 8.8 (8.5-10.1) mg/dL Phosphorus 4.7 (2.6-4.7) mg/dL Magnesium 2.0 (1.8-2.4) mg/dL Total Bilirubin 0.4 (0.2-1.0) mg/dL AST 21 (15-37) U/L ALT 48 (16-63) U/L Alkaline Phosphatase 53 (46-116) U/L C-Reactive Protein 6.2 H* (<1.0) mg/dL Total Protein 6.6 (6.4-8.2) g/dl Albumin 2.3 L (3.4-5.0) g/dl Globulin 4.3 gm/dL Albumin/Globulin Ratio 0.5 L (1-2) 06/17/21 Range/Units 11:06 WBC (4.23-9.07) K/mm3 RBC (4.63-6.08) M/mm3 Hgb (13.7-17.5) gm/dl Hct (40.1-51.0) % MCV (79.0-92.2) fl MCH (25.7-32.2) pg MCHC (32.2-35.5) g/dl RDW Std Deviation (35.1-43.9) fL Plt Count (163-337) K/mm3 MPV (9.4-12.3) fl Neut % (Auto) (34.0-67.9) % Lymph % (Auto) (21.8-53.1) % [place] % (Auto) (5.3-12.2) % Eos % (Auto) (0.8-7.0) Baso % (Auto) (0.1-1.2) % Neut # (Auto) (1.78-5.38) K/mm3 Lymph # (Auto) (1.32-3.57) K/mm3 [place] # (Auto) (0.30-0.82) K/mm3 Eos # (Auto) (0.04-0.54) K/mm3 Baso # (Auto) (0.01-0.08) K/mm3 D-Dimer, Quantitative (0.19-0.50) mg/L Sodium (136-145) mEq/L Potassium (3.5-5.1) mEq/L Chloride (98-107) mEq/L Carbon Dioxide (21-32) mEq/L Anion Gap (5-15) BUN (7-18) mg/dL Creatinine (0.7-1.3) mg/dL Est Cr Clr Drug Dosing mL/min Estimated GFR (MDRD) (>60) mL/min BUN/Creatinine Ratio (14-18) Glucose (70-99) mg/dL POC Glucose 115 H (70-99) mg/dL Calcium (8.5-10.1) mg/dL Phosphorus (2.6-4.7) mg/dL Magnesium (1.8-2.4) mg/dL Total Bilirubin (0.2-1.0) mg/dL AST (15-37) U/L ALT (16-63) U/L Alkaline Phosphatase (46-116) U/L C-Reactive Protein (<1.0) mg/dL Total Protein (6.4-8.2) g/dl Albumin (3.4-5.0) g/dl Globulin gm/dL Albumin/Globulin Ratio (1-2) Result Diagrams: 06/17/21 04:50 06/17/21 04:50 Sepsis Event Note - Evaluation Sepsis Screening Result: No Definite Risk - Focused Exam Vital Signs: Vital Signs Temp Resp BP BP Pulse Ox Pulse Ox 06/17/21 15:23 97.5 F 18 107/71 90 L 06/17/21 13:00 18 95 09/12/21 12:00 17 88 L 06/17/21 11:11 97.5 F 14 110/66 86 L 06/17/21 11:10 12 85 L 06/17/21 11:00 15 92 L 06/17/21 10:00 29 H 93 L 06/17/21 09:00 25 H 86 L 06/17/21 08:42 88 L 06/17/21 08:06 20 114/84 85 L 06/17/21 08:05 18 86 L 06/17/21 08:03 114/84 06/17/21 08:00 97.5 F 27 H 114/84 88 L 06/17/21 07:00 34 H 88 L 06/17/21 06:00 27 H 97 06/17/21 05:00 10 L 91 L - Problem List & Annotations (1) Acute respiratory failure due to COVID-19 SNOMED Code(s): 822541222 Code(s): U07.1 - COVID-19; J96.00 - ACUTE RESPIRATORY FAILURE, UNSP W HYPOXIA OR HYPERCAPNIA Status: Acute Current Visit: Yes (2) Pneumonia due to COVID-19 virus SNOMED Code(s): 018325776565758730 Code(s): U07.1 - COVID-19; J12.82 - PNEUMONIA DUE TO CORONAVIRUS DISEASE 2019 Status: Acute Priority: High Current Visit: Yes (3) Diabetes mellitus SNOMED Code(s): 80843333 Code(s): E11.9 - TYPE 2 DIABETES MELLITUS WITHOUT COMPLICATIONS Status: Chronic Priority: High Current Visit: Yes Qualifiers: Diabetes mellitus type: type 2 Diabetes mellitus intermediate accountant insulin use: without senior living use Diabetes mellitus complication status: with other specified complication Qualified Code(s): E11.69 - Type 2 diabetes mellitus with other specified complication (4) Smoker SNOMED Code(s): 44599657 Code(s): F17.200 - NICOTINE DEPENDENCE, UNSPECIFIED, UNCOMPLICATED Status: Chronic Priority: High Current Visit: Yes (5) Obesity SNOMED Code(s): 450900483, 172127183 Code(s): E66.9 - OBESITY, UNSPECIFIED Status: Acute Current Visit: Yes - Problem List Review Problem List Initiated/Reviewed/Updated: Yes - Assessment Assessment:: 06/12/2021 This is a 55-year-old male admitted to the floor with hypoxia secondary to COVID-19 pneumonia. He currently is on 45 L with an FiO2 of 75%. Labs today show a WBC of 10.22. Hemoglobin 30.6. Platelet 269,000. Neutrophils elevated 75.1%. D-dimer is up to 3.85. Sodium 144. Potassium 3.8. Chloride 109. Carbon dioxide 25. Anion gap is 13.8. BUN is 14. Creatinine 0.7. GFR greater than 60. Blood glucose levels have been from 96-2 14. Phosphorus 3.5. Magnesium 1.9. Total bilirubin 0.3. AST is 30, ALT 37, alkaline phosphatase 52. CRP is 12.6. Protein 5.5. Albumin is down to 1.9. Given the patient's worsening oxygen demand and elevated D-dimer CTA is obtained showing 1. Bilateral pulmonary consolidation likely due to COVID-19. 2. Mediastinal adenopathy, most likely reactive. There are no signs of any pulmonary emboli. We will therefore increase patient's DVT prophylaxis up to 40 mg twice daily Lovenox. Patient will be started on 20 mg twice daily Pepcid and zinc supplementation. Vitamin D level has been ordered. Patient will remain hospitalized pending improvement in oxygen demand. Unknown length of stay time. Overall he states he feels about the same as yesterday. Continues to have mild diarrhea at times and reports weakness. 06/13/2021 This is a 55-year-old male admitted to the hospital for COVID-19 pneumonia. He has been proning today and saturations are in the mid to low 90s while proning. He has been utilizing incentive spirometer and Acapella. He has been a little bit down today and reports he does not feel like he is getting much better. O verall his lung sounds have greatly improved. He remains on high flow 50 L with an FiO2 of 70%. Labs today show a WBC of 9.34. Hemoglobin 13.7. Platelet 357,000. Neutrophils are 76.4%. Sodium is 144. Potassium 3.5. Anion gap is 15.5. BUN 12. Creatinine 0.8.. GFR greater than 60. Glucose has been between 102 42. Magnesium 1.9. Bilirubin 0.4. AST is 27, ALT 41, alkaline phosphatase 58. CRP is improved to 10.7. Protein 6.1. Vitamin D obtained yesterday was low at 17.4 and we will start supplementation for vitamin D today. Albumin is improved to 2.1. We will continue treatment with unknown length of stay due to severity of COVID-19 symptoms. 06/14/2021 55-year-old male admitted to the hospital with hypoxia due to COVID-19 pneumonia. He is currently on 50 L of oxygen with 75% FiO2. States he has been proning as much as possible as well as using his I-S and Acapella. Has a very flat affect. Was upset on rounds this morning as he states he has not been getting his muscle relaxer with his morning pills. Labs today reveal a WBC of 13.29, hemoglobin 13.3, hematocrit 40.8, platelet count 395,000, D-dimer 3.19, sodium 144, potassium 3.8, chloride 108, anion gap 13.8, BUN 16, creatinine 0.7, GFR greater than 60, glucose has ranged from [id number], magnesium 1.9, C-reactive protein 5.3 continue with current treatment. Unknown length of stay due to the severity of Covid symptoms. 06/15/2021 This is a 55-year-old male admitted to the floor with COVID-19 pneumonia. He had worsening oxygen saturations and today was requiring 60 L of oxygen with an FiO2 of 95%. Because of this he was moved up to the ICU. He continues to utilize his incentive spirometry and Acapella and prone. We will continue dexamethasone and baricitinib. Respiratory therapy continues to work with him. Clinically he does not look to be in any acute respiratory distress. Labs today show WBC of 14.02. Hemoglobin 14.1. Platelet 4 and 26,000. Neutrophils are elevated 79.9%. Sodium 143. Potassium 3.8. Chloride 107. Carbon dioxide 27. Anion gap 12.8. BUN is 13. Creatinine 0.7. GFR greater than 60. Glucose is 97-93. Calcium is 8.5. Magnesium 1.8. Bilirubin 0.5. AST is 24, ALT 49, alkaline phosphatase 54. CRP is 5.9. Protein is 5.9 and albumin is 2.0. We will continue current treatment plan. Will increase to BiPAP if necessary. Unknown length of stay due to severity of COVID-19 symptoms. 06/16/2021 Patient improved overnight decreasing his high flow nasal cannula to 50 L and FiO2 of currently 80%. Continue with current treatment as outlined above. - Plan Plan:: Pneumonia due to COVID-19 virus Continue with supportive care. Oxygen by high flow NC. Wean down O2 at tolerated. Morbid obesity lifestyle modifications. Leukocytosis * O2 as needed with goal saturations 88 to 95% * High flow oxygen * Lovenox 40 mg twice daily due to elevated D-dimer * I-S/Acapella * PRN albuterol inhaler * PRN Duonebs * Prone whenever able * Ambulate around room * RT consultation * PT/OT * Daily labs * Every 48 hour D-dimer * Airborne/contact isolation * Telemetry * Continuous pulse oximetry * Zinc supplementation * 20 mg twice daily Pepcid * Completed remdesivir * Completed azithromycin * Completed Rocephin * 6 mg dexamethasone daily - day 06/15 * Baricitinib - day 05/19 * Scheduled Mucinex twice daily Hyperlipidemia * Continue home rosuvastatin * No acute concern HTN (hypertension) * Continue home lisinopril * No acute concerns Diabetes mellitus * Continue home Jardiance * QID AC and bedtime blood glucose checks * Medium dose sliding scale insulin * Hold home metformin * Diabetic diet Tobacco abuse * Nicotine patch daily * Cessation counseling * Offer nicotine patches at discharge Gout * No acute concerns * No chronic home gout medications * Monitor Vitamin D deficiency * Begin 5,000 unit vitamin D supplementation * PCP to follow-up Code status: Full code PCP: Dr. Rubio DVT prophylaxis: BID Lovenox as above Disposition: Patient upgraded to ICU status on 06/15/2021 due to rapidly deteriorating oxygen saturations the need for high flow oxygen. Unknown length of stay as patient continues to require significant amounts of high flow oxygen. Goal oxygen demand would be 2 L or less on nasal cannula. Length of stay greater than 96 hours due to continued need for COVID-19 treatment.
[2021-06-18] MEDS: Albuterol/Ipratropium 3.0-0.5 MG/3 ML Neb Soln NEB PRN ×3 (00:41→21:13)
[2021-06-18] MEDS: Insulin Lispro 100 UNIT/ML 10 ML Vial SUBCUT SCH ×4 (07:30→21:31)
[2021-06-18] MEDS: Enoxaparin 40 MG/0.4 ML Syringe SUBCUT SCH (08:20)
[2021-06-18] MEDS: Lisinopril 20 MG Tab PO SCH (08:21)
[2021-06-18] MEDS: Zinc Sulfate 220 MG Cap PO SCH (08:21)
[2021-06-18] MEDS: Famotidine 20 MG Tab PO SCH ×2 (08:22→21:03)
[2021-06-18] MEDS: Nicotine 14 MG/24 Hr Patch TRDERM SCH (08:22)
[2021-06-18] MEDS: Cholecalciferol (Vitamin D3) 5,000 UNIT Cap PO SCH (08:22)
[2021-06-18] MEDS: guaiFENesin 600 MG Tab.ER PO SCH ×2 (08:22→21:03)
[2021-06-18] MEDS: Rosuvastatin 10 MG Tab PO SCH (08:22)
[2021-06-18] MEDS: Polyethylene Glycol 3350 Powder 17 GM Packet PO SCH (08:24)
[2021-06-18] MEDS: Docusate Sodium 100 MG Cap PO SCH ×2 (08:28→21:12)
[2021-06-18] MEDS: JARDIANCE PO SCH (08:30)
[2021-06-18] MEDS: Methocarbamol 500 MG Tab PO PRN ×2 (08:45→21:31)
--- NOTE | 2021-06-18 09:00 | PCM.PN ---
- General Info Date of Service: 06/18/21 Admission Dx/Problem (Free Text): Admission Diagnosis/Problem Admission Diagnosis/Problem Hypoxia Covid 19 pneumonia with hypoxia Functional Status: Reports: Pain Controlled, Tolerating Diet, Ambulating, Urinating, Incentive Spirometry, Other (Acapella ). Denies: New Symptoms - Review of Systems General: Reports: No Symptoms. Denies: Fever, Weakness, Fatigue, Malaise, Chills HEENT: Reports: No Symptoms. Denies: Headaches, Sore Throat Pulmonary: Reports: Shortness of Breath, Cough (improving), Sputum (minimal ). Denies: Pleuritic Chest Pain Cardiovascular: Reports: Dyspnea on Exertion. Denies: Chest Pain, Palpitations, Edema Gastrointestinal: Reports: No Symptoms. Denies: Abdominal Pain, Constipation, Diarrhea, Nausea, Vomiting Genitourinary: Reports: No Symptoms. Denies: Pain Musculoskeletal: Reports: No Symptoms Skin: Reports: No Symptoms. Denies: Cyanosis Neurological: Reports: No Symptoms. Denies: Confusion, Headache, Numbness, Pre- Existing Deficit, Tingling, Difficulty Walking, Weakness, Gait Disturbance Psychiatric: Reports: No Symptoms - Patient Data Vitals - Most Recent: Last Vital Signs Temp 96.9 F 06/18/21 07:20 Pulse 88 06/18/21 07:20 Resp 22 H 06/18/21 07:20 BP 122/60 06/18/21 08:21 Pulse Ox 89 L 06/18/21 07:20 Weight - Most Recent: 260 lb I&O - Last 24 Hours: Intake & Output 06/17/21 06/18/21 06/18/21 22:59 06:59 14:59 Intake Total 1040 800 Output Total 350 1500 Balance 690 -700 Lab Results Last 24 Hours: Laboratory Results - last 24 hr 06/17/21 06/17/21 06/17/21 Range/Units 11:06 16:44 20:50 POC Glucose 115 H 134 H 151 H (70-99) mg/dL 06/18/21 Range/Units 06:47 POC Glucose 108 H (70-99) mg/dL Med Orders - Current: Current Medications Acetaminophen (Acetaminophen 325 Mg Tab) 650 mg PO Q4H PRN PRN Reason: Pain (Mild 1-3)/fever Last Admin: 06/12/21 10:29 Dose: 650 mg Documented by: Albuterol (Albuterol 6.7 Gm Inhaler) 0 gm INH Q2H PRN PRN Reason: sob/wheezing Last Admin: 06/17/21 08:42 Dose: 2 puff Documented by: Albuterol/Ipratropium (Albuterol/Ipratropium 3.0-0.5 Mg/3 Ml Neb Soln) 3 ml NEB QIDRT PRN PRN Reason: Shortness Of Breath/wheezing Last Admin: 06/18/21 00:41 Dose: 3 ml Documented by: Calcium Carbonate/Glycine (Calcium Carbonate 500 Mg Tab.Chew) 1,000 mg PO Q2HR PRN PRN Reason: Heartburn Last Admin: 06/10/21 17:01 Dose: 1,000 mg Documented by: Cholecalciferol (Cholecalciferol (Vitamin D3) 5,000 Unit Cap) 5,000 unit PO DAILY [facility] Last Admin: 06/18/21 08:22 Dose: 5,000 unit Documented by: Docusate Sodium (Docusate Sodium 100 Mg Cap) 100 mg PO BID [facility] Last Admin: 06/18/21 08:28 Dose: Not Given Documented by: Enoxaparin Sodium (Enoxaparin 40 Mg/0.4 Ml Syringe) 40 mg SUBCUT Q12H [facility] Last Admin: 06/18/21 08:20 Dose: 40 mg Documented by: Famotidine (Famotidine 20 Mg Tab) 20 mg PO BID [facility] Last Admin: 06/18/21 08:22 Dose: 20 mg Documented by: Guaifenesin (Guaifenesin 600 Mg Tab.Er) 600 mg PO BID [facility] Last Admin: 06/18/21 08:22 Dose: 600 mg Documented by: Insulin Human Lispro (Insulin Lispro 100 Unit/Ml 10 Ml Vial) 0 unit SUBCUT QIDACANDBED [facility]; Protocol Last Admin: 06/18/21 07:30 Dose: Not Given Documented by: Lisinopril (Lisinopril 20 Mg Tab) 40 mg PO DAILY [facility] Last Admin: 06/18/21 08:21 Dose: 40 mg Documented by: Lorazepam (Lorazepam 0.5 Mg Tab) 0.5 mg PO TID PRN PRN Reason: Anxiety Methocarbamol (Methocarbamol 500 Mg Tab) 1,000 mg PO Q6H PRN PRN Reason: Spasms Last Admin: 06/18/21 08:45 Dose: 1,000 mg Documented by: Miscellaneous Information (Remove Nicotine Patch) 1 ea TRDERM DAILY [facility] Last Admin: 06/18/21 08:26 Dose: 1 ea Documented by: Nicotine (Nicotine 14 Mg/24 Hr Patch) 14 mg TRDERM DAILY [facility] Last Admin: 06/18/21 08:22 Dose: 14 mg Documented by: Jardiance ( Empagliflozin 10 Mg Tablet Ptom 0 mg PO DAILY [facility] Last Admin: 06/18/21 08:30 Dose: 10 mg Documented by: Ondansetron HCl (Ondansetron 4 Mg/2 Ml Sdv) 4 mg IV Q4H PRN PRN Reason: Nausea/Vomiting Polyethylene Glycol (Polyethylene Glycol 3350 Powder 17 Gm Packet) 17 gm PO DAILY [facility] Last Admin: 06/18/21 08:24 Dose: Not Given Documented by: Rosuvastatin Calcium (Rosuvastatin 10 Mg Tab) 20 mg PO DAILY [facility] Last Admin: 06/18/21 08:22 Dose: 20 mg Documented by: Temazepam (Temazepam 15 Mg Cap) 15 mg PO BEDTIME PRN PRN Reason: Sleep Last Admin: 06/10/21 21:59 Dose: 15 mg Documented by: Zinc Sulfate (Zinc Sulfate 220 Mg Cap) 220 mg PO DAILY [facility] Last Admin: 06/18/21 08:21 Dose: 220 mg Documented by: Discontinued Medications Acetylcysteine (Acetylcysteine 20% 200 Mg/Ml 30 Ml Nebulizer Soln Sdv) 800 mg NEB ONETIME ONE Stop: 06/09/21 09:21 Last Admin: 06/09/21 11:40 Dose: Not Given Documented by: Acetylcysteine (Acetylcysteine 20% 200 Mg/Ml 4 Ml Nebulizer Soln Sdv) 800 mg NEB ONETIME ONE Stop: 06/09/21 09:46 Last Admin: 06/09/21 10:10 Dose: 800 mg Documented by: Acetylcysteine (Acetylcysteine 20% 200 Mg/Ml 4 Ml Nebulizer Soln Sdv) 200 mg NEB ONETIME ONE Stop: 06/13/21 13:31 Last Admin: 06/13/21 15:38 Dose: 200 mg Documented by: Dexamethasone (Dexamethasone 4 Mg Tab) 6 mg PO ONETIME ONE Stop: 06/07/21 19:48 Last Admin: 06/07/21 20:28 Dose: 6 mg Documented by: Dexamethasone (Dexamethasone 10 Mg/Ml Sdv) 6 mg IVPUSH DAILY [facility] Stop: 06/16/21 09:01 Last Admin: 06/12/21 11:19 Dose: 6 mg Documented by: Dexamethasone (Dexamethasone 4 Mg Tab) 6 mg PO DAILY [facility] Stop: 06/16/21 09:01 Last Admin: 06/16/21 08:46 Dose: 6 mg Documented by: Enoxaparin Sodium (Enoxaparin 40 Mg/0.4 Ml Syringe) 40 mg SUBCUT Q12H [facility] Last Admin: 06/12/21 23:34 Dose: 40 mg Documented by: Heparin Sodium (Porcine) (Heparin Sodium 5,000 Units/Ml Vial) 5,000 units COLEMAN BCUT Q8H [facility] Last Admin: 06/12/21 11:49 Dose: Not Given Documented by: Sodium Chloride (Normal Saline) 100 mls @ 60 mls/min IV ASDIRECTED [facility] Last Admin: 06/07/21 19:29 Dose: 60 mls/min Documented by: Remdesivir 200 mg/ Sodium (Chloride) 250 mls @ 250 mls/hr IV ONETIME ONE Stop: 06/07/21 20:38 Last Admin: 06/07/21 20:54 Dose: 250 mls/hr Documented by: Remdesivir 100 mg/ Sodium (Chloride) 100 mls @ 100 mls/hr IV Q24H [facility] Stop: 06/11/21 20:59 Last Admin: 06/11/21 20:39 Dose: 100 mls/hr Documented by: Ceftriaxone Sodium 2 gm/ (Sodium Chloride) 100 mls @ 200 mls/hr IV Q24H [facility] Last Admin: 06/12/21 10:10 Dose: 200 mls/hr Documented by: Azithromycin 500 mg/ Sodium (Chloride) 250 mls @ 250 mls/hr IV Q24H [facility] Last Admin: 06/12/21 10:11 Dose: 250 mls/hr Documented by: Sodium Chloride (Normal Saline) 100 mls @ 60 mls/hr IV ASDIRECTED [facility] Stop: 06/12/21 13:00 Last Admin: 06/12/21 11:28 Dose: 60 mls/hr Documented by: Ibuprofen (Ibuprofen 200 Mg Tab) 600 mg PO Q4HR PRN PRN Reason: Pain Ibuprofen (Ibuprofen 600 Mg Tab) 600 mg PO Q4HR PRN PRN Reason: Pain Iopamidol (Iopamidol 755 Mg/Ml 100 Ml Bottle) 100 ml IVPUSH ONETIME ONE Stop: 06/07/21 19:05 Last Admin: 06/07/21 19:29 Dose: 100 ml Documented by: Iopamidol (Iopamidol 755 Mg/Ml 100 Ml Bottle) 100 ml IVPUSH ONETIME ONE Stop: 06/12/21 11:04 Last Admin: 06/12/21 11:28 Dose: 100 ml Documented by: Lorazepam (Lorazepam 0.5 Mg Tab) 0.5 mg PO TID PRN PRN Reason: Anxiety Metformin HCl (Metformin 500 Mg Tab) 1,000 mg PO BID [facility] Last Admin: 06/10/21 09:49 Dose: 1,000 mg Documented by: Morphine Sulfate (Morphine 2 Mg/Ml Syringe) 2 mg IVPUSH Q2H PRN PRN Reason: Pain (severe 7-10) Stop: 06/09/21 07:44 Sodium Chloride (Sodium Chloride 0.9% 10 Ml Sdv) 10 ml FLUSH ONETIME ONE Stop: 06/07/21 19:05 Last Admin: 06/07/21 19:29 Dose: 10 ml Documented by: Sodium Chloride (Sodium Chloride 0.9% 10 Ml Syringe) 10 ml FLUSH ONETIME ONE Stop: 06/12/21 11:04 Last Admin: 06/12/21 11:28 Dose: 10 ml Documented by: - Exam Quality Assessment: Supplemental Oxygen (50 L 80% FiO2), DVT Prophylaxis. No: Urine Catheter General: Alert, Oriented, Cooperative, No Acute Distress, Other (Clinically appears better than prior days.) HEENT: Pupils Equal, Pupils Reactive, Mucous Membr. Moist/[place] Neck: Supple, Trachea Midline Lungs: Normal Respiratory Effort, Decreased Breath Sounds Cardiovascular: Regular Rate, Regular Rhythm GI/Abdominal Exam: Normal Bowel Sounds, Soft, Non-Tender, No Distention (Male) Exam: Deferred Back Exam: Normal Inspection, Full Range of Motion Extremities: Normal Inspection, Normal Range of Motion, Non-Tender, No Pedal Edema, Normal Capillary Refill Peripheral Pulses: 2+: Radial (L), Radial (R), Dorsalis Pedis (L), Dorsalis Pedis (R) Skin: Warm, Dry, Intact Neurological: No New Focal Deficit Psy/Mental Status: Alert, Normal Affect, Normal Mood - Patient Data Lab Results Last 24 hrs: Laboratory Results - last 24 hr 06/17/21 06/17/21 06/17/21 Range/Units 11:06 16:44 20:50 POC Glucose 115 H 134 H 151 H (70-99) mg/dL 06/18/21 Range/Units 06:47 POC Glucose 108 H (70-99) mg/dL Result Diagrams: 06/18/21 09:00 06/18/21 09:45 Sepsis Event Note - Evaluation Sepsis Screening Result: Possible Sepsis Risk - Focused Exam Vital Signs: Vital Signs Temp Pulse Resp BP BP BP Pulse Ox 06/18/21 08:21 122/60 06/18/21 07:20 96.9 F 88 22 H 122/60 89 L 06/18/21 05:25 91 L 06/18/21 05:00 90 L 06/18/21 04:00 98.2 F 24 H 136/80 94 L 06/18/21 01:00 13 92 L 06/18/21 00:43 06/18/21 00:00 97.5 F 20 91/47 L 89 L 06/17/21 23:00 90 L 06/17/21 22:55 06/17/21 22:00 92 L Pulse Ox 06/18/21 08:21 06/18/21 07:20 06/18/21 05:25 06/18/21 05:00 06/18/21 04:00 06/18/21 01:00 06/18/21 00:43 90 L 06/18/21 00:00 06/17/21 23:00 06/17/21 22:55 91 L 06/17/21 22:00 - Problem List & Annotations (1) Hyperlipidemia SNOMED Code(s): 72097463 Code(s): E78.5 - HYPERLIPIDEMIA, UNSPECIFIED Status: Chronic Priority: Low Current Visit: No Qualifiers: Hyperlipidemia type: unspecified Qualified Code(s): E78.5 - Hyperlipidemia, unspecified (2) HTN (hypertension) SNOMED Code(s): 37125964 Code(s): I10 - ESSENTIAL (PRIMARY) HYPERTENSION Status: Chronic Priority: Low Current Visit: No Qualifiers: Hypertension type: unspecified Qualified Code(s): I10 - Essential (primary) hypertension (3) Elevated d-dimer SNOMED Code(s): 896889717 Code(s): R79.89 - OTHER SPECIFIED ABNORMAL FINDINGS OF BLOOD CHEMISTRY Status: Acute Priority: High Current Visit: Yes (4) Elevated C-reactive protein SNOMED Code(s): 713322202958221 Code(s): R79.82 - ELEVATED C-REACTIVE PROTEIN (CRP) Status: Acute Priority: High Current Visit: Yes (5) Leukocytosis SNOMED Code(s): 497173171, 336254046 Code(s): D72.829 - ELEVATED WHITE BLOOD CELL COUNT, UNSPECIFIED Status: Acute Priority: High Current Visit: Yes Qualifiers: Leukocytosis type: unspecified Qualified Code(s): D72.829 - Elevated white blood cell count, unspecified (6) Diabetes mellitus SNOMED Code(s): 19316740 Code(s): E11.9 - TYPE 2 DIABETES MELLITUS WITHOUT COMPLICATIONS Status: Chronic Priority: High Current Visit: Yes Qualifiers: Diabetes mellitus type: type 2 Diabetes mellitus buttermaker insulin use: without buttermaker use Diabetes mellitus complication status: with other specified complication Qualified Code(s): E11.69 - Type 2 diabetes mellitus with other specified complication (7) Hypoxia SNOMED Code(s): 119475643 Code(s): R09.02 - HYPOXEMIA Status: Acute Priority: High Current Visit: Yes (8) Pneumonia due to COVID-19 virus SNOMED Code(s): 036339039833519215 Code(s): U07.1 - COVID-19; J12.82 - PNEUMONIA DUE TO CORONAVIRUS DISEASE 2019 Status: Acute Priority: High Current Visit: Yes (9) Smoker SNOMED Code(s): 50585542 Code(s): F17.200 - NICOTINE DEPENDENCE, UNSPECIFIED, UNCOMPLICATED Status: Chronic Priority: High Current Visit: Yes (10) Gout SNOMED Code(s): 98995395 Code(s): M10.9 - GOUT, UNSPECIFIED Status: Chronic Priority: Low Current Visit: No Qualifiers: Gout site: unspecified site Gout etiology: unspecified cause Chronicity: unspecified Qualified Code(s): M10.9 - Gout, unspecified (11) Vitamin D deficiency SNOMED Code(s): 23911014 Code(s): E55.9 - VITAMIN D DEFICIENCY, UNSPECIFIED Status: Acute Priority: Medium Current Visit: Yes - Problem List Review Problem List Initiated/Reviewed/Updated: Yes - Assessment Assessment:: 06/12/2021 This is a 55-year-old male admitted to the floor with hypoxia secondary to COVID -19 pneumonia. He currently is on 45 L with an FiO2 of 75%. Labs today show a WBC of 10.22. Hemoglobin 30.6. Platelet 269,000. Neutrophils elevated 75.1%. D-dimer is up to 3.85. Sodium 144. Potassium 3.8. Chloride 109. Carbon dioxide 25. Anion gap is 13.8. BUN is 14. Creatinine 0.7. GFR greater than 60. Blood glucose levels have been from 96-2 14. Phosphorus 3.5. Magnesium 1.9. Total bilirubin 0.3. AST is 30, ALT 37, alkaline phosphatase 52. CRP is 12.6. Protein 5.5. Albumin is down to 1.9. Given the patient's worsening oxygen demand and elevated D-dimer CTA is obtained showing 1. Bilateral pulmonary consolidation likely due to COVID-19. 2. Mediastinal adenopathy, most likely reactive. There are no signs of any pulmonary emboli. We will therefore increase patient's DVT prophylaxis up to 40 mg twice daily Lovenox. Patient will be started on 20 mg twice daily Pepcid and zinc supplementation. Vitamin D level has been ordered. Patient will remain hospitalized pending improvement in oxygen demand. Unknown length of stay time. Overall he states he feels about the same as yesterday. Continues to have mild diarrhea at times and reports weakness. 06/13/2021 This is a 55-year-old male admitted to the hospital for COVID-19 pneumonia. He has been proning today and saturations are in the mid to low 90s while proning. He has been utilizing incentive spirometer and Acapella. He has been a little bit down today and reports he does not feel like he is getting much better. Overall his lung sounds have greatly improved. He remains on high flow 50 L with an FiO2 of 70%. Labs today show a WBC of 9.34. Hemoglobin 13.7. Platelet 357,000. Neutrophils are 76.4%. Sodium is 144. Potassium 3.5. Anion gap is 15.5. BUN 12. Creatinine 0.8.. GFR greater than 60. Glucose has been between 102 42. Magnesium 1.9. Bilirubin 0.4. AST is 27, ALT 41, alkaline phosphatase 58. CRP is improved to 10.7. Protein 6.1. Vitamin D obtained yesterday was low at 17.4 and we will start supplementation for vitamin D today. Albumin is improved to 2.1. We will continue treatment with unknown length of stay due to severity of COVID-19 symptoms. 06/14/2021 55-year-old male admitted to the hospital with hypoxia due to COVID-19 pneumonia. He is currently on 50 L of oxygen with 75% FiO2. States he has been proning as much as possible as well as using his I-S and Acapella. Has a very flat affect. Was upset on rounds this morning as he states he has not been getting his muscle relaxer with his morning pills. Labs today reveal a WBC of 13.29, hemoglobin 13.3, hematocrit 40.8, platelet count 395,000, D-dimer 3.19, sodium 144, potassium 3.8, chloride 108, anion gap 13.8, BUN 16, creatinine 0.7, GFR greater than 60, glucose has ranged from 967027, magnesium 1.9, C-reactive protein 5.3 continue with current treatment. Unknown length of stay due to the severity of Covid symptoms. 06/15/2021 This is a 55-year-old male admitted to the floor with COVID-19 pneumonia. He had worsening oxygen saturations and today was requiring 60 L of oxygen with an FiO2 of 95%. Because of this he was moved up to the ICU. He continues to utilize his incentive spirometry and Acapella and prone. We will continue dexamethasone and baricitinib. Respiratory therapy continues to work with him. Clinically he does not look to be in any acute respiratory distress. Labs today show WBC of 14.02. Hemoglobin 14.1. Platelet 4 and 26,000. Neutrophils are elevated 79.9%. Sodium 143. Potassium 3.8. Chloride 107. Carbon dioxide 27. Anion gap 12.8. BUN is 13. Creatinine 0.7. GFR greater than 60. Glucose is 97-93. Calcium is 8.5. Magnesium 1.8. Bilirubin 0.5. AST is 24, ALT 49, julio line phosphatase 54. CRP is 5.9. Protein is 5.9 and albumin is 2.0. We will continue current treatment plan. Will increase to BiPAP if necessary. Unknown length of stay due to severity of COVID-19 symptoms. 06/16/2021 Patient improved overnight decreasing his high flow nasal cannula to 50 L and FiO2 of currently 80%. Continue with current treatment as outlined above. - Plan Plan:: Pneumonia due to COVID-19 virus Leukocytosis Elevated D-Dimer Hypoxia * O2 as needed with goal saturations 88 to 95% * High flow oxygen * Increase Lovenox 60 mg twice daily due to elevated D-dimer * I-S/Acapella * PRN albuterol inhaler * PRN Duonebs * Prone whenever able * Ambulate around room * Start solumedrol 60mg Q8Hr * RT consultation * PT/OT * Daily labs * Every 48 hour D-dimer * Airborne/contact isolation * Telemetry * Continuous pulse oximetry * Zinc supplementation * 20 mg twice daily Pepcid * Completed remdesivir, azithromycin, rocephin, and dexamethasone * Baricitinib - day 08/19 * Scheduled Mucinex twice daily Morbid obesity * Lifestyle modifications. Hyperlipidemia * Continue home rosuvastatin * No acute concern HTN (hypertension) * Continue home lisinopril * No acute concerns Diabetes mellitus * Continue home Jardiance * QID AC and bedtime blood glucose checks * Medium dose sliding scale insulin * Hold home metformin * Diabetic diet Tobacco abuse * Nicotine patch daily * Cessation counseling * Offer nicotine patches at discharge Gout * No acute concerns * No chronic home gout medications * Monitor Vitamin D deficiency * Begin 5,000 unit vitamin D supplementation * PCP to follow-up Code status: Full code PCP: Dr. Rubio DVT prophylaxis: BID Lovenox as above Disposition: Patient upgraded to ICU status on 06/15/2021 due to rapidly deter iorating oxygen saturations the need for high flow oxygen. Unknown length of stay as patient continues to require significant amounts of high flow oxygen. Goal oxygen demand would be 2 L or less on nasal cannula. Length of stay greater than 96 hours due to continued need for COVID-19 treatment.
[2021-06-18] MEDS ORDERED: Enoxaparin 60 MG/0.6 ML Syringe SUBCUT SCH (09:15)
[2021-06-18] MEDS ORDERED: Enoxaparin 30 MG/0.3 ML Syringe SUBCUT ONE (09:16)
[2021-06-18] MEDS ORDERED: Enoxaparin 40 MG/0.4 ML Syringe SUBCUT ONE (10:30)
[2021-06-18] MEDS: methylPREDNISolone Sodium Succinate 40 MG/1 ML SDV IVPUSH SCH ×2 (10:58→17:46)
[2021-06-18] MEDS: Albuterol 6.7 GM Inhaler INH PRN (16:05)
[2021-06-18] MEDS: Enoxaparin 60 MG/0.6 ML Syringe SUBCUT SCH (21:03)
[2021-06-19] MEDS: methylPREDNISolone Sodium Succinate 40 MG/1 ML SDV IVPUSH SCH ×3 (03:10→17:59)
[2021-06-19] MEDS: Albuterol 6.7 GM Inhaler INH PRN ×2 (05:44→08:13)
[2021-06-19] MEDS: Nicotine 14 MG/24 Hr Patch TRDERM SCH (08:31)
[2021-06-19] MEDS: Rosuvastatin 10 MG Tab PO SCH (08:31)
[2021-06-19] MEDS: Enoxaparin 60 MG/0.6 ML Syringe SUBCUT SCH ×2 (08:31→21:04)
[2021-06-19] MEDS: Empagliflozin 10 MG Tab PO SCH (08:31)
[2021-06-19] MEDS: Polyethylene Glycol 3350 Powder 17 GM Packet PO SCH (08:31)
[2021-06-19] MEDS: Cholecalciferol (Vitamin D3) 5,000 UNIT Cap PO SCH (08:31)
[2021-06-19] MEDS: Insulin Lispro 100 UNIT/ML 10 ML Vial SUBCUT SCH ×4 (08:32→22:34)
[2021-06-19] MEDS: Famotidine 20 MG Tab PO SCH ×2 (08:32→21:05)
[2021-06-19] MEDS: Docusate Sodium 100 MG Cap PO SCH ×2 (08:32→21:04)
[2021-06-19] MEDS: Zinc Sulfate 220 MG Cap PO SCH (08:32)
[2021-06-19] MEDS: guaiFENesin 600 MG Tab.ER PO SCH ×2 (08:32→21:04)
[2021-06-19] MEDS: Lisinopril 20 MG Tab PO SCH (08:33)
--- NOTE | 2021-06-19 08:45 | PCM.PN ---
- General Info Date of Service: 06/19/21 Admission Dx/Problem (Free Text): Admission Diagnosis/Problem Admission Diagnosis/Problem Hypoxia Covid 19 pneumonia with hypoxia Functional Status: Reports: Pain Controlled, Tolerating Diet, Ambulating, Urinating, Incentive Spirometry, Other (Acapella ) - Review of Systems General: Reports: No Symptoms, Weakness. Denies: Fever, Fatigue, Malaise, Chills HEENT: Reports: No Symptoms. Denies: Headaches, Sore Throat Pulmonary: Reports: No Symptoms, Cough, Sputum. Denies: Shortness of Breath, Pleuritic Chest Pain, Wheezing Cardiovascular: Reports: No Symptoms, Dyspnea on Exertion. Denies: Chest Pain, Palpitations, Edema Gastrointestinal: Reports: No Symptoms. Denies: Abdominal Pain, Constipation, Diarrhea, Nausea, Vomiting Genitourinary: Reports: No Symptoms. Denies: Pain Musculoskeletal: Reports: Back Pain (chronic exacerbated by proning) Skin: Reports: No Symptoms. Denies: Cyanosis Neurological: Reports: Weakness. Denies: Confusion, Dizziness, Headache, Numbness, Pre-Existing Deficit, Seizure, Syncope, Tingling, Difficulty Walking, Gait Disturbance Psychiatric: Reports: No Symptoms - Patient Data Vitals - Most Recent: Last Vital Signs Temp 97.2 F 06/19/21 04:00 Pulse 90 06/18/21 16:00 Resp 18 06/19/21 04:00 BP 106/75 06/19/21 08:33 Pulse Ox 88 L 06/19/21 08:13 Weight - Most Recent: 258 lb 8 oz I&O - Last 24 Hours: Intake & Output 06/18/21 06/19/21 06/19/21 22:59 06:59 14:59 Intake Total 950 1100 Output Total 1600 Balance -650 1100 Lab Results Last 24 Hours: Laboratory Results - last 24 hr 06/18/21 06/18/21 06/18/21 Range/Units 09:00 09:00 09:45 WBC 12.40 H (4.23-9.07) K/mm3 RBC 5.33 (4.63-6.08) M/mm3 Hgb 15.1 (13.7-17.5) gm/dl Hct 46.7 (40.1-51.0) % MCV 87.6 (79.0-92.2) fl MCH 28.3 (25.7-32.2) pg MCHC 32.3 (32.2-35.5) g/dl RDW Std Deviation 47.8 H (35.1-43.9) fL Plt Count 403 H (163-337) K/mm3 MPV 8.8 L (9.4-12.3) fl Neut % (Auto) 82.5 H (34.0-67.9) % Lymph % (Auto) 8.4 L (21.8-53.1) % Harding % (Auto) 7.5 (5.3-12.2) % Eos % (Auto) 0.2 L (0.8-7.0) Baso % (Auto) 0.2 (0.1-1.2) % Neut # (Auto) 10.22 H (1.78-5.38) K/mm3 Lymph # (Auto) 1.04 L (1.32-3.57) K/mm3 Harding # (Auto) 0.93 H (0.30-0.82) K/mm3 Eos # (Auto) 0.03 L (0.04-0.54) K/mm3 Baso # (Auto) 0.03 (0.01-0.08) K/mm3 Manual Slide Review D-Dimer, Quantitative 6.36 H (0.19-0.50) mg/L Sodium 141 (136-145) mEq/L Potassium 4.1 (3.5-5.1) mEq/L Chloride 103 (98-107) mEq/L Carbon Dioxide 28 (21-32) mEq/L Anion Gap 14.1 (5-15) BUN 18 (7-18) mg/dL Creatinine 0.8 (0.7-1.3) mg/dL Est Cr Clr Drug Dosing 103.92 mL/min Estimated GFR (MDRD) > 60 (>60) mL/min BUN/Creatinine Ratio 22.5 H (14-18) Glucose 130 H (70-99) mg/dL POC Glucose (70-99) mg/dL Calcium 9.3 (8.5-10.1) mg/dL Magnesium (1.8-2.4) mg/dL Total Bilirubin (0.2-1.0) mg/dL AST (15-37) U/L ALT (16-63) U/L Alkaline Phosphatase (46-116) U/L C-Reactive Protein (<1.0) mg/dL Total Protein (6.4-8.2) g/dl Albumin (3.4-5.0) g/dl Globulin gm/dL Albumin/Globulin Ratio (1-2) 06/18/21 06/18/21 06/18/21 Range/Units 11:10 16:56 21:06 WBC (4.23-9.07) K/mm3 RBC (4.63-6.08) M/mm3 Hgb (13.7-17.5) gm/dl Hct (40.1-51.0) % MCV (79.0-92.2) fl MCH (25.7-32.2) pg MCHC (32.2-35.5) g/dl RDW Std Deviation (35.1-43.9) fL Plt Count (163-337) K/mm3 MPV (9.4-12.3) fl Neut % (Auto) (34.0-67.9) % Lymph % (Auto) (21.8-53.1) % Harding % (Auto) (5.3-12.2) % Eos % (Auto) (0.8-7.0) Baso % (Auto) (0.1-1.2) % Neut # (Auto) (1.78-5.38) K/mm3 Lymph # (Auto) (1.32-3.57) K/mm3 Harding # (Auto) (0.30-0.82) K/mm3 Eos # (Auto) (0.04-0.54) K/mm3 Baso # (Auto) (0.01-0.08) K/mm3 Manual Slide Review D-Dimer, Quantitative (0.19-0.50) mg/L Sodium (136-145) mEq/L Potassium (3.5-5.1) mEq/L Chloride (98-107) mEq/L Carbon Dioxide (21-32) mEq/L Anion Gap (5-15) BUN (7-18) mg/dL Creatinine (0.7-1.3) mg/dL Est Cr Clr Drug Dosing mL/min Estimated GFR (MDRD) (>60) mL/min BUN/Creatinine Ratio (14-18) Glucose (70-99) mg/dL POC Glucose 118 H 284 H 171 H (70-99) mg/dL Calcium (8.5-10.1) mg/dL Magnesium (1.8-2.4) mg/dL Total Bilirubin (0.2-1.0) mg/dL AST (15-37) U/L ALT (16-63) U/L Alkaline Phosphatase (46-116) U/L C-Reactive Protein (<1.0) mg/dL Total Protein (6.4-8.2) g/dl Albumin (3.4-5.0) g/dl Globulin gm/dL Albumin/Globulin Ratio (1-2) 06/19/21 06/19/21 06/19/21 Range/Units 06:19 06:20 06:20 WBC 15.76 H (4.23-9.07) K/mm3 RBC 5.04 (4.63-6.08) M/mm3 Hgb 14.3 (13.7-17.5) gm/dl Hct 44.5 (40.1-51.0) % MCV 88.3 (79.0-92.2) fl MCH 28.4 (25.7-32.2) pg MCHC 32.1 L (32.2-35.5) g/dl RDW Std Deviation 47.2 H (35.1-43.9) fL Plt Count 448 H (163-337) K/mm3 MPV 9.0 L (9.4-12.3) fl Neut % (Auto) 91.6 H (34.0-67.9) % Lymph % (Auto) 3.3 L (21.8-53.1) % Harding % (Auto) 4.3 L (5.3-12.2) % Eos % (Auto) 0 L (0.8-7.0) Baso % (Auto) 0.1 (0.1-1.2) % Neut # (Auto) 14.44 H (1.78-5.38) K/mm3 Lymph # (Auto) 0.52 L (1.32-3.57) K/mm3 Harding # (Auto) 0.67 (0.30-0.82) K/mm3 Eos # (Auto) 0.00 L (0.04-0.54) K/mm3 Baso # (Auto) 0.02 (0.01-0.08) K/mm3 Manual Slide Review Abnormal smear D-Dimer, Quantitative 2.84 H (0.19-0.50) mg/L Sodium (136-145) mEq/L Potassium (3.5-5.1) mEq/L Chloride (98-107) mEq/L Carbon Dioxide (21-32) mEq/L Anion Gap (5-15) BUN (7-18) mg/dL Creatinine (0.7-1.3) mg/dL Est Cr Clr Drug Dosing mL/min Estimated GFR (MDRD) (>60) mL/min BUN/Creatinine Ratio (14-18) Glucose (70-99) mg/dL POC Glucose 162 H (70-99) mg/dL Calcium (8.5-10.1) mg/dL Magnesium (1.8-2.4) mg/dL Total Bilirubin (0.2-1.0) mg/dL AST (15-37) U/L ALT (16-63) U/L Alkaline Phosphatase (46-116) U/L C-Reactive Protein (<1.0) mg/dL Total Protein (6.4-8.2) g/dl Albumin (3.4-5.0) g/dl Globulin gm/dL Albumin/Globulin Ratio (1-2) 06/19/21 06/19/21 Range/Units 06:20 06:25 WBC (4.23-9.07) K/mm3 RBC (4.63-6.08) M/mm3 Hgb (13.7-17.5) gm/dl Hct (40.1-51.0) % MCV (79.0-92.2) fl MCH (25.7-32.2) pg MCHC (32.2-35.5) g/dl RDW Std Deviation (35.1-43.9) fL Plt Count (163-337) K/mm3 MPV (9.4-12.3) fl Neut % (Auto) (34.0-67.9) % Lymph % (Auto) (21.8-53.1) % Harding % (Auto) (5.3-12.2) % Eos % (Auto) (0.8-7.0) Baso % (Auto) (0.1-1.2) % Neut # (Auto) (1.78-5.38) K/mm3 Lymph # (Auto) (1.32-3.57) K/mm3 Harding # (Auto) (0.30-0.82) K/mm3 Eos # (Auto) (0.04-0.54) K/mm3 Baso # (Auto) (0.01-0.08) K/mm3 Manual Slide Review D-Dimer, Quantitative (0.19-0.50) mg/L Sodium 139 (136-145) mEq/L Potassium 4.5 (3.5-5.1) mEq/L Chloride 104 (98-107) mEq/L Carbon Dioxide 25 (21-32) mEq/L Anion Gap 14.5 (5-15) BUN 19 H (7-18) mg/dL Creatinine 0.7 (0.7-1.3) mg/dL Est Cr Clr Drug Dosing 118.77 mL/min Estimated GFR (MDRD) > 60 (>60) mL/min BUN/Creatinine Ratio 27.1 H (14-18) Glucose 186 H (70-99) mg/dL POC Glucose 163 H (70-99) mg/dL Calcium 9.2 (8.5-10.1) mg/dL Magnesium 2.1 (1.8-2.4) mg/dL Total Bilirubin 0.4 (0.2-1.0) mg/dL AST 14 L (15-37) U/L ALT 34 (16-63) U/L Alkaline Phosphatase 49 (46-116) U/L C-Reactive Protein 4.6 H* (<1.0) mg/dL Total Protein 6.9 (6.4-8.2) g/dl Albumin 2.5 L (3.4-5.0) g/dl Globulin 4.4 gm/dL Albumin/Globulin Ratio 0.6 L (1-2) Med Orders - Current: Current Medications Acetaminophen (Acetaminophen 325 Mg Tab) 650 mg PO Q4H PRN PRN Reason: Pain (Mild 1-3)/fever Last Admin: 06/12/21 10:29 Dose: 650 mg Documented by: Albuterol (Albuterol 6.7 Gm Inhaler) 0 gm INH Q2H PRN PRN Reason: sob/wheezing Last Admin: 06/19/21 08:13 Dose: 2 puff Documented by: Albuterol/Ipratropium (Albuterol/Ipratropium 3.0-0.5 Mg/3 Ml Neb Soln) 3 ml NEB QIDRT PRN PRN Reason: Shortness Of Breath/wheezing Last Admin: 06/18/21 21:13 Dose: 3 ml Documented by: Calcium Carbonate/Glycine (Calcium Carbonate 500 Mg Tab.Chew) 1,000 mg PO Q2HR PRN PRN Reason: Heartburn Last Admin: 06/10/21 17:01 Dose: 1,000 mg Documented by: Cholecalciferol (Cholecalciferol (Vitamin D3) 5,000 Unit Cap) 5,000 unit PO DAILY [facility] Last Admin: 06/19/21 08:31 Dose: 5,000 unit Documented by: Docusate Sodium (Docusate Sodium 100 Mg Cap) 100 mg PO BID [facility] Last Admin: 06/19/21 08:32 Dose: 100 mg Documented by: Enoxaparin Sodium (Enoxaparin 60 Mg/0.6 Ml Syringe) 60 mg SUBCUT Q12H [facility] Last Admin: 06/19/21 08:31 Dose: 60 mg Documented by: Famotidine (Famotidine 20 Mg Tab) 20 mg PO BID [facility] Last Admin: 06/19/21 08:32 Dose: 20 mg Documented by: Guaifenesin (Guaifenesin 600 Mg Tab.Er) 600 mg PO BID [facility] Last Admin: 06/19/21 08:32 Dose: 600 mg Documented by: Insulin Human Lispro (Insulin Lispro 100 Unit/Ml 10 Ml Vial) 0 unit SUBCUT QIDACANDBED [facility]; Protocol Last Admin: 06/19/21 08:32 Dose: 2 units Documented by: Lisinopril (Lisinopril 20 Mg Tab) 40 mg PO DAILY [facility] Last Admin: 06/19/21 08:33 Dose: 40 mg Documented by: Lorazepam (Lorazepam 0.5 Mg Tab) 0.5 mg PO TID PRN PRN Reason: Anxiety Methocarbamol (Methocarbamol 500 Mg Tab) 1,000 mg PO Q6H PRN PRN Reason: Spasms Last Admin: 06/18/21 21:31 Dose: 1,000 mg Documented by: Methylprednisolone Sodium Succinate (Methylprednisolone Sodium Succinate 40 Mg/1 Ml Sdv) 60 mg IVPUSH Q8H [facility] Last Admin: 06/19/21 03:10 Dose: 60 mg Documented by: Miscellaneous Information (Remove Nicotine Patch) 1 ea TRDERM DAILY [facility] Last Admin: 06/18/21 08:26 Dose: 1 ea Documented by: Nicotine (Nicotine 14 Mg/24 Hr Patch) 14 mg TRDERM DAILY [facility] Last Admin: 06/19/21 08:31 Dose: 14 mg Documented by: Ondansetron HCl (Ondansetron 4 Mg/2 Ml Sdv) 4 mg IV Q4H PRN PRN Reason: Nausea/Vomiting Polyethylene Glycol (Polyethylene Glycol 3350 Powder 17 Gm Packet) 17 gm PO DAILY [facility] Last Admin: 06/19/21 08:31 Dose: 17 gm Documented by: Rosuvastatin Calcium (Rosuvastatin 10 Mg Tab) 20 mg PO DAILY [facility] Last Admin: 06/19/21 08:31 Dose: 20 mg Documented by: Temazepam (Temazepam 15 Mg Cap) 15 mg PO BEDTIME PRN PRN Reason: Sleep Last Admin: 06/10/21 21:59 Dose: 15 mg Documented by: Zinc Sulfate (Zinc Sulfate 220 Mg Cap) 220 mg PO DAILY [facility] Last Admin: 06/19/21 08:32 Dose: 220 mg Documented by: Discontinued Medications Acetylcysteine (Acetylcysteine 20% 200 Mg/Ml 30 Ml Nebulizer Soln Sdv) 800 mg NEB ONETIME ONE Stop: 06/09/21 09:21 Last Admin: 06/09/21 11:40 Dose: Not Given Documented by: Acetylcysteine (Acetylcysteine 20% 200 Mg/Ml 4 Ml Nebulizer Soln Sdv) 800 mg NEB ONETIME ONE Stop: 06/09/21 09:46 Last Admin: 06/09/21 10:10 Dose: 800 mg Documented by: Acetylcysteine (Acetylcysteine 20% 200 Mg/Ml 4 Ml Nebulizer Soln Sdv) 200 mg NEB ONETIME ONE Stop: 06/13/21 13:31 Last Admin: 06/13/21 15:38 Dose: 200 mg Documented by: Dexamethasone (Dexamethasone 4 Mg Tab) 6 mg PO ONETIME ONE Stop: 06/07/21 19:48 Last Admin: 06/07/21 20:28 Dose: 6 mg Documented by: Dexamethasone (Dexamethasone 10 Mg/Ml Sdv) 6 mg IVPUSH DAILY [facility] Stop: 06/16/21 09:01 Last Admin: 06/12/21 11:19 Dose: 6 mg Documented by: Dexamethasone (Dexamethasone 4 Mg Tab) 6 mg PO DAILY [facility] Stop: 06/16/21 09:01 Last Admin: 06/16/21 08:46 Dose: 6 mg Documented by: Enoxaparin Sodium (Enoxaparin 40 Mg/0.4 Ml Syringe) 40 mg SUBCUT Q12H [facility] Last Admin: 06/12/21 23:34 Dose: 40 mg Documented by: Enoxaparin Sodium (Enoxaparin 40 Mg/0.4 Ml Syringe) 40 mg SUBCUT Q12H [facility] Last Admin: 06/18/21 08:20 Dose: 40 mg Documented by: Enoxaparin Sodium (Enoxaparin 60 Mg/0.6 Ml Syringe) 60 mg SUBCUT Q12H [facility] Enoxaparin Sodium (Enoxaparin 30 Mg/0.3 Ml Syringe) 20 mg SUBCUT ONETIME ONE Stop: 06/18/21 09:17 Last Admin: 06/18/21 10:25 Dose: Not Given Documented by: Enoxaparin Sodium (Enoxaparin 40 Mg/0.4 Ml Syringe) 20 mg SUBCUT ONETIME ONE Stop: 06/18/21 10:31 Last Admin: 06/18/21 10:26 Dose: 20 mg Documented by: Heparin Sodium (Porcine) (Heparin Sodium 5,000 Units/Ml Vial) 5,000 units SUBCUT Q8H [facility] Last Admin: 06/12/21 11:49 Dose: Not Given Documented by: Sodium Chloride (Normal Saline) 100 mls @ 60 mls/min IV ASDIRECTED [facility] Last Admin: 06/07/21 19:29 Dose: 60 mls/min Documented by: Remdesivir 200 mg/ Sodium (Chloride) 250 mls @ 250 mls/hr IV ONETIME ONE Stop: 06/07/21 20:38 Last Admin: 06/07/21 20:54 Dose: 250 mls/hr Documented by: Remdesivir 100 mg/ Sodium (Chloride) 100 mls @ 100 mls/hr IV Q24H [facility] Stop: 06/11/21 20:59 Last Admin: 06/11/21 20:39 Dose: 100 mls/hr Documented by: Ceftriaxone Sodium 2 gm/ (Sodium Chloride) 100 mls @ 200 mls/hr IV Q24H [facility] Last Admin: 06/12/21 10:10 Dose: 200 mls/hr Documented by: Azithromycin 500 mg/ Sodium (Chloride) 250 mls @ 250 mls/hr IV Q24H [facility] Last Admin: 06/12/21 10:11 Dose: 250 mls/hr Documented by: Sodium Chloride (Normal Saline) 100 mls @ 60 mls/hr IV ASDIRECTED [facility] Stop: 06/12/21 13:00 Last Admin: 06/12/21 11:28 Dose: 60 mls/hr Documented by: Ibuprofen (Ibuprofen 200 Mg Tab) 600 mg PO Q4HR PRN PRN Reason: Pain Ibuprofen (Ibuprofen 600 Mg Tab) 600 mg PO Q4HR PRN PRN Reason: Pain Iopamidol (Iopamidol 755 Mg/Ml 100 Ml Bottle) 100 ml IVPUSH ONETIME ONE Stop: 06/07/21 19:05 Last Admin: 06/07/21 19:29 Dose: 100 ml Documented by: Iopamidol (Iopamidol 755 Mg/Ml 100 Ml Bottle) 100 ml IVPUSH ONETIME ONE Stop: 06/12/21 11:04 Last Admin: 06/12/21 11:28 Dose: 100 ml Documented by: Lorazepam (Lorazepam 0.5 Mg Tab) 0.5 mg PO TID PRN PRN Reason: Anxiety Metformin HCl (Metformin 500 Mg Tab) 1,000 mg PO BID [facility] Last Admin: 06/10/21 09:49 Dose: 1,000 mg Documented by: Morphine Sulfate (Morphine 2 Mg/Ml Syringe) 2 mg IVPUSH Q2H PRN PRN Reason: Pain (severe 7-10) Stop: 06/09/21 07:44 Jardiance ( Empagliflozin 10 Mg Tablet Ptom 0 mg PO DAILY [facility] Last Admin: 06/18/21 08:30 Dose: 10 mg Documented by: Sodium Chloride (Sodium Chloride 0.9% 10 Ml Sdv) 10 ml FLUSH ONETIME ONE Stop: 06/07/21 19:05 Last Admin: 06/07/21 19:29 Dose: 10 ml Documented by: Sodium Chloride (Sodium Chloride 0.9% 10 Ml Syringe) 10 ml FLUSH ONETIME ONE Stop: 06/12/21 11:04 Last Admin: 06/12/21 11:28 Dose: 10 ml Documented by: - Exam Quality Assessment: Supplemental Oxygen (40 L with an FiO2 of 70%), DVT Prophylaxis. No: Urine Catheter General: Alert, Oriented, Cooperative, No Acute Distress HEENT: Pupils Equal, Pupils Reactive, Mucous Membr. Moist/Trevose Neck: Supple, Trachea Midline Lungs: Normal Respiratory Effort, Decreased Breath Sounds, Crackles. No: Rhonchi, Wheezing Cardiovascular: Regular Rate, Regular Rhythm GI/Abdominal Exam: Normal Bowel Sounds, Soft, Non-Tender, No Distention (Male) Exam: Deferred Back Exam: Normal Inspection, Full Range of Motion Extremities: Normal Inspection, Normal Range of Motion, Non-Tender, No Pedal Edema, Normal Capillary Refill Peripheral Pulses: 2+: Radial (L), Radial (R), Dorsalis Pedis (L), Dorsalis Pedis (R) Skin: Warm, Dry, Intact Neurological: No New Focal Deficit Psy/Mental Status: Alert, Normal Affect, Normal Mood - Patient Data Lab Results Last 24 hrs: Laboratory Results - last 24 hr 06/18/21 06/18/21 06/18/21 Range/Units 09:00 09:00 09:45 WBC 12.40 H (4.23-9.07) K/mm3 RBC 5.33 (4.63-6.08) M/mm3 Hgb 15.1 (13.7-17.5) gm/dl Hct 46.7 (40.1-51.0) % MCV 87.6 (79.0-92.2) fl MCH 28.3 (25.7-32.2) pg MCHC 32.3 (32.2-35.5) g/dl RDW Std Deviation 47.8 H (35.1-43.9) fL Plt Count 403 H (163-337) K/mm3 MPV 8.8 L (9.4-12.3) fl Neut % (Auto) 82.5 H (34.0-67.9) % Lymph % (Auto) 8.4 L (21.8-53.1) % Harding % (Auto) 7.5 (5.3-12.2) % Eos % (Auto) 0.2 L (0.8-7.0) Baso % (Auto) 0.2 (0.1-1.2) % Neut # (Auto) 10.22 H (1.78-5.38) K/mm3 Lymph # (Auto) 1.04 L (1.32-3.57) K/mm3 Harding # (Auto) 0.93 H (0.30-0.82) K/mm3 Eos # (Auto) 0.03 L (0.04-0.54) K/mm3 Baso # (Auto) 0.03 (0.01-0.08) K/mm3 Manual Slide Review D-Dimer, Quantitative 6.36 H (0.19-0.50) mg/L Sodium 141 (136-145) mEq/L Potassium 4.1 (3.5-5.1) mEq/L Chloride 103 (98-107) mEq/L Carbon Dioxide 28 (21-32) mEq/L Anion Gap 14.1 (5-15) BUN 18 (7-18) mg/dL Creatinine 0.8 (0.7-1.3) mg/dL Est Cr Clr Drug Dosing 103.92 mL/min Estimated GFR (MDRD) > 60 (>60) mL/min BUN/Creatinine Ratio 22.5 H (14-18) Glucose 130 H (70-99) mg/dL POC Glucose (70-99) mg/dL Calcium 9.3 (8.5-10.1) mg/dL Magnesium (1.8-2.4) mg/dL Total Bilirubin (0.2-1.0) mg/dL AST (15-37) U/L ALT (16-63) U/L Alkaline Phosphatase (46-116) U/L C-Reactive Protein (<1.0) mg/dL Total Protein (6.4-8.2) g/dl Albumin (3.4-5.0) g/dl Globulin gm/dL Albumin/Globulin Ratio (1-2) 06/18/21 06/18/21 06/18/21 Range/Units 11:10 16:56 21:06 WBC (4.23-9.07) K/mm3 RBC (4.63-6.08) M/mm3 Hgb (13.7-17.5) gm/dl Hct (40.1-51.0) % MCV (79.0-92.2) fl MCH (25.7-32.2) pg MCHC (32.2-35.5) g/dl RDW Std Deviation (35.1-43.9) fL Plt Count (163-337) K/mm3 MPV (9.4-12.3) fl Neut % (Auto) (34.0-67.9) % Lymph % (Auto) (21.8-53.1) % Harding % (Auto) (5.3-12.2) % Eos % (Auto) (0.8-7.0) Baso % (Auto) (0.1-1.2) % Neut # (Auto) (1.78-5.38) K/mm3 Lymph # (Auto) (1.32-3.57) K/mm3 Harding # (Auto) (0.30-0.82) K/mm3 Eos # (Auto) (0.04-0.54) K/mm3 Baso # (Auto) (0.01-0.08) K/mm3 Manual Slide Review D-Dimer, Quantitative (0.19-0.50) mg/L Sodium (136-145) mEq/L Potassium (3.5-5.1) mEq/L Chloride (98-107) mEq/L Carbon Dioxide (21-32) mEq/L Anion Gap (5-15) BUN (7-18) mg/dL Creatinine (0.7-1.3) mg/dL Est Cr Clr Drug Dosing mL/min Estimated GFR (MDRD) (>60) mL/min BUN/Creatinine Ratio (14-18) Glucose (70-99) mg/dL POC Glucose 118 H 284 H 171 H (70-99) mg/dL Calcium (8.5-10.1) mg/dL Magnesium (1.8-2.4) mg/dL Total Bilirubin (0.2-1.0) mg/dL AST (15-37) U/L ALT (16-63) U/L Alkaline Phosphatase (46-116) U/L C-Reactive Protein (<1.0) mg/dL Total Protein (6.4-8.2) g/dl Albumin (3.4-5.0) g/dl Globulin gm/dL Albumin/Globulin Ratio (1-2) 06/19/21 06/19/21 06/19/21 Range/Units 06:19 06:20 06:20 WBC 15.76 H (4.23-9.07) K/mm3 RBC 5.04 (4.63-6.08) M/mm3 Hgb 14.3 (13.7-17.5) gm/dl Hct 44.5 (40.1-51.0) % MCV 88.3 (79.0-92.2) fl MCH 28.4 (25.7-32.2) pg MCHC 32.1 L (32.2-35.5) g/dl RDW Std Deviation 47.2 H (35.1-43.9) fL Plt Count 448 H (163-337) K/mm3 MPV 9.0 L (9.4-12.3) fl Neut % (Auto) 91.6 H (34.0-67.9) % Lymph % (Auto) 3.3 L (21.8-53.1) % Harding % (Auto) 4.3 L (5.3-12.2) % Eos % (Auto) 0 L (0.8-7.0) Baso % (Auto) 0.1 (0.1-1.2) % Neut # (Auto) 14.44 H (1.78-5.38) K/mm3 Lymph # (Auto) 0.52 L (1.32-3.57) K/mm3 Harding # (Auto) 0.67 (0.30-0.82) K/mm3 Eos # (Auto) 0.00 L (0.04-0.54) K/mm3 Baso # (Auto) 0.02 (0.01-0.08) K/mm3 Manual Slide Review Abnormal smear D-Dimer, Quantitative 2.84 H (0.19-0.50) mg/L Sodium (136-145) mEq/L Potassium (3.5-5.1) mEq/L Chloride (98-107) mEq/L Carbon Dioxide (21-32) mEq/L Anion Gap (5-15) BUN (7-18) mg/dL Creatinine (0.7-1.3) mg/dL Est Cr Clr Drug Dosing mL/min Estimated GFR (MDRD) (>60) mL/min BUN/Creatinine Ratio (14-18) Glucose (70-99) mg/dL POC Glucose 162 H (70-99) mg/dL Calcium (8.5-10.1) mg/dL Magnesium (1.8-2.4) mg/dL Total Bilirubin (0.2-1.0) mg/dL AST (15-37) U/L ALT (16-63) U/L Alkaline Phosphatase (46-116) U/L C-Reactive Protein (<1.0) mg/dL Total Protein (6.4-8.2) g/dl Albumin (3.4-5.0) g/dl Globulin gm/dL Albumin/Globulin Ratio (1-2) 06/19/21 06/19/21 Range/Units 06:20 06:25 WBC (4.23-9.07) K/mm3 RBC (4.63-6.08) M/mm3 Hgb (13.7-17.5) gm/dl Hct (40.1-51.0) % MCV (79.0-92.2) fl MCH (25.7-32.2) pg MCHC (32.2-35.5) g/dl RDW Std Deviation (35.1-43.9) fL Plt Count (163-337) K/mm3 MPV (9.4-12.3) fl Neut % (Auto) (34.0-67.9) % Lymph % (Auto) (21.8-53.1) % Harding % (Auto) (5.3-12.2) % Eos % (Auto) (0.8-7.0) Baso % (Auto) (0.1-1.2) % Neut # (Auto) (1.78-5.38) K/mm3 Lymph # (Auto) (1.32-3.57) K/mm3 Harding # (Auto) (0.30-0.82) K/mm3 Eos # (Auto) (0.04-0.54) K/mm3 Baso # (Auto) (0.01-0.08) K/mm3 Manual Slide Review D-Dimer, Quantitative (0.19-0.50) mg/L Sodium 139 (136-145) mEq/L Potassium 4.5 (3.5-5.1) mEq/L Chloride 104 (98-107) mEq/L Carbon Dioxide 25 (21-32) mEq/L Anion Gap 14.5 (5-15) BUN 19 H (7-18) mg/dL Creatinine 0.7 (0.7-1.3) mg/dL Est Cr Clr Drug Dosing 118.77 mL/min Estimated GFR (MDRD) > 60 (>60) mL/min BUN/Creatinine Ratio 27.1 H (14-18) Glucose 186 H (70-99) mg/dL POC Glucose 163 H (70-99) mg/dL Calcium 9.2 (8.5-10.1) mg/dL Magnesium 2.1 (1.8-2.4) mg/dL Total Bilirubin 0.4 (0.2-1.0) mg/dL AST 14 L (15-37) U/L ALT 34 (16-63) U/L Alkaline Phosphatase 49 (46-116) U/L C-Reactive Protein 4.6 H* (<1.0) mg/dL Total Protein 6.9 (6.4-8.2) g/dl Albumin 2.5 L (3.4-5.0) g/dl Globulin 4.4 gm/dL Albumin/Globulin Ratio 0.6 L (1-2) Result Diagrams: 06/19/21 06:20 06/19/21 06:20 Sepsis Event Note - Evaluation Sepsis Screening Result: No Definite Risk - Focused Exam Vital Signs: Vital Signs Temp Resp BP BP Pulse Ox Pulse Ox 06/19/21 08:33 106/75 06/19/21 08:13 88 L 06/19/21 06:08 89 L 06/19/21 05:44 88 L 06/19/21 04:00 97.2 F 18 122/77 88 L 06/19/21 00:31 88 L 06/19/21 00:00 97.2 F 16 115/57 L 91 L 06/18/21 21:14 93 L - Problem List & Annotations (1) Hyperlipidemia SNOMED Code(s): 97875069 Code(s): E78.5 - HYPERLIPIDEMIA, UNSPECIFIED Status: Chronic Priority: Low Current Visit: No Qualifiers: Hyperlipidemia type: unspecified Qualified Code(s): E78.5 - Hyperlipidemia, unspecified (2) HTN (hypertension) SNOMED Code(s): 08331953 Code(s): I10 - ESSENTIAL (PRIMARY) HYPERTENSION Status: Chronic Priority: Low Current Visit: No Qualifiers: Hypertension type: unspecified Qualified Code(s): I10 - Essential (primary) hypertension (3) Elevated d-dimer SNOMED Code(s): 518829937 Code(s): R79.89 - OTHER SPECIFIED ABNORMAL FINDINGS OF BLOOD CHEMISTRY Status: Acute Priority: High Current Visit: Yes (4) Elevated C-reactive protein SNOMED Code(s): 571477168321627 Code(s): R79.82 - ELEVATED C-REACTIVE PROTEIN (CRP) Status: Acute Priority: High Current Visit: Yes (5) Leukocytosis SNOMED Code(s): 178601634, 730619844 Code(s): D72.829 - ELEVATED WHITE BLOOD CELL COUNT, UNSPECIFIED Status: Acute Priority: High Current Visit: Yes Qualifiers: Leukocytosis type: unspecified Qualified Code(s): D72.829 - Elevated white blood cell count, unspecified (6) Diabetes mellitus SNOMED Code(s): 35650249 Code(s): E11.9 - TYPE 2 DIABETES MELLITUS WITHOUT COMPLICATIONS Status: Chronic Priority: High Current Visit: Yes Qualifiers: Diabetes mellitus type: type 2 Diabetes mellitus care home insulin use: without care home use Diabetes mellitus complication status: with other specified complication Qualified Code(s): E11.69 - Type 2 diabetes mellitus with other specified complication (7) Hypoxia SNOMED Code(s): 270015823 Code(s): R09.02 - HYPOXEMIA Status: Acute Priority: High Current Visit: Yes (8) Pneumonia due to COVID-19 virus SNOMED Code(s): 594522330655178131 Code(s): U07.1 - COVID-19; J12.82 - PNEUMONIA DUE TO CORONAVIRUS DISEASE 2019 Status: Acute Priority: High Current Visit: Yes (9) Smoker SNOMED Code(s): 49409072 Code(s): F17.200 - NICOTINE DEPENDENCE, UNSPECIFIED, UNCOMPLICATED Status: Chronic Priority: High Current Visit: Yes (10) Gout SNOMED Code(s): 63745185 Code(s): M10.9 - GOUT, UNSPECIFIED Status: Chronic Priority: Low Current Visit: No Qualifiers: Gout site: unspecified site Gout etiology: unspecified cause Chronicity: unspecified Qualified Code(s): M10.9 - Gout, unspecified (11) Vitamin D deficiency SNOMED Code(s): 88799062 Code(s): E55.9 - VITAMIN D DEFICIENCY, UNSPECIFIED Status: Acute Priority: Medium Current Visit: Yes - Problem List Review Problem List Initiated/Reviewed/Updated: Yes - My Orders Last 24 Hours: My Active Orders 06/18/21 10:45 methylPREDNISolone Sod Succ [Solu-MEDROL] 60 mg IVPUSH Q8H 06/18/21 21:00 Enoxaparin [Lovenox] 60 mg SUBCUT Q12H - Assessment Assessment:: 06/12/2021 This is a 55-year-old male admitted to the floor with hypoxia secondary to COVI D-19 pneumonia. He currently is on 45 L with an FiO2 of 75%. Labs today show a WBC of 10.22. Hemoglobin 30.6. Platelet 269,000. Neutrophils elevated 75.1%. D-dimer is up to 3.85. Sodium 144. Potassium 3.8. Chloride 109. Carbon dioxide 25. Anion gap is 13.8. BUN is 14. Creatinine 0.7. GFR greater than 60. Blood glucose levels have been from 96-2 14. Phosphorus 3.5. Magnesium 1.9. Total bilirubin 0.3. AST is 30, ALT 37, alkaline phosphatase 52. CRP is 12.6. Protein 5.5. Albumin is down to 1.9. Given the patient's worsening oxygen demand and elevated D-dimer CTA is obtained showing 1. Bilateral pulmonary consolidation likely due to COVID-19. 2. Mediastinal adenopathy, most likely reactive. There are no signs of any pulmonary emboli. We will therefore increase patient's DVT prophylaxis up to 40 mg twice daily Lovenox. Patient will be started on 20 mg twice daily Pepcid and zinc supplementation. Vitamin D level has been ordered. Patient will remain hospitalized pending improvement in oxygen demand. Unknown length of stay time. Overall he states he feels about the same as yesterday. Continues to have mild diarrhea at times and reports weakness. 06/13/2021 This is a 55-year-old male admitted to the hospital for COVID-19 pneumonia. He has been proning today and saturations are in the mid to low 90s while proning. He has been utilizing incentive spirometer and Acapella. He has been a little bit down today and reports he does not feel like he is getting much better. Overall his lung sounds have greatly improved. He remains on high flow 50 L with an FiO2 of 70%. Labs today show a WBC of 9.34. Hemoglobin 13.7. Platelet 357,000. Neutrophils are 76.4%. Sodium is 144. Potassium 3.5. Anion gap is 15.5. BUN 12. Creatinine 0.8.. GFR greater than 60. Glucose has been between 102 42. Magnesium 1.9. Bilirubin 0.4. AST is 27, ALT 41, alkaline phosphatase 58. CRP is improved to 10.7. Protein 6.1. Vitamin D obtained yesterday was low at 17.4 and we will start supplementation for vitamin D today. Albumin is improved to 2.1. We will continue treatment with unknown length of stay due to severity of COVID-19 symptoms. 06/14/2021 55-year-old male admitted to the hospital with hypoxia due to COVID-19 pneumonia. He is currently on 50 L of oxygen with 75% FiO2. States he has been proning as much as possible as well as using his I-S and Acapella. Has a very flat affect. Was upset on rounds this morning as he states he has not been getting his muscle relaxer with his morning pills. Labs today reveal a WBC of 13.29, hemoglobin 13.3, hematocrit 40.8, platelet count 395,000, D-dimer 3.19, sodium 144, potassium 3.8, chloride 108, anion gap 13.8, BUN 16, creatinine 0.7, GFR greater than 60, glucose has ranged from [id number], magnesium 1.9, C-reactive protein 5.3 continue with current treatment. Unknown length of stay due to the severity of Covid symptoms. 06/15/2021 This is a 55-year-old male admitted to the floor with COVID-19 pneumonia. He had worsening oxygen saturations and today was requiring 60 L of oxygen with an FiO2 of 95%. Because of this he was moved up to the ICU. He continues to utilize his incentive spirometry and Acapella and prone. We will continue dexamethasone and baricitinib. Respiratory therapy continues to work with him. Clinically he does not look to be in any acute respiratory distress. Labs today show WBC of 14.02. Hemoglobin 14.1. Platelet 4 and 26,000. Neutrophils are elevated 79.9%. Sodium 143. Potassium 3.8. Chloride 107. Carbon dioxide 27. Anion gap 12.8. BUN is 13. Creatinine 0.7. GFR greater than 60. Glucose is 97-93. Calcium is 8.5. Magnesium 1.8. Bilirubin 0.5. AST is 24, ALT 49, alk marek phosphatase 54. CRP is 5.9. Protein is 5.9 and albumin is 2.0. We will continue current treatment plan. Will increase to BiPAP if necessary. Unknown length of stay due to severity of COVID-19 symptoms. 06/16/2021 Patient improved overnight decreasing his high flow nasal cannula to 50 L and FiO2 of currently 80%. Continue with current treatment as outlined above. 06/17/2021 Pt is still requiring 55L of oxygen at 80% high flow nasal cannula. He is proning some. He is afebrile. 06/18/2021 56-year-old male admitted to the floor for COVID-19 pneumonia. Remains on high flow oxygen 50 L at 80% FiO2. He has been quite deconditioned from a respiratory standpoint and does take quite some time to recover after exertion. Overall states he is feeling quite a bit better. WBC is 12.40. Platelet 403,000. Neutrophils are elevated at 82.5%. D-dimer 6.36. Sodium 141. Potassium 4.1. Carbon dioxide 28. Anion gap 14.1. BUN is 18. Creatinine 0.8. GFR greater than 60. Glucose 130. We will start the patient on 60 mg twice daily Lovenox given his increasing D-dimer. This is 0.5 mg/kg. We will start the patient on 60 mg every 8 hour Solu-Medrol. He is to continue proning regularly and also utilizing his incentive spirometer and Acapella. Unknown length of stay due to severity of symptoms. Patient will remain in ICU status. 06/19/2021 56-year-old male hospitalized for COVID-19 pneumonia symptoms. He has been in the ICU for several days. We have finally been able to wean him down slightly on his high flow. He is 40 L with a FiO2 of 70% currently. Saturations have been in the upper 80s to low 90s. He has continued to take quite some time to recover after exertion. He has been proning quite regularly. Otherwise says he feels okay. He has been having some back pain and is receiving a skeletal muscle relaxant for this. WBC is elevated at 15.76. He platelet 448,000. Neutrophils are elevated at 91.6. D-dimer has improved to 2.84. Sodium 139. Potassium 4.5. Chloride 104. Carbon oxide 25. Anion gap is 14.5. BUN is 19. Creatinine 0.7. GFR greater than 60. Glucose 186. Magnesium is 2.1. CRP is 4.6. Bilirubin 0.4. AST 14, ALT 34, alkaline phosphatase 49. Albumin is 2.5. Protein 6.9. We will continue current treatment plan. As he has improved with his high flow settings we will downgrade him to MedSurg status with telemetry today. Continue current treatment plan. Patient will remain hospitalized and likely require several more days. - Plan Plan:: Pneumonia due to COVID-19 virus Leukocytosis Elevated D-Dimer Hypoxia * O2 as needed with goal saturations 88 to 95% * High flow oxygen * Continue Lovenox 60 mg twice daily due to elevated D-dimer * I-S/Acapella * PRN albuterol inhaler * PRN Duonebs * Prone whenever able * Ambulate around room * Continue solumedrol 60mg Q8Hr * RT consultation * PT/OT * Daily labs * Every 48 hour D-dimer * Airborne/contact isolation * Telemetry * Continuous pulse oximetry * Zinc supplementation * 20 mg twice daily Pepcid * Completed remdesivir, azithromycin, rocephin, and dexamethasone * Baricitinib - day 09/18 * Scheduled Mucinex twice daily Morbid obesity * Lifestyle modifications. Hyperlipidemia * Continue home rosuvastatin * No acute concern HTN (hypertension) * Continue home lisinopril * No acute concerns Diabetes mellitus * Continue home Jardiance * QID AC and bedtime blood glucose checks * Medium dose sliding scale insulin * Hold home metformin * Diabetic diet Tobacco abuse * Nicotine patch daily * Cessation counseling * Offer nicotine patches at discharge Gout * No acute concerns * No chronic home gout medications * Monitor Vitamin D deficiency * Begin 5,000 unit vitamin D supplementation * PCP to follow-up Code status: Full code PCP: Dr. Rubio DVT prophylaxis: BID Lovenox as above Disposition: Patient upgraded to ICU status on 06/15/2021 due to rapidly d eteriorating oxygen saturations the need for high flow oxygen. Downgraded to MSP status with telemetry on 06/19/2021. Unknown length of stay as patient continues to require significant amounts of high flow oxygen. Goal oxygen demand would be 2 L or less on nasal cannula. Length of stay greater than 96 hours due to continued need for COVID-19 treatment.
[2021-06-19] MEDS: Methocarbamol 500 MG Tab PO PRN ×3 (08:57→21:04)
[2021-06-19] MEDS: Albuterol/Ipratropium 3.0-0.5 MG/3 ML Neb Soln NEB PRN ×2 (14:15→20:30)
[2021-06-20] MEDS: methylPREDNISolone Sodium Succinate 40 MG/1 ML SDV IVPUSH SCH ×3 (03:42→17:55)
[2021-06-20] MEDS: Albuterol/Ipratropium 3.0-0.5 MG/3 ML Neb Soln NEB PRN ×3 (07:20→21:30)
--- NOTE | 2021-06-20 07:21 | PCM.PN ---
- General Info Date of Service: 06/20/21 Admission Dx/Problem (Free Text): Admission Diagnosis/Problem Admission Diagnosis/Problem Hypoxia Covid 19 pneumonia with hypoxia Functional Status: Reports: Pain Controlled, Tolerating Diet, Ambulating, Urinating, Incentive Spirometry, Other (Acapella ). Denies: New Symptoms - Review of Systems General: Reports: No Symptoms. Denies: Fever, Weakness, Fatigue, Malaise, Chills HEENT: Reports: No Symptoms. Denies: Headaches, Sore Throat Pulmonary: Reports: Shortness of Breath, Cough, Sputum (Occasional) Cardiovascular: Reports: Dyspnea on Exertion. Denies: Chest Pain, Palpitations, Edema Gastrointestinal: Reports: No Symptoms. Denies: Abdominal Pain, Constipation, Diarrhea, Nausea, Vomiting Genitourinary: Reports: No Symptoms. Denies: Pain Musculoskeletal: Reports: No Symptoms Skin: Reports: No Symptoms. Denies: Cyanosis Neurological: Reports: No Symptoms. Denies: Confusion, Dizziness, Headache, Numbness, Pre-Existing Deficit, Tingling, Difficulty Walking, Weakness, Gait Disturbance Psychiatric: Reports: No Symptoms - Patient Data Vitals - Most Recent: Last Vital Signs Temp 97.7 F 06/19/21 23:58 Pulse 81 06/19/21 23:58 Resp 22 H 06/19/21 23:58 BP 126/100 H 06/19/21 23:58 Pulse Ox 93 L 06/20/21 05:56 Weight - Most Recent: 259 lb 6.4 oz I&O - Last 24 Hours: Intake & Output 06/19/21 06/20/21 06/20/21 22:59 06:59 14:59 Intake Total 2340 Output Total 800 Balance 1540 Lab Results Last 24 Hours: Laboratory Results - last 24 hr 06/19/21 06/19/21 06/19/21 Range/Units 06:20 06:20 11:25 Manual Slide Review Abnormal smear Sodium 139 (136-145) mEq/L Potassium 4.5 (3.5-5.1) mEq/L Chloride 104 (98-107) mEq/L Carbon Dioxide 25 (21-32) mEq/L Anion Gap 14.5 (5-15) BUN 19 H (7-18) mg/dL Creatinine 0.7 (0.7-1.3) mg/dL Est Cr Clr Drug Dosing 118.77 mL/min Estimated GFR (MDRD) > 60 (>60) mL/min BUN/Creatinine Ratio 27.1 H (14-18) Glucose 186 H (70-99) mg/dL POC Glucose 223 H (70-99) mg/dL Calcium 9.2 (8.5-10.1) mg/dL Magnesium 2.1 (1.8-2.4) mg/dL Total Bilirubin 0.4 (0.2-1.0) mg/dL AST 14 L (15-37) U/L ALT 34 (16-63) U/L Alkaline Phosphatase 49 (46-116) U/L C-Reactive Protein 4.6 H* (<1.0) mg/dL Total Protein 6.9 (6.4-8.2) g/dl Albumin 2.5 L (3.4-5.0) g/dl Globulin 4.4 gm/dL Albumin/Globulin Ratio 0.6 L (1-2) 06/19/21 06/19/21 06/19/21 Range/Units 17:04 21:03 21:03 Manual Slide Review Sodium (136-145) mEq/L Potassium (3.5-5.1) mEq/L Chloride (98-107) mEq/L Carbon Dioxide (21-32) mEq/L Anion Gap (5-15) BUN (7-18) mg/dL Creatinine (0.7-1.3) mg/dL Est Cr Clr Drug Dosing mL/min Estimated GFR (MDRD) (>60) mL/min BUN/Creatinine Ratio (14-18) Glucose (70-99) mg/dL POC Glucose 213 H 309 H 309 H (70-99) mg/dL Calcium (8.5-10.1) mg/dL Magnesium (1.8-2.4) mg/dL Total Bilirubin (0.2-1.0) mg/dL AST (15-37) U/L ALT (16-63) U/L Alkaline Phosphatase (46-116) U/L C-Reactive Protein (<1.0) mg/dL Total Protein (6.4-8.2) g/dl Albumin (3.4-5.0) g/dl Globulin gm/dL Albumin/Globulin Ratio (1-2) 06/20/21 Range/Units 06:30 Manual Slide Review Sodium (136-145) mEq/L Potassium (3.5-5.1) mEq/L Chloride (98-107) mEq/L Carbon Dioxide (21-32) mEq/L Anion Gap (5-15) BUN (7-18) mg/dL Creatinine (0.7-1.3) mg/dL Est Cr Clr Drug Dosing mL/min Estimated GFR (MDRD) (>60) mL/min BUN/Creatinine Ratio (14-18) Glucose (70-99) mg/dL POC Glucose 170 H (70-99) mg/dL Calcium (8.5-10.1) mg/dL Magnesium (1.8-2.4) mg/dL Total Bilirubin (0.2-1.0) mg/dL AST (15-37) U/L ALT (16-63) U/L Alkaline Phosphatase (46-116) U/L C-Reactive Protein (<1.0) mg/dL Total Protein (6.4-8.2) g/dl Albumin (3.4-5.0) g/dl Globulin gm/dL Albumin/Globulin Ratio (1-2) Med Orders - Current: Current Medications Acetaminophen (Acetaminophen 325 Mg Tab) 650 mg PO Q4H PRN PRN Reason: Pain (Mild 1-3)/fever Last Admin: 06/12/21 10:29 Dose: 650 mg Documented by: Albuterol (Albuterol 6.7 Gm Inhaler) 0 gm INH Q2H PRN PRN Reason: sob/wheezing Last Admin: 06/19/21 08:13 Dose: 2 puff Documented by: Albuterol/Ipratropium (Albuterol/Ipratropium 3.0-0.5 Mg/3 Ml Neb Soln) 3 ml NEB QIDRT PRN PRN Reason: Shortness Of Breath/wheezing Last Admin: 06/20/21 07:20 Dose: 3 ml Documented by: Calcium Carbonate/Glycine (Calcium Carbonate 500 Mg Tab.Chew) 1,000 mg PO Q2HR PRN PRN Reason: Heartburn Last Admin: 06/10/21 17:01 Dose: 1,000 mg Documented by: Cholecalciferol (Cholecalciferol (Vitamin D3) 5,000 Unit Cap) 5,000 unit PO DAILY [facility] Last Admin: 06/19/21 08:31 Dose: 5,000 unit Documented by: Docusate Sodium (Docusate Sodium 100 Mg Cap) 100 mg PO BID [facility] Last Admin: 06/19/21 21:04 Dose: 100 mg Documented by: Enoxaparin Sodium (Enoxaparin 60 Mg/0.6 Ml Syringe) 60 mg SUBCUT Q12H [facility] Last Admin: 06/19/21 21:04 Dose: 60 mg Documented by: Famotidine (Famotidine 20 Mg Tab) 20 mg PO BID [facility] Last Admin: 06/19/21 21:05 Dose: 20 mg Documented by: Guaifenesin (Guaifenesin 600 Mg Tab.Er) 600 mg PO BID [facility] Last Admin: 06/19/21 21:04 Dose: 600 mg Documented by: Insulin Human Lispro (Insulin Lispro 100 Unit/Ml 10 Ml Vial) 0 unit SUBCUT QIDACANDBED [facility]; Protocol Last Admin: 06/19/21 22:34 Dose: 8 units Documented by: Lisinopril (Lisinopril 20 Mg Tab) 40 mg PO DAILY [facility] Last Admin: 06/19/21 08:33 Dose: 40 mg Documented by: Lorazepam (Lorazepam 0.5 Mg Tab) 0.5 mg PO TID PRN PRN Reason: Anxiety Methocarbamol (Methocarbamol 500 Mg Tab) 1,000 mg PO Q6H PRN PRN Reason: Spasms Last Admin: 06/19/21 21:04 Dose: 1,000 mg Documented by: Methylprednisolone Sodium Succinate (Methylprednisolone Sodium Succinate 40 Mg/1 Ml Sdv) 60 mg IVPUSH Q8H [facility] Last Admin: 06/20/21 03:42 Dose: 60 mg Documented by: Miscellaneous Information (Remove Nicotine Patch) 1 ea TRDERM DAILY [facility] Last Admin: 06/19/21 08:45 Dose: 1 ea Documented by: Nicotine (Nicotine 14 Mg/24 Hr Patch) 14 mg TRDERM DAILY [facility] Last Admin: 06/19/21 08:31 Dose: 14 mg Documented by: Ondansetron HCl (Ondansetron 4 Mg/2 Ml Sdv) 4 mg IV Q4H PRN PRN Reason: Nausea/Vomiting Polyethylene Glycol (Polyethylene Glycol 3350 Powder 17 Gm Packet) 17 gm PO DAILY [facility] Last Admin: 06/19/21 08:31 Dose: 17 gm Documented by: Rosuvastatin Calcium (Rosuvastatin 10 Mg Tab) 20 mg PO DAILY [facility] Last Admin: 06/19/21 08:31 Dose: 20 mg Documented by: Temazepam (Temazepam 15 Mg Cap) 15 mg PO BEDTIME PRN PRN Reason: Sleep Last Admin: 06/10/21 21:59 Dose: 15 mg Documented by: Zinc Sulfate (Zinc Sulfate 220 Mg Cap) 220 mg PO DAILY [facility] Last Admin: 06/19/21 08:32 Dose: 220 mg Documented by: Discontinued Medications Acetylcysteine (Acetylcysteine 20% 200 Mg/Ml 30 Ml Nebulizer Soln Sdv) 800 mg NEB ONETIME ONE Stop: 06/09/21 09:21 Last Admin: 06/09/21 11:40 Dose: Not Given Documented by: Acetylcysteine (Acetylcysteine 20% 200 Mg/Ml 4 Ml Nebulizer Soln Sdv) 800 mg NEB ONETIME ONE Stop: 06/09/21 09:46 Last Admin: 06/09/21 10:10 Dose: 800 mg Documented by: Acetylcysteine (Acetylcysteine 20% 200 Mg/Ml 4 Ml Nebulizer Soln Sdv) 200 mg NEB ONETIME ONE Stop: 06/13/21 13:31 Last Admin: 06/13/21 15:38 Dose: 200 mg Documented by: Dexamethasone (Dexamethasone 4 Mg Tab) 6 mg PO ONETIME ONE Stop: 06/07/21 19:48 Last Admin: 06/07/21 20:28 Dose: 6 mg Documented by: Dexamethasone (Dexamethasone 10 Mg/Ml Sdv) 6 mg IVPUSH DAILY [facility] Stop: 06/16/21 09:01 Last Admin: 06/12/21 11:19 Dose: 6 mg Documented by: Dexamethasone (Dexamethasone 4 Mg Tab) 6 mg PO DAILY [facility] Stop: 06/16/21 09:01 Last Admin: 06/16/21 08:46 Dose: 6 mg Documented by: Enoxaparin Sodium (Enoxaparin 40 Mg/0.4 Ml Syringe) 40 mg SUBCUT Q12H [facility] Last Admin: 06/12/21 23:34 Dose: 40 mg Documented by: Enoxaparin Sodium (Enoxaparin 40 Mg/0.4 Ml Syringe) 40 mg SUBCUT Q12H [facility] Last Admin: 06/18/21 08:20 Dose: 40 mg Documented by: Enoxaparin Sodium (Enoxaparin 60 Mg/0.6 Ml Syringe) 60 mg SUBCUT Q12H [facility] Enoxaparin Sodium (Enoxaparin 30 Mg/0.3 Ml Syringe) 20 mg SUBCUT ONETIME ONE Stop: 06/18/21 09:17 Last Admin: 06/18/21 10:25 Dose: Not Given Documented by: Enoxaparin Sodium (Enoxaparin 40 Mg/0.4 Ml Syringe) 20 mg SUBCUT ONETIME ONE Stop: 06/18/21 10:31 Last Admin: 06/18/21 10:26 Dose: 20 mg Documented by: Heparin Sodium (Porcine) (Heparin Sodium 5,000 Units/Ml Vial) 5,000 units SUBCUT Q8H [facility] Last Admin: 06/12/21 11:49 Dose: Not Given Documented by: Sodium Chloride (Normal Saline) 100 mls @ 60 mls/min IV ASDIRECTED [facility] Last Admin: 06/07/21 19:29 Dose: 60 mls/min Documented by: Remdesivir 200 mg/ Sodium (Chloride) 250 mls @ 250 mls/hr IV ONETIME ONE Stop: 06/07/21 20:38 Last Admin: 06/07/21 20:54 Dose: 250 mls/hr Documented by: Remdesivir 100 mg/ Sodium (Chloride) 100 mls @ 100 mls/hr IV Q24H [facility] Stop: 06/11/21 20:59 Last Admin: 06/11/21 20:39 Dose: 100 mls/hr Documented by: Ceftriaxone Sodium 2 gm/ (Sodium Chloride) 100 mls @ 200 mls/hr IV Q24H [facility] Last Admin: 06/12/21 10:10 Dose: 200 mls/hr Documented by: Azithromycin 500 mg/ Sodium (Chloride) 250 mls @ 250 mls/hr IV Q24H [facility] Last Admin: 06/12/21 10:11 Dose: 250 mls/hr Documented by: Sodium Chloride (Normal Saline) 100 mls @ 60 mls/hr IV ASDIRECTED [facility] Stop: 06/12/21 13:00 Last Admin: 06/12/21 11:28 Dose: 60 mls/hr Documented by: Ibuprofen (Ibuprofen 200 Mg Tab) 600 mg PO Q4HR PRN PRN Reason: Pain Ibuprofen (Ibuprofen 600 Mg Tab) 600 mg PO Q4HR PRN PRN Reason: Pain Iopamidol (Iopamidol 755 Mg/Ml 100 Ml Bottle) 100 ml IVPUSH ONETIME ONE Stop: 06/07/21 19:05 Last Admin: 06/07/21 19:29 Dose: 100 ml Documented by: Iopamidol (Iopamidol 755 Mg/Ml 100 Ml Bottle) 100 ml IVPUSH ONETIME ONE Stop: 06/12/21 11:04 Last Admin: 06/12/21 11:28 Dose: 100 ml Documented by: Lorazepam (Lorazepam 0.5 Mg Tab) 0.5 mg PO TID PRN PRN Reason: Anxiety Metformin HCl (Metformin 500 Mg Tab) 1,000 mg PO BID [facility] Last Admin: 06/10/21 09:49 Dose: 1,000 mg Documented by: Morphine Sulfate (Morphine 2 Mg/Ml Syringe) 2 mg IVPUSH Q2H PRN PRN Reason: Pain (severe 7-10) Stop: 06/09/21 07:44 Jardiance ( Empagliflozin 10 Mg Tablet Ptom 0 mg PO DAILY [facility] Last Admin: 06/18/21 08:30 Dose: 10 mg Documented by: Sodium Chloride (Sodium Chloride 0.9% 10 Ml Sdv) 10 ml FLUSH ONETIME ONE Stop: 06/07/21 19:05 Last Admin: 06/07/21 19:29 Dose: 10 ml Documented by: Sodium Chloride (Sodium Chloride 0.9% 10 Ml Syringe) 10 ml FLUSH ONETIME ONE Stop: 06/12/21 11:04 Last Admin: 06/12/21 11:28 Dose: 10 ml Documented by: - Exam Quality Assessment: Supplemental Oxygen (50 L at 75% FiO2), DVT Prophylaxis. No: Urine Catheter General: Alert, Oriented, Cooperative, No Acute Distress HEENT: Pupils Equal, Pupils Reactive, Mucous Membr. Moist/[place] Neck: Supple, Trachea Midline Lungs: Normal Respiratory Effort, Decreased Breath Sounds, Other (Reported episode of low saturations and dyspnea this morning which has since improved with increase in oxygen). No: Crackles, Rhonchi, Wheezing GI/Abdominal Exam: Normal Bowel Sounds, Soft, Non-Tender, No Distention (Male) Exam: Deferred Back Exam: Normal Inspection, Full Range of Motion Extremities: Normal Inspection, Normal Range of Motion, Non-Tender, No Pedal Edema, Normal Capillary Refill Peripheral Pulses: 2+: Dorsalis Pedis (L), Dorsalis Pedis (R), 3+: Radial (L), Radial (R) Skin: Warm, Dry, Intact Neurological: No New Focal Deficit Psy/Mental Status: Alert, Normal Affect, Normal Mood - Patient Data Lab Results Last 24 hrs: Laboratory Results - last 24 hr 06/19/21 06/19/21 06/19/21 Range/Units 06:20 06:20 11:25 Manual Slide Review Abnormal smear Sodium 139 (136-145) mEq/L Potassium 4.5 (3.5-5.1) mEq/L Chloride 104 (98-107) mEq/L Carbon Dioxide 25 (21-32) mEq/L Anion Gap 14.5 (5-15) BUN 19 H (7-18) mg/dL Creatinine 0.7 (0.7-1.3) mg/dL Est Cr Clr Drug Dosing 118.77 mL/min Estimated GFR (MDRD) > 60 (>60) mL/min BUN/Creatinine Ratio 27.1 H (14-18) Glucose 186 H (70-99) mg/dL POC Glucose 223 H (70-99) mg/dL Calcium 9.2 (8.5-10.1) mg/dL Magnesium 2.1 (1.8-2.4) mg/dL Total Bilirubin 0.4 (0.2-1.0) mg/dL AST 14 L (15-37) U/L ALT 34 (16-63) U/L Alkaline Phosphatase 49 (46-116) U/L C-Reactive Protein 4.6 H* (<1.0) mg/dL Total Protein 6.9 (6.4-8.2) g/dl Albumin 2.5 L (3.4-5.0) g/dl Globulin 4.4 gm/dL Albumin/Globulin Ratio 0.6 L (1-2) 06/19/21 06/19/21 06/19/21 Range/Units 17:04 21:03 21:03 Manual Slide Review Sodium (136-145) mEq/L Potassium (3.5-5.1) mEq/L Chloride (98-107) mEq/L Carbon Dioxide (21-32) mEq/L Anion Gap (5-15) BUN (7-18) mg/dL Creatinine (0.7-1.3) mg/dL Est Cr Clr Drug Dosing mL/min Estimated GFR (MDRD) (>60) mL/min BUN/Creatinine Ratio (14-18) Glucose (70-99) mg/dL POC Glucose 213 H 309 H 309 H (70-99) mg/dL Calcium (8.5-10.1) mg/dL Magnesium (1.8-2.4) mg/dL Total Bilirubin (0.2-1.0) mg/dL AST (15-37) U/L ALT (16-63) U/L Alkaline Phosphatase (46-116) U/L C-Reactive Protein (<1.0) mg/dL Total Protein (6.4-8.2) g/dl Albumin (3.4-5.0) g/dl Globulin gm/dL Albumin/Globulin Ratio (1-2) 06/20/21 Range/Units 06:30 Manual Slide Review Sodium (136-145) mEq/L Potassium (3.5-5.1) mEq/L Chloride (98-107) mEq/L Carbon Dioxide (21-32) mEq/L Anion Gap (5-15) BUN (7-18) mg/dL Creatinine (0.7-1.3) mg/dL Est Cr Clr Drug Dosing mL/min Estimated GFR (MDRD) (>60) mL/min BUN/Creatinine Ratio (14-18) Glucose (70-99) mg/dL POC Glucose 170 H (70-99) mg/dL Calcium (8.5-10.1) mg/dL Magnesium (1.8-2.4) mg/dL Total Bilirubin (0.2-1.0) mg/dL AST (15-37) U/L ALT (16-63) U/L Alkaline Phosphatase (46-116) U/L C-Reactive Protein (<1.0) mg/dL Total Protein (6.4-8.2) g/dl Albumin (3.4-5.0) g/dl Globulin gm/dL Albumin/Globulin Ratio (1-2) Result Diagrams: 06/19/21 06:20 06/19/21 06:20 Sepsis Event Note - Evaluation Sepsis Screening Result: Sepsis Risk - Focused Exam Vital Signs: Vital Signs Temp Pulse Resp BP Pulse Ox Pulse Ox 06/20/21 05:56 93 L 06/20/21 03:35 88 L 06/20/21 03:29 86 L 06/20/21 03:27 82 L 06/19/21 23:58 97.7 F 81 22 H 126/100 H 91 L 06/19/21 21:01 83 18 115/59 L 89 L 06/19/21 20:30 88 L - Problem List & Annotations (1) Hyperlipidemia SNOMED Code(s): 42211392 Code(s): E78.5 - HYPERLIPIDEMIA, UNSPECIFIED Status: Chronic Priority: Low Current Visit: No Qualifiers: Hyperlipidemia type: unspecified Qualified Code(s): E78.5 - Hyperlipidemia, unspecified (2) HTN (hypertension) SNOMED Code(s): 07423794 Code(s): I10 - ESSENTIAL (PRIMARY) HYPERTENSION Status: Chronic Priority: Low Current Visit: No Qualifiers: Hypertension type: unspecified Qualified Code(s): I10 - Essential (primary) hypertension (3) Elevated d-dimer SNOMED Code(s): 531761873 Code(s): R79.89 - OTHER SPECIFIED ABNORMAL FINDINGS OF BLOOD CHEMISTRY Status: Acute Priority: High Current Visit: Yes (4) Elevated C-reactive protein SNOMED Code(s): 652991514040889 Code(s): R79.82 - ELEVATED C-REACTIVE PROTEIN (CRP) Status: Acute Priority: High Current Visit: Yes (5) Leukocytosis SNOMED Code(s): 430393466, 366835390 Code(s): D72.829 - ELEVATED WHITE BLOOD CELL COUNT, UNSPECIFIED Status: Acute Priority: High Current Visit: Yes Qualifiers: Leukocytosis type: unspecified Qualified Code(s): D72.829 - Elevated white blood cell count, unspecified (6) Diabetes mellitus SNOMED Code(s): 98359070 Code(s): E11.9 - TYPE 2 DIABETES MELLITUS WITHOUT COMPLICATIONS Status: Chronic Priority: High Current Visit: Yes Qualifiers: Diabetes mellitus type: type 2 Diabetes mellitus fci insulin use: without buttermaker continuous churn use Diabetes mellitus complication status: with other specified complication Qualified Code(s): E11.69 - Type 2 diabetes mellitus with other specified complication (7) Hypoxia SNOMED Code(s): 705718655 Code(s): R09.02 - HYPOXEMIA Status: Acute Priority: High Current Visit: Yes (8) Pneumonia due to COVID-19 virus SNOMED Code(s): 955772915223930148 Code(s): U07.1 - COVID-19; J12.82 - PNEUMONIA DUE TO CORONAVIRUS DISEASE 2018 Status: Acute Priority: High Current Visit: Yes (9) Smoker SNOMED Code(s): 34490390 Code(s): F17.200 - NICOTINE DEPENDENCE, UNSPECIFIED, UNCOMPLICATED Status: Chronic Priority: High Current Visit: Yes (10) Gout SNOMED Code(s): 01965949 Code(s): M10.9 - GOUT, UNSPECIFIED Status: Chronic Priority: Low Current Visit: No Qualifiers: Gout site: unspecified site Gout etiology: unspecified cause Chronicity: unspecified Qualified Code(s): M10.9 - Gout, unspecified (11) Vitamin D deficiency SNOMED Code(s): 11237945 Code(s): E55.9 - VITAMIN D DEFICIENCY, UNSPECIFIED Status: Acute Priority: Medium Current Visit: Yes - Problem List Review Problem List Initiated/Reviewed/Updated: Yes - My Orders Last 24 Hours: My Active Orders 06/19/21 11:54 Patient Status [ADT] Routine - Assessment Assessment:: 06/12/2021 This is a 55-year-old male admitted to the floor with hypoxia secondary to COVID-19 pneumonia. He currently is on 45 L with an FiO2 of 75%. Labs today show a WBC of 10.22. Hemoglobin 30.6. Platelet 269,000. Neutrophils elevated 75.1%. D-dimer is up to 3.85. Sodium 144. Potassium 3.8. Chloride 109. Carbon dioxide 25. Anion gap is 13.8. BUN is 14. Creatinine 0.7. GFR greater than 60. Blood glucose levels have been from 96-2 14. Phosphorus 3.5. Magnesium 1.9. Total bilirubin 0.3. AST is 30, ALT 37, alkaline phosphatase 52. CRP is 12.6. Protein 5.5. Albumin is down to 1.9. Given the patient's worsening oxygen demand and elevated D-dimer CTA is obtained showing 1. Bilateral pulmonary consolidation likely due to COVID-19. 2. Mediastinal adenopathy, most likely reactive. There are no signs of any pulmonary emboli. We will therefore increase patient's DVT prophylaxis up to 40 mg twice daily Lovenox. Patient will be started on 20 mg twice daily Pepcid and zinc supplementation. Vitamin D level has been ordered. Patient will remain hospitalized pending improvement in oxygen demand. Unknown length of stay time. Overall he states he feels about the same as yesterday. Continues to have mild diarrhea at times and reports weakness. 06/13/2021 This is a 55-year-old male admitted to the hospital for COVID-19 pneumonia. He has been proning today and saturations are in the mid to low 90s while proning. He has been utilizing incentive spirometer and Acapella. He has been a little bit down today and reports he does not feel like he is getting much better. Overall his lung sounds have greatly improved. He remains on high flow 50 L with an FiO2 of 70%. Labs today show a WBC of 9.34. Hemoglobin 13.7. Platelet 357,000. Neutrophils are 76.4%. Sodium is 144. Potassium 3.5. Anion gap is 15.5. BUN 12. Creatinine 0.8.. GFR greater than 60. Glucose has been between 102 42. Magnesium 1.9. Bilirubin 0.4. AST is 27, ALT 41, alkaline phosphatase 58. CRP is improved to 10.7. Protein 6.1. Vitamin D obtained yesterday was low at 17.4 and we will start supplementation for vitamin D today. Albumin is improved to 2.1. We will continue treatment with unknown length of stay due to severity of COVID-19 symptoms. 06/14/2021 55-year-old male admitted to the hospital with hypoxia due to COVID-19 pneumonia. He is currently on 50 L of oxygen with 75% FiO2. States he has been proning as much as possible as well as using his I-S and Acapella. Has a very flat affect. Was upset on rounds this morning as he states he has not been getting his muscle relaxer with his morning pills. Labs today reveal a WBC of 13.29, hemoglobin 13.3, hematocrit 40.8, platelet count 395,000, D-dimer 3.19, sodium 144, potassium 3.8, chloride 108, anion gap 13.8, BUN 16, creatinine 0.7, GFR greater than 60, glucose has ranged from 351762, magnesium 1.9, C-reactive protein 5.3 continue with current treatment. Unknown length of stay due to the severity of Covid symptoms. 06/15/2021 This is a 55-year-old male admitted to the floor with COVID-19 pneumonia. He had worsening oxygen saturations and today was requiring 60 L of oxygen with an FiO2 of 95%. Because of this he was moved up to the ICU. He continues to utilize his incentive spirometry and Acapella and prone. We will continue dexamethasone and baricitinib. Respiratory therapy continues to work with him. Clinically he does not look to be in any acute respiratory distress. Labs today show WBC of 14.02. Hemoglobin 14.1. Platelet 4 and 26,000. Neutrophils are elevated 79.9%. Sodium 143. Potassium 3.8. Chloride 107. Carbon dioxide 27. Anion gap 12.8. BUN is 13. Creatinine 0.7. GFR greater than 60. Glucose is 97-93. Calcium is 8.5. Magnesium 1.8. Bilirubin 0.5. AST is 24, ALT 49, alkaline phosphatase 54. CRP is 5.9. Protein is 5.9 and albumin is 2.0. We will continue current treatment plan. Will increase to BiPAP if necessary. Unknown length of stay due to severity of COVID-19 symptoms. 06/16/2021 Patient improved overnight decreasing his high flow nasal cannula to 50 L and FiO2 of currently 80%. Continue with current treatment as outlined above. 06/17/2021 Pt is still requiring 55L of oxygen at 80% high flow nasal cannula. He is proning some. He is afebrile. 06/18/2021 56-year-old male admitted to the floor for COVID-19 pneumonia. Remains on high flow oxygen 50 L at 80% FiO2. He has been quite deconditioned from a respiratory standpoint and does take quite some time to recover after exertion. Overall states he is feeling quite a bit better. WBC is 12.40. Platelet 403,000. Neutrophils are elevated at 82.5%. D-dimer 6.36. Sodium 141. Potassium 4.1. Carbon dioxide 28. Anion gap 14.1. BUN is 18. Creatinine 0.8. GFR greater than 60. Glucose 130. We will start the patient on 60 mg twice daily Lovenox given his increasing D-dimer. This is 0.5 mg/kg. We will start the patient on 60 mg every 8 hour Solu-Medrol. He is to continue proning reg ularly and also utilizing his incentive spirometer and Acapella. Unknown length of stay due to severity of symptoms. Patient will remain in ICU status. 06/19/2021 56-year-old male hospitalized for COVID-19 pneumonia symptoms. He has been in the ICU for several days. We have finally been able to wean him down slightly on his high flow. He is 40 L with a FiO2 of 70% currently. Saturations have been in the upper 80s to low 90s. He has continued to take quite some time to recover after exertion. He has been proning quite regularly. Otherwise says he feels okay. He has been having some back pain and is receiving a skeletal muscle relaxant for this. WBC is elevated at 15.76. He platelet 448,000. Neutrophils are elevated at 91.6. D-dimer has improved to 2.84. Sodium 139. Potassium 4.5. Chloride 104. Carbon oxide 25. Anion gap is 14.5. BUN is 19. Creatinine 0.7. GFR greater than 60. Glucose 186. Magnesium is 2.1. CRP is 4.6. Bilirubin 0.4. AST 14, ALT 34, alkaline phosphatase 49. Albumin is 2.5. Protein 6.9. We will continue current treatment plan. As he has improved with his high flow settings we will downgrade him to MedSurg status with telemetry today. Continue current treatment plan. Patient will remain hospitalized and likely require several more days. 06/20/2021 56-year-old male hospitalized with COVID-19 pneumonia. He was downgraded out of the ICU yesterday to the floor with telemetry. We have been decreasing his high flow settings however this morning he noted acute dyspnea and was noted to have decreased saturations so his high flow was increased to 50 L with FiO2 of 75%. This has been quite common for him that in the mornings he has an episode like this and does recover throughout the day. Overall he states he feels okay. He did prone most of the night overnight. He is utilizing his incentive spirometry and Acapella. We will continue to try to wean him off of high flow. He remains on 60 mg every 8 hour Solu-Medrol we will look at decreasing this in the future. Otherwise he is doing okay. He has no acute complaints. No labs were drawn today and we will recheck tomorrow. Unknown length of stay due to severity of COVID-19 symptoms. - Plan Plan:: Pneumonia due to COVID-19 virus Leukocytosis Elevated D-Dimer Hypoxia * O2 as needed with goal saturations 88 to 95% * High flow oxygen * Continue Lovenox 60 mg twice daily due to elevated D-dimer * I-S/Acapella * PRN albuterol inhaler * PRN Duonebs * Prone whenever able * Ambulate around room * Continue solumedrol 60mg Q8Hr * RT consultation * PT/OT * AM CBC, BMP, CRP, Magnesium and D-Dimer * Airborne/contact isolation * Telemetry * Continuous pulse oximetry * Zinc supplementation * 20 mg twice daily Pepcid * Completed remdesivir, azithromycin, rocephin, and dexamethasone * Baricitinib - day * Scheduled Mucinex twice daily * Repeat 1-view CXR today Morbid obesity * Lifestyle modifications. Hyperlipidemia * Continue home rosuvastatin * No acute concern HTN (hypertension) * Continue home lisinopril * No acute concerns Diabetes mellitus * Continue home Jardiance * QID AC and bedtime blood glucose checks * Medium dose sliding scale insulin * Hold home metformin * Diabetic diet Tobacco abuse * Nicotine patch daily * Cessation counseling * Offer nicotine patches at discharge Gout * No acute concerns * No chronic home gout medications * Monitor Vitamin D deficiency * Begin 5,000 unit vitamin D supplementation * PCP to follow-up Code status: Full code PCP: Dr. Rubio DVT prophylaxis: BID Lovenox as above Disposition: Patient upgraded to ICU status on 06/15/2021 due to rapidly deterio rating oxygen saturations the need for high flow oxygen. Downgraded to MSP status with telemetry on 06/19/2021. Unknown length of stay as patient continues to require significant amounts of high flow oxygen. Goal oxygen demand would be 2 L or less on nasal cannula. Length of stay greater than 96 hours due to continued need for COVID-19 treatment.
[2021-06-20] MEDS: Empagliflozin 10 MG Tab PO SCH (08:08)
[2021-06-20] MEDS: Polyethylene Glycol 3350 Powder 17 GM Packet PO SCH (08:08)
[2021-06-20] MEDS: Insulin Lispro 100 UNIT/ML 10 ML Vial SUBCUT SCH ×4 (08:08→21:14)
[2021-06-20] MEDS: Nicotine 14 MG/24 Hr Patch TRDERM SCH (08:09)
[2021-06-20] MEDS: Enoxaparin 60 MG/0.6 ML Syringe SUBCUT SCH ×2 (08:09→21:08)
[2021-06-20] MEDS: Rosuvastatin 10 MG Tab PO SCH (08:09)
[2021-06-20] MEDS: guaiFENesin 600 MG Tab.ER PO SCH ×2 (08:10→21:09)
[2021-06-20] MEDS: Famotidine 20 MG Tab PO SCH ×2 (08:10→21:10)
[2021-06-20] MEDS: Zinc Sulfate 220 MG Cap PO SCH (08:10)
[2021-06-20] MEDS: Lisinopril 20 MG Tab PO SCH (08:10)
[2021-06-20] MEDS: Cholecalciferol (Vitamin D3) 5,000 UNIT Cap PO SCH (08:10)
[2021-06-20] MEDS: Docusate Sodium 100 MG Cap PO SCH ×2 (08:10→21:10)
[2021-06-20] MEDS: Methocarbamol 500 MG Tab PO PRN ×2 (09:59→21:10)
--- NOTE | 2021-06-20 11:11 | CR ---
Chest: Frontal view of the chest was obtained. Comparison: Prior chest x-ray of 06/07/21. Increased density is seen on both sides of the chest. Findings have significantly worsened from previous exam on both sides. Heart size is within normal limits. Upper mediastinum is within normal limits. No acute osseous abnormality is appreciated. Impression: 1. Significant worsening of density within both sides of the chest compatible with worsening COVID pneumonia. Diagnostic code #3
[2021-06-20] MEDS: Albuterol 6.7 GM Inhaler INH PRN (14:21)
[2021-06-21] MEDS: Albuterol/Ipratropium 3.0-0.5 MG/3 ML Neb Soln NEB PRN ×5 (02:05→21:08)
[2021-06-21] MEDS: methylPREDNISolone Sodium Succinate 40 MG/1 ML SDV IVPUSH SCH ×3 (02:20→20:51)
[2021-06-21] MEDS: Albuterol 6.7 GM Inhaler INH PRN ×2 (06:20→19:52)
--- NOTE | 2021-06-21 08:21 | PCM.PN ---
- General Info Date of Service: 06/21/21 Admission Dx/Problem (Free Text): Admission Diagnosis/Problem Admission Diagnosis/Problem Hypoxia Covid 19 pneumonia with hypoxia Functional Status: Reports: Pain Controlled, Tolerating Diet, Ambulating, Urinating, Incentive Spirometry, Other (Acapella ). Denies: New Symptoms - Review of Systems General: Reports: No Symptoms. Denies: Fever, Weakness, Fatigue, Malaise, Chills HEENT: Reports: No Symptoms. Denies: Headaches, Sore Throat Pulmonary: Reports: Shortness of Breath, Cough, Sputum. Denies: Wheezing Cardiovascular: Reports: No Symptoms, Dyspnea on Exertion. Denies: Chest Pain, Palpitations, Lightheadedness Gastrointestinal: Reports: No Symptoms. Denies: Abdominal Pain, Constipation, Diarrhea, Nausea, Vomiting Genitourinary: Reports: No Symptoms. Denies: Pain Musculoskeletal: Reports: No Symptoms Skin: Reports: No Symptoms. Denies: Cyanosis Neurological: Reports: No Symptoms. Denies: Difficulty Walking, Gait Disturbance Psychiatric: Reports: No Symptoms - Patient Data Vitals - Most Recent: Last Vital Signs Temp 97.5 F 06/21/21 06:41 Pulse 68 06/21/21 06:41 Resp 22 H 06/21/21 06:41 BP 115/51 L 06/21/21 06:41 Pulse Ox 88 L 06/21/21 06:41 Weight - Most Recent: 258 lb 12.8 oz I&O - Last 24 Hours: Intake & Output 06/20/21 06/21/21 06/21/21 22:59 06:59 14:59 Intake Total 830 Output Total 1000 Balance -170 Lab Results Last 24 Hours: Laboratory Results - last 24 hr 06/20/21 06/20/21 06/20/21 Range/Units 11:13 17:44 21:07 WBC (4.23-9.07) K/mm3 RBC (4.63-6.08) M/mm3 Hgb (13.7-17.5) gm/dl Hct (40.1-51.0) % MCV (79.0-92.2) fl MCH (25.7-32.2) pg MCHC (32.2-35.5) g/dl RDW Std Deviation (35.1-43.9) fL Plt Count (163-337) K/mm3 MPV (9.4-12.3) fl Neut % (Auto) (34.0-67.9) % Lymph % (Auto) (21.8-53.1) % [place] % (Auto) (5.3-12.2) % Eos % (Auto) (0.8-7.0) Baso % (Auto) (0.1-1.2) % Neut # (Auto) (1.78-5.38) K/mm3 Lymph # (Auto) (1.32-3.57) K/mm3 [place] # (Auto) (0.30-0.82) K/mm3 Eos # (Auto) (0.04-0.54) K/mm3 Baso # (Auto) (0.01-0.08) K/mm3 Manual Slide Review D-Dimer, Quantitative (0.19-0.50) mg/L Sodium (136-145) mEq/L Potassium (3.5-5.1) mEq/L Chloride (98-107) mEq/L Carbon Dioxide (21-32) mEq/L Anion Gap (5-15) BUN (7-18) mg/dL Creatinine (0.7-1.3) mg/dL Est Cr Clr Drug Dosing mL/min Estimated GFR (MDRD) (>60) mL/min BUN/Creatinine Ratio (14-18) Glucose (70-99) mg/dL POC Glucose 230 H 260 H 303 H (70-99) mg/dL Calcium (8.5-10.1) mg/dL Magnesium (1.8-2.4) mg/dL C-Reactive Protein (<1.0) mg/dL 06/21/21 06/21/21 06/21/21 Range/Units 04:48 04:48 04:48 WBC 15.80 H (4.23-9.07) K/mm3 RBC 4.90 (4.63-6.08) M/mm3 Hgb 13.8 (13.7-17.5) gm/dl Hct 43.7 (40.1-51.0) % MCV 89.2 (79.0-92.2) fl MCH 28.2 (25.7-32.2) pg MCHC 31.6 L (32.2-35.5) g/dl RDW Std Deviation 48.3 H (35.1-43.9) fL Plt Count 410 H (163-337) K/mm3 MPV 9.2 L (9.4-12.3) fl Neut % (Auto) 89.5 H (34.0-67.9) % Lymph % (Auto) 3.2 L (21.8-53.1) % [place] % (Auto) 6.6 (5.3-12.2) % Eos % (Auto) 0 L (0.8-7.0) Baso % (Auto) 0.1 (0.1-1.2) % Neut # (Auto) 14.14 H (1.78-5.38) K/mm3 Lymph # (Auto) 0.50 L (1.32-3.57) K/mm3 [place] # (Auto) 1.05 H (0.30-0.82) K/mm3 Eos # (Auto) 0.00 L (0.04-0.54) K/mm3 Baso # (Auto) 0.01 (0.01-0.08) K/mm3 Manual Slide Review Normal smear D-Dimer, Quantitative 1.42 H (0.19-0.50) mg/L Sodium 140 (136-145) mEq/L Potassium 4.5 (3.5-5.1) mEq/L Chloride 106 (98-107) mEq/L Carbon Dioxide 26 (21-32) mEq/L Anion Gap 12.5 (5-15) BUN 26 H (7-18) mg/dL Creatinine 0.9 (0.7-1.3) mg/dL Est Cr Clr Drug Dosing 92.38 mL/min Estimated GFR (MDRD) > 60 (>60) mL/min BUN/Creatinine Ratio 28.9 H (14-18) Glucose 209 H (70-99) mg/dL POC Glucose (70-99) mg/dL Calcium 9.1 (8.5-10.1) mg/dL Magnesium 2.1 (1.8-2.4) mg/dL C-Reactive Protein 0.7 (<1.0) mg/dL 06/21/21 Range/Units 06:37 WBC (4.23-9.07) K/mm3 RBC (4.63-6.08) M/mm3 Hgb (13.7-17.5) gm/dl Hct (40.1-51.0) % MCV (79.0-92.2) fl MCH (25.7-32.2) pg MCHC (32.2-35.5) g/dl RDW Std Deviation (35.1-43.9) fL Plt Count (163-337) K/mm3 MPV (9.4-12.3) fl Neut % (Auto) (34.0-67.9) % Lymph % (Auto) (21.8-53.1) % [place] % (Auto) (5.3-12.2) % Eos % (Auto) (0.8-7.0) Baso % (Auto) (0.1-1.2) % Neut # (Auto) (1.78-5.38) K/mm3 Lymph # (Auto) (1.32-3.57) K/mm3 [place] # (Auto) (0.30-0.82) K/mm3 Eos # (Auto) (0.04-0.54) K/mm3 Baso # (Auto) (0.01-0.08) K/mm3 Manual Slide Review D-Dimer, Quantitative (0.19-0.50) mg/L Sodium (136-145) mEq/L Potassium (3.5-5.1) mEq/L Chloride (98-107) mEq/L Carbon Dioxide (21-32) mEq/L Anion Gap (5-15) BUN (7-18) mg/dL Creatinine (0.7-1.3) mg/dL Est Cr Clr Drug Dosing mL/min Estimated GFR (MDRD) (>60) mL/min BUN/Creatinine Ratio (14-18) Glucose (70-99) mg/dL POC Glucose 221 H (70-99) mg/dL Calcium (8.5-10.1) mg/dL Magnesium (1.8-2.4) mg/dL C-Reactive Protein (<1.0) mg/dL Med Orders - Current: Current Medications Acetaminophen (Acetaminophen 325 Mg Tab) 650 mg PO Q4H PRN PRN Reason: Pain (Mild 1-3)/fever Last Admin: 06/12/21 10:29 Dose: 650 mg Documented by: Albuterol (Albuterol 6.7 Gm Inhaler) 0 gm INH Q2H PRN PRN Reason: sob/wheezing Last Admin: 06/21/21 06:20 Dose: 2 puff Documented by: Albuterol/Ipratropium (Albuterol/Ipratropium 3.0-0.5 Mg/3 Ml Neb Soln) 3 ml NEB Q4HRRT PRN PRN Reason: Shortness of Breath Last Admin: 06/21/21 02:05 Dose: 3 ml Documented by: Calcium Carbonate/Glycine (Calcium Carbonate 500 Mg Tab.Chew) 1,000 mg PO Q2HR PRN PRN Reason: Heartburn Last Admin: 06/10/21 17:01 Dose: 1,000 mg Documented by: Cholecalciferol (Cholecalciferol (Vitamin D3) 5,000 Unit Cap) 5,000 unit PO DAILY [facility] Last Admin: 06/20/21 08:10 Dose: 5,000 unit Documented by: Docusate Sodium (Docusate Sodium 100 Mg Cap) 100 mg PO BID [facility] Last Admin: 06/20/21 21:10 Dose: Not Given Documented by: Enoxaparin Sodium (Enoxaparin 60 Mg/0.6 Ml Syringe) 60 mg SUBCUT Q12H [facility] Last Admin: 06/20/21 21:08 Dose: 60 mg Documented by: Famotidine (Famotidine 20 Mg Tab) 20 mg PO BID [facility] Last Admin: 06/20/21 21:10 Dose: 20 mg Documented by: Guaifenesin (Guaifenesin 600 Mg Tab.Er) 600 mg PO BID [facility] Last Admin: 06/20/21 21:09 Dose: 600 mg Documented by: Insulin Human Lispro (Insulin Lispro 100 Unit/Ml 10 Ml Vial) 0 unit SUBCUT QIDACANDBED [facility]; Protocol Last Admin: 06/20/21 21:14 Dose: 8 units Documented by: Lisinopril (Lisinopril 20 Mg Tab) 40 mg PO DAILY [facility] Last Admin: 06/20/21 08:10 Dose: 40 mg Documented by: Lorazepam (Lorazepam 0.5 Mg Tab) 0.5 mg PO TID PRN PRN Reason: Anxiety Methocarbamol (Methocarbamol 500 Mg Tab) 1,000 mg PO Q6H PRN PRN Reason: Spasms Last Admin: 06/20/21 21:10 Dose: 1,000 mg Documented by: Methylprednisolone Sodium Succinate (Methylprednisolone Sodium Succinate 40 Mg/1 Ml Sdv) 60 mg IVPUSH Q8H [facility] Last Admin: 06/21/21 02:20 Dose: 60 mg Documented by: Miscellaneous Information (Remove Nicotine Patch) 1 ea TRDERM DAILY [facility] Last Admin: 06/20/21 08:08 Dose: 1 ea Documented by: Nicotine (Nicotine 14 Mg/24 Hr Patch) 14 mg TRDERM DAILY [facility] Last Admin: 06/20/21 08:09 Dose: 14 mg Documented by: Ondansetron HCl (Ondansetron 4 Mg/2 Ml Sdv) 4 mg IV Q4H PRN PRN Reason: Nausea/Vomiting Polyethylene Glycol (Polyethylene Glycol 3350 Powder 17 Gm Packet) 17 gm PO DAILY [facility] Last Admin: 06/20/21 08:08 Dose: Not Given Documented by: Rosuvastatin Calcium (Rosuvastatin 10 Mg Tab) 20 mg PO DAILY [facility] Last Admin: 06/20/21 08:09 Dose: 20 mg Documented by: Temazepam (Temazepam 15 Mg Cap) 15 mg PO BEDTIME PRN PRN Reason: Sleep Last Admin: 06/10/21 21:59 Dose: 15 mg Documented by: Zinc Sulfate (Zinc Sulfate 220 Mg Cap) 220 mg PO DAILY [facility] Last Admin: 06/20/21 08:10 Dose: 220 mg Documented by: Discontinued Medications Acetylcysteine (Acetylcysteine 20% 200 Mg/Ml 30 Ml Nebulizer Soln Sdv) 800 mg NEB ONETIME ONE Stop: 06/09/21 09:21 Last Admin: 06/09/21 11:40 Dose: Not Given Documented by: Acetylcysteine (Acetylcysteine 20% 200 Mg/Ml 4 Ml Nebulizer Soln Sdv) 800 mg NEB ONETIME ONE Stop: 06/09/21 09:46 Last Admin: 06/09/21 10:10 Dose: 800 mg Documented by: Acetylcysteine (Acetylcysteine 20% 200 Mg/Ml 4 Ml Nebulizer Soln Sdv) 200 mg NEB ONETIME ONE Stop: 06/13/21 13:31 Last Admin: 06/13/21 15:38 Dose: 200 mg Documented by: Albuterol/Ipratropium (Albuterol/Ipratropium 3.0-0.5 Mg/3 Ml Neb Soln) 3 ml NEB QIDRT PRN PRN Reason: Shortness Of Breath/wheezing Last Admin: 06/20/21 21:30 Dose: 3 ml Documented by: Dexamethasone (Dexamethasone 4 Mg Tab) 6 mg PO ONETIME ONE Stop: 06/07/21 19:48 Last Admin: 06/07/21 20:28 Dose: 6 mg Documented by: Dexamethasone (Dexamethasone 10 Mg/Ml Sdv) 6 mg IVPUSH DAILY [facility] Stop: 06/16/21 09:01 Last Admin: 06/12/21 11:19 Dose: 6 mg Documented by: Dexamethasone (Dexamethasone 4 Mg Tab) 6 mg PO DAILY [facility] Stop: 06/16/21 09:01 Last Admin: 06/16/21 08:46 Dose: 6 mg Documented by: Enoxaparin Sodium (Enoxaparin 40 Mg/0.4 Ml Syringe) 40 mg SUBCUT Q12H [facility] Last Admin: 06/12/21 23:34 Dose: 40 mg Documented by: Enoxaparin Sodium (Enoxaparin 40 Mg/0.4 Ml Syringe) 40 mg SUBCUT Q12H [facility] Last Admin: 06/18/21 08:20 Dose: 40 mg Documented by: Enoxaparin Sodium (Enoxaparin 60 Mg/0.6 Ml Syringe) 60 mg SUBCUT Q12H [facility] Enoxaparin Sodium (Enoxaparin 30 Mg/0.3 Ml Syringe) 20 mg SUBCUT ONETIME ONE Stop: 06/18/21 09:17 Last Admin: 06/18/21 10:25 Dose: Not Given Documented by: Enoxaparin Sodium (Enoxaparin 40 Mg/0.4 Ml Syringe) 20 mg SUBCUT ONETIME ONE Stop: 06/18/21 10:31 Last Admin: 06/18/21 10:26 Dose: 20 mg Documented by: Heparin Sodium (Porcine) (Heparin Sodium 5,000 Units/Ml Vial) 5,000 units SUBCUT Q8H [facility] Last Admin: 06/12/21 11:49 Dose: Not Given Documented by: Sodium Chloride (Normal Saline) 100 mls @ 60 mls/min IV ASDIRECTED [facility] Last Admin: 06/07/21 19:29 Dose: 60 mls/min Documented by: Remdesivir 200 mg/ Sodium (Chloride) 250 mls @ 250 mls/hr IV ONETIME ONE Stop: 06/07/21 20:38 Last Admin: 06/07/21 20:54 Dose: 250 mls/hr Documented by: Remdesivir 100 mg/ Sodium (Chloride) 100 mls @ 100 mls/hr IV Q24H [facility] Stop: 06/11/21 20:59 Last Admin: 06/11/21 20:39 Dose: 100 mls/hr Documented by: Ceftriaxone Sodium 2 gm/ (Sodium Chloride) 100 mls @ 200 mls/hr IV Q24H [facility] Last Admin: 06/12/21 10:10 Dose: 200 mls/hr Documented by: Azithromycin 500 mg/ Sodium (Chloride) 250 mls @ 250 mls/hr IV Q24H [facility] Last Admin: 06/12/21 10:11 Dose: 250 mls/hr Documented by: Sodium Chloride (Normal Saline) 100 mls @ 60 mls/hr IV ASDIRECTED [facility] Stop: 06/12/21 13:00 Last Admin: 06/12/21 11:28 Dose: 60 mls/hr Documented by: Ibuprofen (Ibuprofen 200 Mg Tab) 600 mg PO Q4HR PRN PRN Reason: Pain Ibuprofen (Ibuprofen 600 Mg Tab) 600 mg PO Q4HR PRN PRN Reason: Pain Iopamidol (Iopamidol 755 Mg/Ml 100 Ml Bottle) 100 ml IVPUSH ONETIME ONE Stop: 06/07/21 19:05 Last Admin: 06/07/21 19:29 Dose: 100 ml Documented by: Iopamidol (Iopamidol 755 Mg/Ml 100 Ml Bottle) 100 ml IVPUSH ONETIME ONE Stop: 06/12/21 11:04 Last Admin: 06/12/21 11:28 Dose: 100 ml Documented by: Lorazepam (Lorazepam 0.5 Mg Tab) 0.5 mg PO TID PRN PRN Reason: Anxiety Metformin HCl (Metformin 500 Mg Tab) 1,000 mg PO BID [facility] Last Admin: 06/10/21 09:49 Dose: 1,000 mg Documented by: Morphine Sulfate (Morphine 2 Mg/Ml Syringe) 2 mg IVPUSH Q2H PRN PRN Reason: Pain (severe 7-10) Stop: 06/09/21 07:44 Jardiance ( Empagliflozin 10 Mg Tablet Ptom 0 mg PO DAILY [facility] Last Admin: 06/18/21 08:30 Dose: 10 mg Documented by: Sodium Chloride (Sodium Chloride 0.9% 10 Ml Sdv) 10 ml FLUSH ONETIME ONE Stop: 06/07/21 19:05 Last Admin: 06/07/21 19:29 Dose: 10 ml Documented by: Sodium Chloride (Sodium Chloride 0.9% 10 Ml Syringe) 10 ml FLUSH ONETIME ONE Stop: 06/12/21 11:04 Last Admin: 06/12/21 11:28 Dose: 10 ml Documented by: - Exam Quality Assessment: Supplemental Oxygen (50L 65% FiO2 ), DVT Prophylaxis General: Alert, Oriented, Cooperative, No Acute Distress HEENT: Pupils Equal, Pupils Reactive, Mucous Membr. Moist/[place] Neck: Supple, Trachea Midline Lungs: Normal Respiratory Effort, Decreased Breath Sounds, Crackles Cardiovascular: Regular Rate, Regular Rhythm GI/Abdominal Exam: Normal Bowel Sounds, Soft, Non-Tender, No Distention (Male) Exam: Deferred Back Exam: Normal Inspection, Full Range of Motion Extremities: Normal Inspection, Normal Range of Motion, Non-Tender, No Pedal Edema, Normal Capillary Refill Peripheral Pulses: 2+: Radial (L), Radial (R), Dorsalis Pedis (L), Dorsalis Pedis (R) Skin: Warm, Dry, Intact Neurological: No New Focal Deficit Psy/Mental Status: Alert, Normal Affect, Normal Mood - Patient Data Lab Results Last 24 hrs: Laboratory Results - last 24 hr 06/20/21 06/20/21 06/20/21 Range/Units 11:13 17:44 21:07 WBC (4.23-9.07) K/mm3 RBC (4.63-6.08) M/mm3 Hgb (13.7-17.5) gm/dl Hct (40.1-51.0) % MCV (79.0-92.2) fl MCH (25.7-32.2) pg MCHC (32.2-35.5) g/dl RDW Std Deviation (35.1-43.9) fL Plt Count (163-337) K/mm3 MPV (9.4-12.3) fl Neut % (Auto) (34.0-67.9) % Lymph % (Auto) (21.8-53.1) % [place] % (Auto) (5.3-12.2) % Eos % (Auto) (0.8-7.0) Baso % (Auto) (0.1-1.2) % Neut # (Auto) (1.78-5.38) K/mm3 Lymph # (Auto) (1.32-3.57) K/mm3 [place] # (Auto) (0.30-0.82) K/mm3 Eos # (Auto) (0.04-0.54) K/mm3 Baso # (Auto) (0.01-0.08) K/mm3 Manual Slide Review D-Dimer, Quantitative (0.19-0.50) mg/L Sodium (136-145) mEq/L Potassium (3.5-5.1) mEq/L Chloride (98-107) mEq/L Carbon Dioxide (21-32) mEq/L Anion Gap (5-15) BUN (7-18) mg/dL Creatinine (0.7-1.3) mg/dL Est Cr Clr Drug Dosing mL/min Estimated GFR (MDRD) (>60) mL/min BUN/Creatinine Ratio (14-18) Glucose (70-99) mg/dL POC Glucose 230 H 260 H 303 H (70-99) mg/dL Calcium (8.5-10.1) mg/dL Magnesium (1.8-2.4) mg/dL C-Reactive Protein (<1.0) mg/dL 06/21/21 06/21/21 06/21/21 Range/Units 04:48 04:48 04:48 WBC 15.80 H (4.23-9.07) K/mm3 RBC 4.90 (4.63-6.08) M/mm3 Hgb 13.8 (13.7-17.5) gm/dl Hct 43.7 (40.1-51.0) % MCV 89.2 (79.0-92.2) fl MCH 28.2 (25.7-32.2) pg MCHC 31.6 L (32.2-35.5) g/dl RDW Std Deviation 48.3 H (35.1-43.9) fL Plt Count 410 H (163-337) K/mm3 MPV 9.2 L (9.4-12.3) fl Neut % (Auto) 89.5 H (34.0-67.9) % Lymph % (Auto) 3.2 L (21.8-53.1) % [place] % (Auto) 6.6 (5.3-12.2) % Eos % (Auto) 0 L (0.8-7.0) Baso % (Auto) 0.1 (0.1-1.2) % Neut # (Auto) 14.14 H (1.78-5.38) K/mm3 Lymph # (Auto) 0.50 L (1.32-3.57) K/mm3 [place] # (Auto) 1.05 H (0.30-0.82) K/mm3 Eos # (Auto) 0.00 L (0.04-0.54) K/mm3 Baso # (Auto) 0.01 (0.01-0.08) K/mm3 Manual Slide Review Normal smear D-Dimer, Quantitative 1.42 H (0.19-0.50) mg/L Sodium 140 (136-145) mEq/L Potassium 4.5 (3.5-5.1) mEq/L Chloride 106 (98-107) mEq/L Carbon Dioxide 26 (21-32) mEq/L Anion Gap 12.5 (5-15) BUN 26 H (7-18) mg/dL Creatinine 0.9 (0.7-1.3) mg/dL Est Cr Clr Drug Dosing 92.38 mL/min Estimated GFR (MDRD) > 60 (>60) mL/min BUN/Creatinine Ratio 28.9 H (14-18) Glucose 209 H (70-99) mg/dL POC Glucose (70-99) mg/dL Calcium 9.1 (8.5-10.1) mg/dL Magnesium 2.1 (1.8-2.4) mg/dL C-Reactive Protein 0.7 (<1.0) mg/dL 06/21/21 Range/Units 06:37 WBC (4.23-9.07) K/mm3 RBC (4.63-6.08) M/mm3 Hgb (13.7-17.5) gm/dl Hct (40.1-51.0) % MCV (79.0-92.2) fl MCH (25.7-32.2) pg MCHC (32.2-35.5) g/dl RDW Std Deviation (35.1-43.9) fL Plt Count (163-337) K/mm3 MPV (9.4-12.3) fl Neut % (Auto) (34.0-67.9) % Lymph % (Auto) (21.8-53.1) % [place] % (Auto) (5.3-12.2) % Eos % (Auto) (0.8-7.0) Baso % (Auto) (0.1-1.2) % Neut # (Auto) (1.78-5.38) K/mm3 Lymph # (Auto) (1.32-3.57) K/mm3 [place] # (Auto) (0.30-0.82) K/mm3 Eos # (Auto) (0.04-0.54) K/mm3 Baso # (Auto) (0.01-0.08) K/mm3 Manual Slide Review D-Dimer, Quantitative (0.19-0.50) mg/L Sodium (136-145) mEq/L Potassium (3.5-5.1) mEq/L Chloride (98-107) mEq/L Carbon Dioxide (21-32) mEq/L Anion Gap (5-15) BUN (7-18) mg/dL Creatinine (0.7-1.3) mg/dL Est Cr Clr Drug Dosing mL/min Estimated GFR (MDRD) (>60) mL/min BUN/Creatinine Ratio (14-18) Glucose (70-99) mg/dL POC Glucose 221 H (70-99) mg/dL Calcium (8.5-10.1) mg/dL Magnesium (1.8-2.4) mg/dL C-Reactive Protein (<1.0) mg/dL Result Diagrams: 06/21/21 04:48 06/21/21 04:48 Sepsis Event Note - Evaluation Sepsis Screening Result: Sepsis Risk - Focused Exam Vital Signs: Vital Signs Temp Pulse Resp BP Pulse Ox Pulse Ox 06/21/21 06:41 97.5 F 68 22 H 115/51 L 88 L 06/21/21 06:21 92 L 06/21/21 02:05 95 06/20/21 21:30 88 L 06/20/21 21:08 98.2 F 80 22 H 127/71 95 - Problem List & Annotations (1) Hyperlipidemia SNOMED Code(s): 29174132 Code(s): E78.5 - HYPERLIPIDEMIA, UNSPECIFIED Status: Chronic Priority: Low Current Visit: No Qualifiers: Hyperlipidemia type: unspecified Qualified Code(s): E78.5 - Hyperlipidemia, unspecified (2) HTN (hypertension) SNOMED Code(s): 42912015 Code(s): I10 - ESSENTIAL (PRIMARY) HYPERTENSION Status: Chronic Priority: Low Current Visit: No Qualifiers: Hypertension type: unspecified Qualified Code(s): I10 - Essential (primary) hypertension (3) Elevated d-dimer SNOMED Code(s): 496333041 Code(s): R79.89 - OTHER SPECIFIED ABNORMAL FINDINGS OF BLOOD CHEMISTRY Status: Acute Priority: High Current Visit: Yes (4) Elevated C-reactive protein SNOMED Code(s): 919574466032765 Code(s): R79.82 - ELEVATED C-REACTIVE PROTEIN (CRP) Status: Acute Priority: High Current Visit: Yes (5) Leukocytosis SNOMED Code(s): 739161209, 061344294 Code(s): D72.829 - ELEVATED WHITE BLOOD CELL COUNT, UNSPECIFIED Status: Acute Priority: High Current Visit: Yes Qualifiers: Leukocytosis type: unspecified Qualified Code(s): D72.829 - Elevated white blood cell count, unspecified (6) Diabetes mellitus SNOMED Code(s): 47999922 Code(s): E11.9 - TYPE 2 DIABETES MELLITUS WITHOUT COMPLICATIONS Status: [facility] Priority: High Current Visit: Yes Qualifiers: Diabetes mellitus type: type 2 Diabetes mellitus intermediate manager insulin use: without [facility] use Diabetes mellitus complication status: with other specified complication Qualified Code(s): E11.69 - Type 2 diabetes mellitus with other specified complication (7) Hypoxia SNOMED Code(s): 961296641 Code(s): R09.02 - HYPOXEMIA Status: Acute Priority: High Current Visit: Yes (8) Pneumonia due to COVID-19 virus SNOMED Code(s): 493352068227256309 Code(s): U07.1 - COVID-19; J12.82 - PNEUMONIA DUE TO CORONAVIRUS DISEASE 2019 Status: Acute Priority: High Current Visit: Yes (9) Smoker SNOMED Code(s): 31383042 Code(s): F17.200 - NICOTINE DEPENDENCE, UNSPECIFIED, UNCOMPLICATED Status: Chronic Priority: High Current Visit: Yes (10) Gout SNOMED Code(s): 93640209 Code(s): M10.9 - GOUT, UNSPECIFIED Status: Chronic Priority: Low Current Visit: No Qualifiers: Gout site: unspecified site Gout etiology: unspecified cause Chronicity: unspecified Qualified Code(s): M10.9 - Gout, unspecified (11) Vitamin D deficiency SNOMED Code(s): 40691372 Code(s): E55.9 - VITAMIN D DEFICIENCY, UNSPECIFIED Status: Acute Priority: Medium Current Visit: Yes (12) COVID-19 kayleigh su SNOMED Code(s): 8058973514 Code(s): B94.8 - SEQUELAE OF OTH INFECTIOUS AND PARASITIC DISEASES Status: Acute Priority: High Current Visit: Yes - Problem List Review Problem List Initiated/Reviewed/Updated: Yes - Assessment Assessment:: 06/12/2021 This is a 55-year-old male admitted to the floor with hypoxia secondary to COVID -19 pneumonia. He currently is on 45 L with an FiO2 of 75%. Labs today show a WBC of 10.22. Hemoglobin 30.6. Platelet 269,000. Neutrophils elevated 75.1%. D-dimer is up to 3.85. Sodium 144. Potassium 3.8. Chloride 109. Carbon dioxide 25. Anion gap is 13.8. BUN is 14. Creatinine 0.7. GFR greater than 60. Blood glucose levels have been from 96-2 14. Phosphorus 3.5. Magnesium 1.9. Total bilirubin 0.3. AST is 30, ALT 37, alkaline phosphatase 52. CRP is 12.6. Protein 5.5. Albumin is down to 1.9. Given the patient's worsening oxygen demand and elevated D-dimer CTA is obtained showing 1. Bilateral pulmonary consolidation likely due to COVID-19. 2. Mediastinal adenopathy, most likely reactive. There are no signs of any pulmonary emboli. We will therefore increase patient's DVT prophylaxis up to 40 mg twice daily Lovenox. Patient will be started on 20 mg twice daily Pepcid and zinc supplementation. Vitamin D level has been ordered. Patient will remain hospitalized pending improvement in oxygen demand. Unknown length of stay time. Overall he states he feels about the same as yesterday. Continues to have mild diarrhea at times and reports weakness. 06/13/2021 This is a 55-year-old male admitted to the hospital for COVID-19 pneumonia. He has been proning today and saturations are in the mid to low 90s while proning. He has been utilizing incentive spirometer and Acapella. He has been a little bit down today and reports he does not feel like he is getting much better. Overall his lung sounds have greatly improved. He remains on high flow 50 L with an FiO2 of 70%. Labs today show a WBC of 9.34. Hemoglobin 13.7. Platelet 357,000. Neutrophils are 76.4%. Sodium is 144. Potassium 3.5. Anion gap is 15.5. BUN 12. Creatinine 0.8.. GFR greater than 60. Glucose has been between 102 42. Magnesium 1.9. Bilirubin 0.4. AST is 27, ALT 41, alkaline phosphatase 58. CRP is improved to 10.7. Protein 6.1. Vitamin D obtained yesterday was low at 17.4 and we will start supplementation for vitamin D today. Albumin is improved to 2.1. We will continue treatment with unknown length of stay due to severity of COVID-19 symptoms. 06/14/2021 55-year-old male admitted to the hospital with hypoxia due to COVID-19 pneumonia. He is currently on 50 L of oxygen with 75% FiO2. States he has been proning as much as possible as well as using his I-S and Acapella. Has a very flat affect. Was upset on rounds this morning as he states he has not been getting his muscle relaxer with his morning pills. Labs today reveal a WBC of 13.29, hemoglobin 13.3, hematocrit 40.8, platelet count 395,000, D-dimer 3.19, sodium 144, potassium 3.8, chloride 108, anion gap 13.8, BUN 16, creatinine 0.7, GFR greater than 60, glucose has ranged from [id number], magnesium 1.9, C-reactive protein 5.3 continue with current treatment. Unknown length of stay due to the severity of Covid symptoms. 06/15/2021 This is a 55-year-old male admitted to the floor with COVID-19 pneumonia. He had worsening oxygen saturations and today was requiring 60 L of oxygen with an FiO2 of 95%. Because of this he was moved up to the ICU. He continues to utilize his incentive spirometry and Acapella and prone. We will continue dexamethasone and baricitinib. Respiratory therapy continues to work with him. Clinically he does not look to be in any acute respiratory distress. Labs today show WBC of 14.02. Hemoglobin 14.1. Platelet 4 and 26,000. Neutrophils are elevated 79.9%. Sodium 143. Potassium 3.8. Chloride 107. Carbon dioxide 27. Anion gap 12.8. BUN is 13. Creatinine 0.7. GFR greater than 60. Glucose is 97-93. Calcium is 8.5. Magnesium 1.8. Bilirubin 0.5. AST is 24, ALT 49, julio line phosphatase 54. CRP is 5.9. Protein is 5.9 and albumin is 2.0. We will continue current treatment plan. Will increase to BiPAP if necessary. Unknown length of stay due to severity of COVID-19 symptoms. 06/16/2021 Patient improved overnight decreasing his high flow nasal cannula to 50 L and FiO2 of currently 80%. Continue with current treatment as outlined above. 06/17/2021 Pt is still requiring 55L of oxygen at 80% high flow nasal cannula. He is proning some. He is afebrile. 06/18/2021 56-year-old male admitted to the floor for COVID-19 pneumonia. Remains on high flow oxygen 50 L at 80% FiO2. He has been quite deconditioned from a respiratory standpoint and does take quite some time to recover after exertion. Overall states he is feeling quite a bit better. WBC is 12.40. Platelet 403,000. Neutrophils are elevated at 82.5%. D-dimer 6.36. Sodium 141. Potassium 4.1. Carbon dioxide 28. Anion gap 14.1. BUN is 18. Creatinine 0.8. GFR greater than 60. Glucose 130. We will start the patient on 60 mg twice daily Lovenox given his increasing D-dimer. This is 0.5 mg/kg. We will start the patient on 60 mg every 8 hour Solu-Medrol. He is to continue proning regularly and also utilizing his incentive spirometer and Acapella. Unknown length of stay due to severity of symptoms. Patient will remain in ICU status. 06/19/2021 56-year-old male hospitalized for COVID-19 pneumonia symptoms. He has been in the ICU for several days. We have finally been able to wean him down slightly on his high flow. He is 40 L with a FiO2 of 70% currently. Saturations have b een in the upper 80s to low 90s. He has continued to take quite some time to recover after exertion. He has been proning quite regularly. Otherwise says he feels okay. He has been having some back pain and is receiving a skeletal muscle relaxant for this. WBC is elevated at 15.76. He platelet 448,000. Neutrophils are elevated at 91.6. D-dimer has improved to 2.84. Sodium 139. Potassium 4.5. Chloride 104. Carbon oxide 25. Anion gap is 14.5. BUN is 19. Creatinine 0.7. GFR greater than 60. Glucose 186. Magnesium is 2.1. CRP is 4.6. Bilirubin 0.4. AST 14, ALT 34, alkaline phosphatase 49. Albumin is 2.5. Protein 6.9. We will continue current treatment plan. As he has improved with his high flow settings we will downgrade him to MedSurg status with telemetry today. Continue current treatment plan. Patient will remain hospitalized and likely require several more days. 06/20/2021 56-year-old male hospitalized with COVID-19 pneumonia. He was downgraded out of the ICU yesterday to the floor with telemetry. We have been decreasing his high flow settings however this morning he noted acute dyspnea and was noted to have decreased saturations so his high flow was increased to 50 L with FiO2 of 75%. This has been quite common for him that in the mornings he has an episode like this and does recover throughout the day. Overall he states he feels okay. He did prone most of the night overnight. He is utilizing his incentive spirometry and Acapella. We will continue to try to wean him off of high flow. He remains on 60 mg every 8 hour Solu-Medrol we will look at decreasing this in the future. Otherwise he is doing okay. He has no acute complaints. No labs were drawn today and we will recheck tomorrow. Unknown length of stay due to severity of COVID-19 symptoms. 06/21/2021 This is a 56-year-old male who remains admitted to the hospital for treatment of his COVID-19 pneumonia. He has completed dexamethasone and remdesivir. He will complete baricitinib today. He remains on high flow 50 L with an FiO2 of 60%. Overnight he did require more FiO2 and he is recovered from this. Saturations remain in the upper 80s to low 90s. Labs were not obtained today as patient has been relatively stable from a lab standpoint. We will consider rechecking those on Friday. He continues to prone and utilize his incentive spirometer and Acapella. Chest x-ray obtained yesterday shows significant worsening COVID-19 pneumonia. We will decrease his steroid today from 60 mg every 8 to 60 mg twice daily. 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 Patient continues slow improvements. Unknown length of stay due to severity of symptoms. - Plan Plan:: Pneumonia due to COVID-19 virus Leukocytosis Elevated D-Dimer Hypoxia COVID-19 Long Hauler * O2 as needed with goal saturations 88 to 95% * High flow oxygen * Continue Lovenox 60 mg twice daily due to elevated D-dimer * I-S/Acapella * PRN albuterol inhaler * PRN Duonebs * Prone whenever able * Ambulate around room * Decrease solumedrol 60mg Q12Hr * RT consultation * PT/OT * AM CBC, BMP, CRP, Magnesium and D-Dimer * Airborne/contact isolation * Telemetry * Continuous pulse oximetry * Zinc supplementation * 20 mg twice daily Pepcid * Completed remdesivir, azithromycin, rocephin, and dexamethasone * Baricitinib - day * Scheduled Mucinex twice daily Morbid obesity * Lifestyle modifications. Hyperlipidemia * Continue home rosuvastatin * No acute concern HTN (hypertension) * Continue home lisinopril * No acute concerns Diabetes mellitus * Continue home Jardiance * QID AC and bedtime blood glucose checks * Medium dose sliding scale insulin * Hold home metformin * Diabetic diet Tobacco abuse * Nicotine patch daily * Cessation counseling * Offer nicotine patches at discharge Gout * No acute concerns * No chronic home gout medications * Monitor Vitamin D deficiency * Begin 5,000 unit vitamin D supplementation * PCP to follow-up Code status: Full code PCP: Dr. Rubio DVT prophylaxis: BID Lovenox as above Disposition: Patient upgraded to ICU status on 06/15/2021 due to rapidly deteriorating oxygen saturations the need for high flow oxygen. Downgraded to MSP status with telemetry on 06/19/2021. Unknown length of stay as patient continues to require significant amounts of high flow oxygen. Goal oxygen demand would be 2 L or less on nasal cannula. Length of stay greater than 96 hours due to continued need for COVID-19 treatment.
[2021-06-21] MEDS: Insulin Lispro 100 UNIT/ML 10 ML Vial SUBCUT SCH ×5 (09:11→21:04)
[2021-06-21] MEDS: Enoxaparin 60 MG/0.6 ML Syringe SUBCUT SCH ×2 (09:12→20:36)
[2021-06-21] MEDS: Cholecalciferol (Vitamin D3) 5,000 UNIT Cap PO SCH (09:13)
[2021-06-21] MEDS: Famotidine 20 MG Tab PO SCH ×2 (09:13→20:36)
[2021-06-21] MEDS: Methocarbamol 500 MG Tab PO PRN ×2 (09:13→20:50)
[2021-06-21] MEDS: Nicotine 14 MG/24 Hr Patch TRDERM SCH (09:14)
[2021-06-21] MEDS: Rosuvastatin 10 MG Tab PO SCH (09:14)
[2021-06-21] MEDS: Empagliflozin 10 MG Tab PO SCH (09:17)
[2021-06-21] MEDS: Zinc Sulfate 220 MG Cap PO SCH (09:17)
[2021-06-21] MEDS: guaiFENesin 600 MG Tab.ER PO SCH ×2 (09:17→20:36)
[2021-06-21] MEDS: Lisinopril 20 MG Tab PO SCH (09:29)
[2021-06-21] MEDS: Polyethylene Glycol 3350 Powder 17 GM Packet PO SCH (09:29)
[2021-06-21] MEDS: Docusate Sodium 100 MG Cap PO SCH ×2 (09:30→20:43)
[2021-06-21] MEDS ORDERED: methylPREDNISolone Sodium Succinate 40 MG/1 ML SDV IVPUSH SCH (11:15)
[2021-06-22] MEDS: Albuterol 6.7 GM Inhaler INH PRN ×3 (00:33→23:39)
[2021-06-22] MEDS: Albuterol/Ipratropium 3.0-0.5 MG/3 ML Neb Soln NEB PRN ×4 (05:55→20:08)
--- NOTE | 2021-06-22 07:10 | PCM.PN ---
- General Info Date of Service: 06/22/21 Admission Dx/Problem (Free Text): Admission Diagnosis/Problem Admission Diagnosis/Problem Hypoxia Covid 19 pneumonia with hypoxia Functional Status: Reports: Pain Controlled, Tolerating Diet, Ambulating, Urinating, Incentive Spirometry, Other (Acapella ). Denies: New Symptoms - Review of Systems General: Reports: No Symptoms. Denies: Fever, Weakness, Fatigue, Malaise, Chills HEENT: Reports: No Symptoms. Denies: Headaches, Sore Throat Pulmonary: Reports: Shortness of Breath, Cough. Denies: Sputum, Wheezing Cardiovascular: Reports: Dyspnea on Exertion. Denies: Chest Pain, Palpitations, Edema Gastrointestinal: Reports: No Symptoms. Denies: Abdominal Pain, Constipation, Diarrhea, Nausea, Vomiting Genitourinary: Reports: No Symptoms. Denies: Pain Musculoskeletal: Reports: No Symptoms Skin: Reports: No Symptoms. Denies: Cyanosis Neurological: Reports: No Symptoms. Denies: Confusion, Dizziness, Headache, Numbness, Pre-Existing Deficit, Seizure, Syncope, Tingling, Trouble Speaking, Difficulty Walking, Weakness, Gait Disturbance Psychiatric: Reports: No Symptoms - Patient Data Vitals - Most Recent: Last Vital Signs Temp 98.1 F 06/22/21 06:53 Pulse 91 06/22/21 06:53 Resp 20 06/22/21 06:53 BP 116/61 06/22/21 06:53 Pulse Ox 90 L 06/22/21 06:53 Weight - Most Recent: 257 lb 8 oz I&O - Last 24 Hours: Intake & Output 06/21/21 06/22/21 06/22/21 22:59 06:59 14:59 Intake Total 780 800 Output Total 900 Balance -120 800 Lab Results Last 24 Hours: Laboratory Results - last 24 hr 06/21/21 06/21/21 06/21/21 Range/Units 11:03 17:05 20:39 POC Glucose 236 H 256 H 274 H (70-99) mg/dL 06/22/21 Range/Units 06:50 POC Glucose 235 H (70-99) mg/dL Med Orders - Current: Current Medications Acetaminophen (Acetaminophen 325 Mg Tab) 650 mg PO Q4H PRN PRN Reason: Pain (Mild 1-3)/fever Last Admin: 06/12/21 10:29 Dose: 650 mg Documented by: Albuterol (Albuterol 6.7 Gm Inhaler) 0 gm INH Q2H PRN PRN Reason: sob/wheezing Last Admin: 06/22/21 00:33 Dose: 2 puff Documented by: Albuterol/Ipratropium (Albuterol/Ipratropium 3.0-0.5 Mg/3 Ml Neb Soln) 3 ml NEB Q4HRRT PRN PRN Reason: Shortness of Breath Last Admin: 06/22/21 05:55 Dose: 3 ml Documented by: Calcium Carbonate/Glycine (Calcium Carbonate 500 Mg Tab.Chew) 1,000 mg PO Q2HR PRN PRN Reason: Heartburn Last Admin: 06/10/21 17:01 Dose: 1,000 mg Documented by: Cholecalciferol (Cholecalciferol (Vitamin D3) 5,000 Unit Cap) 5,000 unit PO DAILY [facility] Last Admin: 06/21/21 09:13 Dose: 5,000 unit Documented by: Docusate Sodium (Docusate Sodium 100 Mg Cap) 100 mg PO BID [facility] Last Admin: 06/21/21 20:43 Dose: Not Given Documented by: Enoxaparin Sodium (Enoxaparin 60 Mg/0.6 Ml Syringe) 60 mg SUBCUT Q12H [facility] Last Admin: 06/21/21 20:36 Dose: 60 mg Documented by: Famotidine (Famotidine 20 Mg Tab) 20 mg PO BID [facility] Last Admin: 06/21/21 20:36 Dose: 20 mg Documented by: Guaifenesin (Guaifenesin 600 Mg Tab.Er) 600 mg PO BID [facility] Last Admin: 06/21/21 20:36 Dose: 600 mg Documented by: Insulin Human Lispro (Insulin Lispro 100 Unit/Ml 10 Ml Vial) 0 unit SUBCUT QIDACANDBED [facility]; Protocol Last Admin: 06/21/21 21:04 Dose: Not Given Documented by: Lisinopril (Lisinopril 20 Mg Tab) 40 mg PO DAILY [facility] Last Admin: 06/21/21 09:29 Dose: 40 mg Documented by: Lorazepam (Lorazepam 0.5 Mg Tab) 0.5 mg PO TID PRN PRN Reason: Anxiety Methocarbamol (Methocarbamol 500 Mg Tab) 1,000 mg PO Q6H PRN PRN Reason: Spasms Last Admin: 06/21/21 20:50 Dose: 1,000 mg Documented by: Methylprednisolone Sodium Succinate (Methylprednisolone Sodium Succinate 40 Mg/1 Ml Sdv) 60 mg IVPUSH Q12H [facility] Last Admin: 06/21/21 20:51 Dose: 60 mg Documented by: Miscellaneous Information (Remove Nicotine Patch) 1 ea TRDERM DAILY [facility] Last Admin: 06/21/21 09:29 Dose: 1 ea Documented by: Nicotine (Nicotine 14 Mg/24 Hr Patch) 14 mg TRDERM DAILY [facility] Last Admin: 06/21/21 09:14 Dose: 14 mg Documented by: Ondansetron HCl (Ondansetron 4 Mg/2 Ml Sdv) 4 mg IV Q4H PRN PRN Reason: Nausea/Vomiting Polyethylene Glycol (Polyethylene Glycol 3350 Powder 17 Gm Packet) 17 gm PO DAILY [facility] Last Admin: 06/21/21 09:29 Dose: Not Given Documented by: Rosuvastatin Calcium (Rosuvastatin 10 Mg Tab) 20 mg PO DAILY [facility] Last Admin: 06/21/21 09:14 Dose: 20 mg Documented by: Temazepam (Temazepam 15 Mg Cap) 15 mg PO BEDTIME PRN PRN Reason: Sleep Last Admin: 06/10/21 21:59 Dose: 15 mg Documented by: Zinc Sulfate (Zinc Sulfate 220 Mg Cap) 220 mg PO DAILY [facility] Last Admin: 06/21/21 09:17 Dose: 220 mg Documented by: Discontinued Medications Acetylcysteine (Acetylcysteine 20% 200 Mg/Ml 30 Ml Nebulizer Soln Sdv) 800 mg NEB ONETIME ONE Stop: 06/09/21 09:21 Last Admin: 06/09/21 11:40 Dose: Not Given Documented by: Acetylcysteine (Acetylcysteine 20% 200 Mg/Ml 4 Ml Nebulizer Soln Sdv) 800 mg NEB ONETIME ONE Stop: 06/09/21 09:46 Last Admin: 06/09/21 10:10 Dose: 800 mg Documented by: Acetylcysteine (Acetylcysteine 20% 200 Mg/Ml 4 Ml Nebulizer Soln Sdv) 200 mg NEB ONETIME ONE Stop: 06/13/21 13:31 Last Admin: 06/13/21 15:38 Dose: 200 mg Documented by: Albuterol/Ipratropium (Albuterol/Ipratropium 3.0-0.5 Mg/3 Ml Neb Soln) 3 ml NEB QIDRT PRN PRN Reason: Shortness Of Breath/wheezing Last Admin: 06/20/21 21:30 Dose: 3 ml Documented by: Dexamethasone (Dexamethasone 4 Mg Tab) 6 mg PO ONETIME ONE Stop: 06/07/21 19:48 Last Admin: 06/07/21 20:28 Dose: 6 mg Documented by: Dexamethasone (Dexamethasone 10 Mg/Ml Sdv) 6 mg IVPUSH DAILY [facility] Stop: 06/16/21 09:01 Last Admin: 06/12/21 11:19 Dose: 6 mg Documented by: Dexamethasone (Dexamethasone 4 Mg Tab) 6 mg PO DAILY [facility] Stop: 06/16/21 09:01 Last Admin: 06/16/21 08:46 Dose: 6 mg Documented by: Enoxaparin Sodium (Enoxaparin 40 Mg/0.4 Ml Syringe) 40 mg SUBCUT Q12H [facility] Last Admin: 06/12/21 23:34 Dose: 40 mg Documented by: Enoxaparin Sodium (Enoxaparin 40 Mg/0.4 Ml Syringe) 40 mg SUBCUT Q12H [facility] Last Admin: 06/18/21 08:20 Dose: 40 mg Documented by: Enoxaparin Sodium (Enoxaparin 60 Mg/0.6 Ml Syringe) 60 mg SUBCUT Q12H [facility] Enoxaparin Sodium (Enoxaparin 30 Mg/0.3 Ml Syringe) 20 mg SUBCUT ONETIME ONE Stop: 06/18/21 09:17 Last Admin: 06/18/21 10:25 Dose: Not Given Documented by: Enoxaparin Sodium (Enoxaparin 40 Mg/0.4 Ml Syringe) 20 mg SUBCUT ONETIME ONE Stop: 06/18/21 10:31 Last Admin: 06/18/21 10:26 Dose: 20 mg Documented by: Heparin Sodium (Porcine) (Heparin Sodium 5,000 Units/Ml Vial) 5,000 units SUBCUT Q8H [facility] Last Admin: 06/12/21 11:49 Dose: Not Given Documented by: Sodium Chloride (Normal Saline) 100 mls @ 60 mls/min IV ASDIRECTED [facility] Last Admin: 06/07/21 19:29 Dose: 60 mls/min Documented by: Remdesivir 200 mg/ Sodium (Chloride) 250 mls @ 250 mls/hr IV ONETIME ONE Stop: 06/07/21 20:38 Last Admin: 06/07/21 20:54 Dose: 250 mls/hr Documented by: Remdesivir 100 mg/ Sodium (Chloride) 100 mls @ 100 mls/hr IV Q24H [facility] Stop: 06/11/21 20:59 Last Admin: 06/11/21 20:39 Dose: 100 mls/hr Documented by: Ceftriaxone Sodium 2 gm/ (Sodium Chloride) 100 mls @ 200 mls/hr IV Q24H [facility] Last Admin: 06/12/21 10:10 Dose: 200 mls/hr Documented by: Azithromycin 500 mg/ Sodium (Chloride) 250 mls @ 250 mls/hr IV Q24H [facility] Last Admin: 06/12/21 10:11 Dose: 250 mls/hr Documented by: Sodium Chloride (Normal Saline) 100 mls @ 60 mls/hr IV ASDIRECTED [facility] Stop: 06/12/21 13:00 Last Admin: 06/12/21 11:28 Dose: 60 mls/hr Documented by: Ibuprofen (Ibuprofen 200 Mg Tab) 600 mg PO Q4HR PRN PRN Reason: Pain Ibuprofen (Ibuprofen 600 Mg Tab) 600 mg PO Q4HR PRN PRN Reason: Pain Iopamidol (Iopamidol 755 Mg/Ml 100 Ml Bottle) 100 ml IVPUSH ONETIME ONE Stop: 06/07/21 19:05 Last Admin: 06/07/21 19:29 Dose: 100 ml Documented by: Iopamidol (Iopamidol 755 Mg/Ml 100 Ml Bottle) 100 ml IVPUSH ONETIME ONE Stop: 06/12/21 11:04 Last Admin: 06/12/21 11:28 Dose: 100 ml Documented by: Lorazepam (Lorazepam 0.5 Mg Tab) 0.5 mg PO TID PRN PRN Reason: Anxiety Metformin HCl (Metformin 500 Mg Tab) 1,000 mg PO BID [facility] Last Admin: 06/10/21 09:49 Dose: 1,000 mg Documented by: Methylprednisolone Sodium Succinate (Methylprednisolone Sodium Succinate 40 Mg/1 Ml Sdv) 60 mg IVPUSH Q8H [facility] Last Admin: 06/21/21 15:18 Dose: Not Given Documented by: Methylprednisolone Sodium Succinate (Methylprednisolone Sodium Succinate 40 Mg/1 Ml Sdv) 60 mg IVPUSH Q12H [facility] Last Admin: 06/21/21 11:38 Dose: 60 mg Documented by: Morphine Sulfate (Morphine 2 Mg/Ml Syringe) 2 mg IVPUSH Q2H PRN PRN Reason: Pain (severe 7-10) Stop: 06/09/21 07:44 Jardiance ( Empagliflozin 10 Mg Tablet Ptom 0 mg PO DAILY [facility] Last Admin: 06/18/21 08:30 Dose: 10 mg Documented by: Sodium Chloride (Sodium Chloride 0.9% 10 Ml Sdv) 10 ml FLUSH ONETIME ONE Stop: 06/07/21 19:05 Last Admin: 06/07/21 19:29 Dose: 10 ml Documented by: Sodium Chloride (Sodium Chloride 0.9% 10 Ml Syringe) 10 ml FLUSH ONETIME ONE Stop: 06/12/21 11:04 Last Admin: 06/12/21 11:28 Dose: 10 ml Documented by: - Exam Quality Assessment: Supplemental Oxygen (50L with FiO2 of 50%), DVT Prophylaxis. No: Urine Catheter General: Alert, Oriented, Cooperative, No Acute Distress HEENT: Pupils Equal, Pupils Reactive, Mucous Membr. Moist/[place] Neck: Supple, Trachea Midline Lungs: Normal Respiratory Effort, Decreased Breath Sounds, Crackles. No: Wheezing Cardiovascular: Regular Rate, Regular Rhythm GI/Abdominal Exam: Normal Bowel Sounds, Soft, Non-Tender, No Distention (Male) Exam: Deferred Back Exam: Normal Inspection, Full Range of Motion Extremities: Normal Inspection, Normal Range of Motion, Non-Tender, No Pedal Edema, Normal Capillary Refill Peripheral Pulses: 2+: Radial (L), Radial (R), Dorsalis Pedis (L), Dorsalis Pedis (R) Skin: Warm, Dry, Intact Neurological: No New Focal Deficit Psy/Mental Status: Alert, Normal Affect, Normal Mood - Patient Data Lab Results Last 24 hrs: Laboratory Results - last 24 hr 06/21/21 06/21/21 06/21/21 Range/Units 11:03 17:05 20:39 POC Glucose 236 H 256 H 274 H (70-99) mg/dL 06/22/21 Range/Units 06:50 POC Glucose 235 H (70-99) mg/dL Result Diagrams: 06/21/21 04:48 06/21/21 04:48 Sepsis Event Note - Evaluation Sepsis Screening Result: Sepsis Risk - Focused Exam Vital Signs: Vital Signs Temp Pulse Resp BP Pulse Ox Pulse Ox 06/22/21 06:53 98.1 F 91 20 116/61 90 L 06/22/21 05:55 96 06/22/21 00:33 92 L 06/21/21 20:37 87 22 H 117/66 92 L 06/21/21 19:53 91 L - Problem List & Annotations (1) Hyperlipidemia SNOMED Code(s): 93186577 Code(s): E78.5 - HYPERLIPIDEMIA, UNSPECIFIED Status: Chronic Priority: Low Current Visit: No Qualifiers: Hyperlipidemia type: unspecified Qualified Code(s): E78.5 - Hyperlipidemia, unspecified (2) HTN (hypertension) SNOMED Code(s): 99006484 Code(s): I10 - ESSENTIAL (PRIMARY) HYPERTENSION Status: Chronic Priority: Low Current Visit: No Qualifiers: Hypertension type: unspecified Qualified Code(s): I10 - Essential (primary) hypertension (3) Elevated d-dimer SNOMED Code(s): 718340076 Code(s): R79.89 - OTHER SPECIFIED ABNORMAL FINDINGS OF BLOOD CHEMISTRY Status: Acute Priority: High Current Visit: Yes (4) Elevated C-reactive protein SNOMED Code(s): 400788699617827 Code(s): R79.82 - ELEVATED C-REACTIVE PROTEIN (CRP) Status: Acute Priority: High Current Visit: Yes (5) Leukocytosis SNOMED Code(s): 947623940, 775001563 Code(s): D72.829 - ELEVATED WHITE BLOOD CELL COUNT, UNSPECIFIED Status: A cute Priority: High Current Visit: Yes Qualifiers: Leukocytosis type: unspecified Qualified Code(s): D72.829 - Elevated white blood cell count, unspecified (6) Diabetes mellitus SNOMED Code(s): 73069681 Code(s): E11.9 - TYPE 2 DIABETES MELLITUS WITHOUT COMPLICATIONS Status: Chronic Priority: High Current Visit: Yes Qualifiers: Diabetes mellitus type: type 2 Diabetes mellitus medical terminologist insulin use: without medical terminologist use Diabetes mellitus complication status: with other specified complication Qualified Code(s): E11.69 - Type 2 diabetes mellitus with other specified complication (7) Hypoxia SNOMED Code(s): 527403653 Code(s): R09.02 - HYPOXEMIA Status: Acute Priority: High Current Visit: Yes (8) Pneumonia due to COVID-19 virus SNOMED Code(s): 021216310555552014 Code(s): U07.1 - COVID-19; J12.82 - PNEUMONIA DUE TO CORONAVIRUS DISEASE 2018 Status: Acute Priority: High Current Visit: Yes (9) Smoker SNOMED Code(s): 36469773 Code(s): F17.200 - NICOTINE DEPENDENCE, UNSPECIFIED, UNCOMPLICATED Status: Chronic Priority: High Current Visit: Yes (10) Gout SNOMED Code(s): 14202972 Code(s): M10.9 - GOUT, UNSPECIFIED Status: Chronic Priority: Low Current Visit: No Qualifiers: Gout site: unspecified site Gout etiology: unspecified cause Chronicity: unspecified Qualified Code(s): M10.9 - Gout, unspecified (11) Vitamin D deficiency SNOMED Code(s): 16830600 Code(s): E55.9 - VITAMIN D DEFICIENCY, UNSPECIFIED Status: Acute Priority: Medium Current Visit: Yes (12) COVID-19 long hauler SNOMED Code(s): 1878213908 Code(s): B94.8 - SEQUELAE OF OTH INFECTIOUS AND PARASITIC DISEASES Status: Acute Priority: High Current Visit: Yes - Problem List Review Problem List Initiated/Reviewed/Updated: Yes - My Orders Last 24 Hours: My Active Orders 06/21/21 21:00 methylPREDNISolone Sod Succ [Solu-MEDROL] 60 mg IVPUSH Q12H - Assessment Assessment:: 06/12/2021 This is a 55-year-old male admitted to the floor with hypoxia secondary to COVID-19 pneumonia. He currently is on 45 L with an FiO2 of 75%. Labs today show a WBC of 10.22. Hemoglobin 30.6. Platelet 269,000. Neutrophils elevated 75.1%. D-dimer is up to 3.85. Sodium 144. Potassium 3.8. Chloride 109. Carbon dioxide 25. Anion gap is 13.8. BUN is 14. Creatinine 0.7. GFR greater than 60. Blood glucose levels have been from 96-2 14. Phosphorus 3.5. Magnesium 1.9. Total bilirubin 0.3. AST is 30, ALT 37, alkaline phosphatase 52. CRP is 12.6. Protein 5.5. Albumin is down to 1.9. Given the patient's worsening oxygen demand and elevated D-dimer CTA is obtained showing 1. Bilateral pulmonary consolidation likely due to COVID-19. 2. Mediastinal adenopathy, most likely reactive. There are no signs of any pulmonary emboli. We will therefore increase patient's DVT prophylaxis up to 40 mg twice daily Lovenox. Patient will be started on 20 mg twice daily Pepcid and zinc supplementation. Vitamin D level has been ordered. Patient will remain hospitalized pending improvement in oxygen demand. Unknown length of stay time. Overall he states he feels about the same as yesterday. Continues to have mild diarrhea at times and reports weakness. 06/13/2021 This is a 55-year-old male admitted to the hospital for COVID-19 pneumonia. He has been proning today and saturations are in the mid to low 90s while proning. He has been utilizing incentive spirometer and Acapella. He has been a little bit down today and reports he does not feel like he is getting much better. Overall his lung sounds have greatly improved. He remains on high flow 50 L with an FiO2 of 70%. Labs today show a WBC of 9.34. Hemoglobin 13.7. Platelet 357,000. Neutrophils are 76.4%. Sodium is 144. Potassium 3.5. Anion gap is 15.5. BUN 12. Creatinine 0.8.. GFR greater than 60. Glucose has been between 102 42. Magnesium 1.9. Bilirubin 0.4. AST is 27, ALT 41, alkaline phosphatase 58. CRP is improved to 10.7. Protein 6.1. Vitamin D obtained yesterday was low at 17.4 and we will start supplementation for vitamin D today. Albumin is improved to 2.1. We will continue treatment with unknown length of stay due to severity of COVID-19 symptoms. 06/14/2021 55-year-old male admitted to the hospital with hypoxia due to COVID-19 pneumonia. He is currently on 50 L of oxygen with 75% FiO2. States he has been proning as much as possible as well as using his I-S and Acapella. Has a very flat affect. Was upset on rounds this morning as he states he has not been getting his muscle relaxer with his morning pills. Labs today reveal a WBC of 13.29, hemoglobin 13.3, hematocrit 40.8, platelet count 395,000, D-dimer 3.19, sodium 144, potassium 3.8, chloride 108, anion gap 13.8, BUN 16, creatinine 0.7, GFR greater than 60, glucose has ranged from 111404, magnesium 1.9, C-reactive protein 5.3 continue with current treatment. Unknown length of stay due to the severity of Covid symptoms. 06/15/2021 This is a 55-year-old male admitted to the floor with COVID-19 pneumonia. He had worsening oxygen saturations and today was requiring 60 L of oxygen with an FiO2 of 95%. Because of this he was moved up to the ICU. He continues to u tilize his incentive spirometry and Acapella and prone. We will continue dexamethasone and baricitinib. Respiratory therapy continues to work with him. Clinically he does not look to be in any acute respiratory distress. Labs today show WBC of 14.02. Hemoglobin 14.1. Platelet 4 and 26,000. Neutrophils are elevated 79.9%. Sodium 143. Potassium 3.8. Chloride 107. Carbon dioxide 27. Anion gap 12.8. BUN is 13. Creatinine 0.7. GFR greater than 60. Glucose is 97-93. Calcium is 8.5. Magnesium 1.8. Bilirubin 0.5. AST is 24, ALT 49, alkaline phosphatase 54. CRP is 5.9. Protein is 5.9 and albumin is 2.0. We will continue current treatment plan. Will increase to BiPAP if necessary. Unknown length of stay due to severity of COVID-19 symptoms. 06/16/2021 Patient improved overnight decreasing his high flow nasal cannula to 50 L and FiO2 of currently 80%. Continue with current treatment as outlined above. 06/17/2021 Pt is still requiring 55L of oxygen at 80% high flow nasal cannula. He is proning some. He is afebrile. 06/18/2021 56-year-old male admitted to the floor for COVID-19 pneumonia. Remains on high flow oxygen 50 L at 80% FiO2. He has been quite deconditioned from a respiratory standpoint and does take quite some time to recover after exertion. Overall states he is feeling quite a bit better. WBC is 12.40. Platelet 403,000. Neutrophils are elevated at 82.5%. D-dimer 6.36. Sodium 141. Potassium 4.1. Carbon dioxide 28. Anion gap 14.1. BUN is 18. Creatinine 0.8. GFR greater than 60. Glucose 130. We will start the patient on 60 mg twice daily Lovenox given his increasing D-dimer. This is 0.5 mg/kg. We will start the patient on 60 mg every 8 hour Solu-Medrol. He is to continue proning regularly and also utilizing his incentive spirometer and Acapella. Unknown length of stay due to severity of symptoms. Patient will remain in ICU status. 06/19/2021 56-year-old male hospitalized for COVID-19 pneumonia symptoms. He has been in the ICU for several days. We have finally been able to wean him down slightly on his high flow. He is 40 L with a FiO2 of 70% currently. Saturations have been in the upper 80s to low 90s. He has continued to take quite some time to recover after exertion. He has been proning quite regularly. Otherwise says he feels okay. He has been having some back pain and is receiving a skeletal muscle relaxant for this. WBC is elevated at 15.76. He platelet 448,000. Neutrophils are elevated at 91.6. D-dimer has improved to 2.84. Sodium 139. Potassium 4.5. Chloride 104. Carbon oxide 25. Anion gap is 14.5. BUN is 19. Creatinine 0.7. GFR greater than 60. Glucose 186. Magnesium is 2.1. CRP is 4.6. Bilirubin 0.4. AST 14, ALT 34, alkaline phosphatase 49. Albumin is 2.5. Protein 6.9. We will continue current treatment plan. As he has improved with his high flow settings we will downgrade him to MedSurg status with telemetry today. Continue current treatment plan. Patient will remain hospitalized and likely require several more days. 06/20/2021 56-year-old male hospitalized with COVID-19 pneumonia. He was downgraded out of the ICU yesterday to the floor with telemetry. We have been decreasing his high flow settings however this morning he noted acute dyspnea and was noted to have decreased saturations so his high flow was increased to 50 L with FiO2 of 75%. This has been quite common for him that in the mornings he has an episode like this and does recover throughout the day. Overall he states he feels okay. He did prone most of the night overnight. He is utilizing his incentive spirometry and Acapella. We will continue to try to wean him off of high flow. He remains on 60 mg every 8 hour Solu-Medrol we will look at decreasing this in the future. Otherwise he is doing okay. He has no acute complaints. No labs were drawn today and we will recheck tomorrow. Unknown length of stay due to severity of COVID-19 symptoms. 06/21/2021 This is a 56-year-old male who remains admitted to the hospital for treatment of his COVID-19 pneumonia. He has completed dexamethasone and remdesivir. He will complete baricitinib today. He remains on high flow 50 L with an FiO2 of 60%. Overnight he did require more FiO2 and he is recovered from this. Saturations remain in the upper 80s to low 90s. Labs were not obtained today as patient has been relatively stable from a lab standpoint. We will consider rechecking those on Friday. He continues to prone and utilize his incentive spirometer and Acapella. Chest x-ray obtained yesterday shows significant worsening COVID-19 pneumonia. We will decrease his steroid today from 60 mg every 8 to 60 mg twice daily. 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 Patient continues slow improvements. Unknown length of stay due to severity of symptom s. 06/22/2021: This is a 56-year-old male admitted to the hospital floor continuing treatment of COVID-19 pneumonia. He has completed dexamethasone, remdesivir, and baricitinib. He remains on Solu-Medrol 60 mg every 12 hours although plan is to decrease this slowly. Patient is currently requiring 35 L of 50% FiO2. RT continues to wean high flow with the hope of transitioning to a nasal cannula within the next 12 to 24 hours. Patient reports he feels pretty good but he continues to have cough and dyspnea on exertion. We will continue current treatment plan. No labs were obtained today as patient is otherwise been quite stable. Unknown length of stay due to severity of symptoms. Goal oxygen demand prior to discharge would be 2 L or less via nasal cannula. - Plan Plan:: Pneumonia due to COVID-19 virus Leukocytosis Elevated D-Dimer Hypoxia COVID-19 Long Hauler * O2 as needed with goal saturations 88 to 95% * High flow oxygen * Continue Lovenox 60 mg twice daily due to elevated D-dimer * I-S/Acapella * PRN albuterol inhaler * PRN Duonebs * Prone whenever able * Ambulate around room * Solumedrol 60mg Q12Hr (continue titration) * RT consultation * PT/OT * Airborne/contact isolation * Telemetry * Continuous pulse oximetry * Zinc supplementation * 20 mg twice daily Pepcid * Completed remdesivir, azithromycin, rocephin, Baricitinib and dexamethasone * Scheduled Mucinex twice daily Morbid obesity * Lifestyle modifications. Hyperlipidemia * Continue home rosuvastatin * No acute concern HTN (hypertension) * Continue home lisinopril * No acute concerns Diabetes mellitus * Continue home Jardiance * QID AC and bedtime blood glucose checks * Medium dose sliding scale insulin * Hold home metformin * Diabetic diet Tobacco abuse * Nicotine patch daily * Cessation counseling * Offer nicotine patches at discharge Gout * No acute concerns * No chronic home gout medications * Monitor Vitamin D deficiency * Begin 5,000 unit vitamin D supplementation * PCP to follow-up Code status: Full code PCP: Dr. Rubio DVT prophylaxis: BID Lovenox as above Disposition: Patient upgraded to ICU status on 06/15/2021 due to rapidly deteriorating oxygen saturations the need for high flow oxygen. Downgraded to MSP status with telemetry on 06/19/2021. Unknown length of stay as patient continues to require significant amounts of high flow oxygen. Goal oxygen demand would be 2 L or less on nasal cannula. Length of stay greater than 96 hours due to continued need for COVID-19 treatment.
[2021-06-22] MEDS: Insulin Lispro 100 UNIT/ML 10 ML Vial SUBCUT SCH ×4 (08:37→21:41)
[2021-06-22] MEDS: Famotidine 20 MG Tab PO SCH ×2 (08:38→21:18)
[2021-06-22] MEDS: Zinc Sulfate 220 MG Cap PO SCH (08:38)
[2021-06-22] MEDS: Empagliflozin 10 MG Tab PO SCH (08:38)
[2021-06-22] MEDS: guaiFENesin 600 MG Tab.ER PO SCH ×2 (08:38→21:18)
[2021-06-22] MEDS: Cholecalciferol (Vitamin D3) 5,000 UNIT Cap PO SCH (08:38)
[2021-06-22] MEDS: Rosuvastatin 10 MG Tab PO SCH (08:38)
[2021-06-22] MEDS: Lisinopril 20 MG Tab PO SCH (08:38)
[2021-06-22] MEDS: Nicotine 14 MG/24 Hr Patch TRDERM SCH (08:41)
[2021-06-22] MEDS: Enoxaparin 60 MG/0.6 ML Syringe SUBCUT SCH ×2 (08:41→21:18)
[2021-06-22] MEDS: Polyethylene Glycol 3350 Powder 17 GM Packet PO SCH (08:41)
[2021-06-22] MEDS: methylPREDNISolone Sodium Succinate 40 MG/1 ML SDV IVPUSH SCH ×2 (08:42→21:18)
[2021-06-22] MEDS: Docusate Sodium 100 MG Cap PO SCH ×2 (08:42→21:18)
[2021-06-22] MEDS: Methocarbamol 500 MG Tab PO PRN ×2 (08:59→21:41)
[2021-06-23] MEDS: Albuterol/Ipratropium 3.0-0.5 MG/3 ML Neb Soln NEB PRN ×2 (05:49→09:58)
[2021-06-23] MEDS: Albuterol 6.7 GM Inhaler INH PRN ×3 (08:07→21:26)
[2021-06-23] MEDS: Cholecalciferol (Vitamin D3) 5,000 UNIT Cap PO SCH (08:23)
[2021-06-23] MEDS: Lisinopril 20 MG Tab PO SCH (08:23)
[2021-06-23] MEDS: Famotidine 20 MG Tab PO SCH ×2 (08:23→20:42)
[2021-06-23] MEDS: Zinc Sulfate 220 MG Cap PO SCH (08:23)
[2021-06-23] MEDS: Rosuvastatin 10 MG Tab PO SCH (08:23)
[2021-06-23] MEDS: Empagliflozin 10 MG Tab PO SCH (08:23)
[2021-06-23] MEDS: Nicotine 14 MG/24 Hr Patch TRDERM SCH (08:24)
[2021-06-23] MEDS: guaiFENesin 600 MG Tab.ER PO SCH ×2 (08:24→20:42)
[2021-06-23] MEDS: Insulin Lispro 100 UNIT/ML 10 ML Vial SUBCUT SCH ×4 (08:24→21:05)
[2021-06-23] MEDS: methylPREDNISolone Sodium Succinate 40 MG/1 ML SDV IVPUSH SCH ×2 (08:24→20:42)
[2021-06-23] MEDS: Enoxaparin 60 MG/0.6 ML Syringe SUBCUT SCH ×2 (08:24→20:42)
[2021-06-23] MEDS: Docusate Sodium 100 MG Cap PO SCH ×2 (08:25→20:43)
[2021-06-23] MEDS: Polyethylene Glycol 3350 Powder 17 GM Packet PO SCH (08:25)
[2021-06-23] MEDS: Methocarbamol 500 MG Tab PO PRN ×3 (08:29→20:42)
[2021-06-23] MEDS ORDERED: Benzonatate 100 MG Cap PO PRN (08:47)
--- NOTE | 2021-06-23 17:44 | PCM.PN ---
- General Info Date of Service: 06/23/21 Admission Dx/Problem (Free Text): Admission Diagnosis/Problem Admission Diagnosis/Problem Hypoxia Covid 19 pneumonia with hypoxia Subjective Update: Patient states he is continuing to improve. Less shortness of breath. He still has a cough but is improved. He was switched this afternoon to 6 L nasal cannula. Functional Status: Reports: Pain Controlled - Review of Systems General: Reports: No Symptoms HEENT: Reports: No Symptoms Pulmonary: Reports: Shortness of Breath, Cough Cardiovascular: Reports: No Symptoms Gastrointestinal: Reports: No Symptoms Musculoskeletal: Reports: No Symptoms - Patient Data Vitals - Most Recent: Last Vital Signs Temp 97.9 F 06/23/21 16:16 Pulse 79 06/23/21 16:16 Resp 20 06/23/21 16:16 BP 116/65 06/23/21 16:16 Pulse Ox 95 06/23/21 16:16 Weight - Most Recent: 255 lb 12.8 oz I&O - Last 24 Hours: Intake & Output 06/23/21 06/23/21 06/23/21 06:59 14:59 22:59 Intake Total 540 380 Balance 540 380 Lab Results Last 24 Hours: Laboratory Results - last 24 hr 06/22/21 06/23/21 06/23/21 Range/Units 21:30 06:47 10:51 POC Glucose 192 H 210 H 261 H (70-99) mg/dL 06/23/21 Range/Units 16:13 POC Glucose 302 H (70-99) mg/dL Med Orders - Current: Current Medications Acetaminophen (Acetaminophen 325 Mg Tab) 650 mg PO Q4H PRN PRN Reason: Pain (Mild 1-3)/fever Last Admin: 06/12/21 10:29 Dose: 650 mg Documented by: Albuterol (Albuterol 6.7 Gm Inhaler) 0 gm INH Q2H PRN PRN Reason: sob/wheezing Last Admin: 06/23/21 14:27 Dose: 2 puff Documented by: Albuterol/Ipratropium (Albuterol/Ipratropium 3.0-0.5 Mg/3 Ml Neb Soln) 3 ml NEB Q4HRRT PRN PRN Reason: Shortness of Breath Last Admin: 06/23/21 09:58 Dose: 3 ml Documented by: Benzonatate (Benzonatate 100 Mg Cap) 100 mg PO Q8H PRN PRN Reason: Cough Calcium Carbonate/Glycine (Calcium Carbonate 500 Mg Tab.Chew) 1,000 mg PO Q2HR PRN PRN Reason: Heartburn Last Admin: 06/10/21 17:01 Dose: 1,000 mg Documented by: Cholecalciferol (Cholecalciferol (Vitamin D3) 5,000 Unit Cap) 5,000 unit PO DAILY [facility] Last Admin: 06/23/21 08:23 Dose: 5,000 unit Documented by: Docusate Sodium (Docusate Sodium 100 Mg Cap) 100 mg PO BID [facility] Last Admin: 06/23/21 08:25 Dose: Not Given Documented by: Enoxaparin Sodium (Enoxaparin 60 Mg/0.6 Ml Syringe) 60 mg SUBCUT Q12H [facility] Last Admin: 06/23/21 08:24 Dose: 60 mg Documented by: Famotidine (Famotidine 20 Mg Tab) 20 mg PO BID [facility] Last Admin: 06/23/21 08:23 Dose: 20 mg Documented by: Guaifenesin (Guaifenesin 600 Mg Tab.Er) 600 mg PO BID [facility] Last Admin: 06/23/21 08:24 Dose: 600 mg Documented by: Guaifenesin/Phenylephrine HCl (Guaifenesin/Dextromethorphan 100-10 Mg/5 Ml Soln 5 Ml Cup) 5 ml PO Q4H PRN PRN Reason: Cough Insulin Human Lispro (Insulin Lispro 100 Unit/Ml 10 Ml Vial) 0 unit SUBCUT QIDACANDBED [facility]; Protocol Last Admin: 06/23/21 11:23 Dose: 6 units Documented by: Lisinopril (Lisinopril 20 Mg Tab) 40 mg PO DAILY [facility] Last Admin: 06/23/21 08:23 Dose: 40 mg Documented by: Lorazepam (Lorazepam 0.5 Mg Tab) 0.5 mg PO TID PRN PRN Reason: Anxiety Methocarbamol (Methocarbamol 500 Mg Tab) 1,000 mg PO Q6H PRN PRN Reason: Spasms Last Admin: 06/23/21 15:25 Dose: 1,000 mg Documented by: Methylprednisolone Sodium Succinate (Methylprednisolone Sodium Succinate 40 Mg/1 Ml Sdv) 60 mg IVPUSH Q12H [facility] Last Admin: 06/23/21 08:24 Dose: 60 mg Documented by: Miscellaneous Information (Remove Nicotine Patch) 1 ea TRDERM DAILY [facility] Last Admin: 06/23/21 08:25 Dose: 1 ea Documented by: Nicotine (Nicotine 14 Mg/24 Hr Patch) 14 mg TRDERM DAILY [facility] Last Admin: 06/23/21 08:24 Dose: 14 mg Documented by: Ondansetron HCl (Ondansetron 4 Mg/2 Ml Sdv) 4 mg IV Q4H PRN PRN Reason: Nausea/Vomiting Polyethylene Glycol (Polyethylene Glycol 3350 Powder 17 Gm Packet) 17 gm PO DAILY [facility] Last Admin: 06/23/21 08:25 Dose: Not Given Documented by: Rosuvastatin Calcium (Rosuvastatin 10 Mg Tab) 20 mg PO DAILY [facility] Last Admin: 06/23/21 08:23 Dose: 20 mg Documented by: Temazepam (Temazepam 15 Mg Cap) 15 mg PO BEDTIME PRN PRN Reason: Sleep Last Admin: 06/10/21 21:59 Dose: 15 mg Documented by: Zinc Sulfate (Zinc Sulfate 220 Mg Cap) 220 mg PO DAILY [facility] Last Admin: 06/23/21 08:23 Dose: 220 mg Documented by: Discontinued Medications Acetylcysteine (Acetylcysteine 20% 200 Mg/Ml 30 Ml Nebulizer Soln Sdv) 800 mg NEB ONETIME ONE Stop: 06/09/21 09:21 Last Admin: 06/09/21 11:40 Dose: Not Given Documented by: Acetylcysteine (Acetylcysteine 20% 200 Mg/Ml 4 Ml Nebulizer Soln Sdv) 800 mg NEB ONETIME ONE Stop: 06/09/21 09:46 Last Admin: 06/09/21 10:10 Dose: 800 mg Documented by: Acetylcysteine (Acetylcysteine 20% 200 Mg/Ml 4 Ml Nebulizer Soln Sdv) 200 mg NEB ONETIME ONE Stop: 06/13/21 13:31 Last Admin: 06/13/21 15:38 Dose: 200 mg Documented by: Albuterol/Ipratropium (Albuterol/Ipratropium 3.0-0.5 Mg/3 Ml Neb Soln) 3 ml NEB QIDRT PRN PRN Reason: Shortness Of Breath/wheezing Last Admin: 06/20/21 21:30 Dose: 3 ml Documented by: Dexamethasone (Dexamethasone 4 Mg Tab) 6 mg PO ONETIME ONE Stop: 06/07/21 19:48 Last Admin: 06/07/21 20:28 Dose: 6 mg Documented by: Dexamethasone (Dexamethasone 10 Mg/Ml Sdv) 6 mg IVPUSH DAILY [facility] Stop: 06/16/21 09:01 Last Admin: 06/12/21 11:19 Dose: 6 mg Documented by: Dexamethasone (Dexamethasone 4 Mg Tab) 6 mg PO DAILY [facility] Stop: 06/16/21 09:01 Last Admin: 06/16/21 08:46 Dose: 6 mg Documented by: Enoxaparin Sodium (Enoxaparin 40 Mg/0.4 Ml Syringe) 40 mg SUBCUT Q12H [facility] Last Admin: 06/12/21 23:34 Dose: 40 mg Documented by: Enoxaparin Sodium (Enoxaparin 40 Mg/0.4 Ml Syringe) 40 mg SUBCUT Q12H [facility] Last Admin: 06/18/21 08:20 Dose: 40 mg Documented by: Enoxaparin Sodium (Enoxaparin 60 Mg/0.6 Ml Syringe) 60 mg SUBCUT Q12H [facility] Enoxaparin Sodium (Enoxaparin 30 Mg/0.3 Ml Syringe) 20 mg SUBCUT ONETIME ONE Stop: 06/18/21 09:17 Last Admin: 06/18/21 10:25 Dose: Not Given Documented by: Enoxaparin Sodium (Enoxaparin 40 Mg/0.4 Ml Syringe) 20 mg SUBCUT ONETIME ONE Stop: 06/18/21 10:31 Last Admin: 06/18/21 10:26 Dose: 20 mg Documented by: Heparin Sodium (Porcine) (Heparin Sodium 5,000 Units/Ml Vial) 5,000 units SUBCUT Q8H [facility] Last Admin: 06/12/21 11:49 Dose: Not Given Documented by: Sodium Chloride (Normal Saline) 100 mls @ 60 mls/min IV ASDIRECTED [facility] Last Admin: 06/07/21 19:29 Dose: 60 mls/min Documented by: Remdesivir 200 mg/ Sodium (Chloride) 250 mls @ 250 mls/hr IV ONETIME ONE Stop: 06/07/21 20:38 Last Admin: 06/07/21 20:54 Dose: 250 mls/hr Documented by: Remdesivir 100 mg/ Sodium (Chloride) 100 mls @ 100 mls/hr IV Q24H [facility] Stop: 06/11/21 20:59 Last Admin: 06/11/21 20:39 Dose: 100 mls/hr Documented by: Ceftriaxone Sodium 2 gm/ (Sodium Chloride) 100 mls @ 200 mls/hr IV Q24H [facility] Last Admin: 06/12/21 10:10 Dose: 200 mls/hr Documented by: Azithromycin 500 mg/ Sodium (Chloride) 250 mls @ 250 mls/hr IV Q24H [facility] Last Admin: 06/12/21 10:11 Dose: 250 mls/hr Documented by: Sodium Chloride (Normal Saline) 100 mls @ 60 mls/hr IV ASDIRECTED [facility] Stop: 06/12/21 13:00 Last Admin: 06/12/21 11:28 Dose: 60 mls/hr Documented by: Ibuprofen (Ibuprofen 200 Mg Tab) 600 mg PO Q4HR PRN PRN Reason: Pain Ibuprofen (Ibuprofen 600 Mg Tab) 600 mg PO Q4HR PRN PRN Reason: Pain Iopamidol (Iopamidol 755 Mg/Ml 100 Ml Bottle) 100 ml IVPUSH ONETIME ONE Stop: 06/07/21 19:05 Last Admin: 06/07/21 19:29 Dose: 100 ml Documented by: Iopamidol (Iopamidol 755 Mg/Ml 100 Ml Bottle) 100 ml IVPUSH ONETIME ONE Stop: 06/12/21 11:04 Last Admin: 06/12/21 11:28 Dose: 100 ml Documented by: Lorazepam (Lorazepam 0.5 Mg Tab) 0.5 mg PO TID PRN PRN Reason: Anxiety Metformin HCl (Metformin 500 Mg Tab) 1,000 mg PO BID [facility] Last Admin: 06/10/21 09:49 Dose: 1,000 mg Documented by: Methylprednisolone Sodium Succinate (Methylprednisolone Sodium Succinate 40 Mg/1 Ml Sdv) 60 mg IVPUSH Q8H [facility] Last Admin: 06/21/21 15:18 Dose: Not Given Documented by: Methylprednisolone Sodium Succinate (Methylprednisolone Sodium Succinate 40 Mg/1 Ml Sdv) 60 mg IVPUSH Q12H [facility] Last Admin: 06/21/21 11:38 Dose: 60 mg Documented by: Morphine Sulfate (Morphine 2 Mg/Ml Syringe) 2 mg IVPUSH Q2H PRN PRN Reason: Pain (severe 7-10) Stop: 06/09/21 07:44 Jardiance ( Empagliflozin 10 Mg Tablet Ptom 0 mg PO DAILY [facility] Last Admin: 06/18/21 08:30 Dose: 10 mg Documented by: Sodium Chloride (Sodium Chloride 0.9% 10 Ml Sdv) 10 ml FLUSH ONETIME ONE Stop: 06/07/21 19:05 Last Admin: 06/07/21 19:29 Dose: 10 ml Documented by: Sodium Chloride (Sodium Chloride 0.9% 10 Ml Syringe) 10 ml FLUSH ONETIME ONE Stop: 06/12/21 11:04 Last Admin: 06/12/21 11:28 Dose: 10 ml Documented by: - Exam Quality Assessment: Supplemental Oxygen General: Alert, Oriented HEENT: Pupils Equal, Mucous Membr. Moist/[place] Neck: Supple Lungs: Crackles (Bibasilar). No: Normal Respiratory Effort (Increased respiratory rate and effort) Cardiovascular: Regular Rate, Regular Rhythm GI/Abdominal Exam: Normal Bowel Sounds, Soft, Non-Tender, No Distention Extremities: Normal Inspection, Normal Range of Motion, Non-Tender, No Pedal Edema, Normal Capillary Refill Psy/Mental Status: Alert, Normal Affect, Normal Mood - Patient Data Lab Results Last 24 hrs: Laboratory Results - last 24 hr 06/22/21 06/23/21 06/23/21 Range/Units 21:30 06:47 10:51 POC Glucose 192 H 210 H 261 H (70-99) mg/dL 06/23/21 Range/Units 16:13 POC Glucose 302 H (70-99) mg/dL Result Diagrams: 06/21/21 04:48 06/21/21 04:48 Sepsis Event Note - Evaluation Sepsis Screening Result: Sepsis Risk - Focused Exam Vital Signs: Vital Signs Temp Pulse Resp BP Pulse Ox Pulse Ox Pulse Ox 06/23/21 16:16 97.9 F 79 20 116/65 95 06/23/21 14:28 89 L 06/23/21 13:48 98.1 F 99 20 127/76 89 L 06/23/21 10:00 89 L 06/23/21 08:26 95 91 L 06/23/21 08:23 111/61 06/23/21 08:22 97.5 F 89 20 111/61 83 L 06/23/21 08:09 89 L 06/23/21 07:00 94 L 06/23/21 05:49 94 L - Problem List & Annotations (1) Diabetes mellitus SNOMED Code(s): 71444114 Code(s): E11.9 - TYPE 2 DIABETES MELLITUS WITHOUT COMPLICATIONS Status: Chronic Priority: High Current Visit: Yes Qualifiers: Diabetes mellitus type: type 2 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 use Diabetes mellitus complication status: with other specified complication Qualified Code(s): E11.69 - Type 2 diabetes mellitus with other specified complication (2) Pneumonia due to COVID-19 virus SNOMED Code(s): 756493223975323206 Code(s): U07.1 - COVID-19; J12.82 - PNEUMONIA DUE TO CORONAVIRUS DISEASE 2019 Status: Acute Priority: High Current Visit: Yes - Problem List Review Problem List Initiated/Reviewed/Updated: Yes - My Orders Last 24 Hours: My Active Orders 06/23/21 08:47 Benzonatate [Tessalon Perles] 100 mg PO Q8H PRN Dextromethorphan/guaiFENesin [Robitussin DM] 5 ml PO Q4H PRN 06/24/21 05:11 C-REACTIVE PROTEIN [CHEM] AM CBC WITH AUTO DIFF [HEME] AM CMP [COMPREHENSIVE METABOLIC PN,CMP] [CHEM] AM DD [D-DIMER QUANTITATIVE] [COAG] AM MAGNESIUM [CHEM] AM PHOSPHORUS [CHEM] AM - Assessment Assessment:: 06/12/2021 This is a 55-year-old male admitted to the floor with hypoxia secondary to COVID-19 pneumonia. He currently is on 45 L with an FiO2 of 75%. Labs today show a WBC of 10.22. Hemoglobin 30.6. Platelet 269,000. Neutrophils elevated 75.1%. D-dimer is up to 3.85. Sodium 144. Potassium 3.8. Chloride 109. Carbon dioxide 25. Anion gap is 13.8. BUN is 14. Creatinine 0.7. GFR greater than 60. Blood glucose levels have been from 96-2 14. Phosphorus 3.5. Magnesium 1.9. Total bilirubin 0.3. AST is 30, ALT 37, alkaline phosphatase 52. CRP is 12.6. Protein 5.5. Albumin is down to 1.9. Given the patient's worsening oxygen demand and elevated D-dimer CTA is obtained showing 1. Bilateral pulmonary consolidation likely due to COVID-19. 2. Mediastinal adenopathy, most likely reactive. There are no signs of any pulmonary emboli. We will therefore increase patient's DVT prophylaxis up to 40 mg twice daily Lovenox. Patient will be started on 20 mg twice daily Pepcid and zinc supplementation. Vitamin D level has been ordered. Patient will remain hospitalized pending improvement in oxygen demand. Unknown length of stay time. Overall he states he feels about the same as yesterday. Continues to have mild diarrhea at times and reports weakness. 06/13/2021 This is a 55-year-old male admitted to the hospital for COVID-19 pneumonia. He has been proning today and saturations are in the mid to low 90s while proning. He has been utilizing incentive spirometer and Acapella. He has been a little bit down today and reports he does not feel like he is getting much better. Overall his lung sounds have greatly improved. He remains on high flow 50 L with an FiO2 of 70%. Labs today show a WBC of 9.34. Hemoglobin 13.7. Platelet 357,000. Neutrophils are 76.4%. Sodium is 144. Potassium 3.5. Anion gap is 15.5. BUN 12. Creatinine 0.8.. GFR greater than 60. Glucose has been between 102 42. Magnesium 1.9. Bilirubin 0.4. AST is 27, ALT 41, alkaline phosphatase 58. CRP is improved to 10.7. Protein 6.1. Vitamin D obtained yesterday was low at 17.4 and we will start supplementation for vitamin D today. Albumin is improved to 2.1. We will continue treatment with unknown length of stay due to severity of COVID-19 symptoms. 06/14/2021 55-year-old male admitted to the hospital with hypoxia due to COVID-19 pneumonia. He is currently on 50 L of oxygen with 75% FiO2. States he has been proning as much as possible as well as using his I-S and Acapella. Has a very flat affect. Was upset on rounds this morning as he states he has not been getting his muscle relaxer with his morning pills. Labs today reveal a WBC of 13.29, hemoglobin 13.3, hematocrit 40.8, platelet count 395,000, D-dimer 3.19, sodium 144, potassium 3.8, chloride 108, anion gap 13.8, BUN 16, creatinine 0.7, GFR greater than 60, glucose has ranged from [id number], magnesium 1.9, C-reactive protein 5.3 continue with current treatment. Unknown length of stay due to the severity of Covid symptoms. 06/15/2021 This is a 55-year-old male admitted to the floor with COVID-19 pneumonia. He had worsening oxygen saturations and today was requiring 60 L of oxygen with an FiO2 of 95%. Because of this he was moved up to the ICU. He continues to utilize his incentive spirometry and Acapella and prone. We will continue dexamethasone and baricitinib. Respiratory therapy continues to work with him. Clinically he does not look to be in any acute respiratory distress. Labs today show WBC of 14.02. Hemoglobin 14.1. Platelet 4 and 26,000. Neutrophils are elevated 79.9%. Sodium 143. Potassium 3.8. Chloride 107. Carbon dioxide 27. Anion gap 12.8. BUN is 13. Creatinine 0.7. GFR greater than 60. Glucose is 97-93. Calcium is 8.5. Magnesium 1.8. Bilirubin 0.5. AST is 24, ALT 49, alkaline phosphatase 54. CRP is 5.9. Protein is 5.9 and albumin is 2.0. We will continue current treatment plan. Will increase to BiPAP if necessary. Unknown length of stay due to severity of COVID-19 symptoms. 06/16/2021 Patient improved overnight decreasing his high flow nasal cannula to 50 L and FiO2 of currently 80%. Continue with current treatment as outlined above. 06/17/2021 Pt is still requiring 55L of oxygen at 80% high flow nasal cannula. He is proning some. He is afebrile. 06/18/2021 56-year-old male admitted to the floor for COVID-19 pneumonia. Remains on high flow oxygen 50 L at 80% FiO2. He has been quite deconditioned from a respiratory standpoint and does take quite some time to recover after exertion. Overall states he is feeling quite a bit better. WBC is 12.40. Platelet 403,000. Neutrophils are elevated at 82.5%. D-dimer 6.36. Sodium 141. Potassium 4.1. Carbon dioxide 28. Anion gap 14.1. BUN is 18. Creatinine 0.8. GFR greater than 60. Glucose 130. We will start the patient on 60 mg twice daily Lovenox given his increasing D-dimer. This is 0.5 mg/kg. We will start the patient on 60 mg every 8 hour Solu-Medrol. He is to continue proning re gularly and also utilizing his incentive spirometer and Acapella. Unknown length of stay due to severity of symptoms. Patient will remain in ICU status. 06/19/2021 56-year-old male hospitalized for COVID-19 pneumonia symptoms. He has been in the ICU for several days. We have finally been able to wean him down slightly on his high flow. He is 40 L with a FiO2 of 70% currently. Saturations have been in the upper 80s to low 90s. He has continued to take quite some time to recover after exertion. He has been proning quite regularly. Otherwise says he feels okay. He has been having some back pain and is receiving a skeletal muscle relaxant for this. WBC is elevated at 15.76. He platelet 448,000. Neutrophils are elevated at 91.6. D-dimer has improved to 2.84. Sodium 139. Potassium 4.5. Chloride 104. Carbon oxide 25. Anion gap is 14.5. BUN is 19. Creatinine 0.7. GFR greater than 60. Glucose 186. Magnesium is 2.1. CRP is 4.6. Bilirubin 0.4. AST 14, ALT 34, alkaline phosphatase 49. Albumin is 2.5. Protein 6.9. We will continue current treatment plan. As he has improved with his high flow settings we will downgrade him to MedSurg status with telemetry today. Continue current treatment plan. Patient will remain hospitalized and likely require several more days. 06/20/2021 56-year-old male hospitalized with COVID-19 pneumonia. He was downgraded out of the ICU yesterday to the floor with telemetry. We have been decreasing his high flow settings however this morning he noted acute dyspnea and was noted to have decreased saturations so his high flow was increased to 50 L with FiO2 of 75%. This has been quite common for him that in the mornings he has an episode like this and does recover throughout the day. Overall he states he feels okay. He did prone most of the night overnight. He is utilizing his incentive spirometry and Acapella. We will continue to try to wean him off of high flow. He remains on 60 mg every 8 hour Solu-Medrol we will look at decreasing this in the future. Otherwise he is doing okay. He has no acute complaints. No labs were drawn today and we will recheck tomorrow. Unknown length of stay due to severity of COVID-19 symptoms. 06/21/2021 This is a 56-year-old male who remains admitted to the hospital for treatment of his COVID-19 pneumonia. He has completed dexamethasone and remdesivir. He will complete baricitinib today. He remains on high flow 50 L with an FiO2 of 60%. Overnight he did require more FiO2 and he is recovered from this. Saturations remain in the upper 80s to low 90s. Labs were not obtained today as patient has been relatively stable from a lab standpoint. We will consider rechecking those on Friday. He continues to prone and utilize his incentive spirometer and Acapella. Chest x-ray obtained yesterday shows significant worsening COVID-19 pneumonia. We will decrease his steroid today from 60 mg ev eligio 8 to 60 mg twice daily. 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 Patient continues slow improvements. Unknown length of stay due to severity of symptoms. 06/22/2021: This is a 56-year-old male admitted to the hospital floor continuing treatment of COVID-19 pneumonia. He has completed dexamethasone, remdesivir, and baricitinib. He remains on Solu-Medrol 60 mg every 12 hours although plan is to decrease this slowly. Patient is currently requiring 35 L of 50% FiO2. RT continues to wean high flow with the hope of transitioning to a nasal cannula within the next 12 to 24 hours. Patient reports he feels pretty good but he continues to have cough and dyspnea on exertion. We will continue current treatment plan. No labs were obtained today as patient is otherwise been quite stable. Unknown length of stay due to severity of symptoms. Goal oxygen demand prior to discharge would be 2 L or less via nasal cannula. 06/23/2021 56-year-old male with COVID-19 pneumonia. He has completed dexamethasone, remdesivir, and baricitinib. He remains on Solu-Medrol which we are weaning. Patient was just switched to 6 L nasal cannula and RT continues to work aggressively with him. - Plan Plan:: Pneumonia due to COVID-19 virus Leukocytosis Elevated D-Dimer Hypoxia COVID-19 Long Hauler * O2 as needed with goal saturations 88 to 95% * High flow oxygen, switch to nasal cannula * Continue Lovenox 60 mg twice daily due to elevated D-dimer * I-S/Acapella * PRN albuterol inhaler * PRN Duonebs * Prone whenever able * Ambulate around room * Solumedrol 40mg Q12Hr (continue titration) * RT consultation * PT/OT * Airborne/contact isolation * Telemetry * Continuous pulse oximetry * Zinc supplementation * 20 mg twice daily Pepcid * Completed remdesivir, azithromycin, rocephin, Baricitinib and dexamethasone * Scheduled Mucinex twice daily Morbid obesity * Lifestyle modifications. Hyperlipidemia * Continue home rosuvastatin * No acute concern HTN (hypertension) * Continue home lisinopril * No acute concerns Diabetes mellitus * Continue home Jardiance * QID AC and bedtime blood glucose checks * Medium dose sliding scale insulin * Hold home metformin * Diabetic diet Tobacco abuse * Nicotine patch daily * Cessation counseling * Offer nicotine patches at discharge Gout * No acute concerns * No chronic home gout medications * Monitor Vitamin D deficiency * Begin 5,000 unit vitamin D supplementation * PCP to follow-up Code status: Full code PCP: Dr. Rubio DVT prophylaxis: BID Lovenox as above Disposition: Patient upgraded to ICU status on 06/15/2021 due to rapidly deteriorating oxygen saturations the need for high flow oxygen. Downgraded to MSP status with telemetry on 06/19/2021. Unknown length of stay as patient continues to require significant amounts of high flow oxygen. Goal oxygen demand would be 2 L or less on nasal cannula. Length of stay greater than 96 hours due to continued need for COVID-19 treatment.
[2021-06-23] MEDS: guaiFENesin/Dextromethorphan 100-10 MG/5 ML Soln 5 ML Cup PO PRN (22:43)
[2021-06-24] MEDS: Calcium Carbonate 500 MG Tab.Chew PO PRN ×2 (00:11→21:21)
[2021-06-24] MEDS: guaiFENesin/Dextromethorphan 100-10 MG/5 ML Soln 5 ML Cup PO PRN ×2 (02:17→21:21)
[2021-06-24] MEDS: Insulin Lispro 100 UNIT/ML 10 ML Vial SUBCUT SCH ×4 (07:49→21:21)
[2021-06-24] MEDS: Lisinopril 20 MG Tab PO SCH (08:00)
[2021-06-24] MEDS: Famotidine 20 MG Tab PO SCH ×2 (08:00→20:55)
[2021-06-24] MEDS: Cholecalciferol (Vitamin D3) 5,000 UNIT Cap PO SCH (08:00)
[2021-06-24] MEDS: Rosuvastatin 10 MG Tab PO SCH (08:00)
[2021-06-24] MEDS: Methocarbamol 500 MG Tab PO PRN ×3 (08:00→22:29)
[2021-06-24] MEDS: methylPREDNISolone Sodium Succinate 40 MG/1 ML SDV IVPUSH SCH ×2 (08:00→20:55)
[2021-06-24] MEDS: Zinc Sulfate 220 MG Cap PO SCH (08:06)
[2021-06-24] MEDS: guaiFENesin 600 MG Tab.ER PO SCH ×2 (08:06→20:55)
[2021-06-24] MEDS: Polyethylene Glycol 3350 Powder 17 GM Packet PO SCH (08:06)
[2021-06-24] MEDS: Empagliflozin 10 MG Tab PO SCH (08:06)
[2021-06-24] MEDS: Docusate Sodium 100 MG Cap PO SCH ×2 (08:07→20:55)
[2021-06-24] MEDS: Nicotine 14 MG/24 Hr Patch TRDERM SCH (08:07)
[2021-06-24] MEDS: Enoxaparin 60 MG/0.6 ML Syringe SUBCUT SCH ×2 (08:07→20:55)
[2021-06-24] MEDS: Albuterol 6.7 GM Inhaler INH PRN (12:21)
--- NOTE | 2021-06-24 12:35 | PCM.PN ---
- General Info Date of Service: 06/24/21 Admission Dx/Problem (Free Text): Admission Diagnosis/Problem Admission Diagnosis/Problem Hypoxia Covid 19 pneumonia with hypoxia Subjective Update: 55yom with pmh of DM type 2, hypertension, and hyperlipidemia presenting to the emergency department after being sent from [facility]. He was diagnosed as Covid positive on Friday (06/05) which is the day his symptoms began. This morning patient was fine. But this afternoon he has more shortness of breath. Denies fever, chills, nausea, or vomiting. He still has a cough but is improved. - Review of Systems Systems Review Comment:: Positive for shortness of breath. All other systems were reviewed and are negative. - Patient Data Vitals - Most Recent: Last Vital Signs Temp 36.6 C 06/24/21 09:00 Pulse 96 06/24/21 09:00 Resp 20 06/24/21 09:00 BP 111/68 06/24/21 08:05 Pulse Ox 94 L 06/24/21 12:22 Weight - Most Recent: 116.21 kg I&O - Last 24 Hours: Intake & Output 06/23/21 06/24/21 06/24/21 22:59 06:59 14:59 Intake Total 380 Balance 380 Lab Results Last 24 Hours: Laboratory Results - last 24 hr 06/23/21 06/23/21 06/24/21 Range/Units 16:13 20:54 05:11 WBC (4.23-9.07) K/mm3 RBC (4.63-6.08) M/mm3 Hgb (13.7-17.5) gm/dl Hct (40.1-51.0) % MCV (79.0-92.2) fl MCH (25.7-32.2) pg MCHC (32.2-35.5) g/dl RDW Std Deviation (35.1-43.9) fL Plt Count (163-337) K/mm3 MPV (9.4-12.3) fl Neut % (Auto) (34.0-67.9) % Lymph % (Auto) (21.8-53.1) % Prentiss % (Auto) (5.3-12.2) % Eos % (Auto) (0.8-7.0) Baso % (Auto) (0.1-1.2) % Neut # (Auto) (1.78-5.38) K/mm3 Lymph # (Auto) (1.32-3.57) K/mm3 Prentiss # (Auto) (0.30-0.82) K/mm3 Eos # (Auto) (0.04-0.54) K/mm3 Baso # (Auto) (0.01-0.08) K/mm3 Manual Slide Review D-Dimer, Quantitative 0.98 H (0.19-0.50) mg/L Sodium (136-145) mEq/L Potassium (3.5-5.1) mEq/L Chloride (98-107) mEq/L Carbon Dioxide (21-32) mEq/L Anion Gap (5-15) BUN (7-18) mg/dL Creatinine (0.7-1.3) mg/dL Est Cr Clr Drug Dosing mL/min Estimated GFR (MDRD) (>60) mL/min BUN/Creatinine Ratio (14-18) Glucose (70-99) mg/dL POC Glucose 302 H 144 H (70-99) mg/dL Calcium (8.5-10.1) mg/dL Phosphorus (2.6-4.7) mg/dL Magnesium (1.8-2.4) mg/dL Total Bilirubin (0.2-1.0) mg/dL AST (15-37) U/L ALT (16-63) U/L Alkaline Phosphatase (46-116) U/L C-Reactive Protein (<1.0) mg/dL Total Protein (6.4-8.2) g/dl Albumin (3.4-5.0) g/dl Globulin gm/dL Albumin/Globulin Ratio (1-2) 06/24/21 06/24/21 06/24/21 Range/Units 06:37 06:54 06:54 WBC 15.83 H (4.23-9.07) K/mm3 RBC 5.62 (4.63-6.08) M/mm3 Hgb 16.0 D (13.7-17.5) gm/dl Hct 49.4 (40.1-51.0) % MCV 87.9 (79.0-92.2) fl MCH 28.5 (25.7-32.2) pg MCHC 32.4 (32.2-35.5) g/dl RDW Std Deviation 48.5 H (35.1-43.9) fL Plt Count 339 H (163-337) K/mm3 MPV 8.9 L (9.4-12.3) fl Neut % (Auto) 84.3 H (34.0-67.9) % Lymph % (Auto) 7.9 L (21.8-53.1) % Prentiss % (Auto) 6.4 (5.3-12.2) % Eos % (Auto) 0.1 L (0.8-7.0) Baso % (Auto) 0.2 (0.1-1.2) % Neut # (Auto) 13.35 H (1.78-5.38) K/mm3 Lymph # (Auto) 1.25 L (1.32-3.57) K/mm3 Prentiss # (Auto) 1.02 H (0.30-0.82) K/mm3 Eos # (Auto) 0.01 L (0.04-0.54) K/mm3 Baso # (Auto) 0.03 (0.01-0.08) K/mm3 Manual Slide Review Normal smear D-Dimer, Quantitative (0.19-0.50) mg/L Sodium 136 (136-145) mEq/L Potassium 4.5 (3.5-5.1) mEq/L Chloride 100 (98-107) mEq/L Carbon Dioxide 25 (21-32) mEq/L Anion Gap 15.5 H (5-15) BUN 28 H (7-18) mg/dL Creatinine 0.9 (0.7-1.3) mg/dL Est Cr Clr Drug Dosing 92.38 mL/min Estimated GFR (MDRD) > 60 (>60) mL/min BUN/Creatinine Ratio 31.1 H (14-18) Glucose 238 H (70-99) mg/dL POC Glucose 242 H (70-99) mg/dL Calcium 9.9 (8.5-10.1) mg/dL Phosphorus 5.6 H (2.6-4.7) mg/dL Magnesium 2.3 (1.8-2.4) mg/dL Total Bilirubin 0.4 (0.2-1.0) mg/dL AST 8 L (15-37) U/L ALT 59 (16-63) U/L Alkaline Phosphatase 53 (46-116) U/L C-Reactive Protein <0.2 (<1.0) mg/dL Total Protein 7.2 (6.4-8.2) g/dl Albumin 3.0 L (3.4-5.0) g/dl Globulin 4.2 gm/dL Albumin/Globulin Ratio 0.7 L (1-2) 06/24/21 06/24/21 Range/Units 10:49 11:17 WBC (4.23-9.07) K/mm3 RBC (4.63-6.08) M/mm3 Hgb (13.7-17.5) gm/dl Hct (40.1-51.0) % MCV (79.0-92.2) fl MCH (25.7-32.2) pg MCHC (32.2-35.5) g/dl RDW Std Deviation (35.1-43.9) fL Plt Count (163-337) K/mm3 MPV (9.4-12.3) fl Neut % (Auto) (34.0-67.9) % Lymph % (Auto) (21.8-53.1) % Prentiss % (Auto) (5.3-12.2) % Eos % (Auto) (0.8-7.0) Baso % (Auto) (0.1-1.2) % Neut # (Auto) (1.78-5.38) K/mm3 Lymph # (Auto) (1.32-3.57) K/mm3 Prentiss # (Auto) (0.30-0.82) K/mm3 Eos # (Auto) (0.04-0.54) K/mm3 Baso # (Auto) (0.01-0.08) K/mm3 Manual Slide Review D-Dimer, Quantitative (0.19-0.50) mg/L Sodium (136-145) mEq/L Potassium (3.5-5.1) mEq/L Chloride (98-107) mEq/L Carbon Dioxide (21-32) mEq/L Anion Gap (5-15) BUN (7-18) mg/dL Creatinine (0.7-1.3) mg/dL Est Cr Clr Drug Dosing mL/min Estimated GFR (MDRD) (>60) mL/min BUN/Creatinine Ratio (14-18) Glucose (70-99) mg/dL POC Glucose 193 H 192 H (70-99) mg/dL Calcium (8.5-10.1) mg/dL Phosphorus (2.6-4.7) mg/dL Magnesium (1.8-2.4) mg/dL Total Bilirubin (0.2-1.0) mg/dL AST (15-37) U/L ALT (16-63) U/L Alkaline Phosphatase (46-116) U/L C-Reactive Protein (<1.0) mg/dL Total Protein (6.4-8.2) g/dl Albumin (3.4-5.0) g/dl Globulin gm/dL Albumin/Globulin Ratio (1-2) Med Orders - Current: Current Medications Acetaminophen (Acetaminophen 325 Mg Tab) 650 mg PO Q4H PRN PRN Reason: Pain (Mild 1-3)/fever Last Admin: 06/12/21 10:29 Dose: 650 mg Documented by: Albuterol (Albuterol 6.7 Gm Inhaler) 0 gm INH Q2H PRN PRN Reason: sob/wheezing Last Admin: 06/24/21 12:21 Dose: 2 puff Documented by: Albuterol/Ipratropium (Albuterol/Ipratropium 3.0-0.5 Mg/3 Ml Neb Soln) 3 ml NEB Q4HRRT PRN PRN Reason: Shortness of Breath Last Admin: 06/23/21 09:58 Dose: 3 ml Documented by: Benzonatate (Benzonatate 100 Mg Cap) 100 mg PO Q8H PRN PRN Reason: Cough Calcium Carbonate/Glycine (Calcium Carbonate 500 Mg Tab.Chew) 1,000 mg PO Q2HR PRN PRN Reason: Heartburn Last Admin: 06/24/21 00:11 Dose: 1,000 mg Documented by: Cholecalciferol (Cholecalciferol (Vitamin D3) 5,000 Unit Cap) 5,000 unit PO DAILY [facility] Last Admin: 06/24/21 08:00 Dose: 5,000 unit Documented by: Docusate Sodium (Docusate Sodium 100 Mg Cap) 100 mg PO BID [facility] Last Admin: 06/24/21 08:07 Dose: Not Given Documented by: Enoxaparin Sodium (Enoxaparin 60 Mg/0.6 Ml Syringe) 60 mg SUBCUT Q12H [facility] Last Admin: 06/24/21 08:07 Dose: 60 mg Documented by: Famotidine (Famotidine 20 Mg Tab) 20 mg PO BID [facility] Last Admin: 06/24/21 08:00 Dose: 20 mg Documented by: Guaifenesin (Guaifenesin 600 Mg Tab.Er) 600 mg PO BID [facility] Last Admin: 06/24/21 08:06 Dose: 600 mg Documented by: Guaifenesin/Phenylephrine HCl (Guaifenesin/Dextromethorphan 100-10 Mg/5 Ml Soln 5 Ml Cup) 5 ml PO Q4H PRN PRN Reason: Cough Last Admin: 06/24/21 02:17 Dose: 5 ml Documented by: Insulin Human Lispro (Insulin Lispro 100 Unit/Ml 10 Ml Vial) 0 unit SUBCUT QIDACANDBED [facility]; Protocol Last Admin: 06/24/21 10:59 Dose: 2 units Documented by: Lisinopril (Lisinopril 20 Mg Tab) 40 mg PO DAILY [facility] Last Admin: 06/24/21 08:00 Dose: 40 mg Documented by: Lorazepam (Lorazepam 0.5 Mg Tab) 0.5 mg PO TID PRN PRN Reason: Anxiety Methocarbamol (Methocarbamol 500 Mg Tab) 1,000 mg PO Q6H PRN PRN Reason: Spasms Last Admin: 06/24/21 08:00 Dose: 1,000 mg Documented by: Methylprednisolone Sodium Succinate (Methylprednisolone Sodium Succinate 40 Mg/1 Ml Sdv) 40 mg IVPUSH Q12H [facility] Last Admin: 06/24/21 08:00 Dose: 40 mg Documented by: Miscellaneous Information (Remove Nicotine Patch) 1 ea TRDERM DAILY [facility] Last Admin: 06/24/21 08:06 Dose: 1 ea Documented by: Nicotine (Nicotine 14 Mg/24 Hr Patch) 14 mg TRDERM DAILY [facility] Last Admin: 06/24/21 08:07 Dose: 14 mg Documented by: Ondansetron HCl (Ondansetron 4 Mg/2 Ml Sdv) 4 mg IV Q4H PRN PRN Reason: Nausea/Vomiting Polyethylene Glycol (Polyethylene Glycol 3350 Powder 17 Gm Packet) 17 gm PO DAILY [facility] Last Admin: 06/24/21 08:06 Dose: Not Given Documented by: Rosuvastatin Calcium (Rosuvastatin 10 Mg Tab) 20 mg PO DAILY [facility] Last Admin: 06/24/21 08:00 Dose: 20 mg Documented by: Temazepam (Temazepam 15 Mg Cap) 15 mg PO BEDTIME PRN PRN Reason: Sleep Last Admin: 06/10/21 21:59 Dose: 15 mg Documented by: Zinc Sulfate (Zinc Sulfate 220 Mg Cap) 220 mg PO DAILY [facility] Last Admin: 06/24/21 08:06 Dose: 220 mg Documented by: Discontinued Medications Acetylcysteine (Acetylcysteine 20% 200 Mg/Ml 30 Ml Nebulizer Soln Sdv) 800 mg NEB ONETIME ONE Stop: 06/09/21 09:21 Last Admin: 06/09/21 11:40 Dose: Not Given Documented by: Acetylcysteine (Acetylcysteine 20% 200 Mg/Ml 4 Ml Nebulizer Soln Sdv) 800 mg NEB ONETIME ONE Stop: 06/09/21 09:46 Last Admin: 06/09/21 10:10 Dose: 800 mg Documented by: Acetylcysteine (Acetylcysteine 20% 200 Mg/Ml 4 Ml Nebulizer Soln Sdv) 200 mg NEB ONETIME ONE Stop: 06/13/21 13:31 Last Admin: 06/13/21 15:38 Dose: 200 mg Documented by: Albuterol/Ipratropium (Albuterol/Ipratropium 3.0-0.5 Mg/3 Ml Neb Soln) 3 ml NEB QIDRT PRN PRN Reason: Shortness Of Breath/wheezing Last Admin: 06/20/21 21:30 Dose: 3 ml Documented by: Dexamethasone (Dexamethasone 4 Mg Tab) 6 mg PO ONETIME ONE Stop: 06/07/21 19:48 Last Admin: 06/07/21 20:28 Dose: 6 mg Documented by: Dexamethasone (Dexamethasone 10 Mg/Ml Sdv) 6 mg IVPUSH DAILY [facility] Stop: 06/16/21 09:01 Last Admin: 06/12/21 11:19 Dose: 6 mg Documented by: Dexamethasone (Dexamethasone 4 Mg Tab) 6 mg PO DAILY [facility] Stop: 06/16/21 09:01 Last Admin: 06/16/21 08:46 Dose: 6 mg Documented by: Enoxaparin Sodium (Enoxaparin 40 Mg/0.4 Ml Syringe) 40 mg SUBCUT Q12H [facility] Last Admin: 06/12/21 23:34 Dose: 40 mg Documented by: Enoxaparin Sodium (Enoxaparin 40 Mg/0.4 Ml Syringe) 40 mg SUBCUT Q12H [facility] Last Admin: 06/18/21 08:20 Dose: 40 mg Documented by: Enoxaparin Sodium (Enoxaparin 60 Mg/0.6 Ml Syringe) 60 mg SUBCUT Q12H [facility] Enoxaparin Sodium (Enoxaparin 30 Mg/0.3 Ml Syringe) 20 mg SUBCUT ONETIME ONE Stop: 06/18/21 09:17 Last Admin: 06/18/21 10:25 Dose: Not Given Documented by: Enoxaparin Sodium (Enoxaparin 40 Mg/0.4 Ml Syringe) 20 mg SUBCUT ONETIME ONE Stop: 06/18/21 10:31 Last Admin: 06/18/21 10:26 Dose: 20 mg Documented by: Heparin Sodium (Porcine) (Heparin Sodium 5,000 Units/Ml Vial) 5,000 units SUBCUT Q8H [facility] Last Admin: 06/12/21 11:49 Dose: Not Given Documented by: Sodium Chloride (Normal Saline) 100 mls @ 60 mls/min IV ASDIRECTED [facility] Last Admin: 06/07/21 19:29 Dose: 60 mls/min Documented by: Remdesivir 200 mg/ Sodium (Chloride) 250 mls @ 250 mls/hr IV ONETIME ONE Stop: 06/07/21 20:38 Last Admin: 06/07/21 20:54 Dose: 250 mls/hr Documented by: Remdesivir 100 mg/ Sodium (Chloride) 100 mls @ 100 mls/hr IV Q24H [facility] Stop: 06/11/21 20:59 Last Admin: 06/11/21 20:39 Dose: 100 mls/hr Documented by: Ceftriaxone Sodium 2 gm/ (Sodium Chloride) 100 mls @ 200 mls/hr IV Q24H [facility] Last Admin: 06/12/21 10:10 Dose: 200 mls/hr Documented by: Azithromycin 500 mg/ Sodium (Chloride) 250 mls @ 250 mls/hr IV Q24H [facility] Last Admin: 06/12/21 10:11 Dose: 250 mls/hr Documented by: Sodium Chloride (Normal Saline) 100 mls @ 60 mls/hr IV ASDIRECTED [facility] Stop: 06/12/21 13:00 Last Admin: 06/12/21 11:28 Dose: 60 mls/hr Documented by: Ibuprofen (Ibuprofen 200 Mg Tab) 600 mg PO Q4HR PRN PRN Reason: Pain Ibuprofen (Ibuprofen 600 Mg Tab) 600 mg PO Q4HR PRN PRN Reason: Pain Iopamidol (Iopamidol 755 Mg/Ml 100 Ml Bottle) 100 ml IVPUSH ONETIME ONE Stop: 06/07/21 19:05 Last Admin: 06/07/21 19:29 Dose: 100 ml Documented by: Iopamidol (Iopamidol 755 Mg/Ml 100 Ml Bottle) 100 ml IVPUSH ONETIME ONE Stop: 06/12/21 11:04 Last Admin: 06/12/21 11:28 Dose: 100 ml Documented by: Lorazepam (Lorazepam 0.5 Mg Tab) 0.5 mg PO TID PRN PRN Reason: Anxiety Metformin HCl (Metformin 500 Mg Tab) 1,000 mg PO BID [facility] Last Admin: 06/10/21 09:49 Dose: 1,000 mg Documented by: Methylprednisolone Sodium Succinate (Methylprednisolone Sodium Succinate 40 Mg/1 Ml Sdv) 60 mg IVPUSH Q8H [facility] Last Admin: 06/21/21 15:18 Dose: Not Given Documented by: Methylprednisolone Sodium Succinate (Methylprednisolone Sodium Succinate 40 Mg/1 Ml Sdv) 60 mg IVPUSH Q12H [facility] Last Admin: 06/21/21 11:38 Dose: 60 mg Documented by: Methylprednisolone Sodium Succinate (Methylprednisolone Sodium Succinate 40 Mg/1 Ml Sdv) 60 mg IVPUSH Q12H [facility] Last Admin: 06/23/21 08:24 Dose: 60 mg Documented by: Morphine Sulfate (Morphine 2 Mg/Ml Syringe) 2 mg IVPUSH Q2H PRN PRN Reason: Pain (severe 7-10) Stop: 06/09/21 07:44 Jardiance ( Empagliflozin 10 Mg Tablet Ptom 0 mg PO DAILY [facility] Last Admin: 06/18/21 08:30 Dose: 10 mg Documented by: Sodium Chloride (Sodium Chloride 0.9% 10 Ml Sdv) 10 ml FLUSH ONETIME ONE Stop: 06/07/21 19:05 Last Admin: 06/07/21 19:29 Dose: 10 ml Documented by: Sodium Chloride (Sodium Chloride 0.9% 10 Ml Syringe) 10 ml FLUSH ONETIME ONE Stop: 06/12/21 11:04 Last Admin: 06/12/21 11:28 Dose: 10 ml Documented by: - Exam Physical Findings Comments:: General: Alert, Oriented HEENT: Pupils Equal, Mucous Membr. Moist/[place] Neck: Supple Lungs: Crackles (Bibasilar). No: Normal Respiratory Effort (Increased respiratory rate and effort) Cardiovascular: Regular Rate, Regular Rhythm GI/Abdominal Exam: Normal Bowel Sounds, Soft, Non-Tender, No Distention Extremities: Normal Inspection, Normal Range of Motion, Non-Tender, No Pedal Edema, Normal Capillary Refill Psy/Mental Status: Alert, Normal Affect, Normal Mood - Patient Data Lab Results Last 24 hrs: Laboratory Results - last 24 hr 06/23/21 06/23/21 06/24/21 Range/Units 16:13 20:54 05:11 WBC (4.23-9.07) K/mm3 RBC (4.63-6.08) M/mm3 Hgb (13.7-17.5) gm/dl Hct (40.1-51.0) % MCV (79.0-92.2) fl MCH (25.7-32.2) pg MCHC (32.2-35.5) g/dl RDW Std Deviation (35.1-43.9) fL Plt Count (163-337) K/mm3 MPV (9.4-12.3) fl Neut % (Auto) (34.0-67.9) % Lymph % (Auto) (21.8-53.1) % Prentiss % (Auto) (5.3-12.2) % Eos % (Auto) (0.8-7.0) Baso % (Auto) (0.1-1.2) % Neut # (Auto) (1.78-5.38) K/mm3 Lymph # (Auto) (1.32-3.57) K/mm3 P[place]iss # (Auto) (0.30-0.82) K/mm3 Eos # (Auto) (0.04-0.54) K/mm3 Baso # (Auto) (0.01-0.08) K/mm3 Manual Slide Review D-Dimer, Quantitative 0.98 H (0.19-0.50) mg/L Sodium (136-145) mEq/L Potassium (3.5-5.1) mEq/L Chloride (98-107) mEq/L Carbon Dioxide (21-32) mEq/L Anion Gap (5-15) BUN (7-18) mg/dL Creatinine (0.7-1.3) mg/dL Est Cr Clr Drug Dosing mL/min Estimated GFR (MDRD) (>60) mL/min BUN/Creatinine Ratio (14-18) Glucose (70-99) mg/dL POC Glucose 302 H 144 H (70-99) mg/dL Calcium (8.5-10.1) mg/dL Phosphorus (2.6-4.7) mg/dL Magnesium (1.8-2.4) mg/dL Total Bilirubin (0.2-1.0) mg/dL AST (15-37) U/L ALT (16-63) U/L Alkaline Phosphatase (46-116) U/L C-Reactive Protein (<1.0) mg/dL Total Protein (6.4-8.2) g/dl Albumin (3.4-5.0) g/dl Globulin gm/dL Albumin/Globulin Ratio (1-2) 06/24/21 06/24/21 06/24/21 Range/Units 06:37 06:54 06:54 WBC 15.83 H (4.23-9.07) K/mm3 RBC 5.62 (4.63-6.08) M/mm3 Hgb 16.0 D (13.7-17.5) gm/dl Hct 49.4 (40.1-51.0) % MCV 87.9 (79.0-92.2) fl MCH 28.5 (25.7-32.2) pg MCHC 32.4 (32.2-35.5) g/dl RDW Std Deviation 48.5 H (35.1-43.9) fL Plt Count 339 H (163-337) K/mm3 MPV 8.9 L (9.4-12.3) fl Neut % (Auto) 84.3 H (34.0-67.9) % Lymph % (Auto) 7.9 L (21.8-53.1) % Prentiss % (Auto) 6.4 (5.3-12.2) % Eos % (Auto) 0.1 L (0.8-7.0) Baso % (Auto) 0.2 (0.1-1.2) % Neut # (Auto) 13.35 H (1.78-5.38) K/mm3 Lymph # (Auto) 1.25 L (1.32-3.57) K/mm3 Prentiss # (Auto) 1.02 H (0.30-0.82) K/mm3 Eos # (Auto) 0.01 L (0.04-0.54) K/mm3 Baso # (Auto) 0.03 (0.01-0.08) K/mm3 Manual Slide Review Normal smear D-Dimer, Quantitative (0.19-0.50) mg/L Sodium 136 (136-145) mEq/L Potassium 4.5 (3.5-5.1) mEq/L Chloride 100 (98-107) mEq/L Carbon Dioxide 25 (21-32) mEq/L Anion Gap 15.5 H (5-15) BUN 28 H (7-18) mg/dL Creatinine 0.9 (0.7-1.3) mg/dL Est Cr Clr Drug Dosing 92.38 mL/min Estimated GFR (MDRD) > 60 (>60) mL/min BUN/Creatinine Ratio 31.1 H (14-18) Glucose 238 H (70-99) mg/dL POC Glucose 242 H (70-99) mg/dL Calcium 9.9 (8.5-10.1) mg/dL Phosphorus 5.6 H (2.6-4.7) mg/dL Magnesium 2.3 (1.8-2.4) mg/dL Total Bilirubin 0.4 (0.2-1.0) mg/dL AST 8 L (15-37) U/L ALT 59 (16-63) U/L Alkaline Phosphatase 53 (46-116) U/L C-Reactive Protein <0.2 (<1.0) mg/dL Total Protein 7.2 (6.4-8.2) g/dl Albumin 3.0 L (3.4-5.0) g/dl Globulin 4.2 gm/dL Albumin/Globulin Ratio 0.7 L (1-2) 06/24/21 06/24/21 Range/Units 10:49 11:17 WBC (4.23-9.07) K/mm3 RBC (4.63-6.08) M/mm3 Hgb (13.7-17.5) gm/dl Hct (40.1-51.0) % MCV (79.0-92.2) fl MCH (25.7-32.2) pg MCHC (32.2-35.5) g/dl RDW Std Deviation (35.1-43.9) fL Plt Count (163-337) K/mm3 MPV (9.4-12.3) fl Neut % (Auto) (34.0-67.9) % Lymph % (Auto) (21.8-53.1) % P[place]iss % (Auto) (5.3-12.2) % Eos % (Auto) (0.8-7.0) Baso % (Auto) (0.1-1.2) % Neut # (Auto) (1.78-5.38) K/mm3 Lymph # (Auto) (1.32-3.57) K/mm3 [place]iss # (Auto) (0.30-0.82) K/mm3 Eos # (Auto) (0.04-0.54) K/mm3 Baso # (Auto) (0.01-0.08) K/mm3 Manual Slide Review D-Dimer, Quantitative (0.19-0.50) mg/L Sodium (136-145) mEq/L Potassium (3.5-5.1) mEq/L Chloride (98-107) mEq/L Carbon Dioxide (21-32) mEq/L Anion Gap (5-15) BUN (7-18) mg/dL Creatinine (0.7-1.3) mg/dL Est Cr Clr Drug Dosing mL/min Estimated GFR (MDRD) (>60) mL/min BUN/Creatinine Ratio (14-18) Glucose (70-99) mg/dL POC Glucose 193 H 192 H (70-99) mg/dL Calcium (8.5-10.1) mg/dL Phosphorus (2.6-4.7) mg/dL Magnesium (1.8-2.4) mg/dL Total Bilirubin (0.2-1.0) mg/dL AST (15-37) U/L ALT (16-63) U/L Alkaline Phosphatase (46-116) U/L C-Reactive Protein (<1.0) mg/dL Total Protein (6.4-8.2) g/dl Albumin (3.4-5.0) g/dl Globulin gm/dL Albumin/Globulin Ratio (1-2) Result Diagrams: 06/24/21 06:54 06/24/21 06:54 Sepsis Event Note - Evaluation Sepsis Screening Result: Sepsis Risk - Focused Exam Vital Signs: Vital Signs Temp Temp Pulse Pulse Resp BP Pulse Ox 06/24/21 12:22 06/24/21 09:00 36.6 C 96 20 06/24/21 08:10 06/24/21 08:08 95 88 L 06/24/21 08:05 36.7 C 85 20 111/68 85 L 06/24/21 08:00 111/68 06/24/21 07:00 95 06/24/21 05:15 36.9 C 69 18 102/58 L 95 Pulse Ox 06/24/21 12:22 94 L 06/24/21 09:00 06/24/21 08:10 91 L 06/24/21 08:08 06/24/21 08:05 06/24/21 08:00 06/24/21 07:00 06/24/21 05:15 - Problem List Review Problem List Initiated/Reviewed/Updated: Yes - My Orders Last 24 Hours: My Active Orders 06/24/21 12:23 PRO B-TYPE NATRIUR PEPT,BNPPRO [CHEM] Urgent TROPONIN I [CHEM] Routine 06/25/21 05:00 CBC WITH AUTO DIFF [HEME] DAILY CMP [COMPREHENSIVE METABOLIC PN,CMP] [CHEM] DAILY CRP [C-REACTIVE PROTEIN] [CHEM] DAILY PHOSPHORUS [CHEM] Routine 06/26/21 05:00 CBC WITH AUTO DIFF [HEME] DAILY CMP [COMPREHENSIVE METABOLIC PN,CMP] [CHEM] DAILY CRP [C-REACTIVE PROTEIN] [CHEM] DAILY 06/27/21 05:00 CBC WITH AUTO DIFF [HEME] DAILY CMP [COMPREHENSIVE METABOLIC PN,CMP] [CHEM] DAILY CRP [C-REACTIVE PROTEIN] [CHEM] DAILY 06/28/21 05:00 CBC WITH AUTO DIFF [HEME] DAILY CMP [COMPREHENSIVE METABOLIC PN,CMP] [CHEM] DAILY CRP [C-REACTIVE PROTEIN] [CHEM] DAILY 06/29/21 05:00 CBC WITH AUTO DIFF [HEME] DAILY CMP [COMPREHENSIVE METABOLIC PN,CMP] [CHEM] DAILY CRP [C-REACTIVE PROTEIN] [CHEM] DAILY - Assessment Assessment:: 06/12/2021 This is a 55-year-old male admitted to the floor with hypoxia secondary to COVID-19 pneumonia. He currently is on 45 L with an FiO2 of 75%. Labs today show a WBC of 10.22. Hemoglobin 30.6. Platelet 269,000. Neutrophils elevated 75.1%. D-dimer is up to 3.85. Sodium 144. Potassium 3.8. Chloride 109. Carbon dioxide 25. Anion gap is 13.8. BUN is 14. Creatinine 0.7. GFR greater than 60. Blood glucose levels have been from 96-2 14. Phosphorus 3.5. Magnesium 1.9. Total bilirubin 0.3. AST is 30, ALT 37, alkaline phosphatase 52. CRP is 12.6. Protein 5.5. Albumin is down to 1.9. Given the patient's worsening oxygen demand and elevated D-dimer CTA is obtained showing 1. Bilateral pulmonary consolidation likely due to COVID-19. 2. Mediastinal adenopathy, most likely reactive. There are no signs of any pulmonary emboli. We will therefore increase patient's DVT prophylaxis up to 40 mg twice daily Lovenox. Patient will be started on 20 mg twice daily Pepcid and zinc supplementation. Vitamin D level has been ordered. Patient will remain hospitalized pending improvement in oxygen demand. Unknown length of stay time. Overall he states he feels about the same as yesterday. Continues to have mild diarrhea at times and reports weakness. 06/13/2021 This is a 55-year-old male admitted to the hospital for COVID-19 pneumonia. He has been proning today and saturations are in the mid to low 90s while proning. He has been utilizing incentive spirometer and Acapella. He has been a little bit down today and reports he does not feel like he is getting much better. Overall his lung sounds have greatly improved. He remains on high flow 50 L with an FiO2 of 70%. Labs today show a WBC of 9.34. Hemoglobin 13.7. Platelet 357,000. Neutrophils are 76.4%. Sodium is 144. Potassium 3.5. Anion gap is 15.5. BUN 12. Creatinine 0.8.. GFR greater than 60. Glucose has been between 102 42. Magnesium 1.9. Bilirubin 0.4. AST is 27, ALT 41, alkaline phosphatase 58. CRP is improved to 10.7. Protein 6.1. Vitamin D obtained yesterday was low at 17.4 and we will start supplementation for vitamin D today. Albumin is improved to 2.1. We will continue treatment with unknown length of stay due to severity of COVID-19 symptoms. 06/14/2021 55-year-old male admitted to the hospital with hypoxia due to COVID-19 pneumonia. He is currently on 50 L of oxygen with 75% FiO2. States he has been proning as much as possible as well as using his I-S and Acapella. Has a very flat affect. Was upset on rounds this morning as he states he has not been getting his muscle relaxer with his morning pills. Labs today reveal a WBC of 13.29, hemoglobin 13.3, hematocrit 40.8, platelet count 395,000, D-dimer 3.19, sodium 144, potassium 3.8, chloride 108, anion gap 13.8, BUN 16, creatinine 0.7, GFR greater than 60, glucose has ranged from [id number], magnesium 1.9, C-reactive protein 5.3 continue with current treatment. Unknown length of stay due to the severity of Covid symptoms. 06/15/2021 This is a 55-year-old male admitted to the floor with COVID-19 pneumonia. He had worsening oxygen saturations and today was requiring 60 L of oxygen with an FiO2 of 95%. Because of this he was moved up to the ICU. He continues to utilize his incentive spirometry and Acapella and prone. We will continue dexamethasone and baricitinib. Respiratory therapy continues to work with him. Clinically he does not look to be in any acute respiratory distress. Labs today show WBC of 14.02. Hemoglobin 14.1. Platelet 4 and 26,000. Neutrophils are e levated 79.9%. Sodium 143. Potassium 3.8. Chloride 107. Carbon dioxide 27. Anion gap 12.8. BUN is 13. Creatinine 0.7. GFR greater than 60. Glucose is 97-93. Calcium is 8.5. Magnesium 1.8. Bilirubin 0.5. AST is 24, ALT 49, alkaline phosphatase 54. CRP is 5.9. Protein is 5.9 and albumin is 2.0. We will continue current treatment plan. Will increase to BiPAP if necessary. Unknown length of stay due to severity of COVID-19 symptoms. 06/16/2021 Patient improved overnight decreasing his high flow nasal cannula to 50 L and FiO2 of currently 80%. Continue with current treatment as outlined above. 06/17/2021 Pt is still requiring 55L of oxygen at 80% high flow nasal cannula. He is proning some. He is afebrile. 06/18/2021 56-year-old male admitted to the floor for COVID-19 pneumonia. Remains on high flow oxygen 50 L at 80% FiO2. He has been quite deconditioned from a respiratory standpoint and does take quite some time to recover after exertion. Overall states he is feeling quite a bit better. WBC is 12.40. Platelet 403,000. Neutrophils are elevated at 82.5%. D-dimer 6.36. Sodium 141. Pot assium 4.1. Carbon dioxide 28. Anion gap 14.1. BUN is 18. Creatinine 0.8. GFR greater than 60. Glucose 130. We will start the patient on 60 mg twice daily Lovenox given his increasing D-dimer. This is 0.5 mg/kg. We will start the patient on 60 mg every 8 hour Solu-Medrol. He is to continue proning regularly and also utilizing his incentive spirometer and Acapella. Unknown length of stay due to severity of symptoms. Patient will remain in ICU status. 06/19/2021 56-year-old male hospitalized for COVID-19 pneumonia symptoms. He has been in the ICU for several days. We have finally been able to wean him down slightly on his high flow. He is 40 L with a FiO2 of 70% currently. Saturations have been in the upper 80s to low 90s. He has continued to take quite some time to recover after exertion. He has been proning quite regularly. Otherwise says he feels okay. He has been having some back pain and is receiving a skeletal muscle relaxant for this. WBC is elevated at 15.76. He platelet 448,000. Neutrophils are elevated at 91.6. D-dimer has improved to 2.84. Sodium 139. Potassium 4.5. Chloride 104. Carbon oxide 25. Anion gap is 14.5. BUN is 19. Creatinine 0.7. GFR greater than 60. Glucose 186. Magnesium is 2.1. CRP is 4.6. Bilirubin 0.4. AST 14, ALT 34, alkaline phosphatase 49. Albumin is 2.5. Protein 6.9. We will continue current treatment plan. As he has improved with his high flow settings we will downgrade him to MedSurg status with telemetry today. Continue current treatment plan. Patient will remain hospitalized and likely require several more days. 06/20/2021 56-year-old male hospitalized with COVID-19 pneumonia. He was downgraded out of the ICU yesterday to the floor with telemetry. We have been decreasing his high flow settings however this morning he noted acute dyspnea and was noted to have decreased saturations so his high flow was increased to 50 L with FiO2 of 75%. This has been quite common for him that in the mornings he has an episode like this and does recover throughout the day. Overall he states he feels okay. He did prone most of the night overnight. He is utilizing his incentive spirometry and Acapella. We will continue to try to wean him off of high flow. He remains on 60 mg every 8 hour Solu-Medrol we will look at decreasing this in the future. Otherwise he is doing okay. He has no acute complaints. No labs were drawn today and we will recheck tomorrow. Unknown length of stay due to severity of COVID-19 symptoms. 06/21/2021 This is a 56-year-old male who remains admitted to the hospital for treatment of his COVID-19 pneumonia. He has completed dexamethasone and remdesivir. He will complete baricitinib today. He remains on high flow 50 L with an FiO2 of 60%. Overnight he did require more FiO2 and he is recovered from this. Saturations remain in the upper 80s to low 90s. Labs were not obtained today as patient has been relatively stable from a lab standpoint. We will consider rechecking those on Friday. He continues to prone and utilize his incentive spirometer and Acapella. Chest x-ray obtained yesterday shows significant worsening COVID-19 pneumonia. We will decrease his steroid today from 60 mg every 8 to 60 mg twice daily. 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 Patient continues slow improvements. Unknown length of stay due to severity of symptoms. 06/22/2021: This is a 56-year-old male admitted to the hospital floor continuing treatment of COVID-19 pneumonia. He has completed dexamethasone, remdesivir, and baricitinib. He remains on Solu-Medrol 60 mg every 12 hours although plan is to decrease this slowly. Patient is currently requiring 35 L of 50% FiO2. RT continues to wean high flow with the hope of transitioning to a nasal cannula within the next 12 to 24 hours. Patient reports he feels pretty good but he continues to have cough and dyspnea on exertion. We will continue current treatment plan. No labs were obtained today as patient is otherwise been quite stable. Unknown length of stay due to severity of symptoms. Goal oxygen demand prior to discharge would be 2 L or less via nasal cannula. 06/23/2021 56-year-old male with COVID-19 pneumonia. He has completed dexamethasone, remde sivir, and baricitinib. He remains on Solu-Medrol which we are weaning. Patient was just switched to 6 L nasal cannula and RT continues to work aggressively with him. 06/24/2021 55yom with pmh of DM type 2, hypertension, and hyperlipidemia presenting to the emergency department after being sent from [facility]. He was diagnosed as Covid positive on Friday (06/05) which is the day his symptoms began. This morning patient was fine. But this afternoon he has more shortness of breath. Denies fever, chills, nausea, or vomiting. He still has a cough but is improved. He has completed dexamethasone, remdesivir, and baricitinib. He remains on Solu-Medrol which we are weaning. - Plan Plan:: Pneumonia due to COVID-19 virus Leukocytosis Elevated D-Dimer Hypoxia * Pulse ox * Continue oxygen therapy, high flow and BiPAP as needed to keep oxygen saturation greater than 92% COVID-19 Long Hauler * O2 as needed with goal saturations 88 to 95% * High flow oxygen, switch to nasal cannula * Continue Lovenox 60 mg twice daily due to elevated D-dimer * I-S/Acapella * PRN albuterol inhaler * PRN Duonebs * Prone whenever able * Ambulate around room * Solumedrol 40mg Q12Hr (continue titration) * RT consultation * PT/OT * Airborne/contact isolation * Telemetry * Continuous pulse oximetry * Zinc supplementation * 20 mg twice daily Pepcid * Completed remdesivir, azithromycin, rocephin, Baricitinib and dexamethasone * Scheduled Mucinex twice daily * Completed courses of dexamethasone, remdesivir, and baricitinib * Continue Lovenox 60 mg twice daily * Repeat troponin, BNP, chest x-ray * CT angio chest on June 12 -negative for PE Morbid obesity * Lifestyle modifications. Hyperlipidemia * Continue home rosuvastatin * No acute concern HTN (hypertension) * Continue home lisinopril * No acute concerns Diabetes mellitus * Continue home Jardiance * QID AC and bedtime blood glucose checks * Medium dose sliding scale insulin * Hold home metformin * Diabetic diet Tobacco abuse * Nicotine patch daily * Cessation counseling * Offer nicotine patches at discharge Gout * No acute concerns * No chronic home gout medications * Monitor Vitamin D deficiency * Begin 5,000 unit vitamin D supplementation * PCP to follow-up Code status: Full code PCP: Dr. Rubio DVT prophylaxis: BID Lovenox as above Disposition: 1-2 more days Length of stay greater than 96 hours due to continued need for COVID-19 treatm ent.
[2021-06-24] MEDS: Albuterol/Ipratropium 3.0-0.5 MG/3 ML Neb Soln NEB PRN (21:01)
[2021-06-25] MEDS: Calcium Carbonate 500 MG Tab.Chew PO PRN ×2 (00:37→21:24)
--- NOTE | 2021-06-25 08:46 | PCM.PN ---
- General Info Date of Service: 06/25/21 Admission Dx/Problem (Free Text): Admission Diagnosis/Problem Admission Diagnosis/Problem Hypoxia Covid 19 pneumonia with hypoxia Functional Status: Reports: Pain Controlled, Tolerating Diet, Ambulating, Urinating, Incentive Spirometry, Other (Acapella ). Denies: New Symptoms - Review of Systems General: Reports: No Symptoms. Denies: Fever, Weakness, Fatigue, Malaise, Chills HEENT: Reports: No Symptoms. Denies: Headaches Pulmonary: Reports: Shortness of Breath, Cough. Denies: Pleuritic Chest Pain, Sputum, Wheezing Cardiovascular: Reports: Dyspnea on Exertion. Denies: Chest Pain, Palpitations, Edema Gastrointestinal: Reports: No Symptoms. Denies: Abdominal Pain, Constipation, Diarrhea, Nausea, Vomiting Genitourinary: Reports: No Symptoms. Denies: Pain Musculoskeletal: Reports: No Symptoms Skin: Reports: No Symptoms. Denies: Cyanosis Neurological: Reports: No Symptoms. Denies: Confusion, Dizziness, Headache, Numbness, Pre-Existing Deficit, Seizure, Syncope, Tingling, Trouble Speaking, Difficulty Walking, Weakness, Gait Disturbance Psychiatric: Reports: No Symptoms - Patient Data Vitals - Most Recent: Last Vital Signs Temp 98.1 F 06/25/21 04:37 Pulse 74 06/25/21 04:37 Resp 17 06/25/21 04:37 BP 114/73 06/25/21 04:37 Pulse Ox 95 06/25/21 07:00 Weight - Most Recent: 255 lb 6.4 oz I&O - Last 24 Hours: Intake & Output 06/24/21 06/25/21 06/25/21 22:59 06:59 14:59 Intake Total 2660 800 Balance 2660 800 Lab Results Last 24 Hours: Laboratory Results - last 24 hr 06/24/21 06/24/21 06/24/21 Range/Units 10:49 11:17 12:42 WBC (4.23-9.07) K/mm3 RBC (4.63-6.08) M/mm3 Hgb (13.7-17.5) gm/dl Hct (40.1-51.0) % MCV (79.0-92.2) fl MCH (25.7-32.2) pg MCHC (32.2-35.5) g/dl RDW Std Deviation (35.1-43.9) fL Plt Count (163-337) K/mm3 MPV (9.4-12.3) fl Neut % (Auto) (34.0-67.9) % Lymph % (Auto) (21.8-53.1) % Hinds % (Auto) (5.3-12.2) % Eos % (Auto) (0.8-7.0) Baso % (Auto) (0.1-1.2) % Neut # (Auto) (1.78-5.38) K/mm3 Lymph # (Auto) (1.32-3.57) K/mm3 Hinds # (Auto) (0.30-0.82) K/mm3 Eos # (Auto) (0.04-0.54) K/mm3 Baso # (Auto) (0.01-0.08) K/mm3 Sodium (136-145) mEq/L Potassium (3.5-5.1) mEq/L Chloride (98-107) mEq/L Carbon Dioxide (21-32) mEq/L Anion Gap (5-15) BUN (7-18) mg/dL Creatinine (0.7-1.3) mg/dL Est Cr Clr Drug Dosing mL/min Estimated GFR (MDRD) (>60) mL/min BUN/Creatinine Ratio (14-18) Glucose (70-99) mg/dL POC Glucose 193 H 192 H (70-99) mg/dL Calcium (8.5-10.1) mg/dL Phosphorus (2.6-4.7) mg/dL Total Bilirubin (0.2-1.0) mg/dL AST (15-37) U/L ALT (16-63) U/L Alkaline Phosphatase (46-116) U/L Troponin I < 0.017 (0.00-0.056) ng/mL C-Reactive Protein (<1.0) mg/dL NT-Pro-B Natriuret Pep (0-125) pg/mL Total Protein (6.4-8.2) g/dl Albumin (3.4-5.0) g/dl Globulin gm/dL Albumin/Globulin Ratio (1-2) 06/24/21 06/24/21 06/24/21 Range/Units 12:42 16:16 21:05 WBC (4.23-9.07) K/mm3 RBC (4.63-6.08) M/mm3 Hgb (13.7-17.5) gm/dl Hct (40.1-51.0) % MCV (79.0-92.2) fl MCH (25.7-32.2) pg MCHC (32.2-35.5) g/dl RDW Std Deviation (35.1-43.9) fL Plt Count (163-337) K/mm3 MPV (9.4-12.3) fl Neut % (Auto) (34.0-67.9) % Lymph % (Auto) (21.8-53.1) % Hinds % (Auto) (5.3-12.2) % Eos % (Auto) (0.8-7.0) Baso % (Auto) (0.1-1.2) % Neut # (Auto) (1.78-5.38) K/mm3 Lymph # (Auto) (1.32-3.57) K/mm3 Hinds # (Auto) (0.30-0.82) K/mm3 Eos # (Auto) (0.04-0.54) K/mm3 Baso # (Auto) (0.01-0.08) K/mm3 Sodium (136-145) mEq/L Potassium (3.5-5.1) mEq/L Chloride (98-107) mEq/L Carbon Dioxide (21-32) mEq/L Anion Gap (5-15) BUN (7-18) mg/dL Creatinine (0.7-1.3) mg/dL Est Cr Clr Drug Dosing mL/min Estimated GFR (MDRD) (>60) mL/min BUN/Creatinine Ratio (14-18) Glucose (70-99) mg/dL POC Glucose 302 H 212 H (70-99) mg/dL Calcium (8.5-10.1) mg/dL Phosphorus (2.6-4.7) mg/dL Total Bilirubin (0.2-1.0) mg/dL AST (15-37) U/L ALT (16-63) U/L Alkaline Phosphatase (46-116) U/L Troponin I (0.00-0.056) ng/mL C-Reactive Protein (<1.0) mg/dL NT-Pro-B Natriuret Pep 111 (0-125) pg/mL Total Protein (6.4-8.2) g/dl Albumin (3.4-5.0) g/dl Globulin gm/dL Albumin/Globulin Ratio (1-2) 06/25/21 06/25/21 06/25/21 Range/Units 06:37 06:37 06:37 WBC 12.22 H (4.23-9.07) K/mm3 RBC 5.41 (4.63-6.08) M/mm3 Hgb 15.3 (13.7-17.5) gm/dl Hct 47.8 (40.1-51.0) % MCV 88.4 (79.0-92.2) fl MCH 28.3 (25.7-32.2) pg MCHC 32.0 L (32.2-35.5) g/dl RDW Std Deviation 48.1 H (35.1-43.9) fL Plt Count 240 D (163-337) K/mm3 MPV 9.1 L (9.4-12.3) fl Neut % (Auto) 71.4 H (34.0-67.9) % Lymph % (Auto) 17.3 L (21.8-53.1) % Hinds % (Auto) 8.6 (5.3-12.2) % Eos % (Auto) 0.9 (0.8-7.0) Baso % (Auto) 0.2 (0.1-1.2) % Neut # (Auto) 8.72 H (1.78-5.38) K/mm3 Lymph # (Auto) 2.12 (1.32-3.57) K/mm3 Hinds # (Auto) 1.05 H (0.30-0.82) K/mm3 Eos # (Auto) 0.11 (0.04-0.54) K/mm3 Baso # (Auto) 0.02 (0.01-0.08) K/mm3 Sodium 135 L (136-145) mEq/L Potassium 4.2 (3.5-5.1) mEq/L Chloride 101 (98-107) mEq/L Carbon Dioxide 24 (21-32) mEq/L Anion Gap 14.2 (5-15) BUN 28 H (7-18) mg/dL Creatinine 0.8 (0.7-1.3) mg/dL Est Cr Clr Drug Dosing 103.92 mL/min Estimated GFR (MDRD) > 60 (>60) mL/min BUN/Creatinine Ratio 35.0 H (14-18) Glucose 161 H (70-99) mg/dL POC Glucose 162 H (70-99) mg/dL Calcium 8.9 (8.5-10.1) mg/dL Phosphorus 4.9 H (2.6-4.7) mg/dL Total Bilirubin 0.4 (0.2-1.0) mg/dL AST 15 (15-37) U/L ALT 54 (16-63) U/L Alkaline Phosphatase 46 (46-116) U/L Troponin I (0.00-0.056) ng/mL C-Reactive Protein < 0.2 (<1.0) mg/dL NT-Pro-B Natriuret Pep (0-125) pg/mL Total Protein 6.2 L (6.4-8.2) g/dl Albumin 2.6 L (3.4-5.0) g/dl Globulin 3.6 gm/dL Albumin/Globulin Ratio 0.7 L (1-2) Med Orders - Current: Current Medications Acetaminophen (Acetaminophen 325 Mg Tab) 650 mg PO Q4H PRN PRN Reason: Pain (Mild 1-3)/fever Last Admin: 06/12/21 10:29 Dose: 650 mg Documented by: Albuterol (Albuterol 6.7 Gm Inhaler) 0 gm INH Q2H PRN PRN Reason: sob/wheezing Last Admin: 06/24/21 12:21 Dose: 2 puff Documented by: Albuterol/Ipratropium (Albuterol/Ipratropium 3.0-0.5 Mg/3 Ml Neb Soln) 3 ml NEB Q4HRRT PRN PRN Reason: Shortness of Breath Last Admin: 06/24/21 21:01 Dose: 3 ml Documented by: Benzonatate (Benzonatate 100 Mg Cap) 100 mg PO Q8H PRN PRN Reason: Cough Calcium Carbonate/Glycine (Calcium Carbonate 500 Mg Tab.Chew) 1,000 mg PO Q2HR PRN PRN Reason: Heartburn Last Admin: 06/25/21 00:37 Dose: 1,000 mg Documented by: Cholecalciferol (Cholecalciferol (Vitamin D3) 5,000 Unit Cap) 5,000 unit PO DAILY [facility] Last Admin: 06/24/21 08:00 Dose: 5,000 unit Documented by: Docusate Sodium (Docusate Sodium 100 Mg Cap) 100 mg PO BID [facility] Last Admin: 06/24/21 20:55 Dose: Not Given Documented by: Enoxaparin Sodium (Enoxaparin 60 Mg/0.6 Ml Syringe) 60 mg SUBCUT Q12H [facility] Last Admin: 06/24/21 20:55 Dose: 60 mg Documented by: Famotidine (Famotidine 20 Mg Tab) 20 mg PO BID [facility] Last Admin: 06/24/21 20:55 Dose: 20 mg Documented by: Guaifenesin (Guaifenesin 600 Mg Tab.Er) 600 mg PO BID [facility] Last Admin: 06/24/21 20:55 Dose: 600 mg Documented by: Guaifenesin/Phenylephrine HCl (Guaifenesin/Dextromethorphan 100-10 Mg/5 Ml Soln 5 Ml Cup) 5 ml PO Q4H PRN PRN Reason: Cough Last Admin: 06/24/21 21:21 Dose: 5 ml Documented by: Insulin Human Lispro (Insulin Lispro 100 Unit/Ml 10 Ml Vial) 0 unit SUBCUT QIDACANDBED [facility]; Protocol Last Admin: 06/24/21 21:21 Dose: 4 units Documented by: Lisinopril (Lisinopril 20 Mg Tab) 40 mg PO DAILY [facility] Last Admin: 06/24/21 08:00 Dose: 40 mg Documented by: Lorazepam (Lorazepam 0.5 Mg Tab) 0.5 mg PO TID PRN PRN Reason: Anxiety Methocarbamol (Methocarbamol 500 Mg Tab) 1,000 mg PO Q6H PRN PRN Reason: Spasms Last Admin: 06/24/21 22:29 Dose: 1,000 mg Documented by: Methylprednisolone Sodium Succinate (Methylprednisolone Sodium Succinate 40 Mg/1 Ml Sdv) 40 mg IVPUSH Q12H [facility] Last Admin: 06/24/21 20:55 Dose: 40 mg Documented by: Miscellaneous Information (Remove Nicotine Patch) 1 ea TRDERM DAILY [facility] Last Admin: 06/24/21 08:06 Dose: 1 ea Documented by: Nicotine (Nicotine 14 Mg/24 Hr Patch) 14 mg TRDERM DAILY [facility] Last Admin: 06/24/21 08:07 Dose: 14 mg Documented by: Ondansetron HCl (Ondansetron 4 Mg/2 Ml Sdv) 4 mg IV Q4H PRN PRN Reason: Nausea/Vomiting Polyethylene Glycol (Polyethylene Glycol 3350 Powder 17 Gm Packet) 17 gm PO DAILY [facility] Last Admin: 06/24/21 08:06 Dose: Not Given Documented by: Rosuvastatin Calcium (Rosuvastatin 10 Mg Tab) 20 mg PO DAILY [facility] Last Admin: 06/24/21 08:00 Dose: 20 mg Documented by: Temazepam (Temazepam 15 Mg Cap) 15 mg PO BEDTIME PRN PRN Reason: Sleep Last Admin: 06/10/21 21:59 Dose: 15 mg Documented by: Zinc Sulfate (Zinc Sulfate 220 Mg Cap) 220 mg PO DAILY [facility] Last Admin: 06/24/21 08:06 Dose: 220 mg Documented by: Discontinued Medications Acetylcysteine (Acetylcysteine 20% 200 Mg/Ml 30 Ml Nebulizer Soln Sdv) 800 mg NEB ONETIME ONE Stop: 06/09/21 09:21 Last Admin: 06/09/21 11:40 Dose: Not Given Documented by: Acetylcysteine (Acetylcysteine 20% 200 Mg/Ml 4 Ml Nebulizer Soln Sdv) 800 mg NEB ONETIME ONE Stop: 06/09/21 09:46 Last Admin: 06/09/21 10:10 Dose: 800 mg Documented by: Acetylcysteine (Acetylcysteine 20% 200 Mg/Ml 4 Ml Nebulizer Soln Sdv) 200 mg NEB ONETIME ONE Stop: 06/13/21 13:31 Last Admin: 06/13/21 15:38 Dose: 200 mg Documented by: Albuterol/Ipratropium (Albuterol/Ipratropium 3.0-0.5 Mg/3 Ml Neb Soln) 3 ml NEB QIDRT PRN PRN Reason: Shortness Of Breath/wheezing Last Admin: 06/20/21 21:30 Dose: 3 ml Documented by: Dexamethasone (Dexamethasone 4 Mg Tab) 6 mg PO ONETIME ONE Stop: 06/07/21 19:48 Last Admin: 06/07/21 20:28 Dose: 6 mg Documented by: Dexamethasone (Dexamethasone 10 Mg/Ml Sdv) 6 mg IVPUSH DAILY [facility] Stop: 06/16/21 09:01 Last Admin: 06/12/21 11:19 Dose: 6 mg Documented by: Dexamethasone (Dexamethasone 4 Mg Tab) 6 mg PO DAILY [facility] Stop: 06/16/21 09:01 Last Admin: 06/16/21 08:46 Dose: 6 mg Documented by: Enoxaparin Sodium (Enoxaparin 40 Mg/0.4 Ml Syringe) 40 mg SUBCUT Q12H [facility] Last Admin: 06/12/21 23:34 Dose: 40 mg Documented by: Enoxaparin Sodium (Enoxaparin 40 Mg/0.4 Ml Syringe) 40 mg SUBCUT Q12H [facility] Last Admin: 06/18/21 08:20 Dose: 40 mg Documented by: Enoxaparin Sodium (Enoxaparin 60 Mg/0.6 Ml Syringe) 60 mg SUBCUT Q12H [facility] Enoxaparin Sodium (Enoxaparin 30 Mg/0.3 Ml Syringe) 20 mg SUBCUT ONETIME ONE Stop: 06/18/21 09:17 Last Admin: 06/18/21 10:25 Dose: Not Given Documented by: Enoxaparin Sodium (Enoxaparin 40 Mg/0.4 Ml Syringe) 20 mg SUBCUT ONETIME ONE Stop: 06/18/21 10:31 Last Admin: 06/18/21 10:26 Dose: 20 mg Documented by: Heparin Sodium (Porcine) (Heparin Sodium 5,000 Units/Ml Vial) 5,000 units SUBCUT Q8H [facility] Last Admin: 06/12/21 11:49 Dose: Not Given Documented by: Sodium Chloride (Normal Saline) 100 mls @ 60 mls/min IV ASDIRECTED [facility] Last Admin: 06/07/21 19:29 Dose: 60 mls/min Documented by: Remdesivir 200 mg/ Sodium (Chloride) 250 mls @ 250 mls/hr IV ONETIME ONE Stop: 06/07/21 20:38 Last Admin: 06/07/21 20:54 Dose: 250 mls/hr Documented by: Remdesivir 100 mg/ Sodium (Chloride) 100 mls @ 100 mls/hr IV Q24H [facility] Stop: 06/11/21 20:59 Last Admin: 06/11/21 20:39 Dose: 100 mls/hr Documented by: Ceftriaxone Sodium 2 gm/ (Sodium Chloride) 100 mls @ 200 mls/hr IV Q24H [facility] Last Admin: 06/12/21 10:10 Dose: 200 mls/hr Documented by: Azithromycin 500 mg/ Sodium (Chloride) 250 mls @ 250 mls/hr IV Q24H [facility] Last Admin: 06/12/21 10:11 Dose: 250 mls/hr Documented by: Sodium Chloride (Normal Saline) 100 mls @ 60 mls/hr IV ASDIRECTED [facility] Stop: 06/12/21 13:00 Last Admin: 06/12/21 11:28 Dose: 60 mls/hr Documented by: Ibuprofen (Ibuprofen 200 Mg Tab) 600 mg PO Q4HR PRN PRN Reason: Pain Ibuprofen (Ibuprofen 600 Mg Tab) 600 mg PO Q4HR PRN PRN Reason: Pain Iopamidol (Iopamidol 755 Mg/Ml 100 Ml Bottle) 100 ml IVPUSH ONETIME ONE Stop: 06/07/21 19:05 Last Admin: 06/07/21 19:29 Dose: 100 ml Documented by: Iopamidol (Iopamidol 755 Mg/Ml 100 Ml Bottle) 100 ml IVPUSH ONETIME ONE Stop: 06/12/21 11:04 Last Admin: 06/12/21 11:28 Dose: 100 ml Documented by: Lorazepam (Lorazepam 0.5 Mg Tab) 0.5 mg PO TID PRN PRN Reason: Anxiety Metformin HCl (Metformin 500 Mg Tab) 1,000 mg PO BID [facility] Last Admin: 06/10/21 09:49 Dose: 1,000 mg Documented by: Methylprednisolone Sodium Succinate (Methylprednisolone Sodium Succinate 40 Mg/1 Ml Sdv) 60 mg IVPUSH Q8H [facility] Last Admin: 06/21/21 15:18 Dose: Not Given Documented by: Methylprednisolone Sodium Succinate (Methylprednisolone Sodium Succinate 40 Mg/1 Ml Sdv) 60 mg IVPUSH Q12H [facility] Last Admin: 06/21/21 11:38 Dose: 60 mg Documented by: Methylprednisolone Sodium Succinate (Methylprednisolone Sodium Succinate 40 Mg/1 Ml Sdv) 60 mg IVPUSH Q12H [facility] Last Admin: 06/23/21 08:24 Dose: 60 mg Documented by: Morphine Sulfate (Morphine 2 Mg/Ml Syringe) 2 mg IVPUSH Q2H PRN PRN Reason: Pain (severe 7-10) Stop: 06/09/21 07:44 Jardiance ( Empagliflozin 10 Mg Tablet Ptom 0 mg PO DAILY [facility] Last Admin: 06/18/21 08:30 Dose: 10 mg Documented by: Sodium Chloride (Sodium Chloride 0.9% 10 Ml Sdv) 10 ml FLUSH ONETIME ONE Stop: 06/07/21 19:05 Last Admin: 06/07/21 19:29 Dose: 10 ml Documented by: Sodium Chloride (Sodium Chloride 0.9% 10 Ml Syringe) 10 ml FLUSH ONETIME ONE Stop: 06/12/21 11:04 Last Admin: 06/12/21 11:28 Dose: 10 ml Documented by: - Exam Quality Assessment: Supplemental Oxygen (12L via oxy mask ), DVT Prophylaxis. No: Urine Catheter General: Alert, Oriented, Cooperative, No Acute Distress HEENT: Pupils Equal, Pupils Reactive, Mucous Membr. Moist/[place] Neck: Supple, Trachea Midline, No Thyromegaly Lungs: Normal Respiratory Effort, Decreased Breath Sounds, Crackles (bibasilar ). No: Wheezing Cardiovascular: Regular Rate, Regular Rhythm GI/Abdominal Exam: Normal Bowel Sounds, Soft, Non-Tender, No Distention (Male) Exam: Deferred Back Exam: Normal Inspection, Full Range of Motion Extremities: Normal Inspection, Normal Range of Motion, Non-Tender, No Pedal Edema, Normal Capillary Refill Peripheral Pulses: 2+: Radial (L), Radial (R), Dorsalis Pedis (L), Dorsalis Pedis (R) Skin: Warm, Dry, Intact Neurological: No New Focal Deficit Psy/Mental Status: Alert, Normal Affect, Normal Mood - Patient Data Lab Results Last 24 hrs: Laboratory Results - last 24 hr 06/24/21 06/24/21 06/24/21 Range/Units 10:49 11:17 12:42 WBC (4.23-9.07) K/mm3 RBC (4.63-6.08) M/mm3 Hgb (13.7-17.5) gm/dl Hct (40.1-51.0) % MCV (79.0-92.2) fl MCH (25.7-32.2) pg MCHC (32.2-35.5) g/dl RDW Std Deviation (35.1-43.9) fL Plt Count (163-337) K/mm3 MPV (9.4-12.3) fl Neut % (Auto) (34.0-67.9) % Lymph % (Auto) (21.8-53.1) % Hinds % (Auto) (5.3-12.2) % Eos % (Auto) (0.8-7.0) Baso % (Auto) (0.1-1.2) % Neut # (Auto) (1.78-5.38) K/mm3 Lymph # (Auto) (1.32-3.57) K/mm3 Hinds # (Auto) (0.30-0.82) K/mm3 Eos # (Auto) (0.04-0.54) K/mm3 Baso # (Auto) (0.01-0.08) K/mm3 Sodium (136-145) mEq/L Potassium (3.5-5.1) mEq/L Chloride (98-107) mEq/L Carbon Dioxide (21-32) mEq/L Anion Gap (5-15) BUN (7-18) mg/dL Creatinine (0.7-1.3) mg/dL Est Cr Clr Drug Dosing mL/min Estimated GFR (MDRD) (>60) mL/min BUN/Creatinine Ratio (14-18) Glucose (70-99) mg/dL POC Glucose 193 H 192 H (70-99) mg/dL Calcium (8.5-10.1) mg/dL Phosphorus (2.6-4.7) mg/dL Total Bilirubin (0.2-1.0) mg/dL AST (15-37) U/L ALT (16-63) U/L Alkaline Phosphatase (46-116) U/L Troponin I < 0.017 (0.00-0.056) ng/mL C-Reactive Protein (<1.0) mg/dL NT-Pro-B Natriuret Pep (0-125) pg/mL Total Protein (6.4-8.2) g/dl Albumin (3.4-5.0) g/dl Globulin gm/dL Albumin/Globulin Ratio (1-2) 06/24/21 06/24/21 06/24/21 Range/Units 12:42 16:16 21:05 WBC (4.23-9.07) K/mm3 RBC (4.63-6.08) M/mm3 Hgb (13.7-17.5) gm/dl Hct (40.1-51.0) % MCV (79.0-92.2) fl MCH (25.7-32.2) pg MCHC (32.2-35.5) g/dl RDW Std Deviation (35.1-43.9) fL Plt Count (163-337) K/mm3 MPV (9.4-12.3) fl Neut % (Auto) (34.0-67.9) % Lymph % (Auto) (21.8-53.1) % Hinds % (Auto) (5.3-12.2) % Eos % (Auto) (0.8-7.0) Baso % (Auto) (0.1-1.2) % Neut # (Auto) (1.78-5.38) K/mm3 Lymph # (Auto) (1.32-3.57) K/mm3 Hinds # (Auto) (0.30-0.82) K/mm3 Eos # (Auto) (0.04-0.54) K/mm3 Baso # (Auto) (0.01-0.08) K/mm3 Sodium (136-145) mEq/L Potassium (3.5-5.1) mEq/L Chloride (98-107) mEq/L Carbon Dioxide (21-32) mEq/L Anion Gap (5-15) BUN (7-18) mg/dL Creatinine (0.7-1.3) mg/dL Est Cr Clr Drug Dosing mL/min Estimated GFR (MDRD) (>60) mL/min BUN/Creatinine Ratio (14-18) Glucose (70-99) mg/dL POC Glucose 302 H 212 H (70-99) mg/dL Calcium (8.5-10.1) mg/dL Phosphorus (2.6-4.7) mg/dL Total Bilirubin (0.2-1.0) mg/dL AST (15-37) U/L ALT (16-63) U/L Alkaline Phosphatase (46-116) U/L Troponin I (0.00-0.056) ng/mL C-Reactive Protein (<1.0) mg/dL NT-Pro-B Natriuret Pep 111 (0-125) pg/mL Total Protein (6.4-8.2) g/dl Albumin (3.4-5.0) g/dl Globulin gm/dL Albumin/Globulin Ratio (1-2) 06/25/21 06/25/21 06/25/21 Range/Units 06:37 06:37 06:37 WBC 12.22 H (4.23-9.07) K/mm3 RBC 5.41 (4.63-6.08) M/mm3 Hgb 15.3 (13.7-17.5) gm/dl Hct 47.8 (40.1-51.0) % MCV 88.4 (79.0-92.2) fl MCH 28.3 (25.7-32.2) pg MCHC 32.0 L (32.2-35.5) g/dl RDW Std Deviation 48.1 H (35.1-43.9) fL Plt Count 240 D (163-337) K/mm3 MPV 9.1 L (9.4-12.3) fl Neut % (Auto) 71.4 H (34.0-67.9) % Lymph % (Auto) 17.3 L (21.8-53.1) % Hinds % (Auto) 8.6 (5.3-12.2) % Eos % (Auto) 0.9 (0.8-7.0) Baso % (Auto) 0.2 (0.1-1.2) % Neut # (Auto) 8.72 H (1.78-5.38) K/mm3 Lymph # (Auto) 2.12 (1.32-3.57) K/mm3 [place] # (Auto) 1.05 H (0.30-0.82) K/mm3 Eos # (Auto) 0.11 (0.04-0.54) K/mm3 Baso # (Auto) 0.02 (0.01-0.08) K/mm3 Sodium 135 L (136-145) mEq/L Potassium 4.2 (3.5-5.1) mEq/L Chloride 101 (98-107) mEq/L Carbon Dioxide 24 (21-32) mEq/L Anion Gap 14.2 (5-15) BUN 28 H (7-18) mg/dL Creatinine 0.8 (0.7-1.3) mg/dL Est Cr Clr Drug Dosing 103.92 mL/min Estimated GFR (MDRD) > 60 (>60) mL/min BUN/Creatinine Ratio 35.0 H (14-18) Glucose 161 H (70-99) mg/dL POC Glucose 162 H (70-99) mg/dL Calcium 8.9 (8.5-10.1) mg/dL Phosphorus 4.9 H (2.6-4.7) mg/dL Total Bilirubin 0.4 (0.2-1.0) mg/dL AST 15 (15-37) U/L ALT 54 (16-63) U/L Alkaline Phosphatase 46 (46-116) U/L Troponin I (0.00-0.056) ng/mL C-Reactive Protein < 0.2 (<1.0) mg/dL NT-Pro-B Natriuret Pep (0-125) pg/mL Total Protein 6.2 L (6.4-8.2) g/dl Albumin 2.6 L (3.4-5.0) g/dl Globulin 3.6 gm/dL Albumin/Globulin Ratio 0.7 L (1-2) Result Diagrams: 06/25/21 06:37 06/25/21 06:37 Sepsis Event Note - Evaluation Sepsis Screening Result: No Definite Risk - Focused Exam Vital Signs: Vital Signs Temp Pulse Resp BP Pulse Ox Pulse Ox 06/25/21 07:00 95 06/25/21 04:37 98.1 F 74 17 114/73 95 06/24/21 21:05 92 L 06/24/21 20:53 98.8 F 97 18 109/61 94 L - Problem List & Annotations (1) Hyperlipidemia SNOMED Code(s): 13541799 Code(s): E78.5 - HYPERLIPIDEMIA, UNSPECIFIED Status: Chronic Priority: Low Current Visit: No Qualifiers: Hyperlipidemia type: unspecified Qualified Code(s): E78.5 - Hyperlipidemia, unspecified (2) HTN (hypertension) SNOMED Code(s): 64704759 Code(s): I10 - ESSENTIAL (PRIMARY) HYPERTENSION Status: Chronic Priority: Low Current Visit: No Qualifiers: Hypertension type: unspecified Qualified Code(s): I10 - Essential (primary) hypertension (3) Elevated d-dimer SNOMED Code(s): 779556579 Code(s): R79.89 - OTHER SPECIFIED ABNORMAL FINDINGS OF BLOOD CHEMISTRY Status: Acute Priority: High Current Visit: Yes (4) Elevated C-reactive protein SNOMED Code(s): 315078913342228 Code(s): R79.82 - ELEVATED C-REACTIVE PROTEIN (CRP) Status: Acute Priority: High Current Visit: Yes (5) Leukocytosis SNOMED Code(s): 400196614, 654130322 Code(s): D72.829 - ELEVATED WHITE BLOOD CELL COUNT, UNSPECIFIED Status: Acute Priority: High Current Visit: Yes Qualifiers: Leukocytosis type: unspecified Qualified Code(s): D72.829 - Elevated white blood cell count, unspecified (6) Diabetes mellitus SNOMED Code(s): 39715217 Code(s): E11.9 - TYPE 2 DIABETES MELLITUS WITHOUT COMPLICATIONS Status: Chronic Priority: High Current Visit: Yes Qualifiers: Diabetes mellitus type: type 2 Diabetes mellitus penitentiary insulin use: without hand button splitter use Diabetes mellitus complication status: with other specified complication Qualified Code(s): E11.69 - Type 2 diabetes mellitus with other specified complication (7) Hypoxia SNOMED Code(s): 150267975 Code(s): R09.02 - HYPOXEMIA Status: Acute Priority: High Current Visit: Yes (8) Pneumonia due to COVID-19 virus SNOMED Code(s): 821891780583165534 Code(s): U07.1 - COVID-19; J12.82 - PNEUMONIA DUE TO CORONAVIRUS DISEASE 2019 Status: Acute Priority: High Current Visit: Yes (9) Smoker SNOMED Code(s): 19681279 Code(s): F17.200 - NICOTINE DEPENDENCE, UNSPECIFIED, UNCOMPLICATED Status: Chronic Priority: High Current Visit: Yes (10) Gout SNOMED Code(s): 16774985 Code(s): M10.9 - GOUT, UNSPECIFIED Status: Chronic Priority: Low Current Visit: No Qualifiers: Gout site: unspecified site Gout etiology: unspecified cause Chronicity: unspecified Qualified Code(s): M10.9 - Gout, unspecified (11) Vitamin D deficiency SNOMED Code(s): 15724993 Code(s): E55.9 - VITAMIN D DEFICIENCY, UNSPECIFIED Status: Acute Priority: Medium Current Visit: Yes (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 He currently is on 45 L with an FiO2 of 75%. Labs today show a WBC of 10.22. Hemoglobin 30.6. Platelet 269,000. Neutrophils elevated 75.1%. D-dimer is up to 3.85. Sodium 144. Potassium 3.8. Chloride 109. Carbon dioxide 25. Anion gap is 13.8. BUN is 14. Creatinine 0.7. GFR greater than 60. Blood glucose levels have been from 96-2 14. Phosphorus 3.5. Magnesium 1.9. Total bilirubin 0.3. AST is 30, ALT 37, alkaline phosphatase 52. CRP is 12.6. Protein 5.5. Albumin is down to 1.9. Given the patient's worsening oxygen demand and elevated D-dimer CTA is obtained showing 1. Bilateral pulmonary consolidation likely due to COVID-19. 2. Mediastinal adenopathy, most likely reactive. There are no signs of any pulmonary emboli. We will therefore increase patient's DVT prophylaxis up to 40 mg twice daily Lovenox. Patient will be started on 20 mg twice daily Pepcid and zinc supplementation. Vitamin D level has been ordered. Patient will remain hospitalized pending improvement in oxygen demand. Unknown length of stay time. Overall he states he feels about the same as yesterday. Continues to have mild diarrhea at times and reports weakness. 06/13/2021 This is a 55-year-old male admitted to the hospital for COVID-19 pneumonia. He has been proning today and saturations are in the mid to low 90s while proning. He has been utilizing incentive spirometer and Acapella. He has been a little bit down today and reports he does not feel like he is getting much better. Overall his lung sounds have greatly improved. He remains on high flow 50 L with an FiO2 of 70%. Labs today show a WBC of 9.34. Hemoglobin 13.7. Platelet 357,000. Neutrophils are 76.4%. Sodium is 144. Potassium 3.5. Anion gap is 15.5. BUN 12. Creatinine 0.8.. GFR greater than 60. Glucose has been between 102 42. Magnesium 1.9. Bilirubin 0.4. AST is 27, ALT 41, alkaline phosphatase 58. CRP is improved to 10.7. Protein 6.1. Vitamin D obtained yesterday was low at 17.4 and we will start supplementation for vitamin D today. Albumin is improved to 2.1. We will continue treatment with unknown length of stay due to severity of COVID-19 symptoms. 06/14/2021 55-year-old male admitted to the hospital with hypoxia due to COVID-19 pneumonia. He is currently on 50 L of oxygen with 75% FiO2. States he has been proning as much as possible as well as using his I-S and Acapella. Has a very flat affect. Was upset on rounds this morning as he states he has not been getting his muscle relaxer with his morning pills. Labs today reveal a WBC of 13.29, hemoglobin 13.3, hematocrit 40.8, platelet count 395,000, D-dimer 3.19, sodium 144, potassium 3.8, chloride 108, anion gap 13.8, BUN 16, creatinine 0.7, GFR greater than 60, glucose has ranged from [id number], magnesium 1.9, C-reactive protein 5.3 continue with current treatment. Unknown length of stay due to the severity of Covid symptoms. 06/15/2021 This is a 55-year-old male admitted to the floor with COVID-19 pneumonia. He had worsening oxygen saturations and today was requiring 60 L of oxygen with an FiO2 of 95%. Because of this he was moved up to the ICU. He continues to utilize his incentive spirometry and Acapella and prone. We will continue dexamethasone and baricitinib. Respiratory therapy continues to work with him. Clinically he does not look to be in any acute respiratory distress. Labs today show WBC of 14.02. Hemoglobin 14.1. Platelet 4 and 26,000. Neutrophils are elevated 79.9%. Sodium 143. Potassium 3.8. Chloride 107. Carbon dioxide 27. Anion gap 12.8. BUN is 13. Creatinine 0.7. GFR greater than 60. Glucose is 97-93. Calcium is 8.5. Magnesium 1.8. Bilirubin 0.5. AST is 24, ALT 49, alkaline phosphatase 54. CRP is 5.9. Protein is 5.9 and albumin is 2.0. We will continue current treatment plan. Will increase to BiPAP if necessary. Unknown length of stay due to severity of COVID-19 symptoms. 06/16/2021 Patient improved overnight decreasing his high flow nasal cannula to 50 L and FiO2 of currently 80%. Continue with current treatment as outlined above. 06/17/2021 Pt is still requiring 55L of oxygen at 80% high flow nasal cannula. He is proning some. He is afebrile. 06/18/2021 56-year-old male admitted to the floor for COVID-19 pneumonia. Remains on high flow oxygen 50 L at 80% FiO2. He has been quite deconditioned from a respiratory standpoint and does take quite some time to recover after exertion. Overall states he is feeling quite a bit better. WBC is 12.40. Platelet 403,000. Neutrophils are elevated at 82.5%. D-dimer 6.36. Sodium 141. Potassium 4.1. Carbon dioxide 28. Anion gap 14.1. BUN is 18. Creatinine 0.8. GFR greater than 60. Glucose 130. We will start the patient on 60 mg twice daily Lovenox given his increasing D-dimer. This is 0.5 mg/kg. We will start the patient on 60 mg every 8 hour Solu-Medrol. He is to continue proning regularly and also utilizing his incentive spirometer and Acapella. Unknown length of stay due to severity of symptoms. Patient will remain in ICU status. 06/19/2021 56-year-old male hospitalized for COVID-19 pneumonia symptoms. He has been in the ICU for several days. We have finally been able to wean him down slightly on his high flow. He is 40 L with a FiO2 of 70% currently. Saturations have been in the upper 80s to low 90s. He has continued to take quite some time to recover after exertion. He has been proning quite regularly. Otherwise says he feels okay. He has been having some back pain and is receiving a skeletal muscle relaxant for this. WBC is elevated at 15.76. He platelet 448,000. Neutrophils are elevated at 91.6. D-dimer has improved to 2.84. Sodium 139. Potassium 4.5. Chloride 104. Carbon oxide 25. Anion gap is 14.5. BUN is 19. Creatinine 0.7. GFR greater than 60. Glucose 186. Magnesium is 2.1. CRP is 4.6. Bilirubin 0.4. AST 14, ALT 34, alkaline phosphatase 49. Albumin is 2.5. Protein 6.9. We will continue current treatment plan. As he has improved with his high flow settings we will downgrade him to MedSurg status with telemetry today. Continue current treatment plan. Patient will remain hospitalized and likely require several more days. 06/20/2021 56-year-old male hospitalized with COVID-19 pneumonia. He was downgraded out of the ICU yesterday to the floor with telemetry. We have been decreasing his high flow settings however this morning he noted acute dyspnea and was noted to have decreased saturations so his high flow was increased to 50 L with FiO2 of 75%. This has been quite common for him that in the mornings he has an episode like this and does recover throughout the day. Overall he states he feels okay. He did prone most of the night overnight. He is utilizing his incentive spirometry and Acapella. We will continue to try to wean him off of high flow. He remains on 60 mg every 8 hour Solu-Medrol we will look at decreasing this in the future. Otherwise he is doing okay. He has no acute complaints. No labs were drawn today and we will recheck tomorrow. Unknown length of stay due to severity of COVID-19 symptoms. 06/21/2021 This is a 56-year-old male who remains admitted to the hospital for treatment of his COVID-19 pneumonia. He has completed dexamethasone and remdesivir. He will complete baricitinib today. He remains on high flow 50 L with an FiO2 of 60%. Overnight he did require more FiO2 and he is recovered from this. Saturations remain in the upper 80s to low 90s. Labs were not obtained today as patient has been relatively stable from a lab standpoint. We will consider rechecking those on Friday. He continues to prone and utilize his incentive spirometer and Acapella. Chest x-ray obtained yesterday shows significant worsening COVID-19 pneumonia. We will decrease his steroid today from 60 mg every 8 to 60 mg twice daily. 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 Patient continues slow improvements. Unknown length of stay due to severity of symptoms. 06/22/2021: This is a 56-year-old male admitted to the hospital floor continuing treatment of COVID-19 pneumonia. He has completed dexamethasone, remdesivir, and baricitinib. He remains on Solu-Medrol 60 mg every 12 hours although plan is to decrease this slowly. Patient is currently requiring 35 L of 50% FiO2. RT continues to wean high flow with the hope of transitioning to a nasal cannula within the next 12 to 24 hours. Patient reports he feels pretty good but he continues to have cough and dyspnea on exertion. We will continue current treatment plan. No labs were obtained today as patient is otherwise been quite stable. Unknown length of stay due to severity of symptoms. Goal oxygen demand prior to discharge would be 2 L or less via nasal cannula. 06/23/2021 56-year-old male with COVID-19 pneumonia. He has completed dexamethasone, remdesivir, and baricitinib. He remains on Solu-Medrol which we are weaning. Patient was just switched to 6 L nasal cannula and RT continues to work aggressively with him. 06/24/2021 55yom with pmh of DM type 2, hypertension, and hyperlipidemia presenting to the emergency department after being sent from [facility]. He was diagnosed as Covid positive on Friday (06/05) which is the day his symptoms began. This morning patient was fine. But this afternoon he has more shortness of breath. Denies fever, chills, nausea, or vomiting. He still has a cough but is improved. He has completed dexamethasone, remdesivir, and baricitinib. He remains on Solu-Medrol which we are weaning. 06/25/2021 55-year-old male who tested Covid positive on 06/05/2021 and has been in our facility since 06/07/2021. Patient continues to have decreased lung sounds with bibasilar crackles. He completed dexamethasone, remdesivir, and baricitinib. He is on a Solu-Medrol taper. He was on nasal cannula over the weekend for a day but then was noted to have difficulty breathing and ended up back on high flow. Today he is on oxy mask at 12 L. WBC is 12.22. Hemoglobin 15.3. Platelet 240,000. Sodium 135. Potassium 4.2. Chloride 104. Carbon dioxide 24. Anion gap 14.2. BUN is 28. Creatinine 0.8. GFR greater than 60. Blood glucose readings have been stable at 1 62-3 02. Phosphorus is 4.9. Bilirubin 0.4. AST is 15, ALT 54, alkaline phosphatase 46. CRP is less than 0.2. Albumin is 2.6. Protein is 6.2. Unknown length of stay due to severity of symptoms. Patient will remain hospitalized until able to tolerate nasal cannula. - Plan Plan:: Pneumonia due to COVID-19 virus Leukocytosis Elevated D-Dimer Hypoxia * Pulse ox * Continue oxygen therapy, high flow and BiPAP as needed to keep oxygen satura tion greater than 92% COVID-19 Long Hauler * O2 as needed with goal saturations 88 to 95% * High flow oxygen, switch to nasal cannula * Continue Lovenox 60 mg twice daily due to elevated D-dimer * I-S/Acapella * PRN albuterol inhaler * PRN Duonebs * Prone whenever able * Ambulate around room * Solumedrol 40mg Q12Hr (continue titration) * RT consultation * PT/OT * Airborne/contact isolation * Telemetry * Continuous pulse oximetry * Zinc supplementation * 20 mg twice daily Pepcid * Completed remdesivir, azithromycin, rocephin, Baricitinib and dexamethasone * Scheduled Mucinex twice daily * Continue Lovenox 60 mg twice daily * Repeat troponin, BNP, chest x-ray * CT angio chest on June 12 -negative for PE Morbid obesity * Lifestyle modifications. Hyperlipidemia * Continue home rosuvastatin * No acute concern HTN (hypertension) * Continue home lisinopril * No acute concerns Diabetes mellitus * Continue home Jardiance * QID AC and bedtime blood glucose checks * Medium dose sliding scale insulin * Hold home metformin * Diabetic diet Tobacco abuse * Nicotine patch daily * Cessation counseling * Offer nicotine patches at discharge Gout * No acute concerns * No chronic home gout medications * Monitor Vitamin D deficiency * Begin 5,000 unit vitamin D supplementation * PCP to follow-up Code status: Full code PCP: Dr. Rubio DVT prophylaxis: BID Lovenox as above Disposition: Discharge pending improvement in oxygenation. Goal 2-4L on NC Length of stay greater than 96 hours due to continued need for COVID-19 treatment.
[2021-06-25] MEDS: Insulin Lispro 100 UNIT/ML 10 ML Vial SUBCUT SCH ×4 (08:53→21:16)
[2021-06-25] MEDS: Enoxaparin 60 MG/0.6 ML Syringe SUBCUT SCH ×2 (08:54→21:16)
[2021-06-25] MEDS: Lisinopril 20 MG Tab PO SCH (08:55)
[2021-06-25] MEDS: methylPREDNISolone Sodium Succinate 40 MG/1 ML SDV IVPUSH SCH ×2 (08:55→21:16)
[2021-06-25] MEDS: Zinc Sulfate 220 MG Cap PO SCH (08:56)
[2021-06-25] MEDS: Docusate Sodium 100 MG Cap PO SCH ×2 (08:56→21:17)
[2021-06-25] MEDS: Empagliflozin 10 MG Tab PO SCH (08:56)
[2021-06-25] MEDS: Cholecalciferol (Vitamin D3) 5,000 UNIT Cap PO SCH (08:56)
[2021-06-25] MEDS: Famotidine 20 MG Tab PO SCH ×2 (08:56→21:15)
[2021-06-25] MEDS: Rosuvastatin 10 MG Tab PO SCH (08:56)
[2021-06-25] MEDS: guaiFENesin 600 MG Tab.ER PO SCH ×2 (08:56→21:15)
[2021-06-25] MEDS: Nicotine 14 MG/24 Hr Patch TRDERM SCH (08:57)
[2021-06-25] MEDS: Polyethylene Glycol 3350 Powder 17 GM Packet PO SCH (08:58)
[2021-06-25] MEDS: Albuterol/Ipratropium 3.0-0.5 MG/3 ML Neb Soln NEB PRN ×2 (09:20→18:13)
[2021-06-25] MEDS: Methocarbamol 500 MG Tab PO PRN ×2 (10:18→18:34)
[2021-06-25] MEDS: Albuterol 6.7 GM Inhaler INH PRN ×2 (14:17→20:02)
[2021-06-25] MEDS: guaiFENesin/Dextromethorphan 100-10 MG/5 ML Soln 5 ML Cup PO PRN (21:15)
[2021-06-26] MEDS: Calcium Carbonate 500 MG Tab.Chew PO PRN ×2 (01:16→21:08)
[2021-06-26] MEDS: Methocarbamol 500 MG Tab PO PRN ×3 (01:16→17:49)
[2021-06-26] MEDS: guaiFENesin/Dextromethorphan 100-10 MG/5 ML Soln 5 ML Cup PO PRN ×2 (01:17→21:09)
--- NOTE | 2021-06-26 07:34 | PCM.PN ---
- General Info Date of Service: 06/26/21 Admission Dx/Problem (Free Text): Admission Diagnosis/Problem Admission Diagnosis/Problem Hypoxia Covid 19 pneumonia with hypoxia Functional Status: Reports: Pain Controlled, Tolerating Diet, Ambulating, Urinating, Incentive Spirometry, Other (Acapella ). Denies: New Symptoms - Review of Systems General: Reports: No Symptoms. Denies: Fever, Weakness, Fatigue, Malaise, Chills HEENT: Reports: Sore Throat (2/2 cough ). Denies: Headaches Pulmonary: Reports: Shortness of Breath, Cough (greatly improved), Sputum (minimal ). Denies: Pleuritic Chest Pain, Wheezing Cardiovascular: Reports: No Symptoms, Dyspnea on Exertion (improving ). Denies: Chest Pain, Palpitations Gastrointestinal: Reports: No Symptoms. Denies: Abdominal Pain, Constipation, Diarrhea, Nausea, Vomiting Genitourinary: Reports: No Symptoms. Denies: Pain Musculoskeletal: Reports: Back Pain (Chronic ) Skin: Reports: No Symptoms. Denies: Cyanosis Neurological: Reports: Tingling (bilateral feet ). Denies: Confusion, Numbness, Pre-Existing Deficit, Difficulty Walking, Weakness, Gait Disturbance Psychiatric: Reports: No Symptoms - Patient Data Vitals - Most Recent: Last Vital Signs Temp 98.2 F 06/26/21 04:53 Pulse 69 06/26/21 04:53 Resp 20 06/26/21 04:53 BP 102/76 06/26/21 04:53 Pulse Ox 94 L 06/26/21 05:45 Weight - Most Recent: 253 lb 3.2 oz I&O - Last 24 Hours: Intake & Output 06/25/21 06/26/21 06/26/21 22:59 06:59 14:59 Intake Total 980 1100 Balance 980 1100 Lab Results Last 24 Hours: Laboratory Results - last 24 hr 06/25/21 06/25/21 06/25/21 Range/Units 06:37 10:15 12:51 WBC (4.23-9.07) K/mm3 RBC (4.63-6.08) M/mm3 Hgb (13.7-17.5) gm/dl Hct (40.1-51.0) % MCV (79.0-92.2) fl MCH (25.7-32.2) pg MCHC (32.2-35.5) g/dl RDW Std Deviation (35.1-43.9) fL Plt Count (163-337) K/mm3 MPV (9.4-12.3) fl Neut % (Auto) (34.0-67.9) % Lymph % (Auto) (21.8-53.1) % [place] % (Auto) (5.3-12.2) % Eos % (Auto) (0.8-7.0) Baso % (Auto) (0.1-1.2) % Neut # (Auto) (1.78-5.38) K/mm3 Lymph # (Auto) (1.32-3.57) K/mm3 [place] # (Auto) (0.30-0.82) K/mm3 Eos # (Auto) (0.04-0.54) K/mm3 Baso # (Auto) (0.01-0.08) K/mm3 Sodium 135 L (136-145) mEq/L Potassium 4.2 (3.5-5.1) mEq/L Chloride 101 (98-107) mEq/L Carbon Dioxide 24 (21-32) mEq/L Anion Gap 14.2 (5-15) BUN 28 H (7-18) mg/dL Creatinine 0.8 (0.7-1.3) mg/dL Est Cr Clr Drug Dosing 103.92 mL/min Estimated GFR (MDRD) > 60 (>60) mL/min BUN/Creatinine Ratio 35.0 H (14-18) Glucose 161 H (70-99) mg/dL POC Glucose 236 H 267 H (70-99) mg/dL Calcium 8.9 (8.5-10.1) mg/dL Phosphorus 4.9 H (2.6-4.7) mg/dL Total Bilirubin 0.4 (0.2-1.0) mg/dL AST 15 (15-37) U/L ALT 54 (16-63) U/L Alkaline Phosphatase 46 (46-116) U/L C-Reactive Protein < 0.2 (<1.0) mg/dL Total Protein 6.2 L (6.4-8.2) g/dl Albumin 2.6 L (3.4-5.0) g/dl Globulin 3.6 gm/dL Albumin/Globulin Ratio 0.7 L (1-2) 09/20/21 09/20/21 09/21/21 Range/Units 16:26 20:56 05:57 WBC 15.12 H (4.23-9.07) K/mm3 RBC 5.36 (4.63-6.08) M/mm3 Hgb 15.4 (13.7-17.5) gm/dl Hct 46.9 (40.1-51.0) % MCV 87.5 (79.0-92.2) fl MCH 28.7 (25.7-32.2) pg MCHC 32.8 (32.2-35.5) g/dl RDW Std Deviation 47.2 H (35.1-43.9) fL Plt Count 251 (163-337) K/mm3 MPV 9.3 L (9.4-12.3) fl Neut % (Auto) 87.1 H (34.0-67.9) % Lymph % (Auto) 6.5 L (21.8-53.1) % [place] % (Auto) 5.2 L (5.3-12.2) % Eos % (Auto) 0 L (0.8-7.0) Baso % (Auto) 0.1 (0.1-1.2) % Neut # (Auto) 13.17 H (1.78-5.38) K/mm3 Lymph # (Auto) 0.98 L (1.32-3.57) K/mm3 [place] # (Auto) 0.78 (0.30-0.82) K/mm3 Eos # (Auto) 0.00 L (0.04-0.54) K/mm3 Baso # (Auto) 0.02 (0.01-0.08) K/mm3 Sodium (136-145) mEq/L Potassium (3.5-5.1) mEq/L Chloride (98-107) mEq/L Carbon Dioxide (21-32) mEq/L Anion Gap (5-15) BUN (7-18) mg/dL Creatinine (0.7-1.3) mg/dL Est Cr Clr Drug Dosing mL/min Estimated GFR (MDRD) (>60) mL/min BUN/Creatinine Ratio (14-18) Glucose (70-99) mg/dL POC Glucose 340 H 182 H (70-99) mg/dL Calcium (8.5-10.1) mg/dL Phosphorus (2.6-4.7) mg/dL Total Bilirubin (0.2-1.0) mg/dL AST (15-37) U/L ALT (16-63) U/L Alkaline Phosphatase (46-116) U/L C-Reactive Protein (<1.0) mg/dL Total Protein (6.4-8.2) g/dl Albumin (3.4-5.0) g/dl Globulin gm/dL Albumin/Globulin Ratio (1-2) 06/26/21 06/26/21 Range/Units 05:57 06:28 WBC (4.23-9.07) K/mm3 RBC (4.63-6.08) M/mm3 Hgb (13.7-17.5) gm/dl Hct (40.1-51.0) % MCV (79.0-92.2) fl MCH (25.7-32.2) pg MCHC (32.2-35.5) g/dl RDW Std Deviation (35.1-43.9) fL Plt Count (163-337) K/mm3 MPV (9.4-12.3) fl Neut % (Auto) (34.0-67.9) % Lymph % (Auto) (21.8-53.1) % [place] % (Auto) (5.3-12.2) % Eos % (Auto) (0.8-7.0) Baso % (Auto) (0.1-1.2) % Neut # (Auto) (1.78-5.38) K/mm3 Lymph # (Auto) (1.32-3.57) K/mm3 [place] # (Auto) (0.30-0.82) K/mm3 Eos # (Auto) (0.04-0.54) K/mm3 Baso # (Auto) (0.01-0.08) K/mm3 Sodium 133 L (136-145) mEq/L Potassium 4.8 (3.5-5.1) mEq/L Chloride 99 (98-107) mEq/L Carbon Dioxide 25 (21-32) mEq/L Anion Gap 13.8 (5-15) BUN 23 H (7-18) mg/dL Creatinine 0.8 (0.7-1.3) mg/dL Est Cr Clr Drug Dosing 103.92 mL/min Estimated GFR (MDRD) > 60 (>60) mL/min BUN/Creatinine Ratio 28.8 H (14-18) Glucose 215 H (70-99) mg/dL POC Glucose 216 H (70-99) mg/dL Calcium 9.3 (8.5-10.1) mg/dL Phosphorus (2.6-4.7) mg/dL Total Bilirubin 0.4 (0.2-1.0) mg/dL AST 8 L (15-37) U/L ALT 56 (16-63) U/L Alkaline Phosphatase 45 L (46-116) U/L C-Reactive Protein < 0.2 (<1.0) mg/dL Total Protein 6.5 (6.4-8.2) g/dl Albumin 2.8 L (3.4-5.0) g/dl Globulin 3.7 gm/dL Albumin/Globulin Ratio 0.8 L (1-2) Med Orders - Current: Current Medications Acetaminophen (Acetaminophen 325 Mg Tab) 650 mg PO Q4H PRN PRN Reason: Pain (Mild 1-3)/fever Last Admin: 06/12/21 10:29 Dose: 650 mg Documented by: Albuterol (Albuterol 6.7 Gm Inhaler) 0 gm INH Q2H PRN PRN Reason: sob/wheezing Last Admin: 06/25/21 20:02 Dose: 2 puff Documented by: Albuterol/Ipratropium (Albuterol/Ipratropium 3.0-0.5 Mg/3 Ml Neb Soln) 3 ml NEB Q4HRRT PRN PRN Reason: Shortness of Breath Last Admin: 06/25/21 18:13 Dose: 3 ml Documented by: Benzonatate (Benzonatate 100 Mg Cap) 100 mg PO Q8H PRN PRN Reason: Cough Calcium Carbonate/Glycine (Calcium Carbonate 500 Mg Tab.Chew) 1,000 mg PO Q2HR PRN PRN Reason: Heartburn Last Admin: 06/26/21 01:16 Dose: 1,000 mg Documented by: Cholecalciferol (Cholecalciferol (Vitamin D3) 5,000 Unit Cap) 5,000 unit PO DAILY [facility] Last Admin: 06/25/21 08:56 Dose: 5,000 unit Documented by: Docusate Sodium (Docusate Sodium 100 Mg Cap) 100 mg PO BID [facility] Last Admin: 06/25/21 21:17 Dose: Not Given Documented by: Enoxaparin Sodium (Enoxaparin 60 Mg/0.6 Ml Syringe) 60 mg SUBCUT Q12H [facility] Last Admin: 06/25/21 21:16 Dose: 60 mg Documented by: Famotidine (Famotidine 20 Mg Tab) 20 mg PO BID [facility] Last Admin: 06/25/21 21:15 Dose: 20 mg Documented by: Guaifenesin (Guaifenesin 600 Mg Tab.Er) 600 mg PO BID [facility] Last Admin: 06/25/21 21:15 Dose: 600 mg Documented by: Guaifenesin/Phenylephrine HCl (Guaifenesin/Dextromethorphan 100-10 Mg/5 Ml Soln 5 Ml Cup) 5 ml PO Q4H PRN PRN Reason: Cough Last Admin: 06/26/21 01:17 Dose: 5 ml Documented by: Insulin Human Lispro (Insulin Lispro 100 Unit/Ml 10 Ml Vial) 0 unit SUBCUT QIDACANDBED [facility]; Protocol Last Admin: 06/25/21 21:16 Dose: 2 units Documented by: Lisinopril (Lisinopril 20 Mg Tab) 40 mg PO DAILY [facility] Last Admin: 06/25/21 08:55 Dose: 40 mg Documented by: Lorazepam (Lorazepam 0.5 Mg Tab) 0.5 mg PO TID PRN PRN Reason: Anxiety Methocarbamol (Methocarbamol 500 Mg Tab) 1,000 mg PO Q6H PRN PRN Reason: Spasms Last Admin: 06/26/21 01:16 Dose: 1,000 mg Documented by: Methylprednisolone Sodium Succinate (Methylprednisolone Sodium Succinate 40 Mg/1 Ml Sdv) 40 mg IVPUSH DAILY [facility] Miscellaneous Information (Remove Nicotine Patch) 1 ea TRDERM DAILY [facility] Last Admin: 06/25/21 08:59 Dose: 1 ea Documented by: Nicotine (Nicotine 14 Mg/24 Hr Patch) 14 mg TRDERM DAILY [facility] Last Admin: 06/25/21 08:57 Dose: 14 mg Documented by: Ondansetron HCl (Ondansetron 4 Mg/2 Ml Sdv) 4 mg IV Q4H PRN PRN Reason: Nausea/Vomiting Polyethylene Glycol (Polyethylene Glycol 3350 Powder 17 Gm Packet) 17 gm PO DAILY [facility] Last Admin: 06/25/21 08:58 Dose: Not Given Documented by: Rosuvastatin Calcium (Rosuvastatin 10 Mg Tab) 20 mg PO DAILY [facility] Last Admin: 06/25/21 08:56 Dose: 20 mg Documented by: Temazepam (Temazepam 15 Mg Cap) 15 mg PO BEDTIME PRN PRN Reason: Sleep Last Admin: 06/10/21 21:59 Dose: 15 mg Documented by: Zinc Sulfate (Zinc Sulfate 220 Mg Cap) 220 mg PO DAILY [facility] Last Admin: 06/25/21 08:56 Dose: 220 mg Documented by: Discontinued Medications Acetylcysteine (Acetylcysteine 20% 200 Mg/Ml 30 Ml Nebulizer Soln Sdv) 800 mg NEB ONETIME ONE Stop: 06/09/21 09:21 Last Admin: 06/09/21 11:40 Dose: Not Given Documented by: Acetylcysteine (Acetylcysteine 20% 200 Mg/Ml 4 Ml Nebulizer Soln Sdv) 800 mg NEB ONETIME ONE Stop: 06/09/21 09:46 Last Admin: 06/09/21 10:10 Dose: 800 mg Documented by: Acetylcysteine (Acetylcysteine 20% 200 Mg/Ml 4 Ml Nebulizer Soln Sdv) 200 mg NEB ONETIME ONE Stop: 06/13/21 13:31 Last Admin: 06/13/21 15:38 Dose: 200 mg Documented by: Albuterol/Ipratropium (Albuterol/Ipratropium 3.0-0.5 Mg/3 Ml Neb Soln) 3 ml NEB QIDRT PRN PRN Reason: Shortness Of Breath/wheezing Last Admin: 06/20/21 21:30 Dose: 3 ml Documented by: Dexamethasone (Dexamethasone 4 Mg Tab) 6 mg PO ONETIME ONE Stop: 06/07/21 19:48 Last Admin: 06/07/21 20:28 Dose: 6 mg Documented by: Dexamethasone (Dexamethasone 10 Mg/Ml Sdv) 6 mg IVPUSH DAILY [facility] Stop: 06/16/21 09:01 Last Admin: 06/12/21 11:19 Dose: 6 mg Documented by: Dexamethasone (Dexamethasone 4 Mg Tab) 6 mg PO DAILY [facility] Stop: 06/16/21 09:01 Last Admin: 06/16/21 08:46 Dose: 6 mg Documented by: Enoxaparin Sodium (Enoxaparin 40 Mg/0.4 Ml Syringe) 40 mg SUBCUT Q12H [facility] Last Admin: 06/12/21 23:34 Dose: 40 mg Documented by: Enoxaparin Sodium (Enoxaparin 40 Mg/0.4 Ml Syringe) 40 mg SUBCUT Q12H [facility] Last Admin: 06/18/21 08:20 Dose: 40 mg Documented by: Enoxaparin Sodium (Enoxaparin 60 Mg/0.6 Ml Syringe) 60 mg SUBCUT Q12H [facility] Enoxaparin Sodium (Enoxaparin 30 Mg/0.3 Ml Syringe) 20 mg SUBCUT ONETIME ONE Stop: 06/18/21 09:17 Last Admin: 06/18/21 10:25 Dose: Not Given Documented by: Enoxaparin Sodium (Enoxaparin 40 Mg/0.4 Ml Syringe) 20 mg SUBCUT ONETIME ONE Stop: 06/18/21 10:31 Last Admin: 06/18/21 10:26 Dose: 20 mg Documented by: Heparin Sodium (Porcine) (Heparin Sodium 5,000 Units/Ml Vial) 5,000 units SUBCUT Q8H [facility] Last Admin: 06/12/21 11:49 Dose: Not Given Documented by: Sodium Chloride (Normal Saline) 100 mls @ 60 mls/min IV ASDIRECTED [facility] Last Admin: 06/07/21 19:29 Dose: 60 mls/min Documented by: Remdesivir 200 mg/ Sodium (Chloride) 250 mls @ 250 mls/hr IV ONETIME ONE Stop: 06/07/21 20:38 Last Admin: 06/07/21 20:54 Dose: 250 mls/hr Documented by: Remdesivir 100 mg/ Sodium (Chloride) 100 mls @ 100 mls/hr IV Q24H [facility] Stop: 06/11/21 20:59 Last Admin: 06/11/21 20:39 Dose: 100 mls/hr Documented by: Ceftriaxone Sodium 2 gm/ (Sodium Chloride) 100 mls @ 200 mls/hr IV Q24H [facility] Last Admin: 06/12/21 10:10 Dose: 200 mls/hr Documented by: Azithromycin 500 mg/ Sodium (Chloride) 250 mls @ 250 mls/hr IV Q24H [facility] Last Admin: 06/12/21 10:11 Dose: 250 mls/hr Documented by: Sodium Chloride (Normal Saline) 100 mls @ 60 mls/hr IV ASDIRECTED [facility] Stop: 06/12/21 13:00 Last Admin: 06/12/21 11:28 Dose: 60 mls/hr Documented by: Ibuprofen (Ibuprofen 200 Mg Tab) 600 mg PO Q4HR PRN PRN Reason: Pain Ibuprofen (Ibuprofen 600 Mg Tab) 600 mg PO Q4HR PRN PRN Reason: Pain Iopamidol (Iopamidol 755 Mg/Ml 100 Ml Bottle) 100 ml IVPUSH ONETIME ONE Stop: 06/07/21 19:05 Last Admin: 06/07/21 19:29 Dose: 100 ml Documented by: Iopamidol (Iopamidol 755 Mg/Ml 100 Ml Bottle) 100 ml IVPUSH ONETIME ONE Stop: 06/12/21 11:04 Last Admin: 06/12/21 11:28 Dose: 100 ml Documented by: Lorazepam (Lorazepam 0.5 Mg Tab) 0.5 mg PO TID PRN PRN Reason: Anxiety Metformin HCl (Metformin 500 Mg Tab) 1,000 mg PO BID [facility] Last Admin: 06/10/21 09:49 Dose: 1,000 mg Documented by: Methylprednisolone Sodium Succinate (Methylprednisolone Sodium Succinate 40 Mg/1 Ml Sdv) 60 mg IVPUSH Q8H [facility] Last Admin: 06/21/21 15:18 Dose: Not Given Documented by: Methylprednisolone Sodium Succinate (Methylprednisolone Sodium Succinate 40 Mg/1 Ml Sdv) 60 mg IVPUSH Q12H [facility] Last Admin: 06/21/21 11:38 Dose: 60 mg Documented by: Methylprednisolone Sodium Succinate (Methylprednisolone Sodium Succinate 40 Mg/1 Ml Sdv) 60 mg IVPUSH Q12H [facility] Last Admin: 06/23/21 08:24 Dose: 60 mg Documented by: Methylprednisolone Sodium Succinate (Methylprednisolone Sodium Succinate 40 Mg/1 Ml Sdv) 40 mg IVPUSH Q12H [facility] Last Admin: 06/25/21 21:16 Dose: 40 mg Documented by: Morphine Sulfate (Morphine 2 Mg/Ml Syringe) 2 mg IVPUSH Q2H PRN PRN Reason: Pain (severe 7-10) Stop: 06/09/21 07:44 Jardiance ( Empagliflozin 10 Mg Tablet Ptom 0 mg PO DAILY [facility] Last Admin: 06/18/21 08:30 Dose: 10 mg Documented by: Sodium Chloride (Sodium Chloride 0.9% 10 Ml Sdv) 10 ml FLUSH ONETIME ONE Stop: 06/07/21 19:05 Last Admin: 06/07/21 19:29 Dose: 10 ml Documented by: Sodium Chloride (Sodium Chloride 0.9% 10 Ml Syringe) 10 ml FLUSH ONETIME ONE Stop: 06/12/21 11:04 Last Admin: 06/12/21 11:28 Dose: 10 ml Documented by: - Exam Quality Assessment: Supplemental Oxygen (8L), DVT Prophylaxis General: Alert, Oriented, Cooperative, No Acute Distress HEENT: Pupils Equal, Pupils Reactive, Mucous Membr. Moist/[place] Neck: Supple, Trachea Midline Lungs: Normal Respiratory Effort, Decreased Breath Sounds. No: Crackles, Wheezing Cardiovascular: Regular Rate, Regular Rhythm GI/Abdominal Exam: Normal Bowel Sounds, Soft, Non-Tender, No Distention (Male) Exam: Deferred Back Exam: Normal Inspection, Full Range of Motion Extremities: Normal Inspection, Normal Range of Motion, Non-Tender, No Pedal Edema, Normal Capillary Refill Peripheral Pulses: 2+: Radial (L), Radial (R), Dorsalis Pedis (L), Dorsalis Pedis (R) Skin: Warm, Dry, Intact Neurological: No New Focal Deficit Psy/Mental Status: Alert, Normal Affect, Normal Mood - Patient Data Lab Results Last 24 hrs: Laboratory Results - last 24 hr 06/25/21 06/25/21 06/25/21 Range/Units 06:37 10:15 12:51 WBC (4.23-9.07) K/mm3 RBC (4.63-6.08) M/mm3 Hgb (13.7-17.5) gm/dl Hct (40.1-51.0) % MCV (79.0-92.2) fl MCH (25.7-32.2) pg MCHC (32.2-35.5) g/dl RDW Std Deviation (35.1-43.9) fL Plt Count (163-337) K/mm3 MPV (9.4-12.3) fl Neut % (Auto) (34.0-67.9) % Lymph % (Auto) (21.8-53.1) % [place] % (Auto) (5.3-12.2) % Eos % (Auto) (0.8-7.0) Baso % (Auto) (0.1-1.2) % Neut # (Auto) (1.78-5.38) K/mm3 Lymph # (Auto) (1.32-3.57) K/mm3 [place] # (Auto) (0.30-0.82) K/mm3 Eos # (Auto) (0.04-0.54) K/mm3 Baso # (Auto) (0.01-0.08) K/mm3 Sodium 135 L (136-145) mEq/L Potassium 4.2 (3.5-5.1) mEq/L Chloride 101 (98-107) mEq/L Carbon Dioxide 24 (21-32) mEq/L Anion Gap 14.2 (5-15) BUN 28 H (7-18) mg/dL Creatinine 0.8 (0.7-1.3) mg/dL Est Cr Clr Drug Dosing 103.92 mL/min Estimated GFR (MDRD) > 60 (>60) mL/min BUN/Creatinine Ratio 35.0 H (14-18) Glucose 161 H (70-99) mg/dL POC Glucose 236 H 267 H (70-99) mg/dL Calcium 8.9 (8.5-10.1) mg/dL Phosphorus 4.9 H (2.6-4.7) mg/dL Total Bilirubin 0.4 (0.2-1.0) mg/dL AST 15 (15-37) U/L ALT 54 (16-63) U/L Alkaline Phosphatase 46 (46-116) U/L C-Reactive Protein < 0.2 (<1.0) mg/dL Total Protein 6.2 L (6.4-8.2) g/dl Albumin 2.6 L (3.4-5.0) g/dl Globulin 3.6 gm/dL Albumin/Globulin Ratio 0.7 L (1-2) 06/25/21 06/25/21 06/26/21 Range/Units 16:26 20:56 05:57 WBC 15.12 H (4.23-9.07) K/mm3 RBC 5.36 (4.63-6.08) M/mm3 Hgb 15.4 (13.7-17.5) gm/dl Hct 46.9 (40.1-51.0) % MCV 87.5 (79.0-92.2) fl MCH 28.7 (25.7-32.2) pg MCHC 32.8 (32.2-35.5) g/dl RDW Std Deviation 47.2 H (35.1-43.9) fL Plt Count 251 (163-337) K/mm3 MPV 9.3 L (9.4-12.3) fl Neut % (Auto) 87.1 H (34.0-67.9) % Lymph % (Auto) 6.5 L (21.8-53.1) % [place] % (Auto) 5.2 L (5.3-12.2) % Eos % (Auto) 0 L (0.8-7.0) Baso % (Auto) 0.1 (0.1-1.2) % Neut # (Auto) 13.17 H (1.78-5.38) K/mm3 Lymph # (Auto) 0.98 L (1.32-3.57) K/mm3 [place] # (Auto) 0.78 (0.30-0.82) K/mm3 Eos # (Auto) 0.00 L (0.04-0.54) K/mm3 Baso # (Auto) 0.02 (0.01-0.08) K/mm3 Sodium (136-145) mEq/L Potassium (3.5-5.1) mEq/L Chloride (98-107) mEq/L Carbon Dioxide (21-32) mEq/L Anion Gap (5-15) BUN (7-18) mg/dL Creatinine (0.7-1.3) mg/dL Est Cr Clr Drug Dosing mL/min Estimated GFR (MDRD) (>60) mL/min BUN/Creatinine Ratio (14-18) Glucose (70-99) mg/dL POC Glucose 340 H 182 H (70-99) mg/dL Calcium (8.5-10.1) mg/dL Phosphorus (2.6-4.7) mg/dL Total Bilirubin (0.2-1.0) mg/dL AST (15-37) U/L ALT (16-63) U/L Alkaline Phosphatase (46-116) U/L C-Reactive Protein (<1.0) mg/dL Total Protein (6.4-8.2) g/dl Albumin (3.4-5.0) g/dl Globulin gm/dL Albumin/Globulin Ratio (1-2) 06/26/21 06/26/21 Range/Units 05:57 06:28 WBC (4.23-9.07) K/mm3 RBC (4.63-6.08) M/mm3 Hgb (13.7-17.5) gm/dl Hct (40.1-51.0) % MCV (79.0-92.2) fl MCH (25.7-32.2) pg MCHC (32.2-35.5) g/dl RDW Std Deviation (35.1-43.9) fL Plt Count (163-337) K/mm3 MPV (9.4-12.3) fl Neut % (Auto) (34.0-67.9) % Lymph % (Auto) (21.8-53.1) % [place] % (Auto) (5.3-12.2) % Eos % (Auto) (0.8-7.0) Baso % (Auto) (0.1-1.2) % Neut # (Auto) (1.78-5.38) K/mm3 Lymph # (Auto) (1.32-3.57) K/mm3 [place] # (Auto) (0.30-0.82) K/mm3 Eos # (Auto) (0.04-0.54) K/mm3 Baso # (Auto) (0.01-0.08) K/mm3 Sodium 133 L (136-145) mEq/L Potassium 4.8 (3.5-5.1) mEq/L Chloride 99 (98-107) mEq/L Carbon Dioxide 25 (21-32) mEq/L Anion Gap 13.8 (5-15) BUN 23 H (7-18) mg/dL Creatinine 0.8 (0.7-1.3) mg/dL Est Cr Clr Drug Dosing 103.92 mL/min Estimated GFR (MDRD) > 60 (>60) mL/min BUN/Creatinine Ratio 28.8 H (14-18) Glucose 215 H (70-99) mg/dL POC Glucose 216 H (70-99) mg/dL Calcium 9.3 (8.5-10.1) mg/dL Phosphorus (2.6-4.7) mg/dL Total Bilirubin 0.4 (0.2-1.0) mg/dL AST 8 L (15-37) U/L ALT 56 (16-63) U/L Alkaline Phosphatase 45 L (46-116) U/L C-Reactive Protein < 0.2 (<1.0) mg/dL Total Protein 6.5 (6.4-8.2) g/dl Albumin 2.8 L (3.4-5.0) g/dl Globulin 3.7 gm/dL Albumin/Globulin Ratio 0.8 L (1-2) Result Diagrams: 06/26/21 05:57 06/26/21 05:57 Sepsis Event Note - Evaluation Sepsis Screening Result: No Definite Risk - Focused Exam Vital Signs: Vital Signs Temp Pulse Resp BP Pulse Ox Pulse Ox 06/26/21 05:45 94 L 06/26/21 04:53 98.2 F 69 20 102/76 97 06/25/21 20:59 98.1 F 97 20 103/62 95 06/25/21 20:53 95 06/25/21 20:44 97 06/25/21 20:03 94 L - Problem List & Annotations (1) Hyperlipidemia SNOMED Code(s): 28735610 Code(s): E78.5 - HYPERLIPIDEMIA, UNSPECIFIED Status: Chronic Priority: Low Current Visit: No Qualifiers: Hyperlipidemia type: unspecified Qualified Code(s): E78.5 - Hyperlipidemia, unspecified (2) HTN (hypertension) SNOMED Code(s): 45860390 Code(s): I10 - ESSENTIAL (PRIMARY) HYPERTENSION Status: Chronic Priority: Low Current Visit: No Qualifiers: Hypertension type: unspecified Qualified Code(s): I10 - Essential (primary) hypertension (3) Elevated d-dimer SNOMED Code(s): 656302199 Code(s): R79.89 - OTHER SPECIFIED ABNORMAL FINDINGS OF BLOOD CHEMISTRY Status: Acute Priority: High Current Visit: Yes (4) Elevated C-reactive protein SNOMED Code(s): 495580340929222 Code(s): R79.82 - ELEVATED C-REACTIVE PROTEIN (CRP) Status: Acute Priority: High Current Visit: Yes (5) Leukocytosis SNOMED Code(s): 988428213, 018065842 Code(s): D72.829 - ELEVATED WHITE BLOOD CELL COUNT, UNSPECIFIED Status: Acute Priority: High Current Visit: Yes Qualifiers: Leukocytosis type: unspecified Qualified Code(s): D72.829 - Elevated white blood cell count, unspecified (6) Diabetes mellitus SNOMED Code(s): 03644861 Code(s): E11.9 - TYPE 2 DIABETES MELLITUS WITHOUT COMPLICATIONS Status: Chronic Priority: High Current Visit: Yes Qualifiers: Diabetes mellitus type: type 2 Diabetes mellitus fdc insulin use: without fdc use Diabetes mellitus complication status: with other specified complication Qualified Code(s): E11.69 - Type 2 diabetes mellitus with other specified complication (7) Hypoxia SNOMED Code(s): 374552482 Code(s): R09.02 - HYPOXEMIA Status: Acute Priority: High Current Visit: Yes (8) Pneumonia due to COVID-19 virus SNOMED Code(s): 433941276045382849 Code(s): U07.1 - COVID-19; J12.82 - PNEUMONIA DUE TO CORONAVIRUS DISEASE 2019 Status: Acute Priority: High Current Visit: Yes (9) Smoker SNOMED Code(s): 40857583 Code(s): F17.200 - NICOTINE DEPENDENCE, UNSPECIFIED, UNCOMPLICATED Status: Chronic Priority: High Current Visit: Yes (10) Gout SNOMED Code(s): 40849934 Code(s): M10.9 - GOUT, UNSPECIFIED Status: Chronic Priority: Low Current Visit: No Qualifiers: Gout site: unspecified site Gout etiology: unspecified cause Chronicity: unspecified Qualified Code(s): M10.9 - Gout, unspecified (11) Vitamin D deficiency SNOMED Code(s): 85177698 Code(s): E55.9 - VITAMIN D DEFICIENCY, UNSPECIFIED Status: Acute Priority: Medium Current Visit: Yes (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 He currently is on 45 L with an FiO2 of 75%. Labs today show a WBC of 10.22. Hemoglobin 30.6. Platelet 269,000. Neutrophils elevated 75.1%. D-dimer is up to 3.85. Sodium 144. Potassium 3.8. Chloride 109. Carbon dioxide 25. Anion gap is 13.8. BUN is 14. Creatinine 0.7. GFR greater than 60. Blood glucose levels have been from 96-2 14. Phosphorus 3.5. Magnesium 1.9. Total bilirubin 0.3. AST is 30, ALT 37, alkaline phosphatase 52. CRP is 12.6. Protein 5.5. Albumin is down to 1.9. Given the patient's worsening oxygen demand and elevated D-dimer CTA is obtained showing 1. Bilateral pulmonary consolidation likely due to COVID-19. 2. Mediastinal adenopathy, most likely reactive. There are no signs of any pulmonary emboli. We will therefore increase patient's DVT prophylaxis up to 40 mg twice daily Lovenox. Patient will be started on 20 mg twice daily Pepcid and zinc supplementation. Vitamin D level has been ordered. Patient will remain hospitalized pending improvement in oxygen demand. Unknown length of stay time. Overall he states he feels about the same as yesterday. Continues to have mild diarrhea at times and reports weakness. 06/13/2021 This is a 55-year-old male admitted to the hospital for COVID-19 pneumonia. He has been proning today and saturations are in the mid to low 90s while proning. He has been utilizing incentive spirometer and Acapella. He has been a little bit down today and reports he does not feel like he is getting much better. Overall his lung sounds have greatly improved. He remains on high flow 50 L with an FiO2 of 70%. Labs today show a WBC of 9.34. Hemoglobin 13.7. Platelet 357,000. Neutrophils are 76.4%. Sodium is 144. Potassium 3.5. Anion gap is 15.5. BUN 12. Creatinine 0.8.. GFR greater than 60. Glucose has been between 102 42. Magnesium 1.9. Bilirubin 0.4. AST is 27, ALT 41, alkaline phosphatase 58. CRP is improved to 10.7. Protein 6.1. Vitamin D obtained yesterday was low at 17.4 and we will start supplementation for vitamin D today. Albumin is improved to 2.1. We will continue treatment with unknown length of stay due to severity of COVID-19 symptoms. 06/14/2021 55-year-old male admitted to the hospital with hypoxia due to COVID-19 pneumonia. He is currently on 50 L of oxygen with 75% FiO2. States he has been proning as much as possible as well as using his I-S and Acapella. Has a very flat affect. Was upset on rounds this morning as he states he has not been getting his muscle relaxer with his morning pills. Labs today reveal a WBC of 13.29, hemoglobin 13.3, hematocrit 40.8, platelet count 395,000, D-dimer 3.19, sodium 144, potassium 3.8, chloride 108, anion gap 13.8, BUN 16, creatinine 0.7, GFR greater than 60, glucose has ranged from [id number], magnesium 1.9, C-reactive protein 5.3 continue with current treatment. Unknown length of stay due to the severity of Covid symptoms. 06/15/2021 This is a 55-year-old male admitted to the floor with COVID-19 pneumonia. He had worsening oxygen saturations and today was requiring 60 L of oxygen with an FiO2 of 95%. Because of this he was moved up to the ICU. He continues to utilize his incentive spirometry and Acapella and prone. We will continue dexamethasone and baricitinib. Respiratory therapy continues to work with him. Clinically he does not look to be in any acute respiratory distress. Labs today show WBC of 14.02. Hemoglobin 14.1. Platelet 4 and 26,000. Neutrophils are elevated 79.9%. Sodium 143. Potassium 3.8. Chloride 107. Carbon dioxide 27. Anion gap 12.8. BUN is 13. Creatinine 0.7. GFR greater than 60. Glucose is 97-93. Calcium is 8.5. Magnesium 1.8. Bilirubin 0.5. AST is 24, ALT 49, alkaline phosphatase 54. CRP is 5.9. Protein is 5.9 and albumin is 2.0. We will continue current treatment plan. Will increase to BiPAP if necessary. Unknown length of stay due to severity of COVID-19 symptoms. 06/16/2021 Patient improved overnight decreasing his high flow nasal cannula to 50 L and FiO2 of currently 80%. Continue with current treatment as outlined above. 06/17/2021 Pt is still requiring 55L of oxygen at 80% high flow nasal cannula. He is proning some. He is afebrile. 06/18/2021 56-year-old male admitted to the floor for COVID-19 pneumonia. Remains on high flow oxygen 50 L at 80% FiO2. He has been quite deconditioned from a respiratory standpoint and does take quite some time to recover after exertion. Overall states he is feeling quite a bit better. WBC is 12.40. Platelet 403,000. Neutrophils are elevated at 82.5%. D-dimer 6.36. Sodium 141. Potassium 4.1. Carbon dioxide 28. Anion gap 14.1. BUN is 18. Creatinine 0.8. GFR greater than 60. Glucose 130. We will start the patient on 60 mg twice daily Lovenox given his increasing D-dimer. This is 0.5 mg/kg. We will start the patient on 60 mg every 8 hour Solu-Medrol. He is to continue proning regularly and also utilizing his incentive spirometer and Acapella. Unknown length of stay due to severity of symptoms. Patient will remain in ICU status. 06/19/2021 56-year-old male hospitalized for COVID-19 pneumonia symptoms. He has been in the ICU for several days. We have finally been able to wean him down slightly on his high flow. He is 40 L with a FiO2 of 70% currently. Saturations have been in the upper 80s to low 90s. He has continued to take quite some time to recover after exertion. He has been proning quite regularly. Otherwise says he feels okay. He has been having some back pain and is receiving a skeletal muscle relaxant for this. WBC is elevated at 15.76. He platelet 448,000. Neutrophils are elevated at 91.6. D-dimer has improved to 2.84. Sodium 139. Potassium 4.5. Chloride 104. Carbon oxide 25. Anion gap is 14.5. BUN is 19. Creatinine 0.7. GFR greater than 60. Glucose 186. Magnesium is 2.1. CRP is 4.6. Bilirubin 0.4. AST 14, ALT 34, alkaline phosphatase 49. Albumin is 2.5. Protein 6.9. We will continue current treatment plan. As he has improved with his high flow settings we will downgrade him to MedSurg status with telemetry today. Continue current treatment plan. Patient will remain hospitalized and likely require several more days. 06/20/2021 56-year-old male hospitalized with COVID-19 pneumonia. He was downgraded out of the ICU yesterday to the floor with telemetry. We have been decreasing his high flow settings however this morning he noted acute dyspnea and was noted to have decreased saturations so his high flow was increased to 50 L with FiO2 of 75%. This has been quite common for him that in the mornings he has an episode like this and does recover throughout the day. Overall he states he feels okay. He did prone most of the night overnight. He is utilizing his incentive spirometry and Acapella. We will continue to try to wean him off of high flow. He remains on 60 mg every 8 hour Solu-Medrol we will look at decreasing this in the future. Otherwise he is doing okay. He has no acute complaints. No labs were drawn today and we will recheck tomorrow. Unknown length of stay due to severity of COVID-19 symptoms. 06/21/2021 This is a 56-year-old male who remains admitted to the hospital for treatment of his COVID-19 pneumonia. He has completed dexamethasone and remdesivir. He will complete baricitinib today. He remains on high flow 50 L with an FiO2 of 60%. Overnight he did require more FiO2 and he is recovered from this. Saturations remain in the upper 80s to low 90s. Labs were not obtained today as patient has been relatively stable from a lab standpoint. We will consider rechecking those on Friday. He continues to prone and utilize his incentive spirometer and Acapella. Chest x-ray obtained yesterday shows significant worsening COVID-19 pneumonia. We will decrease his steroid today from 60 mg every 8 to 60 mg twice daily. 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 Patient continues slow improvements. Unknown length of stay due to severity of symptoms. 06/22/2021: This is a 56-year-old male admitted to the hospital floor continuing treatment of COVID-19 pneumonia. He has completed dexamethasone, remdesivir, and baricitinib. He remains on Solu-Medrol 60 mg every 12 hours although plan is to decrease this slowly. Patient is currently requiring 35 L of 50% FiO2. RT continues to wean high flow with the hope of transitioning to a nasal cannula within the next 12 to 24 hours. Patient reports he feels pretty good but he continues to have cough and dyspnea on exertion. We will continue current treatment plan. No labs were obtained today as patient is otherwise been quite stable. Unknown length of stay due to severity of symptoms. Goal oxygen demand prior to discharge would be 2 L or less via nasal cannula. 06/23/2021 56-year-old male with COVID-19 pneumonia. He has completed dexamethasone, remdesivir, and baricitinib. He remains on Solu-Medrol which we are weaning. Patient was just switched to 6 L nasal cannula and RT continues to work aggressively with him. 06/24/2021 55yom with pmh of DM type 2, hypertension, and hyperlipidemia presenting to the emergency department after being sent from [facility]. He was diagnosed as Covid positive on Friday (06/05) which is the day his symptoms began. This morning patient was fine. But this afternoon he has more shortness of breath. Denies fever, chills, nausea, or vomiting. He still has a cough but is improved. He has completed dexamethasone, remdesivir, and baricitinib. He remains on Solu-Medrol which we are weaning. 06/25/2021 55-year-old male who tested Covid positive on 06/05/2021 and has been in our facility since 06/07/2021. Patient continues to have decreased lung sounds with bibasilar crackles. He completed dexamethasone, remdesivir, and baricitinib. He is on a Solu-Medrol taper. He was on nasal cannula over the weekend for a day but then was noted to have difficulty breathing and ended up back on high fl ow. Today he is on oxy mask at 12 L. WBC is 12.22. Hemoglobin 15.3. Platelet 240,000. Sodium 135. Potassium 4.2. Chloride 104. Carbon dioxide 24. Anion gap 14.2. BUN is 28. Creatinine 0.8. GFR greater than 60. Blood glucose readings have been stable at 1 62-3 02. Phosphorus is 4.9. Bilirubin 0.4. AST is 15, ALT 54, alkaline phosphatase 46. CRP is less than 0.2. Albumin is 2.6. Protein is 6.2. Unknown length of stay due to severity of symptoms. Patient will remain hospitalized until able to tolerate nasal cannula. 06/26/2021 This is a 55-year-old male admitted to our facility for COVID-19 pneumonia treatment. Lung sounds continue to be decreased although patient's oxygenation has improved. He tolerated nasal cannula throughout the night and he was on 6 L this morning. He is currently up to 8 L but he is going to ambulate out in the hallway now as he has been removed from airborne and contact precautions. Labs today show a WBC of 15.12. Platelet 251,000. Neutrophils are elevated at 87.1%. Sodium is 133. Potassium 4.8. Chloride 99. Carbon dioxide 25. Anion gap is 13.8. BUN is 23. Creatinine 0.8. GFR greater than 60. Glucose has been 3 40-1 82. Bilirubin 0.4. AST is 8, ALT is 56, alkaline phosphatase 45. CRP is less than 0.2. Albumin is 2.8. Protein is 6.5. Patient is reporting some sore throat with coughing and some blood-tinged sputum when he coughs hard. We will add a Cepacol lozenge as needed for this. His steroid taper has been decreased to 40 mg IV push daily we will continue to wean this. Length of stay will continue to depend on how quickly he improves and is able to tolerate nasal cannula. Hopeful for discharge this week. - Plan Plan:: Pneumonia due to COVID-19 virus Leukocytosis Elevated D-Dimer Hypoxia * Pulse ox * Continue oxygen therapy, high flow and BiPAP as needed to keep oxygen saturation greater than 92% COVID-19 Long Hauler * O2 as needed with goal saturations 88 to 95% * High flow oxygen, switch to nasal cannula * Continue Lovenox 60 mg twice daily due to elevated D-dimer * I-S/Acapella * PRN albuterol inhaler * PRN Duonebs * Prone whenever able * Ambulate * Solumedrol 40mg daily (continue titration) * RT consultation * PT/OT * Discontinue airborne/contact isolation as patient has completed * Telemetry * Continuous pulse oximetry * Zinc supplementation * 20 mg twice daily Pepcid * Completed remdesivir, azithromycin, rocephin, Baricitinib and dexamethasone * Scheduled Mucinex twice daily * CT angio chest on June 12 -negative for PE Morbid obesity * Lifestyle modifications. Hyperlipidemia * Continue home rosuvastatin * No acute concern HTN (hypertension) * Continue home lisinopril * No acute concerns Diabetes mellitus * Continue home Jardiance * QID AC and bedtime blood glucose checks * Medium dose sliding scale insulin * Hold home metformin * Diabetic diet Tobacco abuse * Nicotine patch daily * Cessation counseling * Offer nicotine patches at discharge Gout * No acute concerns * No chronic home gout medications * Monitor Vitamin D deficiency * Begin 5,000 unit vitamin D supplementation * PCP to follow-up Code status: Full code PCP: Dr. Rubio DVT prophylaxis: BID Lovenox as above Disposition: Discharge pending improvement in oxygenation. Goal 2-4L on NC Length of stay greater than 96 hours due to continued need for COVID-19 treatment.
[2021-06-26] MEDS: Insulin Lispro 100 UNIT/ML 10 ML Vial SUBCUT SCH ×4 (08:17→21:09)
[2021-06-26] MEDS: Rosuvastatin 10 MG Tab PO SCH (08:17)
[2021-06-26] MEDS: Cholecalciferol (Vitamin D3) 5,000 UNIT Cap PO SCH (08:18)
[2021-06-26] MEDS: Lisinopril 20 MG Tab PO SCH (08:18)
[2021-06-26] MEDS: Nicotine 14 MG/24 Hr Patch TRDERM SCH (08:18)
[2021-06-26] MEDS: methylPREDNISolone Sodium Succinate 40 MG/1 ML SDV IVPUSH SCH (08:18)
[2021-06-26] MEDS: Famotidine 20 MG Tab PO SCH ×2 (08:18→21:09)
[2021-06-26] MEDS: Empagliflozin 10 MG Tab PO SCH (08:19)
[2021-06-26] MEDS: guaiFENesin 600 MG Tab.ER PO SCH ×2 (08:19→21:09)
[2021-06-26] MEDS: Enoxaparin 60 MG/0.6 ML Syringe SUBCUT SCH ×2 (08:19→21:09)
[2021-06-26] MEDS: Docusate Sodium 100 MG Cap PO SCH ×2 (08:20→21:09)
[2021-06-26] MEDS: Zinc Sulfate 220 MG Cap PO SCH (08:20)
[2021-06-26] MEDS: Polyethylene Glycol 3350 Powder 17 GM Packet PO SCH (08:20)
[2021-06-26] MEDS: Albuterol 6.7 GM Inhaler INH PRN (08:35)
[2021-06-26] MEDS: Albuterol/Ipratropium 3.0-0.5 MG/3 ML Neb Soln NEB PRN ×2 (09:57→20:14)
[2021-06-26] MEDS: Benzocaine/Cetylpyridinium/Menthol Lozenge MUCMEM PRN (21:09)
[2021-06-27] MEDS: Methocarbamol 500 MG Tab PO PRN ×3 (00:47→20:55)
[2021-06-27] MEDS: guaiFENesin/Dextromethorphan 100-10 MG/5 ML Soln 5 ML Cup PO PRN ×3 (00:47→20:54)
[2021-06-27] MEDS: Insulin Lispro 100 UNIT/ML 10 ML Vial SUBCUT SCH ×5 (07:19→21:12)
[2021-06-27] MEDS: Albuterol 6.7 GM Inhaler INH PRN ×2 (07:41→20:14)
[2021-06-27] MEDS: Nicotine 14 MG/24 Hr Patch TRDERM SCH (08:08)
[2021-06-27] MEDS: Docusate Sodium 100 MG Cap PO SCH (08:09)
[2021-06-27] MEDS: Polyethylene Glycol 3350 Powder 17 GM Packet PO SCH (08:09)
[2021-06-27] MEDS: Enoxaparin 60 MG/0.6 ML Syringe SUBCUT SCH (08:10)
[2021-06-27] MEDS: Rosuvastatin 10 MG Tab PO SCH (08:11)
[2021-06-27] MEDS: Empagliflozin 10 MG Tab PO SCH (08:11)
[2021-06-27] MEDS: methylPREDNISolone Sodium Succinate 40 MG/1 ML SDV IVPUSH SCH (08:11)
[2021-06-27] MEDS: guaiFENesin 600 MG Tab.ER PO SCH ×2 (08:11→20:54)
[2021-06-27] MEDS: Lisinopril 20 MG Tab PO SCH (08:11)
[2021-06-27] MEDS: Famotidine 20 MG Tab PO SCH ×2 (08:11→20:55)
[2021-06-27] MEDS: Zinc Sulfate 220 MG Cap PO SCH (08:11)
[2021-06-27] MEDS: Cholecalciferol (Vitamin D3) 5,000 UNIT Cap PO SCH (08:11)
--- NOTE | 2021-06-27 08:49 | PCM.PN ---
- General Info Date of Service: 06/27/21 Admission Dx/Problem (Free Text): Admission Diagnosis/Problem Admission Diagnosis/Problem Hypoxia Covid 19 pneumonia with hypoxia Functional Status: Reports: Pain Controlled, Tolerating Diet, Ambulating, Urinating, Incentive Spirometry, Other (Acapella ). Denies: New Symptoms - Review of Systems General: Reports: Weakness. Denies: Fever, Fatigue, Malaise, Chills HEENT: Reports: No Symptoms. Denies: Headaches, Sore Throat Pulmonary: Reports: Shortness of Breath, Cough. Denies: Pleuritic Chest Pain, Sputum, Wheezing Cardiovascular: Reports: No Symptoms, Dyspnea on Exertion. Denies: Chest Pain, Palpitations, Edema Gastrointestinal: Reports: No Symptoms. Denies: Abdominal Pain, Constipation, Diarrhea, Nausea Genitourinary: Reports: No Symptoms. Denies: Pain Musculoskeletal: Reports: No Symptoms Skin: Reports: No Symptoms. Denies: Cyanosis Neurological: Reports: No Symptoms. Denies: Confusion, Numbness, Pre-Existing Deficit, Tingling, Difficulty Walking, Weakness, Gait Disturbance Psychiatric: Reports: No Symptoms - Patient Data Vitals - Most Recent: Last Vital Signs Temp 97.7 F 06/27/21 06:50 Pulse 88 06/27/21 06:50 Resp 18 06/27/21 06:50 BP 116/68 06/27/21 08:11 Pulse Ox 92 L 06/27/21 07:41 Weight - Most Recent: 254 lb 1.6 oz I&O - Last 24 Hours: Intake & Output 06/26/21 06/27/21 06/27/21 22:59 06:59 14:59 Intake Total 1300 Balance 1300 Lab Results Last 24 Hours: Laboratory Results - last 24 hr 06/26/21 06/26/21 06/26/21 Range/Units 11:08 16:16 21:02 WBC (4.23-9.07) K/mm3 RBC (4.63-6.08) M/mm3 Hgb (13.7-17.5) gm/dl Hct (40.1-51.0) % MCV (79.0-92.2) fl MCH (25.7-32.2) pg MCHC (32.2-35.5) g/dl RDW Std Deviation (35.1-43.9) fL Plt Count (163-337) K/mm3 MPV (9.4-12.3) fl Neut % (Auto) (34.0-67.9) % Lymph % (Auto) (21.8-53.1) % Ada % (Auto) (5.3-12.2) % Eos % (Auto) (0.8-7.0) Baso % (Auto) (0.1-1.2) % Neut # (Auto) (1.78-5.38) K/mm3 Lymph # (Auto) (1.32-3.57) K/mm3 Ada # (Auto) (0.30-0.82) K/mm3 Eos # (Auto) (0.04-0.54) K/mm3 Baso # (Auto) (0.01-0.08) K/mm3 Sodium (136-145) mEq/L Potassium (3.5-5.1) mEq/L Chloride (98-107) mEq/L Carbon Dioxide (21-32) mEq/L Anion Gap (5-15) BUN (7-18) mg/dL Creatinine (0.7-1.3) mg/dL Est Cr Clr Drug Dosing mL/min Estimated GFR (MDRD) (>60) mL/min BUN/Creatinine Ratio (14-18) Glucose (70-99) mg/dL POC Glucose 315 H 293 H 182 H (70-99) mg/dL Calcium (8.5-10.1) mg/dL Total Bilirubin (0.2-1.0) mg/dL AST (15-37) U/L ALT (16-63) U/L Alkaline Phosphatase (46-116) U/L C-Reactive Protein (<1.0) mg/dL Total Protein (6.4-8.2) g/dl Albumin (3.4-5.0) g/dl Globulin gm/dL Albumin/Globulin Ratio (1-2) 06/27/21 06/27/21 06/27/21 Range/Units 05:09 05:09 06:54 WBC 13.37 H (4.23-9.07) K/mm3 RBC 5.19 (4.63-6.08) M/mm3 Hgb 14.9 (13.7-17.5) gm/dl Hct 46.0 (40.1-51.0) % MCV 88.6 (79.0-92.2) fl MCH 28.7 (25.7-32.2) pg MCHC 32.4 (32.2-35.5) g/dl RDW Std Deviation 47.2 H (35.1-43.9) fL Plt Count 244 (163-337) K/mm3 MPV 9.5 (9.4-12.3) fl Neut % (Auto) 69.4 H (34.0-67.9) % Lymph % (Auto) 19.6 L (21.8-53.1) % Ada % (Auto) 8.2 (5.3-12.2) % Eos % (Auto) 1.6 (0.8-7.0) Baso % (Auto) 0.1 (0.1-1.2) % Neut # (Auto) 9.27 H (1.78-5.38) K/mm3 Lymph # (Auto) 2.62 (1.32-3.57) K/mm3 Ada # (Auto) 1.10 H (0.30-0.82) K/mm3 Eos # (Auto) 0.21 (0.04-0.54) K/mm3 Baso # (Auto) 0.02 (0.01-0.08) K/mm3 Sodium 134 L (136-145) mEq/L Potassium 3.9 (3.5-5.1) mEq/L Chloride 99 (98-107) mEq/L Carbon Dioxide 27 (21-32) mEq/L Anion Gap 11.9 (5-15) BUN 25 H (7-18) mg/dL Creatinine 0.7 (0.7-1.3) mg/dL Est Cr Clr Drug Dosing 118.77 mL/min Estimated GFR (MDRD) > 60 (>60) mL/min BUN/Creatinine Ratio 35.7 H (14-18) Glucose 163 H (70-99) mg/dL POC Glucose 138 H (70-99) mg/dL Calcium 8.7 (8.5-10.1) mg/dL Total Bilirubin 0.5 (0.2-1.0) mg/dL AST 9 L (15-37) U/L ALT 44 (16-63) U/L Alkaline Phosphatase 45 L (46-116) U/L C-Reactive Protein < 0.2 (<1.0) mg/dL Total Protein 6.1 L (6.4-8.2) g/dl Albumin 2.6 L (3.4-5.0) g/dl Globulin 3.5 gm/dL Albumin/Globulin Ratio 0.7 L (1-2) Med Orders - Current: Current Medications Acetaminophen (Acetaminophen 325 Mg Tab) 650 mg PO Q4H PRN PRN Reason: Pain (Mild 1-3)/fever Last Admin: 06/12/21 10:29 Dose: 650 mg Documented by: Albuterol (Albuterol 6.7 Gm Inhaler) 0 gm INH Q2H PRN PRN Reason: sob/wheezing Last Admin: 06/27/21 07:41 Dose: 2 puff Documented by: Albuterol/Ipratropium (Albuterol/Ipratropium 3.0-0.5 Mg/3 Ml Neb Soln) 3 ml NEB Q4HRRT PRN PRN Reason: Shortness of Breath Last Admin: 06/26/21 20:14 Dose: 3 ml Documented by: Benzocaine/Menthol (Benzocaine/Cetylpyridinium/Menthol Lozenge) 1 lozenge MUCMEM Q2H PRN PRN Reason: Sore throat Last Admin: 06/26/21 21:09 Dose: 1 lozenge Documented by: Benzonatate (Benzonatate 100 Mg Cap) 100 mg PO Q8H PRN PRN Reason: Cough Calcium Carbonate/Glycine (Calcium Carbonate 500 Mg Tab.Chew) 1,000 mg PO Q2HR PRN PRN Reason: Heartburn Last Admin: 06/26/21 21:08 Dose: 1,000 mg Documented by: Cholecalciferol (Cholecalciferol (Vitamin D3) 5,000 Unit Cap) 5,000 unit PO DAILY [facility] Last Admin: 06/27/21 08:11 Dose: 5,000 unit Documented by: Docusate Sodium (Docusate Sodium 100 Mg Cap) 100 mg PO BID [facility] Last Admin: 06/27/21 08:09 Dose: Not Given Documented by: Enoxaparin Sodium (Enoxaparin 60 Mg/0.6 Ml Syringe) 60 mg SUBCUT Q12H [facility] Last Admin: 06/27/21 08:10 Dose: 60 mg Documented by: Famotidine (Famotidine 20 Mg Tab) 20 mg PO BID [facility] Last Admin: 06/27/21 08:11 Dose: 20 mg Documented by: Guaifenesin (Guaifenesin 600 Mg Tab.Er) 600 mg PO BID [facility] Last Admin: 06/27/21 08:11 Dose: 600 mg Documented by: Guaifenesin/Phenylephrine HCl (Guaifenesin/Dextromethorphan 100-10 Mg/5 Ml Soln 5 Ml Cup) 5 ml PO Q4H PRN PRN Reason: Cough Last Admin: 06/27/21 06:48 Dose: 5 ml Documented by: Insulin Human Lispro (Insulin Lispro 100 Unit/Ml 10 Ml Vial) 0 unit SUBCUT QIDACANDBED [facility]; Protocol Last Admin: 06/27/21 07:19 Dose: Not Given Documented by: Lisinopril (Lisinopril 20 Mg Tab) 40 mg PO DAILY [facility] Last Admin: 06/27/21 08:11 Dose: 40 mg Documented by: Lorazepam (Lorazepam 0.5 Mg Tab) 0.5 mg PO TID PRN PRN Reason: Anxiety Methocarbamol (Methocarbamol 500 Mg Tab) 1,000 mg PO Q6H PRN PRN Reason: Spasms Last Admin: 06/27/21 06:49 Dose: 1,000 mg Documented by: Methylprednisolone Sodium Succinate (Methylprednisolone Sodium Succinate 40 Mg/1 Ml Sdv) 40 mg IVPUSH DAILY [facility] Last Admin: 06/27/21 08:11 Dose: 40 mg Documented by: Miscellaneous Information (Remove Nicotine Patch) 1 ea TRDERM DAILY [facility] Last Admin: 06/27/21 08:09 Dose: 1 ea Documented by: Nicotine (Nicotine 14 Mg/24 Hr Patch) 14 mg TRDERM DAILY [facility] Last Admin: 06/27/21 08:08 Dose: 14 mg Documented by: Ondansetron HCl (Ondansetron 4 Mg/2 Ml Sdv) 4 mg IV Q4H PRN PRN Reason: Nausea/Vomiting Polyethylene Glycol (Polyethylene Glycol 3350 Powder 17 Gm Packet) 17 gm PO DAILY [facility] Last Admin: 06/27/21 08:09 Dose: Not Given Documented by: Rosuvastatin Calcium (Rosuvastatin 10 Mg Tab) 20 mg PO DAILY [facility] Last Admin: 06/27/21 08:11 Dose: 20 mg Documented by: Temazepam (Temazepam 15 Mg Cap) 15 mg PO BEDTIME PRN PRN Reason: Sleep Last Admin: 06/10/21 21:59 Dose: 15 mg Documented by: Zinc Sulfate (Zinc Sulfate 220 Mg Cap) 220 mg PO DAILY [facility] Last Admin: 06/27/21 08:11 Dose: 220 mg Documented by: Discontinued Medications Acetylcysteine (Acetylcysteine 20% 200 Mg/Ml 30 Ml Nebulizer Soln Sdv) 800 mg NEB ONETIME ONE Stop: 06/09/21 09:21 Last Admin: 06/09/21 11:40 Dose: Not Given Documented by: Acetylcysteine (Acetylcysteine 20% 200 Mg/Ml 4 Ml Nebulizer Soln Sdv) 800 mg NEB ONETIME ONE Stop: 06/09/21 09:46 Last Admin: 06/09/21 10:10 Dose: 800 mg Documented by: Acetylcysteine (Acetylcysteine 20% 200 Mg/Ml 4 Ml Nebulizer Soln Sdv) 200 mg NEB ONETIME ONE Stop: 06/13/21 13:31 Last Admin: 06/13/21 15:38 Dose: 200 mg Documented by: Albuterol/Ipratropium (Albuterol/Ipratropium 3.0-0.5 Mg/3 Ml Neb Soln) 3 ml NEB QIDRT PRN PRN Reason: Shortness Of Breath/wheezing Last Admin: 06/20/21 21:30 Dose: 3 ml Documented by: Dexamethasone (Dexamethasone 4 Mg Tab) 6 mg PO ONETIME ONE Stop: 06/07/21 19:48 Last Admin: 06/07/21 20:28 Dose: 6 mg Documented by: Dexamethasone (Dexamethasone 10 Mg/Ml Sdv) 6 mg IVPUSH DAILY [facility] Stop: 06/16/21 09:01 Last Admin: 06/12/21 11:19 Dose: 6 mg Documented by: Dexamethasone (Dexamethasone 4 Mg Tab) 6 mg PO DAILY [facility] Stop: 06/16/21 09:01 Last Admin: 06/16/21 08:46 Dose: 6 mg Documented by: Enoxaparin Sodium (Enoxaparin 40 Mg/0.4 Ml Syringe) 40 mg SUBCUT Q12H [facility] Last Admin: 06/12/21 23:34 Dose: 40 mg Documented by: Enoxaparin Sodium (Enoxaparin 40 Mg/0.4 Ml Syringe) 40 mg SUBCUT Q12H [facility] Last Admin: 06/18/21 08:20 Dose: 40 mg Documented by: Enoxaparin Sodium (Enoxaparin 60 Mg/0.6 Ml Syringe) 60 mg SUBCUT Q12H [facility] Enoxaparin Sodium (Enoxaparin 30 Mg/0.3 Ml Syringe) 20 mg SUBCUT ONETIME ONE Stop: 06/18/21 09:17 Last Admin: 06/18/21 10:25 Dose: Not Given Documented by: Enoxaparin Sodium (Enoxaparin 40 Mg/0.4 Ml Syringe) 20 mg SUBCUT ONETIME ONE Stop: 06/18/21 10:31 Last Admin: 06/18/21 10:26 Dose: 20 mg Documented by: Heparin Sodium (Porcine) (Heparin Sodium 5,000 Units/Ml Vial) 5,000 units SUBCUT Q8H [facility] Last Admin: 06/12/21 11:49 Dose: Not Given Documented by: Sodium Chloride (Normal Saline) 100 mls @ 60 mls/min IV ASDIRECTED [facility] Last Admin: 06/07/21 19:29 Dose: 60 mls/min Documented by: Remdesivir 200 mg/ Sodium (Chloride) 250 mls @ 250 mls/hr IV ONETIME ONE Stop: 06/07/21 20:38 Last Admin: 06/07/21 20:54 Dose: 250 mls/hr Documented by: Remdesivir 100 mg/ Sodium (Chloride) 100 mls @ 100 mls/hr IV Q24H [facility] Stop: 06/11/21 20:59 Last Admin: 06/11/21 20:39 Dose: 100 mls/hr Documented by: Ceftriaxone Sodium 2 gm/ (Sodium Chloride) 100 mls @ 200 mls/hr IV Q24H [facility] Last Admin: 06/12/21 10:10 Dose: 200 mls/hr Documented by: Azithromycin 500 mg/ Sodium (Chloride) 250 mls @ 250 mls/hr IV Q24H [facility] Last Admin: 06/12/21 10:11 Dose: 250 mls/hr Documented by: Sodium Chloride (Normal Saline) 100 mls @ 60 mls/hr IV ASDIRECTED [facility] Stop: 06/12/21 13:00 Last Admin: 06/12/21 11:28 Dose: 60 mls/hr Documented by: Ibuprofen (Ibuprofen 200 Mg Tab) 600 mg PO Q4HR PRN PRN Reason: Pain Ibuprofen (Ibuprofen 600 Mg Tab) 600 mg PO Q4HR PRN PRN Reason: Pain Iopamidol (Iopamidol 755 Mg/Ml 100 Ml Bottle) 100 ml IVPUSH ONETIME ONE Stop: 06/07/21 19:05 Last Admin: 06/07/21 19:29 Dose: 100 ml Documented by: Iopamidol (Iopamidol 755 Mg/Ml 100 Ml Bottle) 100 ml IVPUSH ONETIME ONE Stop: 06/12/21 11:04 Last Admin: 06/12/21 11:28 Dose: 100 ml Documented by: Lorazepam (Lorazepam 0.5 Mg Tab) 0.5 mg PO TID PRN PRN Reason: Anxiety Metformin HCl (Metformin 500 Mg Tab) 1,000 mg PO BID [facility] Last Admin: 06/10/21 09:49 Dose: 1,000 mg Documented by: Methylprednisolone Sodium Succinate (Methylprednisolone Sodium Succinate 40 Mg/1 Ml Sdv) 60 mg IVPUSH Q8H [facility] Last Admin: 06/21/21 15:18 Dose: Not Given Documented by: Methylprednisolone Sodium Succinate (Methylprednisolone Sodium Succinate 40 Mg/1 Ml Sdv) 60 mg IVPUSH Q12H [facility] Last Admin: 06/21/21 11:38 Dose: 60 mg Documented by: Methylprednisolone Sodium Succinate (Methylprednisolone Sodium Succinate 40 Mg/1 Ml Sdv) 60 mg IVPUSH Q12H [facility] Last Admin: 06/23/21 08:24 Dose: 60 mg Documented by: Methylprednisolone Sodium Succinate (Methylprednisolone Sodium Succinate 40 Mg/1 Ml Sdv) 40 mg IVPUSH Q12H [facility] Last Admin: 06/25/21 21:16 Dose: 40 mg Documented by: Morphine Sulfate (Morphine 2 Mg/Ml Syringe) 2 mg IVPUSH Q2H PRN PRN Reason: Pain (severe 7-10) Stop: 06/09/21 07:44 Jardiance ( Empagliflozin 10 Mg Tablet Ptom 0 mg PO DAILY [facility] Last Admin: 06/18/21 08:30 Dose: 10 mg Documented by: Sodium Chloride (Sodium Chloride 0.9% 10 Ml Sdv) 10 ml FLUSH ONETIME ONE Stop: 06/07/21 19:05 Last Admin: 06/07/21 19:29 Dose: 10 ml Documented by: Sodium Chloride (Sodium Chloride 0.9% 10 Ml Syringe) 10 ml FLUSH ONETIME ONE Stop: 06/12/21 11:04 Last Admin: 06/12/21 11:28 Dose: 10 ml Documented by: - Exam Quality Assessment: Supplemental Oxygen (3L), DVT Prophylaxis. No: Urine Catheter General: Alert, Oriented, Cooperative, No Acute Distress HEENT: Pupils Equal, Pupils Reactive, Mucous Membr. Moist/[place] Neck: Supple, Trachea Midline Lungs: Normal Respiratory Effort, Decreased Breath Sounds. No: Crackles, Rhonchi, Wheezing Cardiovascular: Regular Rate, Regular Rhythm GI/Abdominal Exam: Normal Bowel Sounds, Soft, Non-Tender, No Distention (Male) Exam: Deferred Back Exam: Normal Inspection, Full Range of Motion Extremities: Normal Inspection, Normal Range of Motion, Non-Tender, No Pedal Edema, Normal Capillary Refill Peripheral Pulses: 2+: Radial (L), Radial (R), Dorsalis Pedis (L), Dorsalis Pedis (R) Skin: Warm, Dry, Intact Neurological: No New Focal Deficit Psy/Mental Status: Alert, Normal Affect, Normal Mood - Patient Data Lab Results Last 24 hrs: Laboratory Results - last 24 hr 06/26/21 06/26/21 06/26/21 Range/Units 11:08 16:16 21:02 WBC (4.23-9.07) K/mm3 RBC (4.63-6.08) M/mm3 Hgb (13.7-17.5) gm/dl Hct (40.1-51.0) % MCV (79.0-92.2) fl MCH (25.7-32.2) pg MCHC (32.2-35.5) g/dl RDW Std Deviation (35.1-43.9) fL Plt Count (163-337) K/mm3 MPV (9.4-12.3) fl Neut % (Auto) (34.0-67.9) % Lymph % (Auto) (21.8-53.1) % Ada % (Auto) (5.3-12.2) % Eos % (Auto) (0.8-7.0) Baso % (Auto) (0.1-1.2) % Neut # (Auto) (1.78-5.38) K/mm3 Lymph # (Auto) (1.32-3.57) K/mm3 Ada # (Auto) (0.30-0.82) K/mm3 Eos # (Auto) (0.04-0.54) K/mm3 Baso # (Auto) (0.01-0.08) K/mm3 Sodium (136-145) mEq/L Potassium (3.5-5.1) mEq/L Chloride (98-107) mEq/L Carbon Dioxide (21-32) mEq/L Anion Gap (5-15) BUN (7-18) mg/dL Creatinine (0.7-1.3) mg/dL Est Cr Clr Drug Dosing mL/min Estimated GFR (MDRD) (>60) mL/min BUN/Creatinine Ratio (14-18) Glucose (70-99) mg/dL POC Glucose 315 H 293 H 182 H (70-99) mg/dL Calcium (8.5-10.1) mg/dL Total Bilirubin (0.2-1.0) mg/dL AST (15-37) U/L ALT (16-63) U/L Alkaline Phosphatase (46-116) U/L C-Reactive Protein (<1.0) mg/dL Total Protein (6.4-8.2) g/dl Albumin (3.4-5.0) g/dl Globulin gm/dL Albumin/Globulin Ratio (1-2) 06/27/21 06/27/21 06/27/21 Range/Units 05:09 05:09 06:54 WBC 13.37 H (4.23-9.07) K/mm3 RBC 5.19 (4.63-6.08) M/mm3 Hgb 14.9 (13.7-17.5) gm/dl Hct 46.0 (40.1-51.0) % MCV 88.6 (79.0-92.2) fl MCH 28.7 (25.7-32.2) pg MCHC 32.4 (32.2-35.5) g/dl RDW Std Deviation 47.2 H (35.1-43.9) fL Plt Count 244 (163-337) K/mm3 MPV 9.5 (9.4-12.3) fl Neut % (Auto) 69.4 H (34.0-67.9) % Lymph % (Auto) 19.6 L (21.8-53.1) % Ada % (Auto) 8.2 (5.3-12.2) % Eos % (Auto) 1.6 (0.8-7.0) Baso % (Auto) 0.1 (0.1-1.2) % Neut # (Auto) 9.27 H (1.78-5.38) K/mm3 Lymph # (Auto) 2.62 (1.32-3.57) K/mm3 Ada # (Auto) 1.10 H (0.30-0.82) K/mm3 Eos # (Auto) 0.21 (0.04-0.54) K/mm3 Baso # (Auto) 0.02 (0.01-0.08) K/mm3 Sodium 134 L (136-145) mEq/L Potassium 3.9 (3.5-5.1) mEq/L Chloride 99 (98-107) mEq/L Carbon Dioxide 27 (21-32) mEq/L Anion Gap 11.9 (5-15) BUN 25 H (7-18) mg/dL Creatinine 0.7 (0.7-1.3) mg/dL Est Cr Clr Drug Dosing 118.77 mL/min Estimated GFR (MDRD) > 60 (>60) mL/min BUN/Creatinine Ratio 35.7 H (14-18) Glucose 163 H (70-99) mg/dL POC Glucose 138 H (70-99) mg/dL Calcium 8.7 (8.5-10.1) mg/dL Total Bilirubin 0.5 (0.2-1.0) mg/dL AST 9 L (15-37) U/L ALT 44 (16-63) U/L Alkaline Phosphatase 45 L (46-116) U/L C-Reactive Protein < 0.2 (<1.0) mg/dL Total Protein 6.1 L (6.4-8.2) g/dl Albumin 2.6 L (3.4-5.0) g/dl Globulin 3.5 gm/dL Albumin/Globulin Ratio 0.7 L (1-2) Result Diagrams: 06/27/21 05:09 06/27/21 05:09 Sepsis Event Note - Evaluation Sepsis Screening Result: Sepsis Risk - Focused Exam Vital Signs: Vital Signs Temp Pulse Resp BP Pulse Ox Pulse Ox 06/27/21 08:11 116/68 06/27/21 07:41 92 L 06/27/21 06:50 97.7 F 88 18 116/68 89 L 06/27/21 06:13 94 L 06/27/21 06:08 91 L 06/27/21 06:06 96 06/27/21 04:12 97.9 F 71 20 101/70 96 06/26/21 21:13 97.9 F 104 H 18 119/67 91 L - Problem List & Annotations (1) Hyperlipidemia SNOMED Code(s): 61424680 Code(s): E78.5 - HYPERLIPIDEMIA, UNSPECIFIED Status: Chronic Priority: Low Current Visit: No Qualifiers: Hyperlipidemia type: unspecified Qualified Code(s): E78.5 - Hyperlipidemia, unspecified (2) HTN (hypertension) SNOMED Code(s): 08012666 Code(s): I10 - ESSENTIAL (PRIMARY) HYPERTENSION Status: Chronic Priority: Low Current Visit: No Qualifiers: Hypertension type: unspecified Qualified Code(s): I10 - Essential (primary) hypertension (3) Elevated d-dimer SNOMED Code(s): 032079417 Code(s): R79.89 - OTHER SPECIFIED ABNORMAL FINDINGS OF BLOOD CHEMISTRY Status: Acute Priority: High Current Visit: Yes (4) Elevated C-reactive protein SNOMED Code(s): 242320009053306 Code(s): R79.82 - ELEVATED C-REACTIVE PROTEIN (CRP) Status: Resolved Priority: High Current Visit: Yes (5) Leukocytosis SNOMED Code(s): 455438919, 521943331 Code(s): D72.829 - ELEVATED WHITE BLOOD CELL COUNT, UNSPECIFIED Status: Acute Priority: High Current Visit: Yes Qualifiers: Leukocytosis type: unspecified Qualified Code(s): D72.829 - Elevated white blood cell count, unspecified (6) Diabetes mellitus SNOMED Code(s): 71958905 Code(s): E11.9 - TYPE 2 DIABETES MELLITUS WITHOUT COMPLICATIONS Status: Chronic Priority: High Current Visit: Yes Qualifiers: Diabetes mellitus type: type 2 Diabetes mellitus intermediate project manager insulin use: without skilled nursing use Diabetes mellitus complication status: with other specified complication Qualified Code(s): E11.69 - Type 2 diabetes mellitus with other specified complication (7) Hypoxia SNOMED Code(s): 971448993 Code(s): R09.02 - HYPOXEMIA Status: Acute Priority: High Current Visit: Yes (8) Pneumonia due to COVID-19 virus SNOMED Code(s): 720214356208601613 Code(s): U07.1 - COVID-19; J12.82 - PNEUMONIA DUE TO CORONAVIRUS DISEASE 2019 Status: Acute Priority: High Current Visit: Yes (9) Smoker SNOMED Code(s): 72103847 Code(s): F17.200 - NICOTINE DEPENDENCE, UNSPECIFIED, UNCOMPLICATED Status: Chronic Priority: High Current Visit: Yes (10) Gout SNOMED Code(s): 28891882 Code(s): M10.9 - GOUT, UNSPECIFIED Status: Chronic Priority: Low Current Visit: No Qualifiers: Gout site: unspecified site Gout etiology: unspecified cause Chronicity: unspecified Qualified Code(s): M10.9 - Gout, unspecified (11) Vitamin D deficiency SNOMED Code(s): 64946133 Code(s): E55.9 - VITAMIN D DEFICIENCY, UNSPECIFIED Status: Acute Priority: Medium Current Visit: Yes (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 He currently is on 45 L with an FiO2 of 75%. Labs today show a WBC of 10.22. Hemoglobin 30.6. Platelet 269,000. Neutrophils elevated 75.1%. D-dimer is up to 3.85. Sodium 144. Potassium 3.8. Chloride 109. Carbon dioxide 25. Anion gap is 13.8. BUN is 14. Creatinine 0.7. GFR greater than 60. Blood glucose levels have been from 96-2 14. Phosphorus 3.5. Magnesium 1.9. Total bilirubin 0.3. AST is 30, ALT 37, alkaline phosphatase 52. CRP is 12.6. Protein 5.5. Albumin is down to 1.9. Given the patient's worsening oxygen demand and elevated D-dimer CTA is obtained showing 1. Bilateral pulmonary consolidation likely due to COVID-19. 2. Mediastinal adenopathy, most likely reactive. There are no signs of any pulmonary emboli. We will therefore increase patient's DVT prophylaxis up to 40 mg twice daily Lovenox. Patient will be started on 20 mg twice daily Pepcid and zinc supple mentation. Vitamin D level has been ordered. Patient will remain hospitalized pending improvement in oxygen demand. Unknown length of stay time. Overall he states he feels about the same as yesterday. Continues to have mild diarrhea at times and reports weakness. 06/13/2021 This is a 55-year-old male admitted to the hospital for COVID-19 pneumonia. He has been proning today and saturations are in the mid to low 90s while proning. He has been utilizing incentive spirometer and Acapella. He has been a little bit down today and reports he does not feel like he is getting much better. Overall his lung sounds have greatly improved. He remains on high flow 50 L wi th an FiO2 of 70%. Labs today show a WBC of 9.34. Hemoglobin 13.7. Platelet 357,000. Neutrophils are 76.4%. Sodium is 144. Potassium 3.5. Anion gap is 15.5. BUN 12. Creatinine 0.8.. GFR greater than 60. Glucose has been between 102 42. Magnesium 1.9. Bilirubin 0.4. AST is 27, ALT 41, alkaline phosphatase 58. CRP is improved to 10.7. Protein 6.1. Vitamin D obtained yesterday was lo w at 17.4 and we will start supplementation for vitamin D today. Albumin is improved to 2.1. We will continue treatment with unknown length of stay due to severity of COVID-19 symptoms. 06/14/2021 55-year-old male admitted to the hospital with hypoxia due to COVID-19 pneu monia. He is currently on 50 L of oxygen with 75% FiO2. States he has been proning as much as possible as well as using his I-S and Acapella. Has a very flat affect. Was upset on rounds this morning as he states he has not been getting his muscle relaxer with his morning pills. Labs today reveal a WBC of 13.29, hemoglobin 13.3, hematocrit 40.8, platelet count 395,000, D-dimer 3.19, sodium 144, potassium 3.8, chloride 108, anion gap 13.8, BUN 16, creatinine 0.7, GFR greater than 60, glucose has ranged from [id number], magnesium 1.9, C-reactive protein 5.3 continue with current treatment. Unknown length of stay due to the severity of Covid symptoms. 06/15/2021 This is a 55-year-old male admitted to the floor with COVID-19 pneumonia. He had worsening oxygen saturations and today was requiring 60 L of oxygen with an FiO2 of 95%. Because of this he was moved up to the ICU. He continues to utilize his incentive spirometry and Acapella and prone. We will continue dexamethasone and baricitinib. Respiratory therapy continues to work with him. Clinically he does not look to be in any acute respiratory distress. Labs today show WBC of 14.02. Hemoglobin 14.1. Platelet 4 and 26,000. Neutrophils are elevated 79.9%. Sodium 143. Potassium 3.8. Chloride 107. Carbon dioxide 27. Anion gap 12.8. BUN is 13. Creatinine 0.7. GFR greater than 60. Glucose is 97-93. Calcium is 8.5. Magnesium 1.8. Bilirubin 0.5. AST is 24, ALT 49, alkaline phosphatase 54. CRP is 5.9. Protein is 5.9 and albumin is 2.0. We will continue current treatment plan. Will increase to BiPAP if necessary. Unknown length of stay due to severity of COVID-19 symptoms. 06/16/2021 Patient improved overnight decreasing his high flow nasal cannula to 50 L and FiO2 of currently 80%. Continue with current treatment as outlined above. 06/17/2021 Pt is still requiring 55L of oxygen at 80% high flow nasal cannula. He is proning some. He is afebrile. 06/18/2021 56-year-old male admitted to the floor for COVID-19 pneumonia. Remains on high flow oxygen 50 L at 80% FiO2. He has been quite deconditioned from a respiratory standpoint and does take quite some time to recover after exertion. Overall states he is feeling quite a bit better. WBC is 12.40. Platelet 403,000. Neutrophils are elevated at 82.5%. D-dimer 6.36. Sodium 141. Potassium 4.1. Carbon dioxide 28. Anion gap 14.1. BUN is 18. Creatinine 0.8. GFR greater than 60. Glucose 130. We will start the patient on 60 mg twice daily Lovenox given his increasing D-dimer. This is 0.5 mg/kg. We will start the patient on 60 mg every 8 hour Solu-Medrol. He is to continue proning regularly and also utilizing his incentive spirometer and Acapella. Unknown length of stay due to severity of symptoms. Patient will remain in ICU status. 06/19/2021 56-year-old male hospitalized for COVID-19 pneumonia symptoms. He has been in the ICU for several days. We have finally been able to wean him down slightly on his high flow. He is 40 L with a FiO2 of 70% currently. Saturations have been in the upper 80s to low 90s. He has continued to take quite some time to recover after exertion. He has been proning quite regularly. Otherwise says he feels okay. He has been having some back pain and is receiving a skeletal muscle relaxant for this. WBC is elevated at 15.76. He platelet 448,000. Neutrophils are elevated at 91.6. D-dimer has improved to 2.84. Sodium 139. Potassium 4.5. Chloride 104. Carbon oxide 25. Anion gap is 14.5. BUN is 19. Creatinine 0.7. GFR greater than 60. Glucose 186. Magnesium is 2.1. CRP is 4.6. Bilirubin 0.4. AST 14, ALT 34, alkaline phosphatase 49. Albumin is 2.5. Protein 6.9. We will continue current treatment plan. As he has improved with his high flow settings we will downgrade him to MedSurg status with telemetry today. Continue current treatment plan. Patient will remain hospitalized and likely require several more days. 06/20/2021 56-year-old male hospitalized with COVID-19 pneumonia. He was downgraded out of the ICU yesterday to the floor with telemetry. We have been decreasing his high flow settings however this morning he noted acute dyspnea and was noted to have decreased saturations so his high flow was increased to 50 L with FiO2 of 75%. This has been quite common for him that in the mornings he has an episode like this and does recover throughout the day. Overall he states he feels okay. He did prone most of the night overnight. He is utilizing his incentive spirometry and Acapella. We will continue to try to wean him off of high flow. He remains on 60 mg every 8 hour Solu-Medrol we will look at decreasing this in the future. Otherwise he is doing okay. He has no acute complaints. No labs were drawn today and we will recheck tomorrow. Unknown length of stay due to severity of COVID-19 symptoms. 06/21/2021 This is a 56-year-old male who remains admitted to the hospital for treatment of his COVID-19 pneumonia. He has completed dexamethasone and remdesivir. He will complete baricitinib today. He remains on high flow 50 L with an FiO2 of 60%. Overnight he did require more FiO2 and he is recovered from this. Saturations remain in the upper 80s to low 90s. Labs were not obtained today as patient has been relatively stable from a lab standpoint. We will consider rechecking those on Friday. He continues to prone and utilize his incentive spirometer and Acapella. Chest x-ray obtained yesterday shows significant worsening COVID-19 pneumonia. We will decrease his steroid today from 60 mg every 8 to 60 mg twice daily. 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 Patient continues slow improvements. Unknown length of stay due to severity of symptoms. 06/22/2021: This is a 56-year-old male admitted to the hospital floor continuing treatment of COVID-19 pneumonia. He has completed dexamethasone, remdesivir, and baricitinib. He remains on Solu-Medrol 60 mg every 12 hours although plan is to decrease this slowly. Patient is currently requiring 35 L of 50% FiO2. RT continues to wean high flow with the hope of transitioning to a nasal cannula within the next 12 to 24 hours. Patient reports he feels pretty good but he continues to have cough and dyspnea on exertion. We will continue current treatment plan. No labs were obtained today as patient is otherwise been quite stable. Unknown length of stay due to severity of symptoms. Goal oxygen demand prior to discharge would be 2 L or less via nasal cannula. 06/23/2021 56-year-old male with COVID-19 pneumonia. He has completed dexamethasone, remdesivir, and baricitinib. He remains on Solu-Medrol which we are weaning. Patient was just switched to 6 L nasal cannula and RT continues to work aggressively with him. 06/24/2021 55yom with pmh of DM type 2, hypertension, and hyperlipidemia presenting to the emergency department after being sent from [facility]. He was diagnosed as Covid positive on Friday (06/05) which is the day his symptoms began. This morning patient was fine. But this afternoon he has more shortness of breath. Denies fever, chills, nausea, or vomiting. He still has a cough but is improved. He has completed dexamethasone, remdesivir, and baricitinib. He remains on Solu-Medrol which we are weaning. 06/25/2021 55-year-old male who tested Covid positive on 06/05/2021 and has been in our facility since 06/07/2021. Patient continues to have decreased lung sounds with bibasilar crackles. He completed dexamethasone, remdesivir, and baricitinib. He is on a Solu-Medrol taper. He was on nasal cannula over the weekend for a day but then was noted to have difficulty breathing and ended up back on high flow. Today he is on oxy mask at 12 L. WBC is 12.22. Hemoglobin 15.3. Platelet 240,000. Sodium 135. Potassium 4.2. Chloride 104. Carbon dioxide 24. Anion gap 14.2. BUN is 28. Creatinine 0.8. GFR greater than 60. Blood glucose readings have been stable at 1 62-3 02. Phosphorus is 4.9. Bilirubin 0.4. AST is 15, ALT 54, alkaline phosphatase 46. CRP is less than 0.2. Albumin is 2.6. Protein is 6.2. Unknown length of stay due to severity of symptoms. Patient will remain hospitalized until able to tolerate nasal cannula. 06/26/2021 This is a 55-year-old male admitted to our facility for COVID-19 pneumonia treatment. Lung sounds continue to be decreased although patient's oxygenation has improved. He tolerated nasal cannula throughout the night and he was on 6 L this morning. He is currently up to 8 L but he is going to ambulate out in the hallway now as he has been removed from airborne and contact precautions. Labs today show a WBC of 15.12. Platelet 251,000. Neutrophils are elevated at 87.1%. Sodium is 133. Potassium 4.8. Chloride 99. Carbon dioxide 25. Anion gap is 13.8. BUN is 23. Creatinine 0.8. GFR greater than 60. Glucose has been 3 40-1 82. Bilirubin 0.4. AST is 8, ALT is 56, alkaline phosphatase 45. CRP is less than 0.2. Albumin is 2.8. Protein is 6.5. Patient is reporting some sore throat with coughing and some blood-tinged sputum when he coughs hard. We will add a Cepacol lozenge as needed for this. His steroid taper has been decreased to 40 mg IV push daily we will continue to wean this. Length of stay will continue to depend on how quickly he improves and is able to tolerate nasal cannula. Hopeful for discharge this week. 06/27/2021 A 56-year-old male admitted to the floor for COVID-19 pneumonia treatment. Overall patient has continued to do quite well. He is down to 3 L of oxygen with saturations in the upper 80s and low 90s. He has been ambulating work with therapies were recommending outpatient PT. He is somewhat deconditioned overall due to his lengthy stay. Today WBC is 13.37. Hemoglobin 14.9. Platelet 244,000. Neutrophils are elevated at 69.4%. Sodium is 134. Potassium 3.9. Chloride 99. Carbon dioxide 27. Anion gap 11.9. BUN is 25. Creatinine 0.7. GFR greater than 60. Blood glucose has been between 293 and 138. Total bilirubin 0.5. AST is 9, ALT 44, alkaline phosphatase 45. CRP is less than 0.2. Albumin is 2.6. Protein 6.1. Patient has been on a nasal cannula for the past 24 hours and has been tolerating this quite well. Plan will be to qualify patient for home oxygen tomorrow with anticipated discharge pending continued stability. Patient remains off of isolation and has had a family visit. - Plan Plan:: Pneumonia due to COVID-19 virus Leukocytosis Elevated D-Dimer Hypoxia * Pulse ox * Continue oxygen therapy, high flow and BiPAP as needed to keep oxygen saturation greater than 92% COVID-19 Long Hauler * O2 as needed with goal saturations 88 to 95% * High flow oxygen, switch to nasal cannula * Continue Lovenox 60 mg twice daily due to elevated D-dimer * I-S/Acapella * PRN albuterol inhaler * PRN Duonebs * Prone whenever able * Ambulate * Solumedrol 40mg daily (continue titration) * RT consultation * PT/OT * Discontinue airborne/contact isolation as patient has completed * Telemetry * Continuous pulse oximetry * Zinc supplementation * 20 mg twice daily Pepcid * Completed remdesivir, azithromycin, rocephin, Baricitinib and dexamethasone * Scheduled Mucinex twice daily * CT angio chest on June 12 -negative for PE Morbid obesity * Lifestyle modifications. Hyperlipidemia * Continue home rosuvastatin * No acute concern HTN (hypertension) * Continue home lisinopril * No acute concerns Diabetes mellitus * Continue home Jardiance * QID AC and bedtime blood glucose checks * Medium dose sliding scale insulin * Hold home metformin * Diabetic diet Tobacco abuse * Nicotine patch daily * Cessation counseling * Offer nicotine patches at discharge Gout * No acute concerns * No chronic home gout medications * Monitor Vitamin D deficiency * Begin 5,000 unit vitamin D supplementation * PCP to follow-up Code status: Full code PCP: Dr. Rubio DVT prophylaxis: BID Lovenox as above Disposition: Discharge pending improvement in oxygenation. Goal 2-4L on NC. Likely discharge tomorrow pending continued stability. Length of stay greater than 96 hours due to continued need for COVID-19 treatment.
[2021-06-27] MEDS ORDERED: Polyethylene Glycol 3350 Powder 17 GM Packet PO PRN (10:58)
[2021-06-27] MEDS ORDERED: Docusate Sodium 100 MG Cap PO PRN (10:58)
[2021-06-27] MEDS: Albuterol/Ipratropium 3.0-0.5 MG/3 ML Neb Soln NEB PRN (14:47)
[2021-06-27] MEDS: Benzocaine/Cetylpyridinium/Menthol Lozenge MUCMEM PRN (20:54)
[2021-06-27] MEDS: Calcium Carbonate 500 MG Tab.Chew PO PRN (20:54)
[2021-06-28] MEDS: guaiFENesin/Dextromethorphan 100-10 MG/5 ML Soln 5 ML Cup PO PRN ×2 (01:17→06:25)
[2021-06-28] MEDS: Benzocaine/Cetylpyridinium/Menthol Lozenge MUCMEM PRN ×2 (01:17→06:25)
[2021-06-28] MEDS: Methocarbamol 500 MG Tab PO PRN (06:25)
[2021-06-28] MEDS: Insulin Lispro 100 UNIT/ML 10 ML Vial SUBCUT SCH ×2 (06:48→11:57)
[2021-06-28] MEDS ORDERED: Enoxaparin 40 MG/0.4 ML Syringe SUBCUT SCH (09:00)
[2021-06-28] MEDS ORDERED: Apixaban 5 MG Tab PO SCH (09:00)
[2021-06-28] MEDS: Albuterol 6.7 GM Inhaler INH PRN ×2 (09:11→13:50)
[2021-06-28] MEDS: Albuterol/Ipratropium 3.0-0.5 MG/3 ML Neb Soln NEB PRN (09:48)
--- NOTE | 2021-06-28 09:57 | PCM.DCSUM1 ---
Discharge Summary - Hospital Course HPI Initial Comments: 55yom with pmh of DM type 2, hypertension, and hyperlipidemia presenting to the emergency department after being sent from [facility]. He was diagnosed as Covid positive on Friday which is the day his symptoms began. Reports that he felt like he was getting better and then over the last few days has gotten worse again reports shortness of breath and severe cough as well as fatigue. He has had no nausea, vomiting, or diarrhea, but states that foods taste metallic. He denies any known fever chills sick contacts or recent travel. He was evaluated in the clinic, he was found to be hypoxic. He was sent to this emergency department on oxygen. On arrival to ER, he was 79% on room air. Diagnosis: Stroke: No - Discharge Data Discharge Date: 06/28/21 (Admit date: 06/07/2021) Discharge Disposition: Home, Self-Care 01 Condition: Good - Referral to Home Health Primary Care Physician: Rick Rubio MD - Discharge Diagnosis/Problem(s) (1) Hyperlipidemia SNOMED Code(s): 19418677 ICD Code: E78.5 - HYPERLIPIDEMIA, UNSPECIFIED Status: Chronic Priority: Low Current Visit: No Qualifiers: Hyperlipidemia type: unspecified Qualified Code(s): E78.5 - Hyperlipidemia, unspecified (2) HTN (hypertension) SNOMED Code(s): 91723674 ICD Code: I10 - ESSENTIAL (PRIMARY) HYPERTENSION Status: Chronic Priority: Low Current Visit: No Qualifiers: Hypertension type: unspecified Qualified Code(s): I10 - Essential (primary) hypertension (3) Elevated d-dimer SNOMED Code(s): 255394930 ICD Code: R79.89 - OTHER SPECIFIED ABNORMAL FINDINGS OF BLOOD CHEMISTRY Status: Acute Priority: High Current Visit: Yes (4) Elevated C-reactive protein SNOMED Code(s): 637927901790878 ICD Code: R79.82 - ELEVATED C-REACTIVE PROTEIN (CRP) Status: Resolved Priority: High Current Visit: Yes (5) Leukocytosis SNOMED Code(s): 951051153, 122983592 ICD Code: D72.829 - ELEVATED WHITE BLOOD CELL COUNT, UNSPECIFIED Status: Acute Priority: High Current Visit: Yes Qualifiers: Leukocytosis type: unspecified Qualified Code(s): D72.829 - Elevated white blood cell count, unspecified (6) Diabetes mellitus SNOMED Code(s): 58703912 ICD Code: E11.9 - TYPE 2 DIABETES MELLITUS WITHOUT COMPLICATIONS Status: Chronic Priority: High Current Visit: Yes Qualifiers: Diabetes mellitus type: type 2 Diabetes mellitus remote computer terminal operator insulin use: without remote computer terminal operator use Diabetes mellitus complication status: with other specified complication Qualified Code(s): E11.69 - Type 2 diabetes mellitus with other specified complication (7) Hypoxia SNOMED Code(s): 947978593 ICD Code: R09.02 - HYPOXEMIA Status: Acute Priority: High Current Visit: Yes (8) Pneumonia due to COVID-19 virus SNOMED Code(s): 446714763915281157 ICD Code: U07.1 - COVID-19; J12.82 - PNEUMONIA DUE TO CORONAVIRUS DISEASE 2019 Status: Acute Priority: High Current Visit: Yes (9) Smoker SNOMED Code(s): 58459840 ICD Code: F17.200 - NICOTINE DEPENDENCE, UNSPECIFIED, UNCOMPLICATED Status: Chronic Priority: High Current Visit: Yes (10) Gout SNOMED Code(s): 05080907 ICD Code: M10.9 - GOUT, UNSPECIFIED Status: Chronic Priority: Low Current Visit: No Qualifiers: Gout site: unspecified site Gout etiology: unspecified cause Chronicity: unspecified Qualified Code(s): M10.9 - Gout, unspecified (11) Vitamin D deficiency SNOMED Code(s): 97372051 ICD Code: E55.9 - VITAMIN D DEFICIENCY, UNSPECIFIED Status: Acute Priority: Medium Current Visit: Yes (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 * Patient discharged on 3 L of oxygen continuously and 6 L with activity. Please monitor this. * Patient is directed to take his pulse oximetry reading twice a day and record this in a journal. Please review this journal. * Patient prescribed steroid taper at discharge. * Patient noted to have elevated D-dimer throughout his stay. He will be discharged on 5 mg twice daily Eliquis. Please review this as he will likely not need this long-term. * Patient is a smoker and has been on a nicotine patch while here. He will be prescribed 14 mg nicotine patches at discharge. Please review this and continue nicotine patch taper. * Recommend outpatient PFT once symptoms resolved. Consider outpatient sleep study once symptoms resolve. * Patient prescribed PRN albuterol MDI and scheduled 3 times daily DuoNeb via nebulizer system. Please review this with patient and see if more is needed. * Hospital Course: This is a 55-year-old male who presented to our ED on 06/07/2021 after being seen at [facility] for worsening Covid symptoms. He reports symptoms began on 06/05/2021 and that is the same day he tested positive. He states since that time symptoms have been getting worse he was subsequently mid to the floor for COVID-19 pneumonia treatment. His respiratory status did rapidly decline and he was requiring high flow oxygen. At his worst he was requiring 60 L with an FiO2 of 95%. Patient was utilizing his incentive spirometry and Acapella. He was proning, although he did start quite slow using these. He has been able to be weaned down to 3 L of oxygen continuously and 6 L with activity. He has been having episodes in the morning where he does desaturate. We generally give him a breathing treatment and increase his oxygen momentarily and he does respond well to this. Today his saturations have been in the low 90s on 3 L. Throughout his stay his D-dimer was noted to be elevated as high as 6.36 on 06/18 and prior to discharge it was 1.12. Due to this he will be started on Eliquis 5 mg twice daily at discharge. He was receiving Lovenox while here. Labs have overall remained stable. He did complete dexamethasone, remdesivir, baricitinib, Rocephin, and azithromycin treatment. Multiple CT angiograms were obtained and were negative for PE. Throughout his stay he was noted to upgrade to ICU due to severity of symptoms but he did downgrade shortly thereafter. After completing dexamethasone treatment he was restarted on Solu-Medrol 60 mg 3 times daily and this has been weaned to 40 mg daily prior to discharge. He will be discharged on a steroid taper of 40 mg for 3 days, 30 mg for 3 days, 20 mg for 3 days, and then 10 mg for 3 days. He was started on zinc supplementation. His vitamin D was low and this was supplemented as well. He should follow-up with his primary care provider regarding this. He will be discharged on a as needed albuterol MDI and 3 times daily DuoNebs utilizing a nebulizer. He is a diabetic and his home diabetic meds were continued at discharge. He is a smoker and he will be prescribed 14 mg daily nicotine patches at discharge. He was advised he needs to quit smoking due to the severity of damage to his lungs. Instructed to continue to utilize his incentive spirometer and Acapella. He was instructed to check his pulse oximetry reading twice a day and record this in a journal, bring this with to all medical appointments. Overall he is doing quite well. Physical therapy and occupational therapy did evaluate him and recommend outpatient physical therapy. He was encouraged to follow-up on this. He completed his isolation while here and will not require isolation/quarantine after discharge. Recommend follow-up with primary care provider within 5 to 7 days of discharge, sooner if needed. Recommend repeat CBC, CMP, magnesium, and consider repeat chest x-ray in follow-up. Once symptoms resolve patient may benefit from a PFT test and also outpatient sleep study. He was discharged home today. - Patient Instructions Diet: Diabetic Diet Activity: As Tolerated Driving: Do Not Drive (Until feeling better ) Showering/Bathing: May Shower Notify Provider of: Fever, Increased Pain, Nausea and/or Vomiting Other/Special Instructions: Follow-up with primary care provider within 5 to 7 days of discharge, sooner if needed. Recommend outpatient physical therapy. You completed your COVID-19 quarantine/isolation while here and you will not ne ed to do this at home. Continue to prone (lay on your belly) whenever possible. Continue to utilize your incentive spirometer (clear/blue device you inhale through) and Acapella (green tube you blow through) for 1 to 2 weeks or until symptoms resolve. Take it easy. Listen to your body. Stay active but if you start to feel tired take a break. You should wear your oxygen at all times. Wear 3 L continuously and increase this to 6 L with activity. You may take [id number] cough medicine as needed. You were also sent a prescription for some prescription cough medicine. You were sent a as needed albuterol inhaler for shortness of breath and wheezing. You may take 2 puffs every 3 hours as directed. Covid increases your risk of blood clots and some of your labs indicated you are still at high risk. Because of this you were started on a blood thinner called Eliquis. You should take one 5 mg tablet twice a day. You will likely not need to be on this long-term and your primary care provider can discuss this with you. Your vitamin D was low here and you were started on a supplementation for this. You may discuss this with your primary care provider in the future as they will need to recheck your labs. He was started on zinc supplementation. Some studies have indicated this may help with COVID- 19 pneumonia. You may discuss with your primary care provider whether or not to continue this. You are on a steroid here you were prescribed a steroid taper at discharge. You should take four 10 mg tablets starting tomorrow, 06/29/2021. You should continue this dosing for 3 days and then switch to three 10 mg tablets for 3 days. After that you should take two 10 mg tablets for 3 days and then finally one 10 mg tablet for 3 days, completing treatment. You were given nicotine patches at discharge. You should apply this once a day as directed. It is very important that you stop smoking. If you were to start smoking again you would likely from the severity of your lung damage. You are also given contact information for services such as [facility] and the [facility] tobacco cessation program. They have counseling and other services available. They also have free resources such as nicotine patches. You were given a medication called DuoNeb which will take through a nebulizer machine. Take this 3 times a day as directed. Resume home medications as directed. You indicated that you do have a pulse oximetry device at home echo was on your finger. Check this twice a day and recorded in a journal. Bring this with to all medical appointments. Should symptoms return or worsen contact your primary care provider or return to the emergency room. - Discharge Plan *PRESCRIPTION DRUG MONITORING PROGRAM REVIEWED*: No *COPY OF PRESCRIPTION DRUG MONITORING REPORT IN PATIENT BARI: No Prescriptions/Med Rec: Albuterol/Ipratropium [DuoNeb 3.0-0.5 MG/3 ML] 3 ml NEB TID #20 ml Apixaban [Eliquis] 5 mg PO BID #40 tablet Nicotine [Habitrol] 14 mg TRDERM DAILY #40 patch predniSONE [Prednisone] See Taper PO DAILY #30 tablet Albuterol [Proventil HFA] 2 puff INH Q2H PRN #1 inhaler PRN Reason: sob/wheezing Dextromethorphan/guaiFENesin [Robitussin DM] 5 ml PO Q4H PRN #20 cup PRN Reason: Cough Cholecalciferol (Vitamin D3) [Vitamin D3] 5,000 unit PO DAILY #20 cap Zinc Sulfate [Zincate] 220 mg PO DAILY #20 cap Tobacco Cessation Medication: Prescription Given Home Medications: Home Meds Empagliflozin [Jardiance] 10 mg PO DAILY 05/31/21 [History] Rosuvastatin Calcium 20 mg PO DAILY 05/31/21 [History] lisinopriL [Lisinopril] 40 mg PO DAILY 05/31/21 [History] metFORMIN [Glucophage] 1,000 mg PO BID 05/31/21 [History] Ibuprofen 600 mg PO Q4HR PRN 06/08/21 [History] LORazepam [Ativan] 0.5 mg PO TID PRN 06/11/21 [History] Albuterol [Proventil HFA] 2 puff INH Q2H PRN #1 inhaler 06/28/21 [Rx] Albuterol/Ipratropium [DuoNeb 3.0-0.5 MG/3 ML] 3 ml NEB TID #20 ml 06/28/21 [Rx] Apixaban [Eliquis] 5 mg PO BID #40 tablet 06/28/21 [Rx] Cholecalciferol (Vitamin D3) [Vitamin D3] 5,000 unit PO DAILY #20 cap 06/28/21 [Rx] Dextromethorphan/guaiFENesin [Robitussin DM] 5 ml PO Q4H PRN #20 cup 06/28/21 [Rx] Nicotine [Habitrol] 14 mg TRDERM DAILY #40 patch 06/28/21 [Rx] Zinc Sulfate [Zincate] 220 mg PO DAILY #20 cap 06/28/21 [Rx] predniSONE [Prednisone] See Taper PO DAILY #30 tablet 06/28/21 [Rx] Oxygen Therapy Mode: Nasal Cannula Oxygen Flow Rate (L/min): 3 (3L at all times, 6L with activity) Patient Handouts: COVID-19 Frequently Asked Questions, 10 Things You Can Do to Manage Your COVID-19 Symptoms at Home - [facility] (04/20/2021), Home Oxygen Use, Adult, Steps to Quit Smoking Forms: ED Department Discharge Referrals: Rick Rubio MD [Primary Care Provider] - 07/04/21 4:30 pm (Please arrive 15 minute early to check in.) - Discharge Summary/Plan Comment DC Time >30 min.: Yes Total # of Minutes for Discharge Time: 45 - General Info Date of Service: 06/28/21 Admission Dx/Problem (Free Text: Admission Diagnosis/Problem Admission Diagnosis/Problem Hypoxia Covid 19 pneumonia with hypoxia Functional Status: Reports: Pain Controlled, Tolerating Diet, Ambulating, Urinating, Incentive Spirometry, Other (acapella ). Denies: New Symptoms - Review of Systems General: Reports: Weakness (improving ). Denies: Fever, Fatigue, Malaise, Chills HEENT: Reports: No Symptoms. Denies: Headaches, Sore Throat Pulmonary: Reports: Shortness of Breath, Cough (minimal ). Denies: Pleuritic Chest Pain, Sputum, Wheezing Cardiovascular: Reports: No Symptoms, Chest Pain, Dyspnea on Exertion. Denies: Palpitations, Edema Gastrointestinal: Reports: No Symptoms. Denies: Abdominal Pain, Constipation, Diarrhea, Nausea, Vomiting Genitourinary: Reports: No Symptoms. Denies: Pain Musculoskeletal: Reports: No Symptoms Skin: Reports: No Symptoms. Denies: Cyanosis Neurological: Reports: No Symptoms. Denies: Confusion, Dizziness, Headache, Numbness, Pre-Existing Deficit, Seizure, Syncope, Tingling, Difficulty Walking, Gait Disturbance Psychiatric: Reports: No Symptoms - Patient Data Vitals - Most Recent: Last Vital Signs Temp 97.9 F 06/28/21 06:26 Pulse 68 06/28/21 06:26 Resp 18 06/28/21 06:26 BP 118/84 06/28/21 06:26 Pulse Ox 92 L 06/28/21 09:11 Weight - Most Recent: 253 lb 12.8 oz I&O - Last 24 hours: Intake & Output 06/27/21 06/28/21 06/28/21 22:59 06:59 14:59 Intake Total 1560 1600 Balance 1560 1600 Lab Results - Last 24 hrs: Laboratory Results - last 24 hr 06/27/21 06/27/21 06/27/21 Range/Units 11:02 16:23 20:47 WBC (4.23-9.07) K/mm3 RBC (4.63-6.08) M/mm3 Hgb (13.7-17.5) gm/dl Hct (40.1-51.0) % MCV (79.0-92.2) fl MCH (25.7-32.2) pg MCHC (32.2-35.5) g/dl RDW Std Deviation (35.1-43.9) fL Plt Count (163-337) K/mm3 MPV (9.4-12.3) fl Neut % (Auto) (34.0-67.9) % Lymph % (Auto) (21.8-53.1) % [place] % (Auto) (5.3-12.2) % Eos % (Auto) (0.8-7.0) Baso % (Auto) (0.1-1.2) % Neut # (Auto) (1.78-5.38) K/mm3 Lymph # (Auto) (1.32-3.57) K/mm3 [place] # (Auto) (0.30-0.82) K/mm3 Eos # (Auto) (0.04-0.54) K/mm3 Baso # (Auto) (0.01-0.08) K/mm3 D-Dimer, Quantitative (0.19-0.50) mg/L Sodium (136-145) mEq/L Potassium (3.5-5.1) mEq/L Chloride (98-107) mEq/L Carbon Dioxide (21-32) mEq/L Anion Gap (5-15) BUN (7-18) mg/dL Creatinine (0.7-1.3) mg/dL Est Cr Clr Drug Dosing mL/min Estimated GFR (MDRD) (>60) mL/min BUN/Creatinine Ratio (14-18) Glucose (70-99) mg/dL POC Glucose 248 H 281 H 239 H (70-99) mg/dL Calcium (8.5-10.1) mg/dL Total Bilirubin (0.2-1.0) mg/dL AST (15-37) U/L ALT (16-63) U/L Alkaline Phosphatase (46-116) U/L C-Reactive Protein (<1.0) mg/dL Total Protein (6.4-8.2) g/dl Albumin (3.4-5.0) g/dl Globulin gm/dL Albumin/Globulin Ratio (1-2) 06/28/21 06/28/21 06/28/21 Range/Units 04:59 04:59 04:59 WBC 12.51 H (4.23-9.07) K/mm3 RBC 5.27 (4.63-6.08) M/mm3 Hgb 15.0 (13.7-17.5) gm/dl Hct 46.9 (40.1-51.0) % MCV 89.0 (79.0-92.2) fl MCH 28.5 (25.7-32.2) pg MCHC 32.0 L (32.2-35.5) g/dl RDW Std Deviation 47.9 H (35.1-43.9) fL Plt Count 193 (163-337) K/mm3 MPV 9.7 (9.4-12.3) fl Neut % (Auto) 67.1 (34.0-67.9) % Lymph % (Auto) 20.5 L (21.8-53.1) % [place] % (Auto) 8.4 (5.3-12.2) % Eos % (Auto) 2.0 (0.8-7.0) Baso % (Auto) 0.1 (0.1-1.2) % Neut # (Auto) 8.39 H (1.78-5.38) K/mm3 Lymph # (Auto) 2.57 (1.32-3.57) K/mm3 [place] # (Auto) 1.05 H (0.30-0.82) K/mm3 Eos # (Auto) 0.25 (0.04-0.54) K/mm3 Baso # (Auto) 0.01 (0.01-0.08) K/mm3 D-Dimer, Quantitative 1.12 H (0.19-0.50) mg/L Sodium 139 (136-145) mEq/L Potassium 4.1 (3.5-5.1) mEq/L Chloride 104 (98-107) mEq/L Carbon Dioxide 25 (21-32) mEq/L Anion Gap 14.1 (5-15) BUN 25 H (7-18) mg/dL Creatinine 0.8 (0.7-1.3) mg/dL Est Cr Clr Drug Dosing 103.92 mL/min Estimated GFR (MDRD) > 60 (>60) mL/min BUN/Creatinine Ratio 31.3 H (14-18) Glucose 154 H (70-99) mg/dL POC Glucose (70-99) mg/dL Calcium 8.5 (8.5-10.1) mg/dL Total Bilirubin 0.4 (0.2-1.0) mg/dL AST 10 L (15-37) U/L ALT 49 (16-63) U/L Alkaline Phosphatase 41 L (46-116) U/L C-Reactive Protein <0.2 (<1.0) mg/dL Total Protein 6.0 L (6.4-8.2) g/dl Albumin 2.7 L (3.4-5.0) g/dl Globulin 3.3 gm/dL Albumin/Globulin Ratio 0.8 L (1-2) 06/28/21 Range/Units 06:29 WBC (4.23-9.07) K/mm3 RBC (4.63-6.08) M/mm3 Hgb (13.7-17.5) gm/dl Hct (40.1-51.0) % MCV (79.0-92.2) fl MCH (25.7-32.2) pg MCHC (32.2-35.5) g/dl RDW Std Deviation (35.1-43.9) fL Plt Count (163-337) K/mm3 MPV (9.4-12.3) fl Neut % (Auto) (34.0-67.9) % Lymph % (Auto) (21.8-53.1) % [place] % (Auto) (5.3-12.2) % Eos % (Auto) (0.8-7.0) Baso % (Auto) (0.1-1.2) % Neut # (Auto) (1.78-5.38) K/mm3 Lymph # (Auto) (1.32-3.57) K/mm3 [place] # (Auto) (0.30-0.82) K/mm3 Eos # (Auto) (0.04-0.54) K/mm3 Baso # (Auto) (0.01-0.08) K/mm3 D-Dimer, Quantitative (0.19-0.50) mg/L Sodium (136-145) mEq/L Potassium (3.5-5.1) mEq/L Chloride (98-107) mEq/L Carbon Dioxide (21-32) mEq/L Anion Gap (5-15) BUN (7-18) mg/dL Creatinine (0.7-1.3) mg/dL Est Cr Clr Drug Dosing mL/min Estimated GFR (MDRD) (>60) mL/min BUN/Creatinine Ratio (14-18) Glucose (70-99) mg/dL POC Glucose 138 H (70-99) mg/dL Calcium (8.5-10.1) mg/dL Total Bilirubin (0.2-1.0) mg/dL AST (15-37) U/L ALT (16-63) U/L Alkaline Phosphatase (46-116) U/L C-Reactive Protein (<1.0) mg/dL Total Protein (6.4-8.2) g/dl Albumin (3.4-5.0) g/dl Globulin gm/dL Albumin/Globulin Ratio (1-2) Med Orders - Current: Current Medications Acetaminophen (Acetaminophen 325 Mg Tab) 650 mg PO Q4H PRN PRN Reason: Pain (Mild 1-3)/fever Last Admin: 06/12/21 10:29 Dose: 650 mg Documented by: Albuterol (Albuterol 6.7 Gm Inhaler) 0 gm INH Q2H PRN PRN Reason: sob/wheezing Last Admin: 06/28/21 09:11 Dose: 2 puff Documented by: Albuterol/Ipratropium (Albuterol/Ipratropium 3.0-0.5 Mg/3 Ml Neb Soln) 3 ml NEB Q4HRRT PRN PRN Reason: Shortness of Breath Last Admin: 06/28/21 09:48 Dose: 3 ml Documented by: Apixaban (Apixaban 5 Mg Tab) 5 mg PO BID [facility] Benzocaine/Menthol (Benzocaine/Cetylpyridinium/Menthol Lozenge) 1 lozenge MUCMEM Q2H PRN PRN Reason: Sore throat Last Admin: 06/28/21 06:25 Dose: 1 lozenge Documented by: Benzonatate (Benzonatate 100 Mg Cap) 100 mg PO Q8H PRN PRN Reason: Cough Calcium Carbonate/Glycine (Calcium Carbonate 500 Mg Tab.Chew) 1,000 mg PO Q2HR PRN PRN Reason: Heartburn Last Admin: 06/27/21 20:54 Dose: 1,000 mg Documented by: Cholecalciferol (Cholecalciferol (Vitamin D3) 5,000 Unit Cap) 5,000 unit PO DAILY [facility] Last Admin: 06/27/21 08:11 Dose: 5,000 unit Documented by: Docusate Sodium (Docusate Sodium 100 Mg Cap) 100 mg PO BID PRN PRN Reason: Constipation Famotidine (Famotidine 20 Mg Tab) 20 mg PO BID [facility] Last Admin: 06/27/21 20:55 Dose: 20 mg Documented by: Guaifenesin (Guaifenesin 600 Mg Tab.Er) 600 mg PO BID [facility] Last Admin: 06/27/21 20:54 Dose: 600 mg Documented by: Guaifenesin/Phenylephrine HCl (Guaifenesin/Dextromethorphan 100-10 Mg/5 Ml Soln 5 Ml Cup) 5 ml PO Q4H PRN PRN Reason: Cough Last Admin: 06/28/21 06:25 Dose: 5 ml Documented by: Insulin Human Lispro (Insulin Lispro 100 Unit/Ml 10 Ml Vial) 0 unit SUBCUT QIDACANDBED [facility]; Protocol Last Admin: 06/28/21 06:48 Dose: Not Given Documented by: Lisinopril (Lisinopril 20 Mg Tab) 40 mg PO DAILY [facility] Last Admin: 06/27/21 08:11 Dose: 40 mg Documented by: Lorazepam (Lorazepam 0.5 Mg Tab) 0.5 mg PO TID PRN PRN Reason: Anxiety Methocarbamol (Methocarbamol 500 Mg Tab) 1,000 mg PO Q6H PRN PRN Reason: Spasms Last Admin: 06/28/21 06:25 Dose: 1,000 mg Documented by: Methylprednisolone Sodium Succinate (Methylprednisolone Sodium Succinate 40 Mg/1 Ml Sdv) 40 mg IVPUSH DAILY [facility] Last Admin: 06/27/21 08:11 Dose: 40 mg Documented by: Miscellaneous Information (Remove Nicotine Patch) 1 ea TRDERM DAILY [facility] Last Admin: 06/27/21 08:09 Dose: 1 ea Documented by: Nicotine (Nicotine 14 Mg/24 Hr Patch) 14 mg TRDERM DAILY [facility] Last Admin: 06/27/21 08:08 Dose: 14 mg Documented by: Ondansetron HCl (Ondansetron 4 Mg/2 Ml Sdv) 4 mg IV Q4H PRN PRN Reason: Nausea/Vomiting Polyethylene Glycol (Polyethylene Glycol 3350 Powder 17 Gm Packet) 17 gm PO DAILY PRN PRN Reason: Constipation Rosuvastatin Calcium (Rosuvastatin 10 Mg Tab) 20 mg PO DAILY [facility] Last Admin: 06/27/21 08:11 Dose: 20 mg Documented by: Temazepam (Temazepam 15 Mg Cap) 15 mg PO BEDTIME PRN PRN Reason: Sleep Last Admin: 06/10/21 21:59 Dose: 15 mg Documented by: Zinc Sulfate (Zinc Sulfate 220 Mg Cap) 220 mg PO DAILY [facility] Last Admin: 06/27/21 08:11 Dose: 220 mg Documented by: Discontinued Medications Acetylcysteine (Acetylcysteine 20% 200 Mg/Ml 30 Ml Nebulizer Soln Sdv) 800 mg NEB ONETIME ONE Stop: 06/09/21 09:21 Last Admin: 06/09/21 11:40 Dose: Not Given Documented by: Acetylcysteine (Acetylcysteine 20% 200 Mg/Ml 4 Ml Nebulizer Soln Sdv) 800 mg NEB ONETIME ONE Stop: 06/09/21 09:46 Last Admin: 06/09/21 10:10 Dose: 800 mg Documented by: Acetylcysteine (Acetylcysteine 20% 200 Mg/Ml 4 Ml Nebulizer Soln Sdv) 200 mg NEB ONETIME ONE Stop: 06/13/21 13:31 Last Admin: 06/13/21 15:38 Dose: 200 mg Documented by: Albuterol/Ipratropium (Albuterol/Ipratropium 3.0-0.5 Mg/3 Ml Neb Soln) 3 ml NEB QIDRT PRN PRN Reason: Shortness Of Breath/wheezing Last Admin: 06/20/21 21:30 Dose: 3 ml Documented by: Dexamethasone (Dexamethasone 4 Mg Tab) 6 mg PO ONETIME ONE Stop: 06/07/21 19:48 Last Admin: 06/07/21 20:28 Dose: 6 mg Documented by: Dexamethasone (Dexamethasone 10 Mg/Ml Sdv) 6 mg IVPUSH DAILY [facility] Stop: 06/16/21 09:01 Last Admin: 06/12/21 11:19 Dose: 6 mg Documented by: Dexamethasone (Dexamethasone 4 Mg Tab) 6 mg PO DAILY [facility] Stop: 06/16/21 09:01 Last Admin: 06/16/21 08:46 Dose: 6 mg Documented by: Docusate Sodium (Docusate Sodium 100 Mg Cap) 100 mg PO BID [facility] Last Admin: 06/27/21 08:09 Dose: Not Given Documented by: Enoxaparin Sodium (Enoxaparin 40 Mg/0.4 Ml Syringe) 40 mg SUBCUT Q12H [facility] Last Admin: 06/12/21 23:34 Dose: 40 mg Documented by: Enoxaparin Sodium (Enoxaparin 40 Mg/0.4 Ml Syringe) 40 mg SUBCUT Q12H [facility] Last Admin: 06/18/21 08:20 Dose: 40 mg Documented by: Enoxaparin Sodium (Enoxaparin 60 Mg/0.6 Ml Syringe) 60 mg SUBCUT Q12H [facility] Enoxaparin Sodium (Enoxaparin 30 Mg/0.3 Ml Syringe) 20 mg SUBCUT ONETIME ONE Stop: 06/18/21 09:17 Last Admin: 06/18/21 10:25 Dose: Not Given Documented by: Enoxaparin Sodium (Enoxaparin 60 Mg/0.6 Ml Syringe) 60 mg SUBCUT Q12H [facility] Last Admin: 06/27/21 08:10 Dose: 60 mg Documented by: Enoxaparin Sodium (Enoxaparin 40 Mg/0.4 Ml Syringe) 20 mg SUBCUT ONETIME ONE Stop: 06/18/21 10:31 Last Admin: 06/18/21 10:26 Dose: 20 mg Documented by: Enoxaparin Sodium (Enoxaparin 40 Mg/0.4 Ml Syringe) 40 mg SUBCUT DAILY [facility] Heparin Sodium (Porcine) (Heparin Sodium 5,000 Units/Ml Vial) 5,000 units SUBCUT Q8H [facility] Last Admin: 06/12/21 11:49 Dose: Not Given Documented by: Sodium Chloride (Normal Saline) 100 mls @ 60 mls/min IV ASDIRECTED [facility] Last Admin: 06/07/21 19:29 Dose: 60 mls/min Documented by: Remdesivir 200 mg/ Sodium (Chloride) 250 mls @ 250 mls/hr IV ONETIME ONE Stop: 06/07/21 20:38 Last Admin: 06/07/21 20:54 Dose: 250 mls/hr Documented by: Remdesivir 100 mg/ Sodium (Chloride) 100 mls @ 100 mls/hr IV Q24H [facility] Stop: 06/11/21 20:59 Last Admin: 06/11/21 20:39 Dose: 100 mls/hr Documented by: Ceftriaxone Sodium 2 gm/ (Sodium Chloride) 100 mls @ 200 mls/hr IV Q24H [facility] Last Admin: 06/12/21 10:10 Dose: 200 mls/hr Documented by: Azithromycin 500 mg/ Sodium (Chloride) 250 mls @ 250 mls/hr IV Q24H [facility] Last Admin: 06/12/21 10:11 Dose: 250 mls/hr Documented by: Sodium Chloride (Normal Saline) 100 mls @ 60 mls/hr IV ASDIRECTED [facility] Stop: 06/12/21 13:00 Last Admin: 06/12/21 11:28 Dose: 60 mls/hr Documented by: Ibuprofen (Ibuprofen 200 Mg Tab) 600 mg PO Q4HR PRN PRN Reason: Pain Ibuprofen (Ibuprofen 600 Mg Tab) 600 mg PO Q4HR PRN PRN Reason: Pain Iopamidol (Iopamidol 755 Mg/Ml 100 Ml Bottle) 100 ml IVPUSH ONETIME ONE Stop: 06/07/21 19:05 Last Admin: 06/07/21 19:29 Dose: 100 ml Documented by: Iopamidol (Iopamidol 755 Mg/Ml 100 Ml Bottle) 100 ml IVPUSH ONETIME ONE Stop: 06/12/21 11:04 Last Admin: 06/12/21 11:28 Dose: 100 ml Documented by: Lorazepam (Lorazepam 0.5 Mg Tab) 0.5 mg PO TID PRN PRN Reason: Anxiety Metformin HCl (Metformin 500 Mg Tab) 1,000 mg PO BID [facility] Last Admin: 06/10/21 09:49 Dose: 1,000 mg Documented by: Methylprednisolone Sodium Succinate (Methylprednisolone Sodium Succinate 40 Mg/1 Ml Sdv) 60 mg IVPUSH Q8H [facility] Last Admin: 06/21/21 15:18 Dose: Not Given Documented by: Methylprednisolone Sodium Succinate (Methylprednisolone Sodium Succinate 40 Mg/1 Ml Sdv) 60 mg IVPUSH Q12H [facility] Last Admin: 06/21/21 11:38 Dose: 60 mg Documented by: Methylprednisolone Sodium Succinate (Methylprednisolone Sodium Succinate 40 Mg/1 Ml Sdv) 60 mg IVPUSH Q12H [facility] Last Admin: 06/23/21 08:24 Dose: 60 mg Documented by: Methylprednisolone Sodium Succinate (Methylprednisolone Sodium Succinate 40 Mg/1 Ml Sdv) 40 mg IVPUSH Q12H [facility] Last Admin: 06/25/21 21:16 Dose: 40 mg Documented by: Morphine Sulfate (Morphine 2 Mg/Ml Syringe) 2 mg IVPUSH Q2H PRN PRN Reason: Pain (severe 7-10) Stop: 06/09/21 07:44 Jardiance ( Empagliflozin 10 Mg Tablet Ptom 0 mg PO DAILY [facility] Last Admin: 06/18/21 08:30 Dose: 10 mg Documented by: Polyethylene Glycol (Polyethylene Glycol 3350 Powder 17 Gm Packet) 17 gm PO DAILY [facility] Last Admin: 06/27/21 08:09 Dose: Not Given Documented by: Sodium Chloride (Sodium Chloride 0.9% 10 Ml Sdv) 10 ml FLUSH ONETIME ONE Stop: 06/07/21 19:05 Last Admin: 06/07/21 19:29 Dose: 10 ml Documented by: Sodium Chloride (Sodium Chloride 0.9% 10 Ml Syringe) 10 ml FLUSH ONETIME ONE Stop: 06/12/21 11:04 Last Admin: 06/12/21 11:28 Dose: 10 ml Documented by: - Exam Quality Assessment: Reports: Supplemental Oxygen (3L), DVT Prophylaxis. Denies: Urine Catheter General: Reports: Alert, Oriented, Cooperative, No Acute Distress HEENT: Reports: Pupils Equal, Pupils Reactive, Mucous Membr. Moist/[place] Neck: Reports: Supple, Trachea Midline Lungs: Reports: Normal Respiratory Effort, Decreased Breath Sounds. Denies: Crackles, Wheezing Cardiovascular: Reports: Regular Rate, Regular Rhythm GI/Abdominal Exam: Normal Bowel Sounds, Soft, Non-Tender, No Distention, No Abnormal Bruit (Male) Exam: Deferred Rectal (Males) Exam: Deferred Back Exam: Reports: Normal Inspection, Full Range of Motion Extremities: Normal Inspection, Normal Range of Motion, Non-Tender, No Pedal Edema, Normal Capillary Refill Skin: Reports: Warm, Dry, Intact Neurological: Reports: No New Focal Deficit Psy/Mental Status: Reports: Alert, Normal Affect, Normal Mood
[2021-06-28] MEDS: Rosuvastatin 10 MG Tab PO SCH (10:38)
[2021-06-28] MEDS: Zinc Sulfate 220 MG Cap PO SCH (10:38)
[2021-06-28] MEDS: Cholecalciferol (Vitamin D3) 5,000 UNIT Cap PO SCH (10:39)
[2021-06-28] MEDS: guaiFENesin 600 MG Tab.ER PO SCH (10:39)
[2021-06-28] MEDS: Famotidine 20 MG Tab PO SCH (10:39)
[2021-06-28] MEDS: Lisinopril 20 MG Tab PO SCH (10:39)
[2021-06-28] MEDS: methylPREDNISolone Sodium Succinate 40 MG/1 ML SDV IVPUSH SCH (10:41)
[2021-06-28] MEDS: Empagliflozin 10 MG Tab PO SCH (10:41)
[2021-06-28] MEDS: Nicotine 14 MG/24 Hr Patch TRDERM SCH (10:42)
[2021-06-28 11:10] VITALS: BP 107/62
[2021-06-28 14:11] VITALS: PULSE 98
== END 2021-06-28 15:10 | disposition home or self-care (01) | DRG 137 ==
LOC: JD.ED 17:14 → JD.MS 20:52 → JD.ICU 06-15 11:09 → JD.MS 06-19 14:32
PROVIDERS: ADMIT Internal Medicine; ATTEND Internal Medicine
PROC: XW033E5 Introduction of Remdesivir Anti-infective into Peripheral Vein, Percutaneous Approach, New Technology Group 5 (ICD-10-PCS; principal; 2021-06-07)
PROC: 3E0333Z Introduction of Anti-inflammatory into Peripheral Vein, Percutaneous Approach (ICD-10-PCS; 2021-06-07)
PROC: XW0DXM6 Introduction of Baricitinib into Mouth and Pharynx, External Approach, New Technology Group 6 (ICD-10-PCS; 2021-06-07)
PROC: 5A0955A Assistance with Respiratory Ventilation, Greater than 96 Consecutive Hours, High Flow/Velocity Cannula (ICD-10-PCS; 2021-06-07)
DX: U07.1 COVID-19 (principal); E11.9 Type 2 diabetes mellitus without complications; I10 Essential (primary) hypertension; E78.5 Hyperlipidemia, unspecified; R79.89 Other specified abnormal findings of blood chemistry; R79.82 Elevated C-reactive protein (CRP); D72.829 Elevated white blood cell count, unspecified; J12.82 Pneumonia due to coronavirus disease 2019; F17.210 Nicotine dependence, cigarettes, uncomplicated; M10.9 Gout, unspecified; E55.9 Vitamin D deficiency, unspecified; H54.7 Unspecified visual loss; M19.90 Unspecified osteoarthritis, unspecified site; G89.29 Other chronic pain; M54.9 Dorsalgia, unspecified; Z96.612 Presence of left artificial shoulder joint; J96.01 Acute respiratory failure with hypoxia; E66.01 Morbid (severe) obesity due to excess calories; R59.0 Localized enlarged lymph nodes; Z79.01 Long term (current) use of anticoagulants; Z79.899 Other long term (current) drug therapy; Z79.52 Long term (current) use of systemic steroids; Z86.16 Personal history of COVID-19
CPT/HCPCS: 36415; 36600; 71045; 71045-26; 71275; 71275-26; 80048; 80053; 80076; 82306; 82803; 82947; 83036; 83605; 83615; 83735; 83880; 84100; 84145; 84484; 85025; 85027; 85379; 86140; 87070; 87205; 93005; 93010; 94640; 94667; 94668; 94762; 97110-GP; 97116-GP; 97140-GP; 97162-GP; 97530-GP; 99284; 99285-25; A9270-GY; J0456; J0696; J1100; J1644; J1650; J1815-GY; J2920; J7050; J7620-GY; J8540; Q9967

== ENCOUNTER 2023-02-22 16:00 | Emergency (ER) | payer OTHER, BC ==
[2023-02-22] MEDS ORDERED: HYDROmorphone 1 MG/ML Syringe IVPUSH STA (16:34)
[2023-02-22] MEDS ORDERED: Sodium Chloride 0.9% 10 ML Syringe FLUSH PRN (16:34)
[2023-02-22 16:41] LABS: BASOPHILS ABSOLUTE AUTO 0.03 K/mm3 (0.01-0.08); BASOPHILS PERCENT AUTO 0.3 % (0.1-1.2); EOSINOPHILS ABSOLUTE AUTO 0.14 K/mm3 (0.04-0.54); EOSINOPHILS PERCENT AUTO 1.3 (0.8-7.0); IMMATURE GRAN ABSOLUTE AUTO 0.02 K/mm3 (0.00-0.10); IMMATURE GRAN PERCENT AUTO 0.2 % (<=1.0); LYMPHOCYTES ABSOLUTE AUTO 2.69 K/mm3 (1.32-3.57); LYMPHOCYTES PERCENT AUTO 24.5 % (21.8-53.1); MEAN CORPUSCULAR HEMOGLOBIN 29.1 pg (25.7-32.2); MEAN CORPUSCULAR HGB CONC 33.3 g/dl (32.2-35.5); MEAN CORPUSCULAR VOLUME 87.4 fl (79.0-92.2); MONOCYTES PERCENT AUTO 9.1 % (5.3-12.2); NEUTROPHILS ABSOLUTE AUTO 7.12 K/mm3 (1.78-5.38); NEUTROPHILS PERCENT AUTO 64.6 % (34.0-67.9); PLATELET COUNT,PLT 339 K/mm3 (163-337); RED BLOOD CELL COUNT 5.49 M/mm3 (4.63-6.08)
[2023-02-22 16:53] LABS: A/G RATIO 1.3 (1-2); ANION GAP 16.8 (5-15); BILIRUBIN TOTAL 0.4 mg/dL (0.2-1.0); BUN/CREATININE RATIO 19.1 (14-18); CREATININE 1.1 mg/dL (0.7-1.3); EST CRCL DRUG DOSING (CG) 74.66 mL/min; POTASSIUM,K 3.8 mEq/L (3.5-5.1); PROTEIN TOTAL,TP 7.2 g/dl (6.4-8.2)
[2023-02-22] MEDS ORDERED: ceFAZolin 2 GM in Sodium Chloride 0.9% 50 ML IV ONE (17:13)
[2023-02-22] MEDS ORDERED: Lidocaine 1% 10 ML MDV INJECT ONE (17:35)
[2023-02-22] MEDS ORDERED: Bupivacaine 0.5% 10 ML SDV INJECT ONE (17:36)
[2023-02-22 21:22] VITALS: BP 140/80; PULSE 78
== END 2023-02-22 20:00 | disposition home or self-care (01) ==
LOC: JD.ED 16:00
DX: S92.425B Nondisplaced fracture of distal phalanx of left great toe, initial encounter for open fracture (principal); E11.9 Type 2 diabetes mellitus without complications; I10 Essential (primary) hypertension; M19.90 Unspecified osteoarthritis, unspecified site; Z86.16 Personal history of COVID-19; Z79.82 Long term (current) use of aspirin; Z79.899 Other long term (current) drug therapy; Z79.84 Long term (current) use of oral hypoglycemic drugs; W20.8XXA Other cause of strike by thrown, projected or falling object, initial encounter
CPT/HCPCS: 12002; 36415; 73630; 80053; 85025; 96365; 96375; 99283; J0690; J1170; J3490; 99284